=== PATIENT | male | born 1955 | race Caucasian/White ===

== ENCOUNTER → 2024-07-07 09:53 | Outpatient (BNVA) | payer OTHER, SELFPAY | PROVIDERS: Visit Provider Podiatrist Foot & Ankle Surgery | DX: M79.671 Pain in right foot (principal); M25.571 Pain in right ankle and joints of right foot | CPT/HCPCS: 73610; 73630; 99204 ==

== ENCOUNTER → 2024-10-13 10:22 | Outpatient (BNVA) | payer OTHER, SELFPAY | PROVIDERS: PCP Nurse Practitioner; Visit Provider Podiatrist Foot & Ankle Surgery | DX: M25.571 Pain in right ankle and joints of right foot (principal); G89.29 Other chronic pain; M19.071 Primary osteoarthritis, right ankle and foot | CPT/HCPCS: 99213 ==

== ENCOUNTER → 2025-01-05 09:55 | Outpatient (BNVA) | payer OTHER, SELFPAY | PROVIDERS: PCP Nurse Practitioner; Visit Provider Surgery | DX: K21.9 Gastro-esophageal reflux disease without esophagitis (principal) | CPT/HCPCS: 99204 ==

== ENCOUNTER 2025-01-06 10:00 | Outpatient (CLI) | payer OTHER, SELFPAY ==
--- NOTE | 2025-01-06 10:06 | FL_ITS ---
WS: [id number] FL barium swallow modifd 98528 REASON FOR EXAM: Other dysphagia FLUOROSCOPY TIME: 2min [id number] # OF SPOT FILMS: 0 TECHNIQUE: Examination was supervised by the speech therapy department. Patient was examined in the sitting upright lateral projection. The swallowing of multiple consistencies of barium was monitored fluoroscopically and video recorded. FINDINGS: There was no contrast penetration of the laryngeal vestibule and no aspiration. There was some impedance of the barium tablet in the thoracic esophagus which appeared to be due to mild dysmotility. No fixed obstruction noted. FL/FL barium swallow modifd 53584 IMPRESSION: A detailed report of the swallowing will be rendered by the speech therapy depa rtment. No laryngeal vestibule penetration or aspiration. Mild dysmotility of the thoracic esophagus.
== END 2025-01-06 10:01 | disposition home or self-care (01) ==
LOC: RAD 10:01
PROVIDERS: PCP Nurse Practitioner; Visit Provider Family Medicine
DX: K22.4 Dyskinesia of esophagus (principal); R13.19 Other dysphagia
CPT/HCPCS: 74230; 92611

== ENCOUNTER 2025-01-20 06:20 | Day surgery (SDC) | payer OTHER, SELFPAY ==
[2025-01-20 06:39] VITALS: BP 164/89; PULSE 90; RESP 18; TEMP 36.4; O2SAT 96; BMI 27.8
--- NOTE | 2025-01-20 07:03 | W.PM.OPSUD ---
Surgery/Procedure H&P Update DATE OF PROCEDURE: January 20, 2025 DATE H&P PERFORMED: 01/05/25 H&P UPDATE INFORMATION: I have reviewed H&P completed within last 30 days, I have examined patient prior to procedure, No changes to prior documentation, Changes to prior documentation as noted here and Risks and benefits of the procedure reviewed PLANNED PROCEDURE: Operation Date: 01/20/25 07:40 Proposed Procedures p EGD Dilation W/ Balloon 84475, R13.10(Not Applicable) - Selvin Montgomery MD
--- NOTE | 2025-01-20 07:09 | ANES.PREANE2 ---
Pre-Anesthetic Assessment Height/Weight: Height 1.8 m Weight 90.718 kg Temp Pulse Resp BP Pulse Ox O2 Del Method 97.5 F L 90 18 164/89 96 Room Air 01/20/25 06:39 01/20/25 06:39 01/20/25 06:39 01/20/25 06:39 01/20/25 06:39 01/20/25 06:39 Preop Diagnosis: dysphagia Operation Date: 01/20/25 07:40 Proposed Procedures p EGD Dilation W/ Balloon 78577, R13.10(Not Applicable) - Selvin Montgomery MD Was Beta Chente taken within 24 hours: Yes Was Clonidine taken within 24 hours: Yes Last intake: Intake Last Liquid Date 01/19/25 Last Liquid Time 21:30 Last Solid Date 01/19/25 Last Solid Time 18:30 Social Tobacco 1 PPD pack(s) per day 52 years pack years Exam alert, oriented x 3, clear to auscultation bilaterally and regular rate & rhythm Airway Submandibular: within normal limits Cervical ROM: within normal limits Mallampati: Class II Comments: Comments: intact History/ROS No significant history except as noted Pulmonary Chronic Obstructive Pulmonary Disease, Exertional Dyspnea, Sleep Apnea and Shortness of Breath CV/HEM Coronary Artery Disease, Hypertension and Peripheral Vascular Disease denies RI or cp. None reported Hepatic None reported GI None reported Metabolic Diabetes Mellitus (DM 2) and Morbid Obesity Musc/skel Osteoarthritis/DJD Neuropsych Cerebrovascular Accident (2 years ago - no residual) denies neuropathy Anesthetic Plan ASA status: 3 Anesthesia: MAC Risk of > 500 ml blood loss (7ml/kg in children): No Medications/Allergies Home Medications ?Medication ?Instructions ?Recorded ?Confirmed ?Last Taken ?Type [facility] AFO #1 ea 07/07/24 01/20/25 01/19/25 Rx clopidogrel 75 mg tablet (Plavix) 75 mg PO DAILY 07/07/24 01/20/25 01/14/25 History lisinopril 10 mg tablet 10 mg PO DAILY 07/07/24 01/20/25 01/19/25 History rocker bottom shoes #1 ea 07/07/24 01/20/25 01/19/25 Rx sitagliptin phosphate 25 mg tablet 25 mg PO DAILY 07/07/24 01/20/25 01/19/25 History (Januvia) bupropion HCl 150 mg 24 hr tablet, 150 mg PO QAM 10/13/24 01/20/25 01/19/25 History extended release (Wellbutrin XL) doxazosin 8 mg tablet (Cardura) 8 mg PO DAILY 10/13/24 01/20/25 01/19/25 History meloxicam 15 mg tablet 15 mg PO DAILY 10/13/24 01/20/25 01/19/25 History omeprazole 20 mg capsule,delayed 20 mg PO DAILY 10/13/24 01/20/25 01/19/25 History release famotidine 40 mg tablet 40 mg PO DAILY 01/05/25 01/20/25 01/19/25 History glimepiride 1 mg tablet 1 mg PO DAILY 01/05/25 01/20/25 01/19/25 History Allergies Allergy/AdvReac Type Severity Reaction Status Date / Time No Known Allergies Allergy Verified 01/17/25 11:14 Current Medications Generic Name Dose Route Start Last Admin Trade Name Freq PRN Reason Stop Dose Admin Sodium Chloride 1,000 mls @ 15 mls/hr 01/20/25 06:28 01/20/25 06:57 Sodium Chloride 0.9% IV 01/21/25 06:27 15 mls/hr .Q24H PRN Administration COLONOSCOPY FLUIDS PFSH Anesthesia Social History Smoking and tobacco/nicotine status: never used tobacco/nicotine Alcohol intake: never Substance/Drug Use: never
[2025-01-20 07:55] VITALS: BP 118/6; PULSE 79; RESP 10; TEMP 36.6; O2SAT 100
[2025-01-20 08:29] VITALS: BP 135/71; PULSE 86; RESP 16; O2SAT 97
== END 2025-01-20 08:41 | disposition home or self-care (01) ==
PROVIDERS: PCP Nurse Practitioner; Visit Provider Surgery
DX: K21.9 Gastro-esophageal reflux disease without esophagitis (principal); R13.10 Dysphagia, unspecified; J44.9 Chronic obstructive pulmonary disease, unspecified; I25.10 Atherosclerotic heart disease of native coronary artery without angina pectoris; I10 Essential (primary) hypertension; I73.9 Peripheral vascular disease, unspecified; E11.9 Type 2 diabetes mellitus without complications; E66.01 Morbid (severe) obesity due to excess calories; Z68.27 Body mass index [BMI] 27.0-27.9, adult; Z86.73 Personal history of transient ischemic attack (TIA), and cerebral infarction without residual deficits; G47.30 Sleep apnea, unspecified
CPT/HCPCS: 36416; 43239; 82962; 88305; J2704; J3010; J3490; J7030

== ENCOUNTER → 2025-02-15 09:25 | Outpatient (BNVA) | payer OTHER, SELFPAY | PROVIDERS: PCP Nurse Practitioner; Visit Provider Surgery | DX: Z09 Encounter for follow-up examination after completed treatment for conditions other than malignant neoplasm (principal) | CPT/HCPCS: 99213 ==

== ENCOUNTER 2025-02-20 10:22 | Emergency (ER) | payer OTHER, SELFPAY ==
--- OUTSIDE RECORDS SUMMARY | 2023-12-16 17:48 | XMS_ITS | Continuity of Care Document ---
Author Name [facility] Organization [facility] Care Team Providers Care Lithograph Press Feeder Name Role Phone [facility] Unavailable Unavailable Problems Problem Status Onset Date Classification Date Reported Comments Source Acute low back pain Active 03/05/2023 03/06/2023 65 [facility] [place] Low back pain Active 02/27/2023 02/28/2023 65 [facility] [employer] [place] Diarrhea Active 02/27/2023 02/28/2023 65 [facility] [place] Acute back pain with sciatica Active 02/27/2023 02/28/2023 65 [facility] [employer] [place] Transient cerebral ischemic attack, unsp Active 07/23/2022 [facility] [place] Type 2 diabetes mellitus without complic Active 07/23/2022 [facility] [place] Essential (primary) hypertension Active 07/23/2022 [facility] [employer] [place] Nicotine dependence, unspecified, uncomp Active 07/23/2022 [employer] [place] Type 2 diabetes mellitus with hyperglyce Active 07/23/2022 [facility] [employer] [place] Tachycardia, unspecified Active 07/23/2022 [facility] [place] Tachypnea, not elsewhere classified Active 07/23/2022 [facility] [place] Metabolic encephalopathy Active 07/23/2022 [facility] [employer] [place] Other disorders of electrolyte and fluid Active 07/23/2022 [facility] [employer] [place] Dehydration Active 07/23/2022 [facility] Transient ischemic attack (TIA) Active 07/23/2022 07/26/2022 65 [facility] [employer] [place] Encounter for medical screening examination Active 03/06/2022 03/07/2022 65 [facility] [employer] [place] Brain TIA Active 06/26/2021 06/29/2021 65 [employer] [place] Chest pressure Active 06/26/2021 06/29/2021 65 [facility] [employer] [place] Facial cellulitis Active 12/30/2020 12/31/2020 65 [facility] [employer] [place] Corneal abrasion, left 12/05/2019 12/06/2019 65 [facility] Eye pain 12/05/2019 12/06/2019 65 [facility] Diabetes(Confirmed) Active 03/08/2022 A H [place] - Cardiovascula r,[facility] Hypertension(Confir med) Active 03/08/2022 AH [place] - Cardiovascula [facility] BMI 30+ - obesity Active 04/12/2023 65 [facility] Diabetes Active 12/13/2023 65 [facility] Hypertension Active 12/13/[address] [facility] Lumbar stenosis with neurogenic claudication Active 12/13/2023 65 [facility] BMI 25-29 - overweight Active 12/13/2023 65 [facility] Lumbar radiculitis Active 12/13/2023 65 [facility] S/P lumbar laminectomy Active 12/13/2023 65 [facility] Medications Medication Details Route Status Patient Instructions Ordering Provider Order Date Source acetaminophen-H YDROcodone 325 mg-10 mg oral tablet 1 Tab, ORAL, Q4H, PRN Pain-Moderate (Scale 4-6), # 42 Tab, 0 Refill(s), Maintenance, [facility]acy: [id number], 180.34, cm, 07/14/23 14:12:00 PST, Height/Length (cm), 87.2, kg, 07/14/23 14:12:00 PST, Dose calculation weight (kg) Active 65 [facility] docusate sodium 100 mg oral capsule = 1 Cap, ORAL, BID, 0 Refill(s), Maintenance Active 65 [facility] MiraLax 17 gm, ORAL, DAILY, 0 Refill(s), Maintenance Active 65 [facility] tiZANidine 2 mg oral tablet See Instructions, 1-2 Tab ORAL Q8H PRN Muscle spasms, # 30 Tab, 0 Refill(s), Maintenance, [facility]: [id number], 180.34, cm, 06/30/23 8:42:00 PST, Height/Length (cm), 90.71, kg, 06/30/23 8:42:00 PST, Dose calculation weight (kg) Active [facility] scopolamine 1 mg/72 hr transdermal film, extended release 1 Patch, TOP, [id number], Apply behind ear night befor surgery, # 1 Patch, 0 Refill(s), Maintenance, [facility]: [facility] #[id number], 180.34, cm, 06/30/23 8:42:00 PST, Height/Length (cm), 90.71, kg, 06/30/23 8:42:00 PST, Dose calculation weight (kg) Active [facility] glimepiride 2 mg oral tablet 0 Refill(s), Maintenance Active [facility] empagliflozin 0.5 mg, DAILY, 0 Refill(s), Maintenance Active 65 [facility] gabapentin 300 mg oral capsule = 1 Cap, ORAL, TID, # 90 Cap, 0 Refill(s), Maintenance, [facility]acy: [facility] #[id number], 177.72, cm, 03/12/23 9:54:00 PDT, Height/Length (cm), 95.71, kg, 03/12/23 9:54:00 PDT, Dose calculation weight (kg) Active [facility] predniSONE 20 mg oral tablet = 2 Tab, ORAL, DAILY, # 10 Tab, 0 Refill(s), Acute, Pharmacy: [facility] #[id number], 180, cm, 03/05/23 10:46:00 PDT, Height/Length (cm), 95, kg, 03/05/23 10:46:00 PDT, Dose calculation weight (kg) Active 023 65 [facility] Boles 10 mg-325 mg oral tablet 1 Tab, ORAL, QBedtime, PRN for pain, X 7 Day(s), # 7 Tab, 0 Refill(s), Acute, Pharmacy: [facility] #[id number], 177.2, cm, 07/23/22 10:07:00 PST, Height/Length (cm), 95.71, kg, 02/27/23 14:05:00 PDT, Dose calculation weight (kg) Active [facility] Lancets Lancets, See Instructions, Glucometer - Check blood sugar before each meal and nightly, # 100 ea, 1 Refill(s), Maintenance, Pharmacy: [facility], Supply, 183, cm, 06/26/21 15:15:00 PST, Height/Length (cm), 100, kg, 06/26/21 15:15:00 PST, Dose calculation weight (kg) Active [place] - Cardiovascu lar,[facility],[address] [place] [address] Test strips Test strips, See Instructions, Glucometer - Check blood sugar before each meal and nightly, # 100 Strip, 1 Refill(s), Maintenance, Pharmacy: [facility], Supply, 183, cm, 06/26/21 15:15:00 PST, Height/Length (cm), 100, kg, 06/26/21 15:15:00 PST, Dose calculation weight (kg) Active [place] - Cardiovascu lar,[facility],[address] [place] [address] Glucometer Glucometer, See Instructions, Glucometer - Check blood sugar before each meal and nightly, # 1 ea, 0 Refill(s), Maintenance, Pharmacy: [facility], Supply, 183, cm, 06/26/21 15:15:00 PST, Height/Length (cm), 100, kg, 06/26/21 15:15:00 PST, Dose calculation weight (kg) Active [place] - Cardiovascu lar,[facility],[address] [place] [address] aspirin 81 mg oral delayed release tablet 81 mg, ORAL, DAILY, # 30 Tab, 0 Refill(s), Maintenance, Pharmacy: [facility], 183, cm, 06/26/21 15:15:00 PST, Height/Length (cm), 100, kg, 06/26/21 15:15:00 PST, Dose calculation weight (kg) Active [facility],[address] [place] [address] metFORMIN 500 mg oral tablet = 1 Tab, ORAL, BID, with meals, # 60 Tab, 0 Refill(s), Maintenance, Pharmacy: [facility], 183, cm, 06/26/21 15:15:00 PST, Height/Length (cm), 100, kg, 06/26/21 15:15:00 PST, Dose calculation weight (kg) Active [facility],[address] [place] [address] Plavix 75 mg oral tablet = 1 Tab, ORAL, DAILY, # 21 Tab, 0 Refill(s), Maintenance, Pharmacy: [facility], 183, cm, 06/26/21 15:15:00 PST, Height/Length (cm), 100, kg, 06/26/21 15:15:00 PST, Dose calculation weight (kg) Active [facility],[address] [place] [address] Aspirin 81 MG Enteric Coated Tablet 81 mg, ORAL, DAILY, # 30 Tab, 0 Refill(s), Maintenance, Pharmacy: [facility], 183, cm, 06/26/21 15:15:00 PST, Height/Length (cm), 100, kg, 06/26/21 15:15:00 PST, Dose calculation weight (kg) Active [facility] - Cardiovascu lar,[facility] Metformin hydrochloride 500 MG Oral Tablet = 1 Tab, ORAL, BID, with meals, # 60 Tab, 0 Refill(s), Maintenance, Pharmacy: [facility], 183, cm, 06/26/21 15:15:00 PST, Height/Length (cm), 100, kg, 06/26/21 15:15:00 PST, Dose calculation weight (kg) Active [place] - Cardiovascu lar,[facility] clopidogrel 75 MG Oral Tablet [Plavix] = 1 Tab, ORAL, DAILY, # 21 Tab, 0 Refill(s), Maintenance, Pharmacy: [facility], 183, cm, 06/26/21 15:15:00 PST, Height/Length (cm), 100, kg, 06/26/21 15:15:00 PST, Dose calculation weight (kg) Active [place] - Cardiovascu lar,[facility] buPROPion 75 mg oral tablet = 2 Tab, ORAL, BID, for smoking , 0 Refill(s), Maintenance Active [facility],[address] [place] [address] Bupropion Hydrochloride 75 MG Oral Tablet = 2 Tab, ORAL, BID, for smoking , 0 Refill(s), Maintenance Active [place] - Cardiovascu lar,[facility] doxazosin 8 mg oral tablet = 1 Tab, ORAL, QBedtime, 0 Refill(s), Maintenance Active [facility],[address] [place] [address] Doxazosin 8 MG Oral Tablet = 1 Tab, ORAL, QBedtime, 0 Refill(s), Maintenance Active [place] - Cardiovascu lar,[facility] omeprazole 20 mg oral delayed release capsule 1 Cap, ORAL, DAILY, 0 Refill(s), Maintenance Active [facility],[address] [place] [address] Omeprazole 20 MG Enteric Coated Capsule 1 Cap, ORAL, DAILY, 0 Refill(s), Maintenance Active [place] - Cardiovascu lar,[facility] Fish Oil = 2 Cap, ORAL, DAILY, 0 Refill(s), Maintenance Active [place] - Cardiovascu lar,[facility],[address] [place] [address] lisinopril 10 mg oral tablet = 1 Tab, ORAL, DAILY, 0 Refill(s), Maintenance Active [place] - Cardiovascu lar,[facility],[address] [place] [address] Vitamin D3 1,000 IntUnit, ORAL, BID, 0 Refill(s), Maintenance Active [place] - Cardiovascu lar,[facility],[address] [place] [address] clindamycin 300 mg oral capsule = 1 Cap, ORAL, Q6H, X 7 Day(s), # 28 Cap, Indication= Oropharyngeal infection, 0 Refill(s), Acute, Pharmacy: [facility], 180.34, cm, 12/30/20 7:26:00 PDT, Height/Length (cm), 99.79, kg, 07/10/21 7:26:00 PDT, Dose calculation weight (kg) Active 021 65 [facility] Ciprofloxacin 3 MG/ML Ophthalmic Solution 2 Drop, OPHTHALM, Q4H, X 5 Day(s), # 5 mL, 0 Refill(s), Acute Active 020 65 [facility] Docusate Sodium 100 MG Oral Capsule [Colace] = 1 Cap, ORAL, BID, PRN for constipation, # 20 Cap, 0 Refill(s), Maintenance Active 016 65 [facility] Acetaminophen 325 MG / Hydrocodone Bitartrate 5 MG Oral Tablet [Boles 5/325] 2 Tab, ORAL, Q4H, PRN for pain, 0 Refill(s) Active 011 65 [facility] ezetimibe 10 mg, ORAL, QBedtime, 0 Refill(s) Active 011 65 [facility] lisinopril 10 mg oral tablet 10 mg = 1 Tab, ORAL, DAILY, 0 Refill(s) Active 011 65 [facility] Allergies, Adverse Reactions, Alerts Substance Category Reaction Severity Reaction type Status Date Reported Comments Source tomato Assertion Propensity to adverse reactions to food Active 65 [facility] atorvastatin Assertion MUSCLES CRAMP UP. Drug allergy Active 65 [facility] Tomatoes Assertion Food allergy Active [place] - Cardiovas cular,[facility] [place],65 [facility] [place] Results Order Name Results Value Reference Range Date Interpretation Comments Source POC Gluc POCT - Glucose (Capillary) 141 mg/dL 77 - 113 07/18 H Device Code: 65 MS 2.2Facility: 0065Location: Med Surg 2Serial Number: [id number] perator Code: [id number] ator Name: BrodieBryan Lot: [id number] [facility] POC Gluc Sex assigned at Male 07/18 NA [facility] POC Gluc POCT - Glucose (Capillary) 140 mg/dL 77 - 113 07/18 H Device Code: 65 MS 2.1Facility: 0065Location: Med Surg 2Serial Number: [id number] perator Code: MefforDAOpera tor Name: Sheela Aleman ADisposable Lot: [id number] [facility] [place] POC Gluc Sex assigned at Male 07/18 NA [facility] [place] POC Gluc POCT - Glucose (Capillary) 174 mg/dL 77 - 113 07/18 H Device Code: 65 MS 2.2Facility: 0065Location: Med Surg 2Serial Number: [id number] perator Code: Phillip tor Name: Sheela Aleman [employer] Lot: [id number] [facility] [place] POC Gluc Sex assigned at Male 07/18 NA [facility] [place] POC Gluc POCT - Glucose (Capillary) 138 mg/dL 77 - 113 07/18 H Device Code: 65 MS 2.1Facility: 006Location: Med Surg 2Serial Number: [id number] perator Code: Mari [facility] Name: José Miguel [employer] priyanka Lot: [id number] [facility] [place] POC Gluc Sex assigned at Male 07/18 NA [facility] [place] POC Gluc POCT - Glucose (Capillary) 125 mg/dL 77 - 113 07/17 H Device Code: 65 PAULA 15Facility: 0065Location: S LABSerial Number: [id number] perator Code: [id number] [facility] Name: Roberto PamDisposable Lot: [id number] [facility] [place] POC Gluc Sex assigned at Male 07/17 NA [facility] [id number] Hemoglobin A1C by HPLC 7.0 % - <=6.5 06/30 H [place] [employer] A1c GuidelinesDia betes range: 6.5% or greaterPre-di abetes range: 5.7 - 6.4%Note: A1c test is not valid as a diabetes screening test for persons who are ? Have kidney or liver disease & #183; Have Iron- or [id number] anemia Have a hemolytic anemia or hemoglobin variants [facility] [place] [id number] Sex assigned at Male 06/30 NA [facility] [place] AutoDiff* Auto Neutrophil Percent 64.7 % 40.0 - 60.0 06/30 H [facility] [place] AutoDiff* Auto Neutrophil Absolute 4.5 K/mm3 1.6 - 6.6 06/30 NA [facility] [place] AutoDiff* Auto Lymphocyte Percent 26.9 % 20.0 - 40.0 06/30 NA [facility] [place] AutoDiff* Auto Lymphocyte Absolute 1.9 K/mm3 0.8 - 4.4 06/30 NA [facility] [place] AutoDiff* Auto Monocyte Percent 6.1 % 2.0 - 8.0 06/30 NA [facility] [place] AutoDiff* Auto Monocyte Absolute 0.4 K/mm3 0.1 - 0.9 06/30 NA [facility] [place] AutoDiff* Auto Eosinophil Percent 1.8 % 0.0 - 3.0 06/30 NA [facility] [place] AutoDiff* Auto Eosinophil Absolute 0.1 K/mm3 0.0 - 0.3 06/30 NA [facility] [place] AutoDiff* Auto Basophil Percent 0.5 % 0.0 - 2.0 06/30 NA [facility] [place] AutoDiff* Auto Basophil Absolute 0.0 K/mm3 0.0 - 0.2 06/30 NA [facility] [place] AutoDiff* Sex assigned at Male 06/30 NA [facility] [place] CBC WBC 6.9 K/mm3 4.0 - 11.0 06/30 NA [facility] [place] CBC RBC 4.59 M/mm3 4.40 - 6.30 06/30 NA [facility] [place] CBC HGB 14.2 gm/dL 14.0 - 18.0 06/30 NA [facility] [place] CBC HCT 41.2 % 42.0 - 52.0 06/30 L [facility] [place] CBC MCV 89.7 fL 80.0 - 97.0 06/30 NA [facility] [place] CBC MCH 30.8 pg 26.0 - 32.0 06/30 NA [facility] [place] CBC MCHC 34.4 gm/dL 31.0 - 36.0 06/30 NA [facility] [place] CBC RDW 12.8 % 11.5 - 14.5 06/30 NA [facility] [place] CBC PLT 179 K/mm3 140 - 440 06/30 NA [facility] [place] CBC Sex assigned at Male 06/30 NA [facility] [place] CMP Sodium Level 135 mmol/L 135 - 144 06/30 NA [facility] [place] CMP Potassium Level 3.9 mmol/L 3.7 - 5.2 06/30 NA [facility] [place] CMP Chloride Level 104 mmol/L 101 - 111 06/30 NA [facility] [place] CMP CO2/Carbon Dioxide 25 mmol/L 22 - 32 06/30 NA [facility] [place] CMP Anion Gap 6 06/30 NA [facility] CMP Glucose, Random 92 mg/dL 74 - 110 06/30 NA [facility] [place] CMP BUN 13 mg/dL 6 - 26 06/30 NA [facility] CMP Creatinine 1.2 mg/dL 0.5 - 1.4 06/30 NA [facility] [place] CMP Calcium Level 9.0 mg/dL 8.5 - 10.5 06/30 NA [facility] CMP Total Protein 7.4 gm/dL 6.2 - 8.0 06/30 NA [facility] CMP Albumin Level 4.2 gm/dL 3.5 - 4.8 06/30 NA [facility] CMP ALP 64 IntUnit/L 38 - 126 06/30 NA [facility] CMP ALT 18 IntUnit/L 12 - 65 06/30 NA [facility] [place] CMP AST 18 IntUnit/L 15 - 41 06/30 NA [facility] CMP Bilirubin, Total 0.6 mg/dL 0.0 - 1.2 06/30 NA [facility] CMP eGFR 65 mL/min/1.7 3m2 06/30 NA This eGFR equation utilizes the 2020 CKD-EPI creatinine equation.Stag es GFRNone or slight 1 >90 ml/minMild 2 60-89 ml/minModerat e 3 30-59 ml/minSevere 4 15-29 ml/minApproac pati Failure 5 <15 ml/min [facility] CMP Sex assigned at Male 06/30 NA [facility] PT PT - Patient 11.2 sec 9.5 - 11.4 06/30 NA [facility] PT PT - INR 1.0 0.9 - 1.2 06/30 NA Recommended therapeutic range using INR:1. Routine oral anticoagulant therapy: 2.0-3.02. Oral anticoagulant therapy for recurrent systemic embolism: 2.5-3.53. Oral anticoagulant therapy for patients with mechanical heart valves: 2.5-3.5 [facility] PT Sex assigned at Male 06/30 NA [facility] PTT PTT - Patient 28 sec 22 - 30 06/30 NA [facility] [place] PTT Sex assigned at Male 06/30 NA [facility] UACSIf UA - Source/Colle ct Type Urine Voided 06/30 NA [facility] UACSIf UA - Appearance Clear Clear 06/30 NA [facility] [place] UACSIf UA - Color Yellow 06/30 NA [facility] UACSIf UA - pH 6.0 5.0 - 8.0 06/30 NA [facility] UACSIf UA - Specific [place] 1.020 1.010 - 1.025 06/30 NA [facility] UACSIf UA - Protein NEGATIVE Negative 06/30 NA [facility] UACSIf UA - Glucose 3+ Negative 06/30 * [facility] UACSIf UA - Ketones TRACE Negative 06/30 * [facility] UACSIf UA - Bilirubin NEGATIVE Negative 06/30 NA [facility] UACSIf UA - Blood NEGATIVE Negative 06/30 NA [facility] UACSIf UA - Urobilinogen 0.2 0.0 - 2.0 06/30 NA [facility] UACSIf UA - Nitrites NEGATIVE Negative 06/30 NA [facility] UACSIf UA - Leukocyte Esterase NEGATIVE Negative 06/30 NA [facility] UACSIf Urine Culture Y/N No 06/30 NA [facility] UACSIf UA - WBC 1 /HPF 0 - 5 06/30 NA [facility] UACSIf UA - RBC 1 /HPF 0 - 2 06/30 NA [facility] UACSIf UA - Bacteria 0 /HPF None Seen 06/30 NA [facility] UACSIf UA - Epithelials, Squamous 3 /LPF 0 - 10 06/30 NA [facility] [place] UACSIf UA - Mucus PRES 06/30 NA [facility] [place] UACSIf Sex assigned at Male 06/30 NA [facility] [place] MRSASaNare MRSA Nares by PCR INST_NEGAT VEDA Negative 06/30 NA [facility] MRSASaNare S aureus Nares by PCR INST_NEGAT VEDA Negative 06/30 NA [facility] MRSASaNare Sex [facility] at [facility] 06/30 [facility] Gluc PO[facility] - Glucose (Capillary) 167 mg/dL 77 - 113 04/11 H Device Code: 65 LAB 2Facility: 0065Location: S LABSerial Number: [id number] perator Code: Cait winston Name: Marquez Gaines Lot: [id number] [facility] POC Gluc Sex assigned at Male 04/11 NA [facility] [place] AutoDiff* Auto Neutrophil Percent 52.8 % 40.0 - 60.0 02/27 [facility] [place] AutoDiff* Auto Neutrophil Absolute 3.1 K/mm3 1.6 - 6.6 02/27 [facility]* Auto Lymphocyte Percent 36.8 % 20.0 - 40.0 02/27 [facility] [place] AutoDiff* Auto Lymphocyte Absolute 2.2 K/mm3 0.8 - 4.4 02/27 [facility]* Auto Monocyte Percent 7.7 % 2.0 - 8.0 02/27 [facility]* Auto Monocyte Absolute 0.5 K/mm3 0.1 - 0.9 02/27 NA [facility] [place] AutoDiff* Auto Eosinophil Percent 2.1 % 0.0 - 3.0 02/27 NA [facility] [place] AutoDiff* Auto Eosinophil Absolute 0.1 K/mm3 0.0 - 0.3 02/27 NA [facility] [place] AutoDiff* Auto Basophil Percent 0.6 % 0.0 - 2.0 02/27 NA [facility] [place] AutoDiff* Auto Basophil Absolute 0.0 K/mm3 0.0 - 0.2 02/27 NA [facility] [place] AutoDiff* Sex assigned at Male 02/27 NA [facility] [place] CBC WBC 5.9 K/mm3 4.0 - 11.0 02/27 NA [facility] [place] CBC RBC 4.86 M/mm3 4.40 - 6.30 02/27 NA [facility] [place] CBC HGB 14.9 gm/dL 14.0 - 18.0 02/27 NA [facility] [place] CBC HCT 43.1 % 42.0 - 52.0 02/27 NA [facility] [place] CBC MCV 88.8 fL 80.0 - 97.0 02/27 NA [facility] [place] CBC MCH 30.7 pg 26.0 - 32.0 02/27 NA [facility] [place] CBC MCHC 34.6 gm/dL 31.0 - 36.0 02/27 NA [facility] [place] CBC RDW 13.2 % 11.5 - 14.5 02/27 NA [facility] [place] CBC PLT 150 K/mm3 140 - 440 02/27 NA [facility] [place] CBC Sex assigned at Male 02/27 NA [facility] [place] CMP Sodium Level 137 mmol/L 135 - 144 02/27 NA [facility] [place] CMP Potassium Level 3.8 mmol/L 3.7 - 5.2 02/27 NA [facility] [place] CMP Chloride Level 106 mmol/L 101 - 111 02/27 NA [facility] [place] CMP CO2/Carbon Dioxide 21 mmol/L 22 - 32 02/27 L [facility] [place] CMP Anion Gap 10 02/27 NA [facility] CMP Glucose, Random 211 mg/dL 74 - 110 02/27 H [facility] [place] CMP BUN 19 mg/dL 6 - 26 02/27 NA [facility] CMP Creatinine 1.2 mg/dL 0.5 - 1.4 02/27 NA [facility] CMP Calcium Level 9.4 mg/dL 8.5 - 10.5 02/27 NA [facility] CMP Total Protein 7.2 gm/dL 6.2 - 8.0 02/27 NA [facility] CMP Albumin Level 4.5 gm/dL 3.5 - 4.8 02/27 NA [facility] CMP ALP 47 IntUnit/L 38 - 126 02/27 NA [facility] CMP ALT 32 IntUnit/L 12 - 65 02/27 NA [facility] CMP AST 20 IntUnit/L 15 - 41 02/27 NA [facility] CMP Bilirubin, Total 0.7 mg/dL 0.0 - 1.2 02/27 NA [facility] CMP eGFR 65 mL/min/1.7 3m2 02/27 NA This eGFR equation utilizes the 2020 CKD-EPI creatinine equation.Stag es GFRNone or slight 1 >90 ml/minMild 2 60-89 ml/minModerat e 3 30-59 ml/minSevere 4 15-29 ml/minApproac pati Failure 5 <15 ml/min [facility] [place] CMP Sex assigned at Male 02/27 NA [facility] [place] CRP CRP C-Reactive Protein 1.4 mg/dL 0.0 - 0.9 02/27 H [facility] [place] CRP Sex assigned at Male 02/27 NA [facility] ESR Auto Sedimentatio n Rate Auto 7 mm/hr 0 - 12 02/27 NA Sedimentation rate testing was done using [employer] (photometric rheoscopy) methodology which is not affected by abnormal hemoglobin Hgb/hematocri t HCT and mean corpuscular volume (MCV). Therefore, if an ESR was done previously with the Westergren methodology, and is being used to follow the progress of a patient's inflammatory disease during treatment, there might be some variation from prior results, and the patient may need to have a new baseline established. [facility] ESR Auto Sex assigned at Male 02/27 NA [facility] Mg Magnesium Level 2.1 mg/dL 1.8 - 2.6 02/27 NA [facility] Mg Sex assigned at Male 02/27 NA [facility] TROPHS Troponin I High Sensitivity 8.0 pg/mL 0.0 - 20.0 02/27 NA Elevated TnI results can be seen in any condition resulting in myocardial cell damage. These include, but are not limited to myocardial infarction, myocarditis, trauma, cardiac surgery, and congestive heart failure. It may also be elevated in some patients with renal failure and pulmonary embolism. Please correlate results with all other clinical findings. In some cases, serial TnI testing may be helpful for interpretatio n.Reference Range:Males 0-20 pg/mL Females 0-15 pg/mL Interpretatio ns: Rule out:1. hsTNI of ? 4 pg/mL on the initial draw if the onset of chest pain has been > 3 hours. Check the HEART score.2. hsTNI of ? 5 on the initial draw and there is a delta of < 5 pg/mL at the 2 hour draw. Check the HEART score.Gutierrez Zone: 5-49 pg/mlGray Zone Interps: Perform 0, 2 and 4 hour serial draws and consider the clinical picture.A delta of >20 pg/mL over the span from T0 to T2, or from T0 to T4 is consistent with a rule in. Critical Values: Rule in: ? 50 pg/mlDraw protocol: 0-2-4 hours serial draws the reasoning here follows the chest pain triage, ie., the 0-2 interval is best to rule in exponential phase patients (>3 hours chest pain), the 0-4 hour serial draw for early phase (<3 hours chest pain). Everyone gets drawn at 0, 2 and 4 hours. Together, the three draws cover rule out, rule in and actionable deltas for early and late presenters.In terpretation: all decisions should be made based upon a complete clinical workup including: cTnI, risk stratificatio n (history/pres entation) and imaging evidence. [facility] [place] TROPHS Sex assigned at Male 02/27 NA [facility] [place] POC Gluc POCT - Glucose (Capillary) 180 mg/dL 77 - 113 07/26 H Device Code: 65 MS3.7Facility : 0065Location: Med Surg 3Serial Number: [id number] perator Code: [email or web address] catrachito Name: Ivory IbrahimMargarito aguilera Lot: [id number] [facility] [place] POC Gluc Sex [facility] at [facility] 07/26 [facility] Gluc POCT - Glucose (Capillary) 207 mg/dL 77 - 113 07/25 H Device Code: 65 LAB 5Facility: 006Location: S LABSerial Number: [id number] perator Code: [email or web address] jeronimo Name: Ashley Gao Anthony Lot: [id number] [facility] [place] POC Gluc Sex assigned at Male 07/25 NA [facility] [place] POC Gluc POCT - Glucose (Capillary) 203 mg/dL 77 - 113 07/25 H Device Code: 65 MS3.7Facility : 0065Location: Med Surg 3Serial Number: [id number] perator Code: Cobyperat or Name: MonserratMauro Lot: [id number] [facility] [place] POC Gluc Sex assigned at Male 07/25 [facility] [place] AutoDiff* Auto Neutrophil Percent 50.7 % 40.0 - 60.0 07/25 [facility] [place] AutoDiff* Auto Neutrophil Absolute 2.6 K/mm3 1.6 - 6.6 07/25 NA [facility] [place] AutoDiff* Auto Lymphocyte Percent 37.7 % 20.0 - 40.0 07/25 NA [facility] [place] AutoDiff* Auto Lymphocyte Absolute 1.9 K/mm3 0.8 - 4.4 07/25 [facility] [place] AutoDiff* Auto Monocyte Percent 8.3 % 2.0 - 8.0 07/25 H [facility] [place] AutoDiff* Auto Monocyte Absolute 0.4 K/mm3 0.1 - 0.9 07/25 NA [facility] [place] AutoDiff* Auto Eosinophil Percent 2.6 % 0.0 - 3.0 07/25 NA [facility] [place] AutoDiff* Auto Eosinophil Absolute 0.1 K/mm3 0.0 - 0.3 07/25 NA [facility] [place] AutoDiff* Auto Basophil Percent 0.7 % 0.0 - 2.0 07/25 NA [facility] [place] AutoDiff* Auto Basophil Absolute 0.0 K/mm3 0.0 - 0.2 07/25 NA [facility] [place] AutoDiff* Sex assigned at Male 07/25 NA [facility] [place] BMP Sodium Level 137 mmol/L 135 - 144 07/25 NA [facility] [place] BMP Potassium Level 3.9 mmol/L 3.7 - 5.2 07/25 NA [facility] [place] BMP Chloride Level 106 mmol/L 101 - 111 07/25 NA [facility] [place] BMP CO2/Carbon Dioxide 24 mmol/L 22 - 32 07/25 NA [facility] [place] BMP Anion Gap 7 07/25 NA [facility] [place] BMP Glucose, Random 209 mg/dL 74 - 110 07/25 H [facility] [place] BMP BUN 20 mg/dL 6 - 26 07/25 NA [facility] [place] BMP Creatinine 1.1 mg/dL 0.5 - 1.4 07/25 NA [facility] [place] BMP Calcium Level 8.9 mg/dL 8.5 - 10.5 07/25 NA [facility] [place] BMP Sex assigned at Male 07/25 NA [facility] [place] BMP GFR - Non >60 mL/min/1.7 3m2 07/25 NA 58 OR MORE [id number] MODERATELY [id number] SEVERELY [id number] OR LESS KIDNEY FAILURE [facility] [place] BMP GFR - >60 mL/min/1.7 3m2 07/25 NA [facility] [place] CBC WBC 5.2 K/mm3 4.0 - 11.0 07/25 NA [facility] [place] CBC RBC 4.54 M/mm3 4.40 - 6.30 07/25 NA [facility] CBC HGB 13.4 gm/dL 14.0 - 18.0 07/25 L [facility] CBC HCT 39.5 % 42.0 - 52.0 07/25 L [facility] CBC MCV 86.9 fL 80.0 - 97.0 07/25 NA [facility] CBC MCH 29.6 pg 26.0 - 32.0 07/25 NA [facility] CBC MCHC 34.0 gm/dL 31.0 - 36.0 07/25 NA [facility] CBC RDW 12.7 % 11.5 - 14.5 07/25 NA [facility] [place] CBC PLT 135 K/mm3 140 - 440 07/25 L [facility] [place] CBC [facility] - Glucose (Capillary) 247 mg/dL 77 - 113 07/25 H Device Code: 65 MS3.7Facility : 0065Location: Med Surg 3Serial Number: [id number] perator Code: candicenOperat or Name: Obed Germanantionette e Lot: [id number] [facility] [place] POC Gluc Sex assigned at Male 07/25 [facility] [place] POC Gluc POCT - Glucose (Capillary) 199 mg/dL 77 - 113 07/25 H Device Code: 65 LAB 5Facility: 0065Location: S LABSerial Number: [id number] perator Code: Benjamin winston Name: Tank Barry ble Lot: [id number] [facility] [place] POC Gluc Sex assigned at Male 07/25 [facility] [place] POC Gluc POCT - Glucose (Capillary) 279 mg/dL 77 - 113 07/24 H Device Code: 65 LAB 5Facility: 0065Location: S LABSerial Number: [id number] perator Code: Benjamin tor Name: Tank Barry ble Lot: [id number] [facility] [place] POC Gluc Sex assigned at Male 07/24 NA [facility] Gluc POCT - Glucose (Capillary) 220 mg/dL 77 - 113 07/24 H Device Code: 65 MS3.7Facility : 0065Location: Med Surg 3Serial Number: [id number] perator Code: Lauren or Name: Sami Shankar ble Lot: [id number] [facility] [place] POC Gluc Sex assigned at Male 07/24 NA [facility] [place] AutoDiff* Auto Neutrophil Percent 47.1 % 40.0 - 60.0 07/24 [facility] [place] AutoDiff* Auto Neutrophil Absolute 2.5 K/mm3 1.6 - 6.6 07/24 [facility] [place] AutoDiff* Auto Lymphocyte Percent 42.0 % 20.0 - 40.0 07/24 H [facility] [place] AutoDiff* Auto Lymphocyte Absolute 2.2 K/mm3 0.8 - 4.4 07/24 NA [facility] [place] AutoDiff* Auto Monocyte Percent 8.0 % 2.0 - 8.0 07/24 [facility] [place] AutoDiff* Auto Monocyte Absolute 0.4 K/mm3 0.1 - 0.9 07/24 [facility] [place] AutoDiff* Auto Eosinophil Percent 2.0 % 0.0 - 3.0 07/24 [facility] [place] AutoDiff* Auto Eosinophil Absolute 0.1 K/mm3 0.0 - 0.3 07/24 NA [facility] [place] AutoDiff* Auto Basophil Percent 0.9 % 0.0 - 2.0 07/24 [facility] [place] AutoDiff* Auto Basophil Absolute 0.0 K/mm3 0.0 - 0.2 07/24 [facility] [place] AutoDiff* Sex assigned at Male 07/24 NA [facility] [place] BMP Sodium Level 135 mmol/L 135 - 144 07/24 NA [facility] [place] BMP Potassium Level 3.4 mmol/L 3.7 - 5.2 07/24 L [facility] [place] BMP Chloride Level 105 mmol/L 101 - 111 07/24 NA [facility] [place] BMP CO2/Carbon Dioxide 22 mmol/L 22 - 32 07/24 NA [facility] [place] BMP Anion Gap 8 07/24 NA [facility] [place] BMP Glucose, Random 217 mg/dL 74 - 110 07/24 H [facility] [place] BMP BUN 20 mg/dL 6 - 26 07/24 NA [facility] [place] BMP Creatinine 1.1 mg/dL 0.5 - 1.4 07/24 NA [facility] [place] BMP Calcium Level 8.9 mg/dL 8.5 - 10.5 07/24 NA [facility] [place] BMP GFR - Non >60 mL/min/1.7 3m2 07/24 NA 58 OR MORE [id number] MODERATELY [id number] SEVERELY [id number] OR LESS KIDNEY FAILURE [facility] [place] BMP Sex assigned at Male 07/24 NA [facility] [place] BMP GFR - >60 mL/min/1.7 3m2 07/24 NA [facility] [place] CBC WBC 5.3 K/mm3 4.0 - 11.0 07/24 NA [facility] [place] CBC RBC 4.53 M/mm3 4.40 - 6.30 07/24 NA [facility] [place] CBC HGB 13.5 gm/dL 14.0 - 18.0 07/24 L [facility] [place] CBC HCT 39.5 % 42.0 - 52.0 07/24 L [facility] [place] CBC MCV 87.2 fL 80.0 - 97.0 07/24 NA [facility] [place] CBC MCH 29.8 pg 26.0 - 32.0 07/24 NA [facility] [place] CBC MCHC 34.1 gm/dL 31.0 - 36.0 07/24 NA [facility] [place] CBC RDW 12.7 % 11.5 - 14.5 07/24 NA [facility] [place] CBC PLT 135 K/mm3 140 - 440 07/24 L [facility] [place] CBC Sex assigned at Male 07/24 NA [facility] [place] LipidP Total Cholesterol 224 mg/dL - <=199 07/24 H [facility] [place] LipidP Triglyceride s 204 mg/dL - <=150 07/24 H [facility] [place] LipidP HDL Cholesterol 32 mg/dL >=45 07/24 L [facility] [place] LipidP LDL Cholesterol, Calc 151 mg/dL - <=130 07/24 H [facility] [place] LipidP Total Chol/HDL Ratio 7.0 07/24 NA MEN WOMEN3.4 1/2 AVERAGE RISK 3.35.0 AVERAGE RISK 4.49.6 2X AVERAGE RISK 7.124 3X AVERAGE RISK 11.1 [facility] [place] LipidP LDL/HDL Ratio 4.7 07/24 NA [facility] [place] LipidP VLDL Cholesterol, Calc 41 mg/dL 07/24 NA [facility] [place] LipidP Sex assigned at Male 07/24 NA [facility] [place] POC Gluc POCT - Glucose (Capillary) 266 mg/dL 77 - 113 07/24 H Device Code: 65 MS3.7Facility : 0065Location: Med Surg 3Serial Number: [id number] perator Code: TALITAOperat or Name: Maxine ShankartanDisposa ble Lot: [id number] [facility] [place] POC Gluc Sex assigned at Male 07/24 NA [facility] [place] POC Gluc POCT - Glucose (Capillary) 197 mg/dL 77 - 113 07/24 H Device Code: 65 MS3.7Facility : 0065Location: Med Surg 3Serial Number: [id number] perator Code: Shantela tor Name: Osei Jacobs ble Lot: [id number] [facility] [place] POC Gluc Sex assigned at Male 07/24 NA [facility] [place] POC Gluc POCT - Glucose (Capillary) 318 mg/dL 77 - 113 07/23 H Device Code: 65 MS3.7Facility : 0065Location: Med Surg 3Serial Number: [id number] perator Code: Nick winston Name: Osei Jacobs Lot: [id number] [facility] [place] POC Gluc Sex assigned at Male 07/23 [facility] [place] COVFLURSV Influenza A Agn Molecular NEGATIVE Negative 07/23 NA Assay performed by RT-PCR [facility] [place] COVFLURSV SARS-CoV-2 Source Álvaro genaz 07/23 NA [facility] [place] COVFLURSV Influenza B Agn Molecular NEGATIVE Negative 07/23 NA Assay performed by RT-PCR [facility] COVFLURSV Respiratory Syncytial Virus Molecular NEGATIVE Negative 07/23 NA Assay performed by RT-PCR [facility] COVFLURSV SARS-CoV-2 Molecular NEGATIVE Negative 07/23 NA Assay performed by RT-PCRThis test was performed under U.S. Food and Drug Administratio n (FDA) Emergency use Authorization (EUA). This test has been validated but the [facility] independent review of this validation is pending. [facility] [place] COVFLURSV Sex assigned at Male 07/23 NA [facility] [place] COVFLURSV [facility]? No 07[facility]23 [facility] COV[facility] Health Care Worker? No 07/23 [facility] COVFLURSV SARS-CoV-2 First test? No 07/23 [facility] COVFLURSV SARS-CoV-2 Is the Patient Hospitalized ? Yes 07/23 [facility] COVFLURSV SARS-CoV-2 Is the Patient in ICU? No 07/23 [facility] [place] COVFLURSV Symptomatic per CDC? No 07/23 [facility] [place] COVFLURSV SARS-CoV-2 Is the Patient ? No 07/23 [facility] DRUG11 AR UR - Amphetamines Scrn NEG Negative 07/23 NA [facility] DRUG[facility] AR UR - Barbiturates Scrn NEG Negative 07/23 NA [facility] DRUG11 AR UR - Benzodiazepi lanie Scrn NEG Negative 07/23 NA [facility] DRUG11 AR UR - Cannabinoids /THC Scrn NEG Negative 07/23 NA [facility] DRUG11 AR UR - Cocaine Scrn NEG Negative 07/23 NA [facility] DRUG11 AR UR - Methadone NEG Negative 07/23 NA [facility] DRUG11 AR UR - Opiates Scrn NEG Negative 07/23 NA [facility] DRUG11 AR UR - Phencyclidin e Scrn NEG Negative 07/23 NA [facility] DRUG11 AR UR - Footnote See Note 07/23 NA These urine drug screen results are intended for medical use only and do not purport to be adequate for legal purposes. Both false positives and false negatives occur. No attempt has been made to obtain consent or maintain chain of custody. For medical purposes only.Cutoff Concentration sAmphetamines ....... 1000 ng/mLBarbitur ates....... 200 ng/mLBenzodia zepines.... 200 ng/mLMarijuan a.......... 50 ng/mLCocaine. ........... 300 ng/mLMethadon e.......... 300 ng/mLOpiates. ........... 300 ng/mLPhencycl idine...... 25 ng/ml [facility] DRUG11 Sex assigned at Male 07/23 NA [facility] UACSIf UA - Source/Colle ct Type Urine Voided 07/23 NA [facility] UACSIf UA - Appearance CLER Clear 07/23 NA [facility] UACSIf UA - Color YEL 07/23 [facility] UACSIf UA - pH 5.0 5.0 - 8.0 07/23 NA [facility] UACSIf UA - Specific [place] >1.045 1.016 - 1.022 07/23 H [facility] UACSIf UA - Protein NEG Negative 07/23 NA [facility] [place] UACSIf UA - Glucose 3+ Negative 07/23 * [facility] [place] UACSIf UA - Ketones 1+ Negative 07/23 * [facility] [place] UACSIf UA - Bilirubin NEG Negative 07/23 NA [facility] [place] UACSIf UA - Blood NEG Negative 07/23 NA [facility] [place] UACSIf UA - Urobilinogen <2.0 <2.0 07/23 NA [facility] [place] UACSIf UA - Nitrites NEG Negative 07/23 NA [facility] [place] UACSIf UA - Leukocyte Esterase NEG Negative 07/23 NA [facility] [place] UACSIf UA - Ascorbic Acid NEG Negative 07/23 NA [facility] [place] UACSIf Urine Culture Y/N No 07/23 NA [facility] [place] UACSIf UA - WBC 1 /HPF 0 - 5 07/23 NA [facility] [place] UACSIf UA - RBC <1 /HPF 0 - 2 07/23 NA [facility] [place] UACSIf UA - Bacteria 0 None Seen 07/23 NA [facility] [place] UACSIf UA - Epithelials, Squamous 5 /LPF 07/23 NA [facility] [place] UACSIf UA - Mucus PRES 07/23 NA [facility] [place] UACSIf Sex assigned at Male 07/23 NA [facility] [place] UFent Scrn AR UR - Fentanyl NEGATIVE Negative 07/23 NA [facility] [place] UFent Scrn Sex assigned at Male 07/23 [facility] Gluc POCT - Glucose (Capillary) 355 mg/dL 77 - 113 07/23 H Device Code: 65 TRIAGE.1Facil ity: 0065Location: EDSerial Number: [id number] perator Code: Sunday catrachito Name: Kenney Olguin DDisposable Lot: [id number] [facility] [place] POC Gluc Sex assigned at Male 07/23 NA [facility] [id number] Hemoglobin A1C by HPLC 11.0 % - <=6.5 07/23 H [place] [employer] A1c GuidelinesDia betes range: 6.5% or greaterPre-di abetes range: 5.7 - 6.4%Note: A1c test is not valid as a diabetes screening test for persons who are ? Have kidney or liver disease & #183; Have Iron- or J97-sqmamtdpd anemia Have a hemolytic anemia or hemoglobin variants [facility] [id number] Sex assigned at Male 07/23 [facility] AutoDiff* Auto Neutrophil Percent 66.1 % 40.0 - 60.0 07/23 H [facility] AutoDiff* Auto Neutrophil Absolute 4.9 K/mm3 1.6 - 6.6 07/23 [facility] AutoDiff* Auto Lymphocyte Percent 26.4 % 20.0 - 40.0 07/23 [facility] AutoDiff* Auto Lymphocyte Absolute 2.0 K/mm3 0.8 - 4.4 07/23 [facility] AutoDiff* Auto Monocyte Percent 6.0 % 2.0 - 8.0 07/23 [facility] [place] AutoDiff* Auto Monocyte Absolute 0.4 K/mm3 0.1 - 0.9 07/23 [facility] AutoDiff* Auto Eosinophil Percent 1.0 % 0.0 - 3.0 07/23 [facility] AutoDiff* Auto Eosinophil Absolute 0.1 K/mm3 0.0 - 0.3 07/23 [facility] AutoDiff* Auto Basophil Percent 0.5 % 0.0 - 2.0 07/23 [facility] AutoDiff* Auto Basophil Absolute 0.0 K/mm3 0.0 - 0.2 07/23 [facility] AutoDiff* Sex assigned at Male 07/23 [facility] [place] CBC WBC 7.4 K/mm3 4.0 - 11.0 07/23 [facility] [place] CBC RBC 4.71 M/mm3 4.40 - 6.30 07/23 NA [facility] [place] CBC HGB 14.1 gm/dL 14.0 - 18.0 07/23 NA [facility] [place] CBC HCT 41.8 % 42.0 - 52.0 07/23 L [facility] [place] CBC MCV 88.7 fL 80.0 - 97.0 07/23 NA [facility] [place] CBC MCH 30.0 pg 26.0 - 32.0 07/23 NA [facility] [place] CBC MCHC 33.8 gm/dL 31.0 - 36.0 07/23 NA [facility] [place] CBC RDW 13.0 % 11.5 - 14.5 07/23 NA [facility] [place] CBC PLT 129 K/mm3 140 - 440 07/23 L [facility] [place] CBC Sex assigned at Male 07/23 NA [facility] [place] CMP Sodium Level 136 mmol/L 135 - 144 07/23 NA [facility] [place] CMP Potassium Level 3.8 mmol/L 3.7 - 5.2 07/23 NA [facility] [place] CMP Chloride Level 100 mmol/L 101 - 111 07/23 L [facility] [place] CMP CO2/Carbon Dioxide 25 mmol/L 22 - 32 07/23 NA [facility] [place] CMP Anion Gap 11 07/23 NA [facility] [place] CMP Glucose, Random 365 mg/dL 74 - 110 07/23 H [facility] [place] CMP BUN 22 mg/dL 6 - 26 07/23 NA [facility] [place] CMP Creatinine 1.3 mg/dL 0.5 - 1.4 07/23 NA [facility] [place] CMP Calcium Level 9.5 mg/dL 8.5 - 10.5 07/23 NA [facility] [place] CMP Total Protein 7.3 gm/dL 6.2 - 8.0 07/23 NA [facility] CMP Albumin Level 4.3 gm/dL 3.5 - 4.8 07/23 NA [facility] [place] CMP ALP 57 IntUnit/L 38 - 126 07/23 NA [facility] [place] CMP ALT 28 IntUnit/L 12 - 65 07/23 NA [facility] CMP AST 18 IntUnit/L 15 - 41 07/23 NA [facility] CMP Bilirubin, Total 0.9 mg/dL 0.0 - 1.2 07/23 NA [facility] [place] CMP Sex assigned at Male 07/23 NA [facility] CMP GFR - Non 58 mL/min/1.7 3m2 07/23 NA 60 OR MORE [id number] MODERATELY [id number] SEVERELY [id number] OR LESS KIDNEY FAILURE [facility] CMP GFR - >60 mL/min/1.7 3m2 07/23 NA [facility] ETOHMed Ethanol/Alco hol Level <0.008 gm/dL 07/23 NA This blood alcohol result is intended for medical use only and does not purport to be adequate for legal purposes. No attempt has been made to obtain consent, maintain chain of custody, or to confirm the result.Toxic level when value is greater than .4 gm/dL. [facility] [place] ETOHMed Sex assigned at Male 07/23 NA [facility] PT PT - Patient 10.7 sec 9.5 - 11.4 07/23 NA [facility] PT PT - INR 1.0 0.9 - 1.2 07/23 NA Recommended therapeutic range using INR:1. Routine oral anticoagulant therapy: 2.0-3.02. Oral anticoagulant therapy for recurrent systemic embolism: 2.5-3.53. Oral anticoagulant therapy for patients with mechanical heart valves: 2.5-3.5 [facility] PT Sex assigned at Male 07/23 NA [facility] AutoDiff* Auto Neutrophil Percent 50.4 % 40.0 - 60.0 03/07 NA [facility] AutoDiff* Auto Neutrophil Absolute 2.9 K/mm3 1.6 - 6.6 03/07 NA [facility] AutoDiff* Auto Lymphocyte Percent 37.9 % 20.0 - 40.0 03/07 NA [facility] AutoDiff* Auto Lymphocyte Absolute 2.2 K/mm3 0.8 - 4.4 03/07 NA [facility] [place] AutoDiff* Auto Monocyte Percent 8.4 % 2.0 - 8.0 03/07 H [facility] [place] AutoDiff* Auto Monocyte Absolute 0.5 K/mm3 0.1 - 0.9 03/07 NA [facility] [place] AutoDiff* Auto Eosinophil Percent 2.2 % 0.0 - 3.0 03/07 NA [facility] [place] AutoDiff* Auto Eosinophil Absolute 0.1 K/mm3 0.0 - 0.3 03/07 NA [facility] [place] AutoDiff* Auto Basophil Percent 1.1 % 0.0 - 2.0 03/07 NA [facility] [place] AutoDiff* Auto Basophil Absolute 0.1 K/mm3 0.0 - 0.2 03/07 NA [facility] [place] AutoDiff* Sex assigned at Male 03/07 NA [facility] [place] CBC WBC 5.8 K/mm3 4.0 - 11.0 03/07 NA [facility] [place] CBC RBC 4.83 M/mm3 4.40 - 6.30 03/07 NA [facility] [place] CBC HGB 14.4 gm/dL 14.0 - 18.0 03/07 NA [facility] [place] CBC HCT 42.6 % 42.0 - 52.0 03/07 NA [facility] [place] CBC MCV 88.2 fL 80.0 - 97.0 03/07 NA [facility] [place] CBC MCH 29.9 pg 26.0 - 32.0 03/07 NA [facility] [place] CBC MCHC 33.9 gm/dL 31.0 - 36.0 03/07 NA [facility] [place] CBC RDW 12.8 % 11.5 - 14.5 03/07 NA [facility] [place] CBC PLT 144 K/mm3 140 - 440 03/07 NA [facility] [place] CBC Sex assigned at Male 03/07 NA [facility] [place] CMP Sodium Level 131 mmol/L 135 - 144 03/07 L [facility] [place] CMP Potassium Level 4.2 mmol/L 3.7 - 5.2 03/07 NA [facility] CMP Chloride Level 99 mmol/L 101 - 111 03/07 L [facility] CMP CO2/Carbon Dioxide 23 mmol/L 22 - 32 03/07 NA [facility] CMP Glucose, Random 304 mg/dL 74 - 110 03/07 H [facility] CMP BUN 18 mg/dL 6 - 26 03/07 NA [facility] CMP Creatinine 1.3 mg/dL 0.5 - 1.4 03/07 NA [facility] CMP Calcium Level 9.1 mg/dL 8.5 - 10.5 03/07 NA [facility] CMP Total Protein 7.5 gm/dL 6.2 - 8.0 03/07 NA [facility] CMP Albumin Level 4.4 gm/dL 3.5 - 4.8 03/07 NA [facility] CMP ALP 55 IntUnit/L 38 - 126 03/07 NA [facility] CMP ALT 42 IntUnit/L 12 - 65 03/07 NA [facility] CMP AST 26 IntUnit/L 15 - 41 03/07 NA [facility] [facility] CMP Bilirubin, Total 1.0 mg/dL 0.0 - 1.2 03/07 NA [facility] CMP GFR - Non 58 mL/min/1.7 3m2 03/07 NA 58 OR MORE [id number] MODERATELY [id number] SEVERELY [id number] OR LESS KIDNEY FAILURE [facility] CMP GFR - >60 mL/min/1.7 3m2 03/07 NA [facility] CMP Sex assigned at Male 03/07 NA [facility] PT PT - Patient 10.6 sec 9.5 - 11.4 03/07 NA [facility] PT PT - INR 1.0 0.9 - 1.2 03/07 NA Recommended therapeutic range using INR:1. Routine oral anticoagulant therapy: 2.0-3.02. Oral anticoagulant therapy for recurrent systemic embolism: 2.5-3.53. Oral anticoagulant therapy for patients with mechanical heart valves: 2.5-3.5 [facility] PT Sex assigned at Male 03/07 NA [facility] POC Gluc POCT - Glucose (Capillary) 163 mg/dL 77 - 113 06/28 H Device Code: 65 MS3.7Facility : 0065Location: Med Surg 3Serial Number: [id number] perator Code: [id number] Name: Laureen Reyna Lot: [id number] [facility] POC Gluc Sex assigned at Male 06/28 NA [facility] AutoDiff* Auto Neutrophil Percent 41.6 % 40.0 - 60.0 06/28 NA [facility] AutoDiff* Auto Neutrophil Absolute 2.4 K/mm3 1.6 - 6.6 06/28 [facility] AutoDiff* Auto Lymphocyte Percent 46.9 % 20.0 - 40.0 06/28 H [facility] AutoDiff* Auto Lymphocyte Absolute 2.7 K/mm3 0.8 - 4.4 06/28 [facility] AutoDiff* Auto Monocyte Percent 8.1 % 2.0 - 8.0 06/28 H [facility] AutoDiff* Auto Monocyte Absolute 0.5 K/mm3 0.1 - 0.9 06/28 [facility] AutoDiff* Auto Eosinophil Percent 2.4 % 0.0 - 3.0 06/28 [facility] AutoDiff* Auto Eosinophil Absolute 0.1 K/mm3 0.0 - 0.3 06/28 [facility] AutoDiff* Auto Basophil Percent 1.0 % 0.0 - 2.0 06/28 [facility] AutoDiff* Auto Basophil Absolute 0.1 K/mm3 0.0 - 0.2 06/28 NA [facility] AutoDiff* Sex assigned at Male 06/28 NA [facility] BMP Sodium Level 136 mmol/L 135 - 144 06/28 NA [facility] BMP Potassium Level 3.9 mmol/L 3.7 - 5.2 06/28 NA [facility] BMP Chloride Level 103 mmol/L 101 - 111 06/28 NA [facility] BMP CO2/Carbon Dioxide 25 mmol/L 22 - 32 06/28 NA [facility] BMP Glucose, Random 137 mg/dL 74 - 110 06/28 H [facility] BMP BUN 19 mg/dL 6 - 26 06/28 NA [facility] BMP Creatinine 1.3 mg/dL 0.5 - 1.4 06/28 NA [facility] BMP Calcium Level 9.0 mg/dL 8.5 - 10.5 06/28 NA [facility] BMP GFR - Non 59 mL/min/1.7 3m2 06/28 NA 58 OR MORE [id number] MODERATELY [id number] SEVERELY [id number] OR LESS KIDNEY FAILURE [facility] BMP GFR - >60 mL/min/1.7 3m2 06/28 NA [facility] BMP Sex assigned at Male 06/28 NA [facility] CBC WBC 5.8 K/mm3 4.0 - 11.0 06/28 NA [facility] CBC RBC 4.83 M/mm3 4.40 - 6.30 06/28 NA [facility] CBC HGB 14.9 gm/dL 14.0 - 18.0 06/28 NA [facility] CBC HCT 43.8 % 42.0 - 52.0 06/28 NA [facility] CBC MCV 90.8 fL 80.0 - 97.0 06/28 NA [facility] CBC MCH 30.9 pg 26.0 - 32.0 06/28 NA [facility] CBC MCHC 34.0 gm/dL 31.0 - 36.0 06/28 NA [facility] CBC RDW 12.5 % 11.5 - 14.5 06/28 NA [facility] CBC PLT 161 K/mm3 140 - 440 06/28 NA [facility] CBC Sex assigned at Male 06/28 NA [facility] Mg Magnesium Level 2.0 mg/dL 1.8 - 2.6 06/28 NA [facility] Mg Sex assigned at Male 06/28 NA [facility] POC Gluc POCT - Glucose (Capillary) 155 mg/dL 77 - 113 06/28 H Device Code: 65 MS3.7Facility : 0065Location: Med Surg 3Serial Number: [id number] perator Code: Delilah winston Name: Uzma Fenton able Lot: [id number] [facility] POC Gluc Sex assigned at Male 06/28 NA [facility] UAComp UA - Source/Colle ct Type Urine Voided 06/27 NA [facility] UAComp UA - Appearance CLER Clear 06/27 NA [facility] UAComp UA - Color YEL 06/27 NA [facility] UAComp UA - pH 7.0 5.0 - 8.0 06/27 NA [facility] UAComp UA - Specific [place] 1.017 1.016 - 1.022 06/27 NA [facility] UAComp UA - Protein NEG mg/dL Negative 06/27 NA [facility] UAComp UA - Glucose 2+ Negative 06/27 * [facility] UAComp UA - Ketones NEG mg/dL Negative 06/27 NA [facility] UAComp UA - Bilirubin NEG Negative 06/27 NA [facility] UAComp UA - Blood 1+ Negative 06/27 * [facility] UAComp UA - Urobilinogen <2.0 EUnits/dL <2.0 06/27 NA [facility] UAComp UA - Nitrites NEG Negative 06/27 NA [facility] UAComp UA - Leukocyte Esterase NEG Negative 06/27 NA [facility] UAComp UA - Ascorbic Acid NEG Negative 06/27 NA [facility] UAComp UA - WBC 1 /HPF 0 - 5 06/27 NA [facility] UAComp UA - RBC <1 /HPF 0 - 2 06/27 NA [facility] UAComp UA - Bacteria 0 None Seen 06/27 NA [facility] UAComp UA - Epithelials, Squamous 0 /LPF 06/27 NA [facility] UAComp UA - Mucus PRES 06/27 NA [facility] UAComp Sex assigned at Male 06/27 NA [facility] AutoDiff* Auto Neutrophil Percent 40.9 % 40.0 - 60.0 06/27 [facility] [place] AutoDiff* Auto Neutrophil Absolute 2.3 K/mm3 1.6 - 6.6 06/27 [facility]* Auto Lymphocyte Percent 47.8 % 20.0 - 40.0 06/27 H [facility] AutoDiff* Auto Lymphocyte Absolute 2.6 K/mm3 0.8 - 4.4 06/27 [facility]* Auto Monocyte Percent 7.9 % 2.0 - 8.0 06/27 [facility] AutoDiff* Auto Monocyte Absolute 0.4 K/mm3 0.1 - 0.9 06/27 [facility]* Auto Eosinophil Percent 2.7 % 0.0 - 3.0 06/27 [facility] AutoDiff* Auto Eosinophil Absolute 0.2 K/mm3 0.0 - 0.3 06/27 [facility] AutoDiff* Auto Basophil Percent 0.7 % 0.0 - 2.0 06/27 [facility] AutoDiff* Auto Basophil Absolute 0.0 K/mm3 0.0 - 0.2 06/27 [facility] AutoDiff* Sex assigned at Male 06/27 [facility] BMP Sodium Level 134 mmol/L 135 - 144 06/27 L [facility] BMP Potassium Level 4.1 mmol/L 3.7 - 5.2 06/27 NA [facility] BMP Chloride Level 103 mmol/L 101 - 111 06/27 NA [facility] BMP CO2/Carbon Dioxide 24 mmol/L 22 - 32 06/27 NA [facility] BMP Glucose, Random 172 mg/dL 74 - 110 06/27 H [facility] BMP BUN 18 mg/dL 6 - 26 06/27 NA [facility] BMP Creatinine 1.3 mg/dL 0.5 - 1.4 06/27 NA [facility] BMP Calcium Level 8.6 mg/dL 8.5 - 10.5 06/27 NA [facility] BMP GFR - Non 59 mL/min/1.7 3m2 06/27 NA 60 OR MORE [id number] MODERATELY [id number] SEVERELY [id number] OR LESS KIDNEY FAILURE [facility] BMP GFR - >60 mL/min/1.7 3m2 06/27 NA [facility] BMP Sex assigned at Male 06/27 NA [facility] CBC WBC 5.5 K/mm3 4.0 - 11.0 06/27 NA [facility] CBC RBC 4.57 M/mm3 4.40 - 6.30 06/27 NA [facility] CBC HGB 14.1 gm/dL 14.0 - 18.0 06/27 NA [facility] CBC HCT 41.4 % 42.0 - 52.0 06/27 L [facility] CBC MCV 90.5 fL 80.0 - 97.0 06/27 NA [facility] CBC MCH 30.8 pg 26.0 - 32.0 06/27 NA [facility] CBC MCHC 34.1 gm/dL 31.0 - 36.0 06/27 NA [facility] CBC RDW 12.8 % 11.5 - 14.5 06/27 NA [facility] CBC PLT 153 K/mm3 140 - 440 06/27 NA [facility] CBC Sex assigned at Male 06/27 NA [facility] LipidP Total Cholesterol 225 mg/dL - <=199 06/27 H [facility] LipidP Triglyceride s 166 mg/dL - <=150 06/27 H [facility] LipidP HDL Cholesterol 34 mg/dL >=45 06/27 L [facility] LipidP LDL Cholesterol, Calc 158 mg/dL - <=130 06/27 H [facility] LipidP Total Chol/HDL Ratio 6.6 06/27 NA MEN WOMEN3.4 1/2 AVERAGE RISK 3.35.0 AVERAGE RISK 4.49.6 2X AVERAGE RISK 7.124 3X AVERAGE RISK 11.1 [facility] LipidP LDL/HDL Ratio 4.6 06/27 NA [facility] LipidP VLDL Cholesterol, Calc 33 mg/dL 06/27 NA [facility] LipidP Sex assigned at Male 06/27 NA [facility] Mg Magnesium Level 2.1 mg/dL 1.8 - 2.6 06/27 NA [facility] Mg Sex assigned at Male 06/27 [facility] Phos Phosphorus Level 4.0 mg/dL 2.4 - 4.2 06/27 NA [facility] Phos Sex assigned at Male 06/27 NA [facility] [id number] Patient From [facility]? No 06/27 NA [facility] [id number] Health Care Worker? No 06/27 [facility] [id number] SARS-CoV-2 Molecular INST_NEGAT VEDA Negative 06/27 NA Assay performed by RT-PCRThis test was performed under U.S. Food and Drug Administratio n (FDA) Emergency use Authorization (EUA). This test has been validated but the FDAs independent review of this validation is pending. [facility] [id number] Symptomatic per CDC? No 06/27 [facility] [id number] SARS-CoV-2 First test? Unknown 06/27 [facility] [id number] SARS-CoV-2 Is the Patient Hospitalized ? Yes 06/27 [facility] [id number] SARS-CoV-2 Is the Patient in ICU? No 06/27 NA [facility] [id number] SARS-CoV-2 Is the Patient ? No 06/27 NA [facility] [id number] Sex assigned at Male 06/27 [facility] [id number] Hemoglobin A1C by HPLC 8.5 % - <=6.5 06/26 H [place] [employer] A1c GuidelinesDia betes range: 6.5% or greaterPre-di abetes range: 5.7 - 6.4%Note: A1c test is not valid as a diabetes screening test for persons who are ? Have kidney or liver disease Have Iron- or H91-lbifufaol anemia ? Have a hemolytic anemia or hemoglobin variants [facility] [id number] Sex assigned at Male 06/26 [facility] [place] AutoDiff* Auto Neutrophil Percent 55.5 % 40.0 - 60.0 06/26 [facility] AutoDiff* Auto Neutrophil Absolute 3.3 K/mm3 1.6 - 6.6 06/26 [facility] AutoDiff* Auto Lymphocyte Percent 35.3 % 20.0 - 40.0 06/26 [facility] AutoDiff* Auto Lymphocyte Absolute 2.1 K/mm3 0.8 - 4.4 06/26 [facility] AutoDiff* Auto Monocyte Percent 6.1 % 2.0 - 8.0 06/26 [facility] AutoDiff* Auto Monocyte Absolute 0.4 K/mm3 0.1 - 0.9 06/26 [facility] AutoDiff* Auto Eosinophil Percent 2.1 % 0.0 - 3.0 06/26 [facility] AutoDiff* Auto Eosinophil Absolute 0.1 K/mm3 0.0 - 0.3 06/26 [facility] AutoDiff* Auto Basophil Percent 1.0 % 0.0 - 2.0 06/26 [facility] AutoDiff* Auto Basophil Absolute 0.1 K/mm3 0.0 - 0.2 06/26 NA [facility] AutoDiff* Sex assigned at Male 06/26 NA [facility] BNPep BNP B-Natriureti c Peptide 25 pg/mL 1 - 100 06/26 NA [facility] BNPep Sex assigned at Male 06/26 NA [facility] CBC WBC 5.9 K/mm3 4.0 - 11.0 06/26 NA [facility] CBC RBC 4.69 M/mm3 4.40 - 6.30 06/26 NA [facility] CBC HGB 14.5 gm/dL 14.0 - 18.0 06/26 NA [facility] CBC HCT 42.6 % 42.0 - 52.0 06/26 NA [facility] CBC MCV 90.9 fL 80.0 - 97.0 06/26 NA [facility] CBC MCH 30.9 pg 26.0 - 32.0 06/26 NA [facility] CBC MCHC 34.0 gm/dL 31.0 - 36.0 06/26 NA [facility] CBC RDW 12.5 % 11.5 - 14.5 06/26 NA [facility] CBC PLT 168 K/mm3 140 - 440 06/26 NA [facility] CBC Sex assigned at Male 06/26 NA [facility] CMP Sodium Level 135 mmol/L 135 - 144 06/26 NA [facility] CMP Potassium Level 4.2 mmol/L 3.7 - 5.2 06/26 NA [facility] CMP Chloride Level 101 mmol/L 101 - 111 06/26 NA [facility] CMP CO2/Carbon Dioxide 26 mmol/L 22 - 32 06/26 NA [facility] CMP Glucose, Random 194 mg/dL 74 - 110 06/26 H [facility] CMP BUN 19 mg/dL 6 - 26 06/26 NA [facility] CMP Creatinine 1.3 mg/dL 0.5 - 1.4 06/26 NA [facility] CMP Calcium Level 8.7 mg/dL 8.5 - 10.5 06/26 NA [facility] CMP Total Protein 6.9 gm/dL 6.2 - 8.0 06/26 NA [facility] CMP Albumin Level 4.1 gm/dL 3.5 - 4.8 06/26 NA [facility] CMP ALP 51 IntUnit/L 38 - 126 06/26 NA [facility] CMP ALT 33 IntUnit/L 12 - 65 06/26 NA [facility] CMP AST 26 IntUnit/L 15 - 41 06/26 NA [facility] CMP Bilirubin, Total 0.6 mg/dL 0.0 - 1.2 06/26 NA [facility] CMP GFR - Non 59 mL/min/1.7 3m2 06/26 NA 60 OR MORE [id number] MODERATELY [id number] SEVERELY [id number] OR LESS KIDNEY FAILURE [facility] CMP GFR - >60 mL/min/1.7 3m2 06/26 NA [facility] CMP Sex assigned at Male 06/26 [facility] PT PT - Patient 10.4 sec 9.5 - 11.4 06/26 NA [facility] PT PT - INR 1.0 0.9 - 1.2 06/26 NA Recommended therapeutic range using INR:1. Routine oral anticoagulant therapy: 2.0-3.02. Oral anticoagulant therapy for recurrent systemic embolism: 2.5-3.53. Oral anticoagulant therapy for patients with mechanical heart valves: 2.5-3.5 [facility] PT Sex assigned at Male 06/26 [facility] PTT PTT - Patient 27 sec 22 - 30 06/26 NA [facility] PTT Sex assigned at Male 06/26 [facility] Trop Troponin I <0.02 ng/mL 0.00 - 0.02 06/26 NA < 0.03 ng/ml: Within normal limits 0.03 - 0.5 ng/ml(*): Possible cardiac damage and increased risk. Use in conjunction with history, appropriate symptoms and/or ECG changes. Serial measurements may help asses possibility of myocardial infarction. >0.5 ng/ml: Suggestive of mycocardial infarction.(* ) Other non-acute coronary syndrome conditions, including tachycardia, coronary vasospasm, congestive heart failure, myocarditis, pulmonary embolus, sepsis, and cardiac surgery could result in myocardial damage and increased troponin levels.Tropon in I test results run on this system ([employer]XI) may have a positive bias. Careful correlation with clinical findings is advised before making a diagnosis of acute Myocardial infarction. [facility] Trop Sex assigned at Male 06/26 NA [facility] C Blood C Blood Final:No growth at 5 days. 12/30 Obtain blood cultures before starting antibiotics. Draw 2 sets, 5 minutes apart from 2 different sites. [facility] AutoDiff* Auto Neutrophil Percent 73.1 % 40.0 - 60.0 12/30 H [facility] AutoDiff* Auto Neutrophil Absolute 5.6 K/mm3 1.6 - 6.6 12/30 NA [facility] AutoDiff* Auto Lymphocyte Percent 14.9 % 20.0 - 40.0 12/30 L [facility] AutoDiff* Auto Lymphocyte Absolute 1.1 K/mm3 0.8 - 4.4 12/30 NA [facility] AutoDiff* Auto Monocyte Percent 10.3 % 2.0 - 8.0 12/30 H [facility] AutoDiff* Auto Monocyte Absolute 0.8 K/mm3 0.1 - 0.9 12/30 NA [facility] AutoDiff* Auto Eosinophil Percent 1.1 % 0.0 - 3.0 12/30 NA [facility] AutoDiff* Auto Eosinophil Absolute 0.1 K/mm3 0.0 - 0.3 12/30 NA [facility] AutoDiff* Auto Basophil Percent 0.6 % 0.0 - 2.0 12/30 NA [facility] AutoDiff* Auto Basophil Absolute 0.0 K/mm3 0.0 - 0.2 12/30 NA [facility] CBC WBC 7.7 K/mm3 4.0 - 11.0 12/30 NA [facility] CBC RBC 4.66 M/mm3 4.40 - 6.30 12/30 NA [facility] CBC HGB 14.7 gm/dL 14.0 - 18.0 12/30 NA [facility] CBC HCT 42.4 % 42.0 - 52.0 12/30 NA [facility] CBC MCV 90.9 fL 80.0 - 97.0 12/30 NA [facility] CBC MCH 31.4 pg 26.0 - 32.0 12/30 NA [facility] CBC MCHC 34.6 gm/dL 31.0 - 36.0 12/30 NA [facility] CBC RDW 13.3 % 11.5 - 14.5 12/30 NA [facility] CBC PLT 133 K/mm3 140 - 440 12/30 L [facility] CMP Sodium Level 133 mmol/L 135 - 144 12/30 L [facility] CMP Potassium Level 4.1 mmol/L 3.7 - 5.2 12/30 NA [facility] CMP Chloride Level 99 mmol/L 101 - 111 12/30 L [facility] CMP CO2/Carbon Dioxide 24 mmol/L 22 - 32 12/30 NA [facility] CMP Glucose, Random 312 mg/dL 74 - 110 12/30 H [facility] CMP BUN 14 mg/dL 6 - 26 12/30 NA [facility] CMP Creatinine 1.2 mg/dL 0.5 - 1.4 12/30 NA [facility] CMP Calcium Level 8.6 mg/dL 8.5 - 10.5 12/30 NA [facility] CMP Total Protein 7.4 gm/dL 6.2 - 8.0 12/30 NA [facility] CMP Albumin Level 4.0 gm/dL 3.5 - 4.8 12/30 NA [facility] CMP ALP 67 IntUnit/L 38 - 126 12/30 NA [facility] CMP ALT 24 IntUnit/L 12 - 65 12/30 NA [facility] CMP AST 15 IntUnit/L 15 - 41 12/30 NA [facility] CMP Bilirubin, Total 1.0 mg/dL 0.0 - 1.2 12/30 NA [facility] CMP GFR - Non >60 mL/min/1.7 3m2 12/30 NA 60 OR MORE [id number] MODERATELY [id number] SEVERELY [id number] OR LESS KIDNEY FAILURE [facility] CMP GFR - >60 mL/min/1.7 3m2 12/30 NA [facility] CRP CRP C-Reactive Protein 8.4 mg/dL 0.0 - 0.9 12/30 H [facility] Lactic Lactic Acid Level 1.5 mmol/L 0.0 - 2.0 12/30 NA [facility] C Blood C Blood Final:No growth at 5 days. 12/30 Obtain blood cultures before starting antibiotics. Draw 2 sets, 5 minutes apart from 2 different sites. [facility] Diagnostic Reports Report Value Date Source Lumbar Spine 1 Vw Lumbar Spine 1 Vw: 07/17/2023 7:24 AM ORDERING PROVIDER: Javier Orantes MD HISTORY: C-arm fluoroscopy for lumbar spine localization COMPARISON: MRI lumbar spine 03/22/2023. FINDINGS/ IMPRESSION: Lateral view demonstrates instruments of the lower lumbar spine. Fluoroscopy time: 2 seconds. A single fluoroscopic image. Signed by: Frank Mujica MD on 07/17/2023 12:44 PM Workstation ID: [id number] 07/17/2023 [facility] Chest 2 Vw Chest 2 Vw: 06/30/2023 10:26 AM ORDERING PROVIDER: Mauro Duque NP REASON FOR EXAM: :PRE OP SURGERY LUMBAR SPINE 07/17/2022;Pre-operative Examination Special Instructions: ABN SIGNED SURGERY LUMBAR SPINE DATE 07/17/2023 ADDITIONAL INFORMATION:None. COMPARISON: June 26, 2021 FINDINGS: The lungs are clear. . The heart is not enlarged.. No failure, lobar pneumonia or effusion is seen. . IMPRESSION: No acute cardiopulmonary process. Signed by: Julius Rai MD on 06/30/2023 10:41 AM Workstation ID: [id number] 06/30/2023 [facility] MRI Lumbar Spine WO Contrast MRI Lumbar Spine WO Contrast 03/22/2023 8:55 AM ORDERING PROVIDER: Christen Freeman MD CLINICAL INDICATION: Back pain that radiates to the legs for one year COMPARISON: Lumbar spine on CT angiography abdomen/pelvis 02/27/2023. TECHNIQUE: Sagittal T2 FRFSE, T1 FSE, STIR. Axial T2 FRFSE, T1 FSE. FINDINGS: T12-L1, L1-2, L2-3, L3-4, L4-5: There is no evidence of disc bulge/protrusion, spinal stenosis, narrowing of neural foramina or facet arthropathy. L5-S1: Slight broad disc bulge without disc protrusion or spinal stenosis. Normal neural foramina and facet joints. The bone marrow shows normal signal. The conus medullaris appears normal. The upper sacrum is unremarkable. The paraspinous tissues, imaged portions of the aorta and the kidneys appear normal. IMPRESSION: Mild degenerative disc disease at L5-S1. Otherwise unremarkable examination. Signed by: Frank Mujica MD on 03/22/2023 11:44 AM Workstation ID: [id number] 03/22/2023 [facility] CT Angio Abd Pelvis W Contrast CT Angio Abd Pelvis W Contrast: 02/27/2023 4:15 PM Ordering Provider: Sasha Dwyer NP HISTORY: Abdominal Aortic Aneurysm AAA SPECIAL INSTRUCTIONS:Diarrhea today Low back pain, hip pain and worsening right leg pain x2 weeks. Sleep disturbance. History of L4-L5 herniated disc pending surgery. History of abdominal aortic aneurysm. Assess for source of exacerbated LBP. TECHNIQUE:Axial CT sections. Isovue 370 , 80.00 . Axial scans were obtained. Sagittal and coronal reconstructions including 3D and/or MIPS were performed and reviewed. ESTIMATED CT EXAM DOSE(Dose-Length Product, DLP) 930.62 mGycm. CTDI (Vol) : 68.81. This scan is performed using automatic exposure control, radiation dose reduction algorithms, in order to maintain diagnostic quality images, while using lowest possible, patient dosed techniques. COMPARISON: March 06, 2022 FINDINGS: Moderate hiatal hernia again noted with esophageal gas characteristic of reflux. Hepatic low attenuation characteristic of steatosis. Borderline splenomegaly cephalocaudal extent 12.9 cm similar to prior. 80-60% origin stenosis celiac axis. No flow limiting lesion seen superior mesenteric artery. No acute bony process. Bridged osteophytes anteriorly L1-2 level again seen. Posterior annular bulge multiple levels. No definitive exiting nerve rootlet impingement.. 3.5 cm abdominal aortic aneurysm measure the level of the origin of the inferior mesenteric artery similar to prior. Mural thrombus noted within the lower abdominal aortic aneurysm anterior left laterally. Scattered atherosclerotic calcified plaque. 50% luminal narrowing distal left external iliac artery/proximal common femoral artery. Calcified plaque causing segmental 50-60% luminal narrowing superficial femoral arteries left greater than right with high-grade stenosis suspected left facial femoral artery axial image 251 series 2 mid to upper thigh. IMPRESSION: Cause of back pain not delineated. Other findings as above. Signed by: Julius Rai MD on 02/27/2023 4:55 PM Workstation ID: [id number] 02/27/2023 [facility] MRI Brain WO Contrast MRI Brain WO Contr ast ORDERING PROVIDER: Giovanni South DO HISTORY: Stroke/TIA SPECIAL INSTRUCTIONS: COMPARISON: June 27, 2021 TECHNIQUE: 1. Axial T2 FSE, T1 FSE, and DWI. 2. Coronal FLAIR and GRE. 3. Sagittal T2 FSE. FINDINGS: Resolution of restricted diffusion right basal ganglia region with signal characteristics of a lacunar infarct now noted in the region. No restricted diffusion of an acute ischemic event seen. No midline shift or mass effect. There is some increased signal T1 weighted imaging in area of hypoattenuation left caudate nucleus and curvilinear focus seen right basal ganglia and external capsule. These are new since prior and may represent small infarcts. No significant hemorrhagic component demonstrated on gradient echo imaging. Differential may include lesions with minimal accumulation such as Demetrio's disease or other. No midline shift or mass effect. Cortical atrophy noted. IMPRESSION: Residua of prior ischemic events along with some T1 weighted increased signal basal ganglia regions bilaterally as above without significant hemorrhage, hematoma, mass effect or restricted diffusion of an acute ischemic focus otherwise seen. Signed by: Julius Rai MD on 07/23/2022 8:25 AM Workstation ID: [id number] 07/23/[address] Brain WO Contrast EXAM: CT Head Without Intravenous Contrast. CLINICAL HISTORY: Stroke/tia- ALOC/passed out TECHNIQUE: Axial computed tomography images of the head/brain without intravenous contrast. COMPARISON: June 26, 2021 FINDINGS: BRAIN: No acute intraparenchymal hemorrhage. No mass lesion. No CT evidence for acute territorial infarct. There is a nonspecific, somewhat faint low-density area in the region of the caudate head on the left. This does appear to be new in the interval. No midline shift or extra-axial collection. VENTRICLES: No hydrocephalus. ORBITS: The orbits are unremarkable. SINUSES AND MASTOIDS: The paranasal sinuses and mastoid air cells are clear. SOFT TISSUES: No significant facial or scalp soft tissue swelling evident. No radiopaque foreign body is seen. BONES: No acute skull fracture. IMPRESSION: Low density area in the region of the caudate head on the left. No acute hemorrhage. Consider follow-up evaluation with MRI. /Norvell Per PQRS, all CT exams are performed using one or more of the following dose reduction techniques: automated exposure control, adjustment of the mA and/or kV according to patient size, or use of iterative reconstruction technique. CTDI Vol: 54.60. Total DLP: 908.80(mGy-cm). [facility] W Contrast EXAM: CTA Head and Neck with Intravenous Contrast. CLINICAL HISTORY: Stroke/tia - ALOC/passed out TECHNIQUE: Axial CTA images of the head and neck performed with intravenous contrast. Two-dimensional MIP and/or three-dimensional MIP and volume rendered reformations were performed. Note: Per PQRS, the description of internal carotid artery percent stenosis, including 0 percent or normal exam, is based on [place] Symptomatic Carotid Endarterectomy Trial (NASCET) criteria. CONTRAST: With; 370 isovue 70 mL COMPARISON: None provided. FINDINGS: CTA NECK: COMMON CAROTID ARTERIES No significant stenosis. No dissection or occlusion. Some intimal thickening noted distally with considerable adipose carotid disease at the bifurcations INTERNAL CAROTID ARTERIES No stenosis by NASCET criteria. No dissection or occlusion. Considerable atherosclerotic disease also at the cavernous ICA segments bilaterally which is fairly symmetric. VERTEBRAL ARTERIES No significant stenosis. No dissection or occlusion. CTA HEAD: ANTERIOR CEREBRAL ARTERIES No significant stenosis. No occlusion. No aneurysm. MIDDLE CEREBRAL ARTERIES No significant stenosis. No occlusion. No aneurysm. POSTERIOR CEREBRAL ARTERIES No occlusion. No aneurysm. There does appear to be a moderate stenosis of the P2 segment on the left BASILAR ARTERY No significant stenosis. No occlusion. No aneurysm. OTHER: SOFT TISSUES No acute finding. No masses or lymphadenopathy. BONES No acute osseous abnormality. IMPRESSION: Considerable cerebrovascular atherosclerotic disease throughout the head and neck. No hemodynamically significant carotid stenosis is identified. No acute large vessel occlusion or aneurysms. /Norvell Per PQRS, all CT exams are performed using one or more of the following dose reduction techniques: automated exposure control, adjustment of the mA and/or kV according to patient size, or use of iterative reconstruction technique. CTDI Vol: 11.50. Total DLP: 453.92(mGy-cm). Volume Administered: 70.00 ml of Isovue 370. . 07/23/[address] Lung Screening CT LUNG SCREENING WI THOUT INTRAVENOUS CONTRAST ORDERING PROVIDER: Ashlyn Ramirez MD INDICATION: Lung cancer screening. Lung screening COMPARISON: 07/04/2020 TECHNIQUE: Axial images of the chest performed without intravenous contrast. Sagittal and coronal reformations were reviewed. ESTIMATED CT EXAM DOSE(Dose-Length Product, DLP) 60.00 CTDI (Vol) : 1.53. Dose reduction techniques: Automated exposure control. Adjustment of the mA and kVp according to patient size. FINDINGS: Lungs and airways: Stable apical pleural-parenchymal densities likely scarring. Areas of platelike atelectasis in lung bases. No obstructing airway lesions identified. Centrilobular emphysema. Pleura: Normal appearance of the pleura without pleural thickening or effusion. Base of neck, mediastinum and heart: Moderate coronary calcium, normal size heart. No pericardial effusion. No aortic aneurysm. No mediastinal lymphadenopathy. Soft tissues: Normal appearance of soft tissues of the chest wall. Abdomen: Amorphous radiodense material in the gallbladder. Bones: The visualized bony thorax is within normal limits. IMPRESSION: 1. No significant focal lung lesions. 2. Centrilobular emphysema. 3. Moderate coronary calcium. 4. Radiodense debris in the gallbladder. Lung-RADS Category: LUNG RADS CATEGORY 1 NEGATIVE RECOMMENDATION: Continue annual lung screening CT in 12 months Modifier: None Signed by: Mauro Kat on 03/07/2022 2:02 PM Workstation ID: [id number] 03/07/[address] Angio Abd Aorta IllioFemoral Runoff EXAM: CTA Abdomen and Pelvis With Runoff to the Lower Extremities with Intravenous Contrast. CLINICAL HISTORY: Rt leg pain today while walking, h/o rt femoral artery occlusion, PAD TECHNIQUE: Axial CTA images of the abdomen, pelvis and lower extremities with intravenous contrast. Three-dimensional MIP/volume rendered formations were performed. CONTRAST: With; ISOVUE 370 90mL COMPARISON: None provided. FINDINGS: VASCULATURE: Aorta: No acute finding. Fusiform infrarenal abdominal aortic aneurysm measuring 3.1 x 3.4 cm. Mixed calcific and noncalcific atherosclerotic disease. Celiac trunk: No acute finding. No occlusion or significant stenosis. Superior mesenteric artery: No acute finding. No occlusion or significant stenosis. Inferior mesenteric artery: No acute finding. No occlusion or significant stenosis. Renal arteries: No acute finding. No occlusion or significant stenosis. Right iliac arteries: No acute finding. No occlusion or significant stenosis. Right femoral arteries: No acute finding. No occlusion or significant stenosis. Right popliteal artery No acute finding. No occlusion or significant stenosis. Right calf arteries: No acute finding. No occlusion or significant stenosis. Left iliac arteries No acute finding. No occlusion or significant stenosis. Left femoral arteries No acute finding. No occlusion or significant stenosis. Left popliteal artery: No acute finding. No occlusion or significant stenosis. Left calf arteries: No acute finding. No occlusion or significant stenosis. Lower thorax: No basilar airspace consolidation. ABDOMEN: Liver: Diffuse decreased parenchymal attenuation of the liver. No focal lesion. Gallbladder and bile ducts: No calcified stone. No ductal dilation. Pancreas: Unremarkable. No ductal dilation. Spleen: Unremarkable. Adrenals: No mass. Kidneys, ureters, and bladder: The kidneys enhance symmetrically. No hydronephrosis. No solid mass. Stomach and bowel: No obstruction. No bowel wall thickening. Mild scattered colonic diverticulosis. No CT evidence of acute diverticulitis. Abdominal wall and soft tissues: Unremarkable. Appendix: No CT evidence for appendicitis. Reproductive: Unremarkable. Peritoneum: No free fluid. No free air. Lymph nodes: No lymphadenopathy. Bones: No acute osseous abnormality. Postsurgical changes of the right calcaneus. Soft tissues: Left fat-containing inguinal hernia. Prominent right greater saphenous/medial lower extremity superficial veins. IMPRESSION: 1. Scattered calcific atherosclerotic disease of the aorta and peripheral branching vessels extending through the lower extremities with moderate to severe stenosis of the bilateral mid to distal femoral arteries. The bilateral popliteal and trifurcation vessels are patent. 2. Fusiform infrarenal abdominal aortic aneurysm measuring approximately 3.1 x 3.4 cm. 3. Hepatic steatosis /Norvell Per PQRS, all CT exams are performed using one or more of the following dose reduction techniques: automated exposure control, adjustment of the mA and/or kV according to patient size, or use of iterative reconstruction technique. CTDI Vol: 47.91. Total DLP: 2530.66(mGy-cm). Volume Administered: 90.00 ml of Isovue 370. . 03/07/2022 [facility] US Lower Ext Art Doppler Bilat US Lower Ext Art Doppler Bilat: 01/23/2022 1:32 PM ORDERING PROVIDER: Esau Seals MD HISTORY: RLE claudication , evaluation of arterial system, particularly RLE Initial encounter ADDITIONAL INFORMATION:None. COMPARISON: SHWETA January 21, 2022 FINDINGS: Extensive atherosclerotic calcifications throughout the visualized arterial system. Peak velocity right external iliac artery at 213 cm/s and distal superficial femoral artery at 213 cm/s with velocity just cephalad at 102 cm/s characteristic of a 50-75% stenosis mid to distal right superficial femoral artery. Monophasic waveforms seen below this level with multiphasic waveforms above. Elevated velocity left external iliac artery at 363 cm/s characteristic of 50-75% stenosis. Monophasic and biphasic waveforms seen left lower extremity. IMPRESSION: Flow limiting lesion right mid to distal superficial femoral artery and elevated velocity left external iliac artery characteristic of a flow limiting lesion with more distal lesions not excluded. Signed by: Julius Rai MD on 01/23/2022 3:05 PM Workstation ID: [id number] 01/23/2022 [facility] US Lower Ext Art Ltd SHWETA US Lower Ext Ar t Ltd SHWETA: 01/21/2022 1:35 PM ORDERING PROVIDER: Esau Seals MD HISTORY: RLE claudication , evaluation of arterial system, particularly RLE. TECHNIQUE: Brachial pressures are compared against ankle pressures. COMPARISON: None. FINDINGS/ IMPRESSION: The right ankle-brachial index is 1.08. Right toe-brachial index 0.51. The left ankle-brachial index is 0.94. Left toe-brachial index 0.44. NOTE: The normal ankle brachial index (SHWETA) is greater than 0.9. Limbs with single level occlusions usually have SHWETA greater than 0.5, and limbs with lesions at multiple levels have SHWETA less than 0.5. TBI (toe brachial index): The ratio of toe systolic pressure to brachial systolic pressure (TBI) ranges from 0.8 to 0.9 normally. The mean TBI is 0.2 to 0.5 in patients with intermittent claudication and 0.01 to 0.21 in patients with rest pain or ischemic ulceration. Signed by: Doug Eldridge MD on 01/21/2022 2:45 PM Workstation ID: [id number] 01/21/2022 [facility] US Lower Ext Vein Insufficiency Rt US Lower Ext Vein Insufficiency Rt 11/12/2021 12:14 PM ORDERING PROVIDER: Ashlyn Ramirez MD HISTORY: new varicose vein. TECHNIQUE: Grayscale, color Doppler flow, pulse wave Doppler flow and compression were obtained of the major veins of right lower extremity. COMPARISON: None available. FINDINGS: There is no DVT or deep venous reflux. There is no superficial venous reflux. There is positive SVT in the greater saphenous vein from the terminal valve through the thigh and a varicosity at the knee level. There is also reflux in the greater saphenous vein in the calf and a calf varicosity. Reflux is also seen into medial perforators in the lower leg. IMPRESSION: 1. No deep venous reflux of the right lower extremity. 2. Positive superficial venous reflux in the greater saphenous vein above and below the knee, varicosities and medial perforators. Signed by: Doug Eldridge MD on 11/13/2021 10:47 AM Workstation ID: [id number] 11/12/2021 [facility] US Aorta Ltd US Aorta Ltd: 8:56 AM ORDERING PROVIDER: Ashlyn Ramirez MD CLINICAL INDICATION: Aortic aneurysm evaluation COMPARISON: No relevant prior imaging. FINDINGS: Maximum aortic diameters (the upper limit of normal is 3.0 cm): Proximal: 2.8 cm Mid: 3.5 cm Distal: 3.2 cm There is normal appearance of the iliac arteries. IMPRESSION: Mild degree of abdominal aortic aneurysm, aorta up to 3.5 cm (normal up to 3 cm). Signed by: Frank Mujica MD on 09/06/2021 9:55 AM Workstation ID: [id number] 09/06/2021 [facility] MRI Brain WO Contrast MRI BRAIN WITHOUT CONTRAST ORDERING PROVIDER: Piotr Monaco MD HISTORY: Stroke/TIA. Sudden onset of slurred speech. COMPARISON: CT from yesterday. TECHNIQUE: Axial DWI, T2 FSE and T1 FSE, coronal T2 FLAIR and GRE, sagittal T2 FSE were obtained. FINDINGS: There is a small focus of restricted diffusion in the right basal ganglia. No mass lesion or mass effect. No intracranial hemorrhage. Mild involutional change. Imaged portions of the orbits, sella and mastoid air cells appear normal. Paranasal sinuses are unremarkable. Minimal periventricular chronic microvascular white matter ischemic disease. The major vascular flow voids are present. IMPRESSION: Acute right basal ganglia lacunar infarct. Signed by: Doug Eldridge MD on 06/27/2021 12:58 PM Workstation ID: [id number] 06/27/2021 [facility] Chest 2 Vw Chest 2 Vw 06/26/2021 3:53 PM ORDERING PROVIDER: Tia Trevino MD CLINICAL INDICATION: Chest pain, evaluate for pneumonia and cardiac size COMPARISON: 11/21/2009 FINDINGS: Lungs well-inflated. No infiltrate or effusion. Normal cardiac silhouette vasculature and slight uncoiling of the aorta. Bones and soft tissues unremarkable. IMPRESSION: 1. No cardiomegaly. 2. No pulmonary infiltrate or effusion. Signed by: Mauro Kat on 06/26/2021 4:29 PM Workstation ID: [id number] 06/26/2021 [facility] CT Angio Head/Neck W Contrast CT Angio Head/Neck W Contrast: 06/26/2021 3:36 PM ORDERING PROVIDER: Tia Trevino MD CLINICAL INDICATION: Resolved confusion and slurred speech, TIA COMPARISON: CT head without contrast 06/26/2021 TECHNIQUE: Omnipaque 350 100.00 ml intravenously without incident. Estimated CT exam dose: (Dose-Length Product, DLP) 505.61; CTDI (Vol) : 60.29. Sagittal and coronal reconstructions were performed and reviewed. Dose reduction techniques: Automated exposure control. Adjustment of the mA and kVp according to patient size. Post processing 2D, 3D or MIP (maximum intensity projection) were obtained and reviewed. FINDINGS: Brain: Normal enhancement is seen in the distal extracranial internal carotid arteries, skull base and cavernous carotid arteries. Scattered calcifications in the cavernous carotids. The anterior and middle cerebral arteries and branches demonstrate normal enhancement and morphology. The distal vertebral arteries demonstrate normal enhancement. The basilar artery demonstrates normal enhancement. The visualized cerebellar arteries and posterior cerebral arteries demonstrate normal enhancement. Enlarged right posterior communicating artery associated with a diminutive right P1 segment. No evidence of arterial occlusion is seen. No aneurysms or areas of significant narrowing are identified. Carotid measurements and indices obtained according to NASCET ([place] Symptomatic Carotid Endarterectomy Trial) criteria. Neck: The aorta and great vessel origins are widely patent without significant plaque. Intimal thickening and scattered noncalcified plaque in the right common carotid artery, bulb and proximal internal carotid artery. No significant areas of narrowing. Patent right vertebral artery. Intimal thickening, scattered calcified and noncalcified plaque left common carotid, bulb and proximal internal carotid artery. No areas of significant narrowing. Proximal left vertebral artery difficult to follow due to beam hardening artifact from some refluxed venous contrast in the area. Patency to the posterior fossa. No other significant findings are identified. IMPRESSION: 1. No large vessel occlusion or hemodynamically significant stenosis. Signed by: Mauro Kat on 06/26/2021 4:20 PM Workstation ID: [id number] 06/26/2021 [facility] CT Brain WO Contrast CT BRAIN WITHOUT CO NTRAST ORDERING PROVIDER: Tia Trevino MD HISTORY: Sudden onset of slurred speech Stroke/TIA r/o bleed COMPARISON: No relevant prior imaging examination is available at this time. TECHNIQUE: Axial images obtained through the brain without contrast. Sagittal and coronal reconstructions were performed and reviewed. ESTIMATED CT EXAM DOSE(Dose-Length Product, DLP) 845.29 CTDI (Vol) : 54.03. Dose reduction techniques: Automated exposure control. Adjustment of the mA and kvp according to patient size. FINDINGS: There is no evidence of acute large vessel infarct, intracranial hemorrhage, mass or extracerebral fluid collection. There is preservation of the gutierrez white matter differentiation. Mild chronic microvascular white matter ischemic disease in the deep white matter. Arteriosclerotic calcification of the parasellar carotid arteries. The ventricles are normal in size. The basal cisterns are patent. The paranasal sinuses, mastoid air cells and middle air cavities are normally aerated. The calvarium and scalp soft tissues are normal. IMPRESSION: 1. No acute intracranial abnormality. No CT evidence of acute large vessel infarct. Signed by: Doug Eldridge MD on 06/26/2021 4:04 PM Workstation ID: [id number] 06/26/[address] Neck W Contrast CT Neck W Contrast 12/30/2020 9:02 AM ORDERING PROVIDER: Christen Freeman MD INDICATION: Left facial swelling with extension into neck. Assess for deep space infection. COMPARISON: No relevant prior imaging examination is available at this time. TECHNIQUE: Axial images of the neck were performed during the administration of IV contrast listed below. Sagittal and coronal reformations were reviewed. Estimated examination dose (Dose-Length Product, DLP) 429.90. CTDI (Vol) : 13.61. Isovue 300 Dose reduction techniques: Automated exposure control. Adjustment of the mA and kVp according to patient size. FINDINGS: CUTANEOUS/SUBCUTANEOUS SOFT TISSUES: Subcutaneous infiltration of the left lower facial region overlying the mandible mildly infiltrating cheek musculature. No abnormal soft tissue gas is found. AERODIGESTIVE TRACT: Normal epiglottis. No airway narrowing. No abscess is found. TEETH: Several absent teeth. No bone abscess or lytic process identified. THYROID GLAND: The thyroid gland is normal in size without focal lesion. SALIVARY GLANDS: The right submandibular gland is absent. The left submandibular gland and bilateral parotids appear normal. LYMPH NODES: Borderline reactive prominence of left submandibular lymph nodes compared to the right side. VASCULAR: Calcified plaque at each carotid bifurcation without stenosis. CERVICAL SPINE: Small degenerative osteophytes at C4-5 and C5-6. BONY AIRSPACES: The visualized paranasal sinuses are clear. The mastoid air cells show normal aeration. ORBITS AND IMAGED PORTION OF THE BRAIN: The visualized intracranial compartment is unremarkable. The orbits are unremarkable. LUNG APICES: No evidence of mass or pleural fluid. SUPERIOR MEDIASTINUM: The superior mediastinum is unremarkable. IMPRESSION: Left facial subcutaneous edema with mild thickening of adjacent cheek musculature. No evidence of abscess or deep space infection. Absence of the right submandibular gland. Signed by: Frank Mujica MD on 12/30/2020 9:16 AM Workstation ID: [id number] 12/30/[address] [facility] [address] Lung Scre[address] CT LUNG SCREENING WI THOUT INTRAVENOUS CONTRAST ORDERING PROVIDER: Nasra Sánchez MD INDICATION: Lung cancer screening. lung screening COMPARISON: None available. TECHNIQUE: Axial images of the chest performed without intravenous contrast. Sagittal and coronal reformations were reviewed. Axial MIP images were also created and reviewed. ESTIMATED CT EXAM DOSE(Dose-Length Product, DLP) 57.00 CTDI (Vol) : 1.51. Dose reduction techniques: Automated exposure control. Adjustment of the mA and kVp according to patient size. FINDINGS: Lungs and airways: Apical scarring. Ill-defined hazy linear opacity lingular region posterior laterally likely scarring or atelectasis. Pleura: Normal appearance of the pleura without pleural thickening or effusion. Base of neck, mediastinum and heart: Coronary arterial calcifications. Esophageal gas. Query reflux. Soft tissues: Normal appearance of soft tissues of the chest wall. Abdomen: This study was performed without contrast and with lower than standard radiation dose. These factors reduce the sensitivity for detection of small lesions in the upper abdomen. Given these technical limitations, the limited views of the upper abdomen appear unremarkable. Bones: Degenerative spurring off the multiple vertebral body endplates. IMPRESSION: No suspicious mass or adenopathy seen. Scarring or atelectasis left lingular region and scarring either apex. Follow-up screening CT in one year recommended. Lung-RADS Category: 1 Modifier: Signed by: Julius Rai MD on 07/04/2020 11:12 AM Workstation ID: [id number] 07/04/2020 [facility] US Aorta Ltd US Aorta Ltd 04/28/2019 10:00 AM ORDERING PROVIDER: Ashlyn Ramirez MD CLINICAL INDICATION: Screening for cardiovascular disorders, rule out abdominal aortic aneurysm COMPARISON: None FINDINGS: Longitudinal and transverse grayscale echograms of the abdominal aorta were obtained as well as Doppler. Proximal aorta: 2.4 x 2.8 cm. Mid aorta: 3.0 x 2.5 cm. Distal aorta: 2.5 x 3.2 cm. Other: Mild plaque present. Iliac arteries mildly dilated 1.5 cm right and 1.3 cm left. IMPRESSION: 1. Small mid to distal abdominal aortic aneurysm measuring up to 3.2 cm diameter. 2. Bilateral small iliac artery aneurysms. Signed by: Mauro Kat on 04/28/2019 10:38 AM 04/28/2019 [facility] Consultation Notes Results Value Date Source Orthopedic Office/Clinic Note Patient: ALYSSIA CURRY Age: 67 years Legal Sex: MALE : 1955 Chief Complaint 1 1/2 month status post L3-5 Laminectomy History (History of Present Illness) Alyssia returns to office today for postop evaluation of lumbar spine. He is now 6 weeks status post laminectomy L3-L5 doing very well. He denies any radicular leg pain. He has slight weakness sensation in the right thigh and mild residual numbness of the left great toe. He is very happy with his improvement. He has just began physical therapy this week. He is not taking any medications for pain. Physical Exam Vitals and Measurements T: 97.9 F HR: 100 SpO2: 98% HT: 180 cm WT: 90.71 kg(Dose Calc Wt.) WT: 199.98 lb BMI: 28 kg/m2 General Appearance: No acute distress. Walks with normal gait. HEENT: Within normal limits. Skin: No rash present. Circulation: Normal pulses with good capillary refill. Calves supple. Negative Homans' sign. Psychiatric: Alert and interactive with normal affect. Neuromuscular: ROM not tested. Motor 5-/5 right quadriceps and sensory examination normal. DTR 2/4. Incision healing well without any signs of infection. Scales and Assessments Has advance directive: Yes (09/03/2023 14:42 PDT) Preferred Lab AMB: [facility] (09/03/2023 14:42 PDT) Patient has thoughts of self harm: No (09/03/2023 14:42 PDT) Patient has thoughts of harming others: No (09/03/2023 14:42 PDT) Physically hurt in last year: No (09/03/2023 14:42 PDT) Unsafe in living situation/relationship: No (09/03/2023 14:42 PDT) Assessment/Plan _ 1. S/P lumbar laminectomy (Other specified postprocedural states, Z98.890) L3-L5 laminectomy, 6 wks. Body mass index [BMI] 28.0-28.9, adult (Body mass index [BMI] 28.0-28.9, adult, Z68.28) Plan: Alyssia is doing very well following his surgical intervention. He was advised to continue and complete physical therapy over the next 6 weeks and then may transition into home exercise program. He may gradually increase his lifting by 5 pounds per month. He may begin riding his horses once he completes his PT. He will be seen back on as needed basis. I attest I have spent 33 minutes in the evaluation and management of this patient. I have reviewed the history and physical examination of the patient and discussed the management of care of this patient today. I have reviewed Rogelio Fuchs PA-C documentation for today's visit and agree with the documented findings and plan of care listed. Patient Education Back Exercises Allergies Tomatoes atorvastatin (MUSCLES CRAMP UP.) Problem List Active Problems BMI 25-29 - overweight Diabetes Hypertension Lumbar radiculitis Lumbar stenosis with neurogenic claudication S/P lumbar laminectomy Inactive Problems No qualifying data Medications Last Documented: 09/03/2023 New Prescriptions None Changed None Unchanged acetaminophen-HYDROcodone (acetaminophen-HYDROcodone 325 mg-10 mg oral tablet) 1 Tabs Oral EVERY 4 HOURS as needed Pain-Moderate (Scale 4-6). Refills: 0. cholecalciferol (Vitamin D3) 1,000 International unit Oral TWICE DAILY. clopidogrel (Plavix 75 mg oral tablet) 1 Tabs Oral DAILY for 21 Days. Refills: 0. docusate (docusate sodium 100 mg oral capsule) 1 Capsules Oral TWICE DAILY. doxazosin (doxazosin 8 mg oral tablet) 1 Tabs Oral AT BEDTIME. gabapentin (gabapentin 300 mg oral capsule) 1 Capsules Oral THREE TIMES A DAY. Refills: 0. glimepiride (glimepiride 2 mg oral tablet) metFORMIN (metFORMIN 500 mg oral tablet) 1 Tabs Oral TWICE DAILY. with meals. Refills: 0. Non-formulary medication (Glucometer) Glucometer - Check blood sugar before each meal and nightly. Refills: 0. Non-formulary medication (Lancets) Glucometer - Check blood sugar before each meal and nightly. Refills: 1. Non-formulary medication (Test strips) Glucometer - Check blood sugar before each meal and nightly. Refills: 1. omega-3 polyunsaturated fatty acids (Fish Oil) 2 Capsules Oral DAILY. omeprazole (omeprazole 20 mg oral delayed release capsule) 1 Capsules Oral DAILY. polyethylene glycol 3350 (MiraLax) 17 Gram Oral DAILY. scopolamine (scopolamine 1 mg/72 hr transdermal film, extended release) 1 Patches Top of the skin in one area Every 72 hour. Apply behind ear night befor surgery. Refills: 0. tiZANidine (tiZANidine 2 mg oral tablet) 1-2 Tab ORAL Q8H PRN Muscle spasms. Refills: 0. Discontinued None [id number] Male 09/03/2023 [facility] - [facility] [place] Orthopedic Office/Clinic Note Patient: ALYSSIA CURRY Age: 67 years Legal Sex: MALE : 1955 Referring Physician MD Quigley Samay Chief Complaint 2 wks s/p L3-5 lami History (History of Present Illness) . He is still using his walker however weaning off of it.Status post 2 weeks lumbar laminectomy L5. He states he is doing well with resolution of his leg pain has mild occasional feeling of tingling in his left great toe which is improving. He takes an occasional Boles Physical Exam Vitals and Measurements HR: 94 SpO2: 95% HT: 180.340 cm WT: 90.71 kg(Dose Calc Wt.) WT: 199.98 lb BMI: 27.89 kg/m2 General Appearance: No acute distress. Neurological: Grossly intact motor and sensory examination. strength of the lower extremities is grossly intact in all muscle groups including flexion-extension of the ankles knees and hips sensation is intact in all lumbar dermatomes. Gait is intact Wound is intact and healing well without signs of infection Skin: No rash present. Psychiatric: Alert and interactive with normal affect. Scales and Assessments Has advance directive: Yes (07/28/2023 11:21 PST) Preferred Lab AMB: Hospital Laboratory (07/28/2023 11:21 PST) Assessment/Plan _ 1. Lumbar radiculitis (Radiculopathy, lumbar region, M54.16) Ordered: Physical Therapy - Outpatient Rx, = Evaluation and Treatment, Other/Additional, Lumbar and S/P L3-L5 laminectomy Soft Tissue Mobilization Modalities as indicated Core Stabilization Exercise Program Aerobic Reconditioning, Next Available, Twice a Week, 6 Weeks, Physical Therapy 2. S/P lumbar laminectomy (Other specified postprocedural states, Z98.890) Ordered: Physical Therapy - Outpatient Rx, = Evaluation and Treatment, Other/Additional, Lumbar and S/P L3-L5 laminectomy Soft Tissue Mobilization Modalities as indicated Core Stabilization Exercise Program Aerobic Reconditioning, Next Available, Twice a Week, 6 Weeks, Physical Therapy Body mass index [BMI] 27.0-27.9, adult (Body mass index [BMI] 27.0-27.9, adult, Z68.27) Patient is doing well. I recommend he continue to wean off of his pain medication as well as a walker. He can start physical therapy in the next 4 to 6 weeks and follow-up with us in 6 weeks sooner for any problems. Patient Instructions Added to bending twisting and lifting at this time can shower but should not soak his wound Patient Education We have discussed indication for physical therapy in the future Follow-Up Weeks Allergies Tomatoes atorvastatin (MUSCLES CRAMP UP.) Problem List Active Problems BMI 25-29 - overweight Diabetes Hypertension Lumbar radiculitis Lumbar stenosis with neurogenic claudication S/P lumbar laminectomy Inactive Problems No qualifying data Medications Last Documented: 07/28/2023 New Prescriptions None Changed None Unchanged acetaminophen-HYDROcodone (acetaminophen-HYDROcodone 325 mg-10 mg oral tablet) 1 Tabs Oral EVERY 4 HOURS as needed Pain-Moderate (Scale 4-6). Refills: 0. cholecalciferol (Vitamin D3) 1,000 International unit Oral TWICE DAILY. clopidogrel (Plavix 75 mg oral tablet) 1 Tabs Oral DAILY for 21 Days. Refills: 0. docusate (docusate sodium 100 mg oral capsule) 1 Capsules Oral TWICE DAILY. doxazosin (doxazosin 8 mg oral tablet) 1 Tabs Oral AT BEDTIME. gabapentin (gabapentin 300 mg oral capsule) 1 Capsules Oral THREE TIMES A DAY. Refills: 0. glimepiride (glimepiride 2 mg oral tablet) metFORMIN (metFORMIN 500 mg oral tablet) 1 Tabs Oral TWICE DAILY. with meals. Refills: 0. Non-formulary medication (Glucometer) Glucometer - Check blood sugar before each meal and nightly. Refills: 0. Non-formulary medication (Lancets) Glucometer - Check blood sugar before each meal and nightly. Refills: 1. Non-formulary medication (Test strips) Glucometer - Check blood sugar before each meal and nightly. Refills: 1. omega-3 polyunsaturated fatty acids (Fish Oil) 2 Capsules Oral DAILY. omeprazole (omeprazole 20 mg oral delayed release capsule) 1 Capsules Oral DAILY. polyethylene glycol 3350 (MiraLax) 17 Gram Oral DAILY. scopolamine (scopolamine 1 mg/72 hr transdermal film, extended release) 1 Patches Top of the skin in one area Every 72 hour. Apply behind ear night befor surgery. Refills: 0. tiZANidine (tiZANidine 2 mg oral tablet) 1-2 Tab ORAL Q8H PRN Muscle spasms. Refills: 0. Discontinued None [id number] Male 07/28/2023 [facility] Progress Note Patient: ANNIA CURRY Age: 67 years Legal Sex: MALE : 1955 _ Called and spoke with the patient following his lumbar laminectomy L3-L5. He is doing well with incisional pain only and resolution of leg symptoms. He is ambulating and voiding well. No BM as of yet, but passing flatus. He will worm picker enema and/or mag citrate today if no success. His wound is clean and dry and he will be seen as planned for postop visit in one week. [id number] Male 07/21/2023 [facility] Discharge summary Patient: ALYSSIA CURRY Age: 67 years Legal Sex: MALE : 1955 _ Admit Date: 0 07/17/23 05:59 ? D ischarge Date: Reason For Visit: 6 6207, 16767,L3, L5 laminectomy, m54.16, M48.062, Lumbar Stenosis Discharge Location: Home Physicians Involved With Care A ttending: MD Lamberto, Javier Emmanuel onsulting: Madyson stallworth NP, Mauro Raza? C onsulting: Cholo cobb MD, Obed Emmanuel onsulting: Haseeb granados MD, Tj frances Care: ? MD Soraida, Luiza PRIMARY DISCHARGE DIAGNOSIS: _Lumbar spinal stenosis SECONDARY DISCHARGE DIAGNOSIS: _ ACTIVE PROBLEM LIST/PMH: BMI 25-29 - overweight Current smoker Diabetes Hypertension Lumbar radiculitis Lumbar stenosis with neurogenic claudication Readiness for discharge Tobacco user PROCEDURES ON ADMISSION: Lumbar Laminectomy CONSULTATIONS DURING THIS ADMISSION: None COMPLICATIONS: None PROGNOSIS: Good DISPOSITION: H ome with the care of family. FOLLOW UP: Dr. Javier Orantes as scheduled, or call to make/verify appointment. [facility] [place] . ALLERGIES: atorvastatin (MUSCLES CRAMP UP.) Tomatoes DISCHARGE MEDICATIONS: Discharge Medications (16) acetaminophen-HYDROcodone 325 mg-10 mg oral tablet 1 Tab, PRN, ORAL, Q4H ( Ordered 07/18/23) docusate sodium 100 mg oral capsule 1 00 mg = 1 Cap, ORAL, BID ( Ordered 07/18/23) doxazosin 8 mg oral tablet 8 mg = 1 Tab, ORAL, QBedtime ( Ordered 06/27/21) Fish Oil 2 Cap, ORAL, DAILY ( Ordered 06/27/21) gabapentin 300 mg oral capsule 3 00 mg = 1 Cap, ORAL, TID ( Ordered 03/13/23) glimepiride 2 mg oral tablet (Ordered 06/30/23) Glucometer S ee Instructions ( Ordered 06/28/21) Lancets S ee Instructions ( Ordered 06/28/21) metFORMIN 500 mg oral tablet 5 00 mg = 1 Tab, ORAL, BID ( Ordered 06/28/21) MiraLax 1 7 gm = 1 Pkt, ORAL, DAILY ( Ordered 07/18/23) omeprazole 20 mg oral delayed release capsule 2 0 mg = 1 Cap, ORAL, DAILY ( Ordered 06/27/21) Plavix 75 mg oral tablet 7 5 mg = 1 Tab, ORAL, DAILY, X 21 Day(s) ( Ordered 06/28/21) scopolamine 1 mg/72 hr transdermal film, extended release 1 Patch, TOP, [id number] ( Ordered 06/30/23) Test strips S ee Instructions ( Ordered 06/28/21) tiZANidine 2 mg oral tablet S ee Instructions ( Ordered 06/30/23) Vitamin D3 1 ,000 IntUnit, ORAL, BID ( Ordered 06/27/21) HYGIENE: Patient may shower after the third post-operative day. No baths or soaking the wound. Change dressing as instructed. DIET: Resume home diet. ACTIVITY: Refer to post-op care instruction sheet for detail. Wear brace if issued as instructed. Progress ambulation on even level surfaces with a goal of 30 minutes a day. No lifting bending or twisting activity. HOSPITAL COURSE: Patient was admitted post-operatively to the [facility]. The patient was covered perioperatively with IV antibiotics as per SCIP protocol. Pain management consisted ofPCA n arcotics and progressed to po medications with good control. The patient progressed to O OB activity with nursing, physical and occupational therapies. H emovac drain was discontinued on post-op day 1 and the dressing was changed. The incision remained clean dry and intact. The patient was tolerating a regular diet, voiding after the burkett was discontinued, passing flatus and had a BM. Vitals were stable and the patient was discharged in stable condition. Electronically signed by: MD Orantes Joseph Martin Signed on: 18-Jul-2023 13:34 PST 07/18/2023 65 [facility] Progress note Patient: ALYSSIA CURRY Age: 67 years Legal Sex: MALE : 1955 _ INTERVAL EVENTS/HISTORY: Pain is controlled. No significant leg pain or weakness. Legs feel better already .? Ambulated yesterday and h as voided. INPATIENT MEDICATIONS: Scheduled: ceFAZolin 1 g Inj 2 gm 2 Vial, IV, Q8H cholecalciferol (D3) 25 mcg (1,000 IU) Tab 2 5 mcg 1 Tab, ORAL, BID docusate sodium 100 mg Cap 1 00 mg 1 Cap, ORAL, BID gabapentin 300 mg Cap 3 00 mg 1 Cap, ORAL, TID insulin lispro (Admelog) 100 units/mL, 3 mL MDV c orrection scale, SUBQ, AC&Bed pantoprazole 40 mg EC Tab 4 0 mg 1 Tab, ORAL, DAILY polyethylene glycol Pwd Oral Soln 17 gm 1 7 gm 1 Pkt, ORAL, DAILY scopolamine 1.5 mg (delivers 1 mg/ 72 hr) 1 Patch, TOP, [id number] sodium chloride 0.9%, 10 mL Flush 1 0 mL, IV FLUSH, Q12H sodium chloride 0.9%, 10 mL Flush 1 0 mL, IV FLUSH, Q12H terazosin 5 mg Cap 1 0 mg 2 Cap, ORAL, DAILY Continuous: HYDROmorphone 6 mg + sodium chloride 0.9% premix 30 mL 3 0 mL, IV lactated ringers 1,000 mL 1 ,000 mL, IV, 75 mL/hr NaCl 0.45% + KCl 20 mEq 1,000 mL 1 ,000 mL, IV, 125 mL/hr sodium chloride 0.9% 250 mL 2 50 mL, IV, 100 mL/hr sodium chloride 0.9% 250 mL 2 50 mL, IV, 100 mL/hr sodium chloride 0.9% 250 mL 2 50 mL, IV, 100 mL/hr sodium chloride 0.9% 250 mL 2 50 mL, IV, 100 mL/hr PRN: acetaminophen 500 mg Tab 5 00 mg 1 ea, ORAL, Q6H bisacodyl 10 mg Supp 1 0 mg 1 Supp, RECTAL, DAILY calcium carbonate 500 mg Chew Tab 5 00 mg 1 Tab, CHEW, Q6H Cepacol sore throat menthol Juno # 1 1 Lozenge, ORAL, Q2H diphenhydrAMINE 25 mg Cap 2 5 mg 1 Cap, ORAL, Q6H diphenhydrAMINE 50 mg/mL Inj 1 mL SDV 2 5 mg 0.5 mL, IV, TID hydrALAZINE 20 mg/mL, 1 mL Inj 1 0 mg 0.5 mL, IV, Q2H HYDROcod-acetam 10-325 mg Tab 1 Tab, ORAL, Q4H HYDROcod-acetam 5-325 mg Tab 1 Tab, ORAL, Q4H labetalol 5 mg/mL, 4 mL Inj 1 0 mg 2 mL, IV PUSH, Q2H metoclopramide 5 mg/mL Inj 2 mL 1 0 mg 2 mL, IV PUSH, Q4H Milk of Magnesia 30 mL 1 5 mL, ORAL, QBedtime nalOXone 0.4 mg/mL, 1 mL Inj 0 .2 mg 0.5 mL, IV, Q5M nalOXone 0.4 mg/mL, 1 mL Inj 0 .2 mg 0.5 mL, IV PUSH, As directed ondansetron 2 mg/mL, 2 mL Inj 4 mg 2 mL, IV PUSH, Q4H sodium chloride 0.9%, 10 mL Flush 1 0 mL, IV FLUSH, As directed sodium chloride 0.9%, 10 mL Flush 1 0 mL, IV FLUSH, As directed sodium chloride 0.9%, 20 mL 2 0 mL, IV, As directed sterile water for injection 10 mL 1 0 mL, N/A, As directed sterile water for injection 10 mL 2 0 mL, N/A, As directed tiZANidine 4 mg Tab 2 mg 0.5 Tab, ORAL, Q8H Shock Index: 0 .575 - 0 07/18/23 06:27 Vital Signs (last 24 hrs) Last Charted Minimum Maximum Temp(?F) 97.6 ( JUL 18 06:00 PST) 97.0 ( JUL 17 10:50 PST) 98.1 ( JUL 17 21:00 PST) Heart Rate 77 ( JUL 18 06:00 PST) 75 ( JUL 17 12:20 PST) H 1 00 ( JUL 17 10:50 PST) Resp Rate 16 ( JUL 18 07:15 PST) 14 ( JUL 17 11:21 PST) H 2 3 ( JUL 17 11:30 PST) SBP 134 ( JUL 18 06:00 PST) 108 ( JUL 17 15:08 PST) H 1 57 ( JUL 17 10:55 PST) DBP 66 ( JUL 18 06:00 PST) 61 ( JUL 17 13:24 PST) 89 ( JUL 17 10:50 PST) SpO2 96 ( JUL 18 07:15 PST) 93 ( JUL 18 00:00 PST) 98 ( JUL 17 10:50 PST) Intake and Output a s of 08:55 ( 24 hour periods starting at 06:00) 0 07/18/23 0 07/17/23 0 07/16/23 Intake m L 0 2 698 0 Output m L 0 1 765 0 Fluid Balance 0 9 33 ?0 Drain I/O (last 12 hours) (07/18/23 05:00 PST) Drain/Tube output : 25 mL (07/18/23 00:00 PST) Drain/Tube output : 40 mL PHYSICAL EXAM: Strength 5/5 lower extremities with intact sensation bilateral Abdomen is benign and soft No calf edema Dressing is clean and non-soiled HV with 65/8H and 355 total LABS: Labs All 24H Lab Results D ate POCT - Glucose (Capillary) 140 mg/dL (HIGH) 07/18/23 06:06 PST IMPRESSION: POD#1 S /P Lumbar Decompression L3-L5 ASSESSMENT AND PLAN: Plan for work with OT/PT. Monitor HV output. D/C later today once drain output slows. Electronically signed by: GUI Fuchs Edman Signed on: 18-Jul-2023 08:59 PST Electronically routed to: MD Lamberto, Javier Benavides Signed on: 18-Jul-2023 13:09 PST 07/18/2023 65 [facility] Progress Note Patient: ANNIA CURRY Age: 67 years Legal Sex: MALE : 1955 _ INTERVAL EVENTS/HISTORY: Pain is controlled. No significant leg pain or weakness. Legs 'feel better already'. Ambulated yesterday and has voided. INPATIENT MEDICATIONS: Scheduled: ceFAZolin 1 g Inj 2 gm 2 Vial, IV, Q8H cholecalciferol (D3) 25 mcg (1,000 IU) Tab 25 mcg 1 Tab, ORAL, BID docusate sodium 100 mg Cap 100 mg 1 Cap, ORAL, BID gabapentin 300 mg Cap 300 mg 1 Cap, ORAL, TID insulin lispro (Admelog) 100 units/mL, 3 mL MDV correction scale, SUBQ, AC&Bed pantoprazole 40 mg EC Tab 40 mg 1 Tab, ORAL, DAILY polyethylene glycol Pwd Oral Soln 17 gm 17 gm 1 Pkt, ORAL, DAILY scopolamine 1.5 mg (delivers 1 mg/ 72 hr) 1 Patch, TOP, [id number] sodium chloride 0.9%, 10 mL Flush 10 mL, IV FLUSH, Q12H sodium chloride 0.9%, 10 mL Flush 10 mL, IV FLUSH, Q12H terazosin 5 mg Cap 10 mg 2 Cap, ORAL, DAILY Continuous: HYDROmorphone 6 mg + sodium chloride 0.9% premix 30 mL 30 mL, IV lactated ringers 1,000 mL 1,000 mL, IV, 75 mL/hr NaCl 0.45% + KCl 20 mEq 1,000 mL 1,000 mL, IV, 125 mL/hr sodium chloride 0.9% 250 mL 250 mL, IV, 100 mL/hr sodium chloride 0.9% 250 mL 250 mL, IV, 100 mL/hr sodium chloride 0.9% 250 mL 250 mL, IV, 100 mL/hr sodium chloride 0.9% 250 mL 250 mL, IV, 100 mL/hr PRN: acetaminophen 500 mg Tab 500 mg 1 ea, ORAL, Q6H bisacodyl 10 mg Supp 10 mg 1 Supp, RECTAL, DAILY calcium carbonate 500 mg Chew Tab 500 mg 1 Tab, CHEW, Q6H Cepacol sore throat menthol Juno # 1 1 Lozenge, ORAL, Q2H diphenhydrAMINE 25 mg Cap 25 mg 1 Cap, ORAL, Q6H diphenhydrAMINE 50 mg/mL Inj 1 mL SDV 25 mg 0.5 mL, IV, TID hydrALAZINE 20 mg/mL, 1 mL Inj 10 mg 0.5 mL, IV, Q2H HYDROcod-acetam 10-325 mg Tab 1 Tab, ORAL, Q4H HYDROcod-acetam 5-325 mg Tab 1 Tab, ORAL, Q4H labetalol 5 mg/mL, 4 mL Inj 10 mg 2 mL, IV PUSH, Q2H metoclopramide 5 mg/mL Inj 2 mL 10 mg 2 mL, IV PUSH, Q4H Milk of Magnesia 30 mL 15 mL, ORAL, QBedtime nalOXone 0.4 mg/mL, 1 mL Inj 0.2 mg 0.5 mL, IV, Q5M nalOXone 0.4 mg/mL, 1 mL Inj 0.2 mg 0.5 mL, IV PUSH, As directed ondansetron 2 mg/mL, 2 mL Inj 4 mg 2 mL, IV PUSH, Q4H sodium chloride 0.9%, 10 mL Flush 10 mL, IV FLUSH, As directed sodium chloride 0.9%, 10 mL Flush 10 mL, IV FLUSH, As directed sodium chloride 0.9%, 20 mL 20 mL, IV, As directed sterile water for injection 10 mL 10 mL, N/A, As directed sterile water for injection 10 mL 20 mL, N/A, As directed tiZANidine 4 mg Tab 2 mg 0.5 Tab, ORAL, Q8H Shock Index: 0.575 - 07/18/23 06:27 Vital Signs (last 24 hrs) Last Charted Minimum Maximum Temp(?F) 97.6 (JUL 18 06:00 PST) 97.0 (JUL 17 10:50 PST) 98.1 (JUL 17 21:00 PST) Heart Rate 77 (JUL 18 06:00 PST) 75 (JUL 17 12:20 PST) H 100 (JUL 17 10:50 PST) Resp Rate 16 (JUL 18 07:15 PST) 14 (JUL 17 11:21 PST) H 23 (JUL 17 11:30 PST) SBP 134 (JUL 18 06:00 PST) 108 (JUL 17 15:08 PST) H 157 (JUL 17 10:55 PST) DBP 66 (JUL 18 06:00 PST) 61 (JUL 17 13:24 PST) 89 (JUL 17 10:50 PST) SpO2 96 (JUL 18 07:15 PST) 93 (JUL 18 00:00 PST) 98 (JUL 17 10:50 PST) Intake and Output as of 08:55 (24 hour periods starting at 06:00) 07/18/23 07/17/23 07/16/23 Intake mL 0 2698 0 Output mL 0 1765 0 Fluid Balance 0 933 0 Drain I/O (last 12 hours) (07/18/23 05:00 PST) Drain/Tube output : 25 mL (07/18/23 00:00 PST) Drain/Tube output : 40 mL PHYSICAL EXAM: Strength 5/5 lower extremities with intact sensation bilateral Abdomen is benign and soft No calf edema Dressing is clean and non-soiled HV with 65/8H and 355 total LABS: Labs All 24H Lab Results Date POCT - Glucose (Capillary) 140 mg/dL (HIGH) 07/18/23 06:06 PST IMPRESSION: POD#1 S/P Lumbar Decompression L3-L5 ASSESSMENT AND PLAN: Plan for work with OT/PT. Monitor HV output. D/C later today once drain output slows. [id number] Male 07/18/2023 [facility] Operative Note Patient: ANNIA CURRY Age: 67 years Legal Sex: MALE : 1955 _ DATE OF SURGERY: 07/17/2023 PREOPERATIVE DIAGNOSIS: Severe spinal stenosis of lumbar region with neurogenic claudication and radiculopathy. M48.06) POSTOPERATIVE DIAGNOSIS: Spinal stenosis of lumbar region with neurogenic claudication and radiculopathy. ( M48.06) PROCEDURE(S): _ LAMINECTOMY 76934 L3-4 _ [id number] L4-5 OPERATING SURGEON: Javier Orantes MD(orthopedic spine surgery). ACTIVITY DIRECTOR: Rogelio Fuchs PA-C ANESTHESIA: General endotracheal anesthesia. ANESTHESIOLOGIST: Tj Verma MD HISTORY AND INDICATIONS: Patient presents with a chief complaint of bilateral leg pain/weakness and the above diagnosis. Having failed a course of non-surgical management the patient has opted to choose surgical intervention as noted above. Patient has been explained indications for surgery, risks and possible complications including neuro injury, recurrence of this condition, , infection, incomplete nerve recovery or pain relief, cardiopulmonary complications etc., and agrees to proceed. FINDINGS: _Ligamentum flavum and facet hypertrophy resulting in stenosis particularly lateral recess and foraminal narrowing L3-4 L4-5 without evidence of disc herniation requiring discectomy PROCEDURE IN DETAIL: The patient was taken into the operating room and placed under general endotracheal anesthesia. SCDs were placed on both legs and the patient was positioned prone onto the OSI Demetrio frame. Both lower extremities were supported with pillows. Both upper extremities supported with arm boards and foam. Anesthesia performed upper extremity and facial relief intermittently throughout the case. After usual sterile prep and drape, a surgical pause and final verification was completed to include administration of IV antibiotics. High power loop magnification and headlight illumination were used throughout the entire case. The incision level was identified using C-arm imaging and percutaneous spinal needle. Fascia was divided from the spinous processes and bovie cautery was used to expose the adjacent spinous processes and lamina, preserving the facet capsule. The Lucila retractor was placed. C arm image was used to confirm that we were at the correct level by placing a [place] 4 elevator inferior to the lamina. A high speed drill was used to thin the hypertrophied facet and lamina down to level flavum. Curettes were then used to free up the ligamentum flavum and develop an epidural plain. The ligamentum flavum was thickened and redundant. A Misonix bone scalpel was used to incise the lamina bilaterally beginning inferiorly and and extending superiorly first left then right from L3 and ending at L5. A Kerrison rongeur was used to remove the remaining ligamentum flavum. Kerrison Rongeurs were also used to perform foraminotomies at each level and decompression was confirmed with a right angle probe. Pedicle decompression was confirmed. We completed the decompression until a foraminal probe could be easily passed and the lateral recess was opened up. The annulus was examined and no evidence of disc herniation was noted discectomy is not required r. Epidural hemostasis was obtained using a combination of bipolar cautery, Gelfoam, Surgicel, and FloSeal throughout the procedure. All thrombogenic agents were removed from the epidural space prior to wound closure. The wound was copiously irrigated with pulsatile lavage. Vancomycin powder 1 gram was placed in the wound A deep hemovac drain was placed to the epidural space and secured at the skin. The wound was irrigated and closed in layers using 0vicryl for the fascia and 2.0 Monocryl suture in the SubQ an interrupted and running fashion. The skin was closed with a running 3.0 monocryl and Dermabond. The wound was dressed with a sterile compressive dressing. The patient was extubated and taken to recovery in good condition. ESTIMATED BLOOD LOSS: _20 ml NEEDLE AND SPONGE COUNT: Correct. SPECIMENS: None CONDITION: Stable. Patient tolerated the procedure and left the operating room in stable condition. COMPLICATIONS: None [id number] Male 07/17/2023 [facility] Orthopedic Office/Clinic Note Patient: ALYSSIA CURRY Age: 67 years Legal Sex: MALE : 1955 Referring Physician MD Quigley Samay Chief Complaint Pre-op History (History of Present Illness) The patient returns to the clinic today for a preoperative counseling session. The patient is scheduled to undergo L3-L5 laminectomy on 2023 with . The patient is to undergo medical clearance by at the [facility] and has been cleared to proceed. Clinical symptoms are unchanged and include low back pain and bilateral lower extremity pain with feelings of weakness in the hips through the buttock areas down to the lower extremities. He also recently tried an L5/S1 [place] PORFIRIO on 04/11/[address] Ellis and unfortunately provided no relief of his back and leg pain. He feels this actually exacerbated his symptoms to some degree. He is now having difficulty walking greater than a block or [address] for a minute without having cramping pain in the lower extremities. He states he can walk to his barn on his property but has difficulty making it back. He has tried physical therapy numerous times in the past without significant success and is not interested in proceeding any further. His MRI from the [facility] was reviewed demonstrating multilevel degenerative change with moderate spinal stenosis L3-4 L4-5 L5-S1 to lesser extent at L2-3 there is a right paracentral protrusion T12-L1. He has no difficulty with bowel or bladder function. Pain is now rated as 8/10 on average and interferes with all aspects of his ADLs including sleep hygiene, daily personal hygiene, ambulation, dressing and driving. Given the extent and duration of his symptomatology and functional limitations he has elected to proceed with a more permanent correction involving the surgical intervention above. Past medical history: Hypertension, diabetes, stroke- 2022, varicose veins. Social history: Patient lives with his partner, he smoked 2 packs cigarettes per day for 40 years and quit in 2019 uses alcohol rarely Medications: Clopidogrel, lisinopril, Empaglifozin Constitutional: no generalized weakness, no fever, no chills, no unintentional weight loss Eyes: with visual changes, reading glasses ENMT: no ear pain, no sore throat, no nasal congestion, no hoarseness, with loss of hearing Respiratory: no cough, no shortness of breath Cardiovascular: no chest pain, no palpitations, no lower extremity edema Gastrointestinal: no vomiting, no abdominal pain, no changes in bowel movements Genitourinary: no dysuria, no hematuria, no urinary frequency Musculoskeletal: no arthralgias Neurologic: with diffuse lower extremity pain and weakness focal , with numbness, below the knees no headaches Heme/Lymph: no bleeding tendency, no bruising tendency, no petechiae, no swollen nodes, varicose veins All other systems are negative. Physical Exam Vitals and Measurements HR: 81 BP: 119/69 SpO2: 98% HT: 180.340 cm WT: 90.71 kg(Dose Calc Wt.) WT: 199.98 lb BMI: 27.89 kg/m2 Constitutional: no distress, well appearing, well developed Head: atraumatic, normocephalic, nonasal discharge, moist mucosal membranes Eyes: PERRL, EOMI, normalconjunctiva, normal sclera Neck: trachea midline, no meningismus Cardiovascular: normal rate, regular rhythm, no murmur, no gallops, no cyanosis or pallor, no peripheral edema Respiratory: CTA, no rales, no rhonchi, no wheezing, non-labored respirations, normal air movement in lung lopez Gastrointestinal: soft, non-distended, no tenderness to palpation, no guarding, no rebound Extremities: no bony deformity, full ROM of major joints Neurological: oriented x4, awake Skin: warm, dry, no rashes, no wounds Psychiatric: normal affect, good judgment Musculoskeletal: Lumbar AROM moderately restricted in all planes with increased pain in extension bilateral rotation. Motor 4.5/5 DF/EHL bilaterally and with mild dysesthesias. DTR 2/4. Moderate tenderness upon palpation of the bilateral L/S Spine and supportive musculature; QL, SPI, Paraspinals, Glutes, Hamstrings Has advance directive: Unable to determine (06/30/2023 08:32 PST) Preferred Lab AMB: [facility] (06/30/2023 08:32 PST) Assessment/Plan _ 1. Lumbar stenosis with neurogenic claudication (Spinal stenosis, lumbar region with neurogenic claudication, M48.062) Ordered: Return to Clinic Order - AMB, = Physician Visit, 2wks post-op, As Scheduled Body mass index [BMI] 27.0-27.9, adult (Body mass index [BMI] 27.0-27.9, adult, Z68.27) Orders: scopolamine (scopolamine 1 mg/72 hr transdermal film, extended release), 1 Patch, TOP, [id number], Apply behind ear night befor surgery, # 1 Patch, 0 Refill(s), Maintenance, Pharmacy: [facility] #[id number], 180.34, cm, 06/30/23 8:42:00 PST, Height/Length (cm), 90.71, kg, 06/30/23 8:42:00 PST, Dose calculation weight (kg) tiZANidine (tiZANidine 2 mg oral tablet), See Instructions, 1-2 Tab ORAL Q8H PRN Muscle spasms, # 30 Tab, 0 Refill(s), Maintenance, Pharmacy: [facility] #[id number], 180.34, cm, 06/30/23 8:42:00 PST, Height/Length (cm), 90.71, kg, 06/30/23 8:42:00 PST, Dose calculation weight (kg) Edgardo is a 67 y/o male who is scheduled to undergo L3-L5 laminectomy on 2023 with . The patient is to undergo medical clearance by at the [facility] and has been cleared to proceed. Clinical symptoms are unchanged and include low back pain and bilateral lower extremity pain with feelings of weakness in the hips through the buttock areas down to the lower extremities. He also recently tried an L5/S1 IL PORFIRIO on 04/11/[address] Ellis and unfortunately provided no relief of his back and leg pain. He feels this actually exacerbated his symptoms to some degree. He is now having difficulty walking greater than a block or [address] for a minute without having cramping pain in the lower extremities. He states he can walk to his barn on his property but has difficulty making it back. He has tried physical therapy numerous times in the past without significant success and is not interested in proceeding any further. His MRI from the [facility] was reviewed demonstrating multilevel degenerative change with moderate spinal stenosis L3-4 L4-5 L5-S1 to lesser extent at L2-3 there is a right paracentral protrusion T12-L1. He has no difficulty with bowel or bladder function. Pain is now rated as 8/10 on average and interferes with all aspects of his ADLs including sleep hygiene, daily personal hygiene, ambulation, dressing and driving. Given the extent and duration of his symptomatology and functional limitations he has elected to proceed with a more permanent correction involving the surgical intervention above. The procedure was described in great detail to the patient using MRI, x-rays and a spinal model. We also described the expected course of recovery. The patient was provided with appropriate consent form for lumbar laminectomy. The risks and benefits of the procedure were explained to the patient. The patient was able to ask questions, and they were answered to the patient's satisfaction. See hospital history and physical for details of discussion. We provided the patient with preoperative instructions including no NSAIDs or aspirin 7 days prior to surgery. He is currently using Plavix secondary to CVA history in 2022 and will discontinue this on 07/10/2023, 7 days prior to surgery. The patient is not to eat or drink anything after midnight before surgery. The patient was provided with postoperative medications in the form of Tizanidine 2mg 1-2tabs PO q8h PRN #42 and a Scopolamine 1mg/72patch to apply the night before surgery to reduce N/V effects post-operatively. He is currently using Boles 10/325 is provided by his PCP and will continue to use his current supply until the date of surgery. We will change his dosing instructions as necessary at time of discharge and provide any necessary refills. The patient was instructed to make a follow-up appointment 10-14 days following the procedure. The patient offered no further questions. We will proceed with the above-stated surgery. INFORMED CONSENT FOR LUMBAR LAMINECTOMY The details of the operative procedure were discussed with the patient. We used the patients x-rays, MRI and a spinal model to describe the procedure in detail. The risks of the surgery include but are not limited to; 1. Anesthesia with the risk of stroke, myocardial infarction, or . 2. Infection. 3. Dural tear and cerebrospinal fluid leak. 4. Possibility of failure to relieve any or all of the symptoms. 5. Bleeding with the inherent risk of blood transfusions (including HIV and Hepatitis). 6. Damage to adjacent neurovascular structures possibly resulting in numbness, weakness or even paralysis. 7. Possibly requiring surgical revision in the future. 8. Possibility of developing a pulmonary embolus. 9. Medication reaction. All of the patient's questions were answered at length to their content. No guarantees have been specifically implied or given. They have elected to proceed with surgical intervention as it was described to them. I have reviewed the history and physical examination of the patient and discussed the management of care face to face with patient today. I have reviewed Mauro Duque NP documentation for today´s visit and agree with the documented findings and plan of care listed. I attest I have spent 42 minutes in the evaluation and management of this patient. Allergies Tomatoes atorvastatin (MUSCLES CRAMP UP.) Problem List Active Problems BMI 25-29 - overweight Diabetes Hypertension Lumbar radiculitis Lumbar stenosis with neurogenic claudication Inactive Problems No qualifying data Medications Last Documented: 06/30/2023 New Prescriptions scopolamine (scopolamine 1 mg/72 hr transdermal film, extended release) 1 Patches Top of the skin in one area Every 72 hour. Apply behind ear night befor surgery. Refills: 0. tiZANidine (tiZANidine 2 mg oral tablet) 1-2 Tab ORAL Q8H PRN Muscle spasms. Refills: 0. Changed None Unchanged acetaminophen-HYDROcodone (acetaminophen-HYDROcodone 325 mg-10 mg oral tablet) cholecalciferol (Vitamin D3) 1,000 International unit Oral TWICE DAILY. clopidogrel (Plavix 75 mg oral tablet) 1 Tabs Oral DAILY for 21 Days. Refills: 0. doxazosin (doxazosin 8 mg oral tablet) 1 Tabs Oral AT BEDTIME. gabapentin (gabapentin 300 mg oral capsule) 1 Capsules Oral THREE TIMES A DAY. Refills: 0. glimepiride (glimepiride 2 mg oral tablet) lisinopril (lisinopril 10 mg oral tablet) 1 Tabs Oral DAILY. metFORMIN (metFORMIN 500 mg oral tablet) 1 Tabs Oral TWICE DAILY. with meals. Refills: 0. Non-formulary medication (Glucometer) Glucometer - Check blood sugar before each meal and nightly. Refills: 0. Non-formulary medication (Lancets) Glucometer - Check blood sugar before each meal and nightly. Refills: 1. Non-formulary medication (Test strips) Glucometer - Check blood sugar before each meal and nightly. Refills: 1. omega-3 polyunsaturated fatty acids (Fish Oil) 2 Capsules Oral DAILY. omeprazole (omeprazole 20 mg oral delayed release capsule) 1 Capsules Oral DAILY. Discontinued None [id number] Male 06/30/2023 [facility] [place] [facility] Office[facility]Clinic Note Patient: ALYSSIA CURRY Age: 67 years Legal Sex: MALE : 1955 Chief Complaint recheck lumbar History (History of Present Illness) Edgardo is a 67-year-old gentleman here for interim follow-up and discussion of his recent interventional procedure. He was seen on consult on 03/12/[address] Orantes reporting complaint of low back pain and bilateral lower extremity pain with feelings of weakness in the hips through the buttock areas down to the lower extremities. [facility] noting multilevel stenosis most notably at L3-L4 and L4-L5 with recommendation to proceed with conservative approaches including an L5/S1 IL PORFIRIO. This was completed on 04/11/[address] Ellis and unfortunately provided no relief of his back and leg pain. He feels this actually exacerbated his symptoms to some degree. He is now having difficulty walking greater than a block or [address] for a minute without having cramping pain in the lower extremities. He states he can walk to his barn on his property but has difficulty making it back. He has no difficulty with bowel or bladder function. He has tried physical therapy in the past and is not interested in any further conservative attempts. Physical Exam Vitals and Measurements HR: 102 SpO2: 98% HT: 177.2 cm WT: 95.71 kg(Dose Calc Wt.) WT: 211 lb BMI: 30.48 kg/m2 General Appearance: No acute distress. Walks with normal gait and flexed posture. Ambulates without assistive devices HEENT: Within normal limits. Skin: No rash present. Circulation: Normal pulses with good capillary refill. Calves supple. Negative Homans' sign. Psychiatric: Alert and interactive with normal affect. Neuromuscular: Lumbar AROM moderately restricted in all planes with increased pain in extension bilateral rotation. Motor 4.5/5 DF/EHL bilaterally and with mild dysesthesias. DTR 2/4. Moderate tenderness upon palpation of the bilateral L/S Spine and supportive musculature; QL, SPI, Paraspinals, Glutes, Hamstrings Has advance directive: Unable to determine (06/09/2023 14:15 PST) Preferred Lab AMB: [facility] (06/09/2023 14:15 PST) Assessment/Plan _ 1. Lumbar stenosis with neurogenic claudication (Spinal stenosis, lumbar region with neurogenic claudication, M48.062) Ordered: A1C Hemoglobin by HPLC CBC w Differential Chest 2 Vw Comprehensive Metabolic Panel CMP Partial Thromboplastin Time PTT Prothrombin Time PT w INR Request for Cardiac, = 06/09/23 14:52:00 PST, Routine, EKG, Reason: pre op clearance Return to Clinic Order - AMB, = Physician Visit, Preop H&P and counseling visit 1 surgery scheduled, Next Available Surgery Scheduling Urinalysis Dipstick w Microsc+C/S IF Ind 2. Lumbar radiculitis (Radiculopathy, lumbar region, M54.16) Ordered: A1C Hemoglobin by HPLC CBC w Differential Chest 2 Vw Comprehensive Metabolic Panel CMP Partial Thromboplastin Time PTT Prothrombin Time PT w INR Request for Cardiac, = 06/09/23 14:52:00 PST, Routine, EKG, Reason: pre op clearance Return to Clinic Order - AMB, = Physician Visit, Preop H&P and counseling visit 1 surgery scheduled, Next Available Surgery Scheduling Urinalysis Dipstick w Microsc+C/S IF Ind Body mass index [BMI] 30.0-30.9, adult (Body mass index [BMI] 30.0-30.9, adult, Z68.30) Orders: Edgardo continues to experience low back pain and bilateral lower extremity pain with cramping consistent with lumbar stenosis and neurogenic claudication. He has trialed multiple conservative approaches recently including activity modification, pharmaceutical management, recent physical therapy and at L5/S1 IL PORFIRIO as recent as 04/11/[address] Ellis. Unfortunately none of these provided improved pain control or physical function and he continues to have significant interference with his daily activities and sleep hygiene. He has expressed a strong desire to move forward with more aggressive approaches and would like to consider surgical intervention. After careful review of his lumbar MRI we recommend he proceed with an L3-L5 laminectomy for appropriate decompression of the lumbar spine. As he has history of CVA and early 2022 and is on Plavix he will need [facility]. Will also have him complete screening studies such as lab work, chest x-ray and EKG and return for his preoperative H&P and counseling session once complete. He expressed agreement understanding with the above plan. I have reviewed the history and physical examination of the patient and discussed the management of care face to face with patient today. I have reviewed Mauro Duque NP documentation for today´s visit and agree with the documented findings and plan of care listed. I attest I have spent 32 minutes in the evaluation and management of this patient. Allergies Tomatoes atorvastatin (MUSCLES CRAMP UP.) Problem List Active Problems BMI 30+ - obesity Diabetes Hypertension Lumbar radiculitis Lumbar stenosis with neurogenic claudication Inactive Problems No qualifying data Medications Last Documented: 06/09/2023 New Prescriptions None Changed None Unchanged aspirin (aspirin 81 mg oral delayed release tablet) 81 Milligram Oral DAILY. Refills: 0. buPROPion (buPROPion 75 mg oral tablet) 2 Tabs Oral TWICE DAILY. 'for smoking'. cholecalciferol (Vitamin D3) 1,000 International unit Oral TWICE DAILY. clopidogrel (Plavix 75 mg oral tablet) 1 Tabs Oral DAILY for 21 Days. Refills: 0. doxazosin (doxazosin 8 mg oral tablet) 1 Tabs Oral AT BEDTIME. empagliflozin 0.5 Milligram DAILY. gabapentin (gabapentin 300 mg oral capsule) 1 Capsules Oral THREE TIMES A DAY. Refills: 0. lisinopril (lisinopril 10 mg oral tablet) 1 Tabs Oral DAILY. metFORMIN (metFORMIN 500 mg oral tablet) 1 Tabs Oral TWICE DAILY. with meals. Refills: 0. Non-formulary medication (Glucometer) Glucometer - Check blood sugar before each meal and nightly. Refills: 0. Non-formulary medication (Lancets) Glucometer - Check blood sugar before each meal and nightly. Refills: 1. Non-formulary medication (Test strips) Glucometer - Check blood sugar before each meal and nightly. Refills: 1. omega-3 polyunsaturated fatty acids (Fish Oil) 2 Capsules Oral DAILY. omeprazole (omeprazole 20 mg oral delayed release capsule) 1 Capsules Oral DAILY. Discontinued None [id number] Male 06/10/2023 [facility] Physical medicine and rehab procedure note Patient: ALYSSIA CURRY Age: 67 years Legal Sex: MALE : 1955 _ PROCEDURE: Interlaminar Epidural Steroid Injection with Fluoroscopy Preprocedural Diagnosis: L umbar spinal stenosis with neurogenic claudication(M48.062) Postprocedural Diagnosis: Lumbar spinal s tenosis with n eurogenic claudication(M48.062) CPT Code: 43456 95581 Level: L5-S1 Anesthesia: 1mg versed IV Fluids: None Tuohy Needle Type:20 gauge 3.5 inch Contrast Dye: Isovue 200 2 ml Injected Steroid Solution: 2 0mg of dexamethasone(10mg/ml) w ith 2 ml NS Local anesthetic: 3ml 1% lidocaine and 0.5ml of 4.2% sodium bicarbonate Additional Medications Administered: None Estimated Blood Loss: None Complications: None Outcome: Good INFORMED CONSENT: The patient's condition and proposed procedures, risks, and alternatives were discussed with the patient or responsible alliance party. The patient's / responsible alliance party's questions were answered. The patient / responsible alliance party appeared to understand and chose to proceed. Informed consent was obtained. After obtaining written consent, an IV hep lock was placed. (See nurses notes for details). The patient was taken back to the fluoroscopy suite and placed in a prone position with a pillow under the chest to decrease lordosis. The skin overlying the injection site was prepped and draped in an aseptic fashion. The target vertebral interspace (see above) was identified by AP fluoroscopy. PROCEDURAL PAUSE: A procedural pause verifying correct patient, medical record number, allergies, and surgical site was performed immediately prior to beginning the procedure. The above noted Tuohy needle was advanced under fluoroscopic guidance towards the epidural space approaching the L5-S1 interspace from the right. Lateral fluoroscopic imaging was used to confirm depth. The epidural space was identified using a loss of resistance to air technique. A microbore extension tubing was attached to the needle to minimize any movement of the needle during injection or syringe change. After negative aspiration for heme or CSF, above noted contrast was injected under real time fluoroscopy, a good epidurogram was noted with no vascular or intrathecal spread pattern. After repeat negative aspiration for heme or CSF, the above noted steroid solution was slowly injected in increments. The needle was then retracted approximately fdc and the needle track was flushed with 0.5 mL of 1% lidocaine to clear the needle prior to removal. The Tuohy needle was then removed intact. A sterile bandage was placed over the injection site. The heart rate, pulse oximetry, and blood pressure were continuously monitored throughout the procedure. The patient was carefully escorted to the recovery room in stable condition. After meeting discharge criteria, the patient was discharged home. DISCUSSION: Conditions of the spine that result in spinal nerve root irritation such as disk protrusions, spinal stenosis, or post surgical radiculitis often respond favorably to epidural steroid injections. The goal in performing epidural steroid injections is to provide relief from pain and permit greater function. Today we performed an interlaminar epidural steroid injection. The patient was informed that it may take several days for the steroid medication to reach its full efficacy and they should continue their regular pain medications as prescribed. The patient was advised to relax and avoid any heavy lifting or excessive bending for the rest of the day. The patient was advised that they may return to their usual activities tomorrow if they are otherwise feeling well. The patient was advised not to bathe or soak in water for 24 hours but that showering would be acceptable. The patient was instructed that if they experienced fever or chills, new weakness, new sensory changes, any changes in bowel or bladder habits, worsening back pain, new headache, neck stiffness, or other new symptoms, that they should contact the pain clinic immediately or dial 911 if unable to reach the pain clinic. RECOMMENDATIONS: 1. Repeating the injection may provide improved and/or prolonged pain relief and allow for better functional outcomes. We will plan to have the patient follow up with me in clinic in 4-6 weeks for evaluation of efficacy of above noted procedure. 2. Pain medications prescribed: None 3. Additional recommendations: None Electronically signed by: MD Ellis Seneca A Signed on: 11-Apr-2023 17:01 PDT 04/12/[address] [place] [address] Physical Med and Rehab Procedure Patient: ALYSSIA CURRY Age: 67 years Legal Sex: MALE : 1955 _ PROCEDURE: Interlaminar Epidural Steroid Injection with Fluoroscopy Preprocedural Diagnosis: Lumbar spinal stenosis with neurogenic claudication(M48.062) Postprocedural Diagnosis: Lumbar spinal stenosis with neurogenic claudication(M48.062) CPT Code: 59937 20451 Level: L5-S1 Anesthesia: 1mg versed IV Fluids: None Tuohy Needle Type:20 gauge 3.5 inch Contrast Dye: Isovue 200 2 ml Injected Steroid Solution: 20mg of dexamethasone(10mg/ml) with 2 ml NS Local anesthetic: 3ml 1% lidocaine and 0.5ml of 4.2% sodium bicarbonate Additional Medications Administered: None Estimated Blood Loss: None Complications: None Outcome: Good INFORMED CONSENT: The patient's condition and proposed procedures, risks, and alternatives were discussed with the patient or responsible alliance party. The patient's / responsible alliance party's questions were answered. The patient / responsible alliance party appeared to understand and chose to proceed. Informed consent was obtained. After obtaining written consent, an IV hep lock was placed. (See nurses notes for details). The patient was taken back to the fluoroscopy suite and placed in a prone position with a pillow under the chest to decrease lordosis. The skin overlying the injection site was prepped and draped in an aseptic fashion. The target vertebral interspace (see above) was identified by AP fluoroscopy. PROCEDURAL PAUSE: A procedural pause verifying correct patient, medical record number, allergies, and surgical site was performed immediately prior to beginning the procedure. The above noted Tuohy needle was advanced under fluoroscopic guidance towards the epidural space approaching the L5-S1 interspace from the right. Lateral fluoroscopic imaging was used to confirm depth. The epidural space was identified using a loss of resistance to air technique. A microbore extension tubing was attached to the needle to minimize any movement of the needle during injection or syringe change. After negative aspiration for heme or CSF, above noted contrast was injected under real time fluoroscopy, a good epidurogram was noted with no vascular or intrathecal spread pattern. After repeat negative aspiration for heme or CSF, the above noted steroid solution was slowly injected in increments. The needle was then retracted approximately fdc and the needle track was flushed with 0.5 mL of 1% lidocaine to clear the needle prior to removal. The Tuohy needle was then removed intact. A sterile bandage was placed over the injection site. The heart rate, pulse oximetry, and blood pressure were continuously monitored throughout the procedure. The patient was carefully escorted to the recovery room in stable condition. After meeting discharge criteria, the patient was discharged home. DISCUSSION: Conditions of the spine that result in spinal nerve root irritation such as disk protrusions, spinal stenosis, or post surgical radiculitis often respond favorably to epidural steroid injections. The goal in performing epidural steroid injections is to provide relief from pain and permit greater function. Today we performed an interlaminar epidural steroid injection. The patient was informed that it may take several days for the steroid medication to reach its full efficacy and they should continue their regular pain medications as prescribed. The patient was advised to relax and avoid any heavy lifting or excessive bending for the rest of the day. The patient was advised that they may return to their usual activities tomorrow if they are otherwise feeling well. The patient was advised not to bathe or soak in water for 24 hours but that showering would be acceptable. The patient was instructed that if they experienced fever or chills, new weakness, new sensory changes, any changes in bowel or bladder habits, worsening back pain, new headache, neck stiffness, or other new symptoms, that they should contact the pain clinic immediately or dial 911 if unable to reach the pain clinic. RECOMMENDATIONS: 1. Repeating the injection may provide improved and/or prolonged pain relief and allow for better functional outcomes. We will plan to have the patient follow up with me in clinic in 4-6 weeks for evaluation of efficacy of above noted procedure. 2. Pain medications prescribed: None 3. Additional recommendations: None [id number] Male 04/11/2023 [facility] History and Physical Examination Patient: ALYSSIA CURRY Age: 67 years Legal Sex: MALE : 1955 _ Date of Service: Chief Complaint: Low back pain with radiation History of Present Illness: C lifford i s referred for L 5-S1 interlaminar epidural steroid injection for neurogenic claudication b y Dr. Orantes. R anna note f rom March 12, 2023. N o change i n symptoms. Review of Systems: Review of systems unchanged from last clinic v isit. Allergies Tomatoes atorvastatin ( MUSCLES C RAMP U P.) Home Medications (14) Active aspirin 81 mg oral delayed release tablet 8 1 mg, ORAL, DAILY buPROPion 75 mg oral tablet 1 50 mg = 2 Tab, ORAL, BID doxazosin 8 mg oral tablet 8 mg = 1 Tab, ORAL, QBedtime empagliflozin 0 .5 mg, DAILY Fish Oil 2 Cap, ORAL, DAILY gabapentin 300 mg oral capsule 3 00 mg = 1 Cap, ORAL, TID Glucometer S ee Instructions Lancets S ee Instructions lisinopril 10 mg oral tablet 1 0 mg = 1 Tab, ORAL, DAILY metFORMIN 500 mg oral tablet 5 00 mg = 1 Tab, ORAL, BID omeprazole 20 mg oral delayed release capsule 2 0 mg = 1 Cap, ORAL, DAILY Plavix 75 mg oral tablet 7 5 mg = 1 Tab, ORAL, DAILY Test strips S ee Instructions Vitamin D3 1 ,000 IntUnit, ORAL, BID Problems Active Lumbar s tenosis w ith n eurogenic c laudication BMI 3 0+ - o besity Diabetes Hypertension No qualifying data available. Social and Psychosocial Habits Abuse/Intent to Harm CSSRS Risk Level: N o risk (0-24) RT: R T000 *Alcohol Screen *How often do you have a drink containing alcohol? M onthly or less (1) *How many standard drinks containing alcohol do you have on a typical day? 1 or 2 (0) Type: B eer *Home/Environment Screen *Living situation: H ome with assistance Lives with: S ignificant other *Nutrition Screen *Nutritional Risks: D iabetes new or recent dx, needs ed *Substance Abuse Screen Current or past use? N ever *Tobacco Use Screen Is there a smoker in the household? N o *Do you have concerns about tobacco use in household? N o *Over the past 30 days, what and how much have you smoked? F ormer smoker, quit more than 30 days ago Family History: No family history recorded. Physical Exam: T: 9 8.1 F H R: 9 8 R R: 1 9 B P: 1 42/76 S PO2: 9 8% O 2 Delivery: R oom air P nIntLvl: 2 General: A lert and Oriented, No acute distress. Cardiovascular: Normal color/tone Respiratory: Lungs are clear to auscultation b ilaterally Neurologic: No new focal deficits. Musculoskeletal: no significant changes from last examination a s detailed in last visit at [facility] Labs ( Last charted value) WBC 5.9 ( 02/27/23) Hgb 14.9 ( 02/27/23) Hct 43.1 ( 02/27/23) Plt 150 ( 02/27/23) Na 137 ( 02/27/23) K 3.8 ( 02/27/23) CO2 L 2 1 ( 02/27/23) Cl 106 ( 02/27/23) Cr 1.2 ( 02/27/23) BUN 19 ( 02/27/23) Glucose Random H 2 11 ( 02/27/23) Mg 2.1 ( 02/27/23) Phos 4.0 ( 06/27/21) Ca 9.4 ( 02/27/23) PT 10.7 ( 07/23/22) INR 1.0 ( 07/23/22) PTT 27 ( 06/26/21) CK MB <0.5 ( 11/22/09) Total CK H 2 45 ( 11/22/09) INFORMED CONSENT: I have explained the following procedure to the patient/ family and I have answered their questions. I have given the patient/ family information about potential benefits, risks, and side effects of the proposed procedure; the likelihood of the patient achieving their goals; and potential problems that might occur during recuperation. I also discussed reasonable alternatives to the procedure and the risks, benefits, and side effects related to the alternatives and the risks related to not receiving the proposed procedure. We also discussed that he has had a change to his diabetic medications and that h is blood sugars tend to be 1 50-1 60 w hen he is checking at home w hich is significantly improved from hemoglobin A1c of 11 in June. He will closely monitor his blood sugars after the injection. Potential benefits, risks or side effects of the operation or procedure, i ncluding potential problems that might occur w ith the c onscious sedation type anesthesia t hat may be used?during the procedure a nd during r ecuperation. Among the risks of this type of c onscious sedation i nclude i ncreased d rowsiness, i mpaired thinking, u nsteadiness in gait w hich could increase fall risk, a nd short-term amnesia. There is also the possibility that during the procedure i t may cause a n inhibition of the respiratory drive a re v david rare and severe cases this can lead to r espiratory failure a nd even . Many of the side effects m entioned above c ould persist for even s everal hours after the procedure. Benefits of this type of sedation a re d ecreased p atient p ain o r anxiety during the procedure. Alternatives t o this a re t o d o the procedure without c onscious sedation. Surgical Indications/Preoperative Diagnosis: L umbar spinal stenosis with neurogenic claudication g adolinium related Planned/Informed Consent for: I nterlaminar Epidural Steroid Injection with Fluoroscopy ASA Classification for Procedural Sedation: 2 Mallampati Score- 2 Assessment and Plan: Proceed with procedure as planned. Electronically signed by: MD Ellis Seneca A Signed on: 11-Apr-2023 16:45 PDT 04/11/[address] [place] [address] Orthopedic Office/Clinic Note Patient: ALYSSIA CURRY Age: 67 years Legal Sex: MALE : 1955 Chief Complaint New patient lumbar History (History of Present Illness) This patient is a 67-year-old gentleman for me at the [facility] for chronic low back pain and lower extremity symptoms. He states he has had pain for the last year and a half. Bilateral radiating pain feeling of weakness in his hips and buttock area when he walks or stands. He states he can walk for less than a block and stand for 5 minutes lying down does not really improve his symptoms. He has had 10 visits of physical therapy in the past. He has not had any spinal injections. He does have an MRI [facility] the [facility] we did obtain lumbar x-rays today. Past medical history: Hypertension, diabetes, stroke, varicose veins. Social history: Patient lives with his partner, he smoked 2 packs cigarettes per day for 40 years and quit in 2019 uses alcohol rarely Medications: Clopidogrel, lisinopril, Empaglifozin Constitutional: no generalized weakness, no fever, no chills, no unintentional weight loss Eyes: with visual changes, reading glasses ENMT: no ear pain, no sore throat, no nasal congestion, no hoarseness, with loss of hearing Respiratory: no cough, no shortness of breath Cardiovascular: no chest pain, no palpitations, no lower extremity edema Gastrointestinal: no vomiting, no abdominal pain, no changes in bowel movements Genitourinary: no dysuria, no hematuria, no urinary frequency Musculoskeletal: no arthralgias Neurologic: with diffuse lower extremity pain and weakness focal , with numbness, below the knees no headaches Heme/Lymph: no bleeding tendency, no bruising tendency, no petechiae, no swollen nodes, varicose veins All other systems are negative. Physical Exam Vitals and Measurements T: 97.4 F HR: 101 SpO2: 98% HT: 177.72 cm WT: 95.71 kg(Dose Calc Wt.) WT: 211 lb BMI: 30.3 kg/m2 Examination of the thoracolumbar spine: reveals no palpable step-offs or deformities and paraspinal muscle tone is normal. The patient has poor range of motion and forward flexes to knees and extends to neutral with moderate l discomfort. The patient has a negative straight leg raise bilaterally. Reflexes are symmetric at the patella and Achilles, there is no lymphadenopathy in the inguinal area or lower extremities. Right greater left varicose veins are noted Distal pulses and perfusion are intact without atrophic changes or ulcers There is no evidence of clonus Babinski or long track signs. There is nontender range of motion of the hips and knees Sensation is intact through the L2 to S1 dermatomes, with the exception of subjective decrease sensation in stocking distribution below the knees there is 5 out of 5 muscle strength in hip flexors and extensors through the intrinsic muscles of the feet The patient has normal stable gait and is able to heel and toe walk well Scales and Assessments Has advance directive: Unable to determine (03/12/2023 09:43 PDT) Preferred Lab AMB: [facility] (03/12/2023 09:43 PDT) Assessment/Plan _ 1. Lumbar stenosis with neurogenic claudication (Spinal stenosis, lumbar region with neurogenic claudication, M48.062) X-rays of lumbar spine obtained today including AP and lateral flexion-extension views demonstrate multilevel degenerative change with disc space narrowing without evidence of spondylolisthesis. His MRI from the [facility] was reviewed demonstrating multilevel degenerative change with moderate spinal stenosis L3-4 L4-5 L5-S1 to lesser extent at L2-3 there is a right paracentral protrusion T12-L1 Ordered: Lumbar Spine 2-3Vws - In Clinic Nursing/MA communication - AMB Surgery Scheduling Body mass index [BMI] 30.0-30.9, adult (Body mass index [BMI] 30.0-30.9, adult, Z68.30) I discussed treatment options with patient and his . I feel the patient would most likely have to consider surgical intervention however he would like to try a lumbar epidural which we have recommended today. Also try starting him on some gabapentin to see if this gives him some relief particularly at night follow-up at the epidurals complete I attest I have spent 46_ minutes in the evaluation and management of this patient. Patient Instructions Avoid aggravating activity, no heavy lifting bending or twisting Patient Education Reviewed MRI in detail full explain epidural injection and possible need for further treatment including surgery Follow-Up Post epidural Allergies Tomatoes atorvastatin (MUSCLES CRAMP UP.) Problem List Active Problems BMI 30+ - obesity Diabetes Hypertension Lumbar stenosis with neurogenic claudication Inactive Problems No qualifying data Medications Last Documented: 03/12/2023 New Prescriptions None Changed None Unchanged aspirin (aspirin 81 mg oral delayed release tablet) 81 Milligram Oral DAILY. Refills: 0. buPROPion (buPROPion 75 mg oral tablet) 2 Tabs Oral TWICE DAILY. 'for smoking'. cholecalciferol (Vitamin D3) 1,000 International unit Oral TWICE DAILY. clopidogrel (Plavix 75 mg oral tablet) 1 Tabs Oral DAILY for 21 Days. Refills: 0. doxazosin (doxazosin 8 mg oral tablet) 1 Tabs Oral AT BEDTIME. lisinopril (lisinopril 10 mg oral tablet) 1 Tabs Oral DAILY. metFORMIN (metFORMIN 500 mg oral tablet) 1 Tabs Oral TWICE DAILY. with meals. Refills: 0. Non-formulary medication (Glucometer) Glucometer - Check blood sugar before each meal and nightly. Refills: 0. Non-formulary medication (Lancets) Glucometer - Check blood sugar before each meal and nightly. Refills: 1. Non-formulary medication (Test strips) Glucometer - Check blood sugar before each meal and nightly. Refills: 1. omega-3 polyunsaturated fatty acids (Fish Oil) 2 Capsules Oral DAILY. omeprazole (omeprazole 20 mg oral delayed release capsule) 1 Capsules Oral DAILY. Discontinued None [id number] Male 03/13/2023 [facility] [place] ED Physician Notes Patient: ANNIA CURRY Age: 67 years Legal Sex: MALE : 1955 Chief Complaint Back pain, has appointment with Dr. Orantes last week. Hoping to get refill on Boles, [facility]. Mode of Arrival Walk-In History (History of Present Illness) T7-year-old male, presents for persistent low back pain. Patient reports he has degenerative disease at L4 and 5, is pending follow-up with Dr. Orantes in 1 week and comes in today for evaluation. He denies that his symptoms are particularly new, have been gradually worsening, he is got to the point where he cannot sit or stand for very long. The pain radiates down both legs more on the right. He denies any numbness, tingling, weakness in legs, no saddle anesthesias. No abdominal pain, flank pain, urinary symptoms. No fevers or chills. No bowel or bladder incontinence. He was prescribed Boles 5 days ago which seemed to help with the symptoms, he comes in now requesting a refill as [facility]. _ Documentation Reviewed: Prior Hospitalization Notes Physical Exam Triage Vital Signs 03/05/23 10:46 T: 97.6 F HR: 104 RR: 16 BP: 142/83 SPO2: 98% O2 Delivery: Room air HT: 180 cm WT: 95 kg(Dose Calc Wt.) WT: 95 kg BMI: 29.32 kg/m2 General Appearance: Well developed, NAD Eyes: Normocephalic. PERRL. ENT: Normal tympanic membranes. Moist mucous membranes, no pharyngeal exudates Neck: supple, no lymphadenopathy Head: normocephalic Cardiac: RRR Lungs: Nonlabored, clear to auscultation Abdomen: NABS. Soft, non-distended, non-tender. Musculoskeletal: No midline C, T, L-spine tenderness, he has nonspecific tenderness about the low back, strength symmetric and equal in lower extremities, sensation intact. Circulation intact. Skin: [place], warm, dry Psychiatric: Appropriate mood ED Course, Data, and Interventions Differential Diagnosis degenerative disc disease, back pain, epidural abscess, medication refill, radicular back pain Medical Decision Making Back pain with increased symptoms more recently but he is having a difficult time tolerating despite [id number] NSAIDs and Tylenol. Patient has generalized pain in the low back that radiates down both legs more on the right than the left. No bowel changes, no saddle anesthesias, no red flags that would warrant emergent MRI imaging or emergent surgical consultation. He has noticed urinary complaints or CVA tenderness and this has been a known condition for which he is following up with spine specialty next week. He was prescribed 7 Boles 5 days ago, this helped manage his symptoms but the [facility] facility would not fill a new prescription he comes back here for evaluation. His symptoms have not changed improving. Discussed risk and benefits of prednisone therapy with the patient reviewing alternatives, he wished to proceed we will give a 5-day course of steroids, advised follow-up with Dr. Thapa as directed, [facility] as well as is likely. Will require longer-term management of his symptoms. Discussed plan with patient he is in agreement. _ Diagnosis Acute low back pain (Low back pain, unspecified, M54.50) Condition Stable Disposition Discharged Prescriptions Current medications were reviewed and updated. Prescribed Medications 03/05/2023 12:25 PDT predniSONE 20 mg oral tablet, = 2 Tab, ORAL, DAILY, # 10 Tab, 0 Refill(s), Acute, Pharmacy: [email or web address] #[id number], 180, cm, 03/05/23 10:46:00 PDT, Height/Length (cm), 95, kg, 03/05/23 10:46:00 PDT, Dose calculation weight (kg) Patient Education Acute Back Pain, Adult Follow-Up Provider: Javier Orantes Date: Within 5-7 days Provider: Luiza Quigley Date: Within 5-7 days Address: [address] [address]- Business (1) Supervised by Dr. Lucio Clifton, DO ZALDIVARI Information JAY APONTE/RESIDENT CARE AIDE/PA Time Patient Seen face to face: Date and time 03/05/2023 11:44:47 Past Medical History Active Problems Diabetes Hypertension Social History *Alcohol Screen How often do you have a drink containing alcohol? Monthly or less (1). How many standard drinks containing alcohol do you have on a typical day? 1 or 2 (0). How often do you have six or more drinks on one occasion? Never (0). Ready to change: No. *Substance Abuse Screen Do you have concerns about substance abuse for yourself or in your household? No. Current or past use? Never. *Tobacco Use Screen Is there a smoker in the household? No. Do you have concerns about tobacco use in household? No. Over the past 30 days, what and how much have you smoked? 5-9 cigarettes (between 1/4 to 1/2 pack)/day in last 30 days. Over the past 30 days, what has been your smokeless tobacco use? Never. Are you ready to quit? No. Allergies Tomatoes atorvastatin (MUSCLES CRAMP UP.) Home Medications aspirin 81 mg oral delayed release tablet, 81 mg, ORAL, DAILY buPROPion 75 mg oral tablet, 150 mg, 2 Tab, ORAL, BID doxazosin 8 mg oral tablet, 8 mg, 1 Tab, ORAL, QBedtime Fish Oil, 2 Cap, ORAL, DAILY Glucometer, See Instructions Lancets, See Instructions, 1 refills lisinopril 10 mg oral tablet, 10 mg, 1 Tab, ORAL, DAILY metFORMIN 500 mg oral tablet, 500 mg, 1 Tab, ORAL, BID Boles 10 mg-325 mg oral tablet, 1 Tab, ORAL, QBedtime, PRN omeprazole 20 mg oral delayed release capsule, 20 mg, 1 Cap, ORAL, DAILY Plavix 75 mg oral tablet, 75 mg, 1 Tab, ORAL, DAILY Test strips, See Instructions, 1 refills Vitamin D3, 1000 IntUnit, ORAL, BID [id number] Male 03/05/2023 [facility] ED Physician Notes Patient: ANNIA CURRY Age: 67 years Legal Sex: MALE : 1955 Chief Complaint C/O back pain x 1 year. Disk 4 and 5 are herniated. Pt has [facility] insurance and is getting approved to see spine surgeons here. [place] unable to wait for an appointment with them, here today for evaluation. Mode of Arrival Walk-In History (History of Present Illness) Care assumed from TREVER 67-year old male presents to ED with back pain. Patient states [facility] L4-L5 disk herniation about a year ago on MRI and that he has a pending referral to our spine clinic for definitive management. Over the last few weeks his pain has gotten much worse so that even with Ibuprofen 800 mg + Tylenol it is not controlled. He denies any fevers. He denies bowel/bladder incontinence or retention. He does get pains that shoot down both legs at times and some intermittent leg tingling/numbness. Additional History Obtained From: spouse, TREVER provider _ Documentation Reviewed: Prior hospital notes _ Physical Exam Triage Vital Signs 02/27/23 14:05 T: 96.5 F HR: 99 RR: 14 BP: 167/70 SPO2: 94% O2 Delivery: Room air HT: 177.2 cm WT: 95.71 kg(Dose Calc Wt.) WT: 95.71 kg BMI: 29.68 kg/m2 General: alert, no acute distress Head: Atraumatic Neck: supple, normal ROM Cardiovascular: normal peripheral perfusion, no edema Respiratory: respirations non-labored Gastrointestinal: soft, non-tender, non-distended Back: non-tender, normal alignment, normal range of motion, no step-offs Musculoskeletal: normal range of motion, normal strength, no deformity, no swelling, no tenderness Neurologic: alert and oriented x 4, no focal neurologic deficits, normal sensory, normal motor, normal speech, normal coordination Skin: warm, dry, pink, intact Psychiatric: cooperative, appropriate mood and affect Medical Decision Making DIFFERENTIAL DIAGNOSIS: AAA, Abdominal Pathology, Back Pain, Fracture, Kidney Stones, Strain, Sprain, Spasm, UTI ORDERS HYDROmorphone, 0.5 mg, IV PUSH, ONCE, STAT, INJ, 02/27/23 15:58:00 PDT, Stop date 02/27/23 15:58:00 PDT (Completed) HYDROmorphone, 0.5 mg, IV, ONCE, STAT, INJ, 02/27/23 14:42:00 PDT, Stop date 02/27/23 14:42:00 PDT (Completed) ECG and TELEMETRY: Telemetry (independently viewed and interpreted by me): Sinus rhythm, no arrhythmia ECG (independently viewed and interpreted by me): SINUS RHYTHM BORDERLINE LEFT AXIS DEVIATION [QRS AXIS < -20] LOW QRS VOLTAGE IN PRECORDIAL LEADS [QRS DEFLECTION < 1.0 mV IN CHEST LEADS]QRS 104 MS, NONSPECIFIC DELAY, OTHERWISE NORMAL INTERVALS, NO ST OR TW CHANGES LABORATORY INTERPRETATION: Laboratory Results were independently viewed and interpreted by me. Negative, mild hyperglycemia IMAGING: Imaging was independently viewed by me. CTA C-A-P: stable AAA, peripheral arterial disease CONSULTATIONS: None PROGRESS NOTES: 02/27/2023 17:18 PDTT: 96.5 F HR: 82 RR: 16 BP: 124/79 SPO2: 96% O2 Delivery: Room air PnIntLvl: 5 ASSESSMENT AND PLAN: Patient is a/an Chronic Medical Conditions Impacting Care: diabetes, hypertension, obesity Social Determinants of Health: access to care _ Labs, Diagnostics and Medications Considered but not performed/prescribed: MRI lumbar spine Diagnosis 1. Low back pain (Low back pain, unspecified, M54.50) 2. Diarrhea (Diarrhea, unspecified, R19.7) Condition _stable Disposition home_ Prescriptions Current medications were reviewed and updated. Prescribed Medications 02/27/2023 17:19 PDT Boles 10 mg-325 mg oral tablet, 1 Tab, ORAL, QBedtime, PRN for pain, X 7 Day(s), # 7 Tab, 0 Refill(s), Acute, Pharmacy: [email or web address] #[id number], 177.2, cm, 07/23/22 10:07:00 PST, Height/Length (cm), 95.71, kg, 02/27/23 14:05:00 PDT, Dose calculation weight (kg) Patient Education Sciatica Follow-Up Provider: Luiza Quilgey Date: Within 1 week Comment: DIAGNOSIS: Herniated disk PRESCRIPTIONS: 1. Boles: take at bedtime if needed for severe pain INSTRUCTIONS: 1. Take all prescribed medications as instructed. 2. Please make a follow-up appointment with your doctor to get medical clearance and make sure you are ready for spine surgery if that is what the specialist decided you need. -- 3. Please call and make an appointment to get the updated MRI: call radiology scheduling at [phone] 3. IF YOU ARE NOT GETTING BETTER OR IF YOU GET WORSE, you should return to the ER for re-evaluation. Address: [id number] [place] [address]- [facility] (1) [facility] [place] JAY APONTE/RESIDENT CARE AIDE/PA Time Patient Seen face to face: Date and time 02/27/2023 14:25:47 Past Medical History Active Problems Diabetes Hypertension Past Surgical History Leg surgery Social History *Alcohol Screen How often do you have a drink containing alcohol? Monthly or less (1). How many standard drinks containing alcohol do you have on a typical day? 1 or 2 (0). How often do you have six or more drinks on one occasion? Never (0). Ready to change: No. *Substance Abuse Screen Do you have concerns about substance abuse for yourself or in your household? No. Current or past use? Never. *Tobacco Use Screen Is there a smoker in the household? No. Do you have concerns about tobacco use in household? No. Over the past 30 days, what and how much have you smoked? 5-9 cigarettes (between 1/4 to 1/2 pack)/day in last 30 days. Over the past 30 days, what has been your smokeless tobacco use? Never. Are you ready to quit? No. Allergies Tomatoes atorvastatin (MUSCLES CRAMP UP.) Home Medications doxazosin 8 mg oral tablet, 8 mg, 1 Tab, ORAL, QBedtime lisinopril 10 mg oral tablet, 10 mg, 1 Tab, ORAL, DAILY omeprazole 20 mg oral delayed release capsule, 20 mg, 1 Cap, ORAL, DAILY Plavix 75 mg oral tablet, 75 mg, 1 Tab, ORAL, DAILY Ezetimibe 10 mg Empaglifozin 25 mg Lab Results Labs All 24H Lab Results Date CRP C-Reactive Protein 1.4 mg/dL (HIGH) 02/27/23 14:52 PDT Auto Neutrophil Percent 52.8 % 02/27/23 14:52 PDT Auto Neutrophil Absolute 3.1 K/mm3 02/27/23 14:52 PDT Auto Lymphocyte Percent 36.8 % 02/27/23 14:52 PDT Auto Lymphocyte Absolute 2.2 K/mm3 02/27/23 14:52 PDT Auto Monocyte Percent 7.7 % 02/27/23 14:52 PDT Auto Monocyte Absolute 0.5 K/mm3 02/27/23 14:52 PDT Auto Basophil Percent 0.6 % 02/27/23 14:52 PDT Auto Basophil Absolute 0.0 K/mm3 02/27/23 14:52 PDT Auto Eosinophil Percent 2.1 % 02/27/23 14:52 PDT Auto Eosinophil Absolute 0.1 K/mm3 02/27/23 14:52 PDT WBC 5.9 K/mm3 02/27/23 14:52 PDT RBC 4.86 M/mm3 02/27/23 14:52 PDT HGB 14.9 gm/dL 02/27/23 14:52 PDT HCT 43.1 % 02/27/23 14:52 PDT MCV 88.8 fL 02/27/23 14:52 PDT MCH 30.7 pg 02/27/23 14:52 PDT MCHC 34.6 gm/dL 02/27/23 14:52 PDT RDW 13.2 % 02/27/23 14:52 PDT PLT 150 K/mm3 02/27/23 14:52 PDT Sedimentation Rate Auto 7 mm/hr 02/27/23 14:52 PDT Sodium Level 137 mmol/L 02/27/23 14:52 PDT Potassium Level 3.8 mmol/L 02/27/23 14:52 PDT Chloride Level 106 mmol/L 02/27/23 14:52 PDT CO2/Carbon Dioxide 21 mmol/L (LOW) 02/27/23 14:52 PDT Anion Gap 10 02/27/23 14:52 PDT Glucose, Random 211 mg/dL (HIGH) 02/27/23 14:52 PDT BUN 19 mg/dL 02/27/23 14:52 PDT Creatinine 1.2 mg/dL 02/27/23 14:52 PDT Calcium Level 9.4 mg/dL 02/27/23 14:52 PDT Magnesium Level 2.1 mg/dL 02/27/23 14:52 PDT Total Protein 7.2 gm/dL 02/27/23 14:52 PDT Albumin Level 4.5 gm/dL 02/27/23 14:52 PDT Bilirubin, Total 0.7 mg/dL 02/27/23 14:52 PDT AST 20 IntUnit/L 02/27/23 14:52 PDT ALT 32 IntUnit/L 02/27/23 14:52 PDT ALP 47 IntUnit/L 02/27/23 14:52 PDT eGFR 65 mL/min/1.73m2 02/27/23 14:52 PDT Troponin I High Sensitivity 8.0 pg/mL 02/27/23 14:52 PDT Images CTA Rvqja-Uryvpfs-Obyesu ESTIMATED CT EXAM DOSE(Dose-Length Product, DLP) 930.62 mGycm. CTDI (Vol) : 68.81. This scan is performed using automatic exposure control, radiation dose reduction algorithms, in order to maintain diagnostic quality images, while using lowest possible, patient dosed techniques. COMPARISON: March 06, 2022 FINDINGS: Moderate hiatal hernia again noted with esophageal gas characteristic of reflux. Hepatic low attenuation characteristic of steatosis. Borderline splenomegaly cephalocaudal extent 12.9 cm similar to prior. 80-60% origin stenosis celiac axis. No flow limiting lesion seen superior mesenteric artery. No acute bony process. Bridged osteophytes anteriorly L1-2 level again seen. Posterior annular bulge multiple levels. No definitive exiting nerve rootlet impingement.. 3.5 cm abdominal aortic aneurysm measure the level of the origin of the inferior mesenteric artery similar to prior. Mural thrombus noted within the lower abdominal aortic aneurysm anterior left laterally. Scattered atherosclerotic calcified plaque. 50% luminal narrowing distal left external iliac artery/proximal common femoral artery. Calcified plaque causing segmental 50-60% luminal narrowing superficial femoral arteries left greater than right with high-grade stenosis suspected left facial femoral artery axial image 251 series 2 mid to upper thigh. IMPRESSION: Cause of back pain not delineated. Other findings as above. [id number] Male 02/27/2023 [facility] ED Physician Notes Patient: ANNIA CURRY Age: 67 years Legal Sex: MALE : 1955 _ Medical screening exam performed in [facility] by Sasha Dwyer NP. 67-year-old male with h/o reported L4-5 herniated disc, presents with his for evaluation of worsening low back pain and sleep disturbance for the past 2 weeks. Reports clammy skin and diarrhea onset today. He is unable to get comfortable and describes his low back pain as 'shearing' at times. [facility] was notified today that he is pending surgery for his herniated disc. He has a h/o TIA and anticoagulated on Plavix, and he has a h/o aortic aneurysm. Vital Signs (last charted) Pulse: 99 (02/27 14:05) Pulse Ox: 94 (02/27 14:05) BP: 167/70 (02/27 14:05) Ox Delivery: Room air Temperature: 96.5 F (35.8 C) (02/27 14:05) Ox %/FiO2: Not Charted Respiration: 14 (02/27 14:05) FiO2 set: Not Charted Pain Intensity Level: 8 (02/27 14:05) Basic Physical Exam: Patient appears stable General Appearance: Uncomfortable. HEENT: Normocephalic. PERRL. Lungs: Nonlabored. Speaking in full complete sentences. Back: No reproducible bony tenderness to lumbar spine. No CVA tenderness. Good radial pulses. Neurological: Alert and oriented to person, place, time and situation. Skin: Clammy skin Psychiatric: Alert and interactive with normal affect. The patient was moved from [facility] to main ED for higher level of care. Patient Care Verify ePrescribe Patient Pharmacy, 02/27/23 14:23:20 PDT, Use the 'Patient Pharmacy' button in the toolbar to review/update the patient's pharmacy for ePrescribe. Radiology CT Angio Abd Aorta IllioFemoral Runoff, 02/27/23 14:43:00 PDT, Stat, Patient not Allergic to Contrast, Patient diabetic, Patient not on Glucophage or Metformin, Reason: Abdominal Aortic Aneurysm AAA, Diarrhea today Low back pain, hip pain and worsening right leg pain x2 weeks. Sleep distur... Continuous Infusions Saline Lock, 02/27/23 14:42:00 PDT, NOW, Stop Dt/Tm 02/27/23 14:42:00 PDT Laboratory CBC w Differential, 02/27/23 14:42:00 PDT, ONCE, Jama Priority: Stat Rpt Priority: Stat, Not Collected Lab Collect, Blood, Stop Dt/Tm 02/27/23 14:43:00 PDT Comprehensive Metabolic Panel CMP, 02/27/23 14:42:00 PDT, ONCE, Jama Priority: Stat Rpt Priority: Stat, Not Collected Lab Collect, Blood, Stop Dt/Tm 02/27/23 14:43:00 PDT CRP CReactive Protein, 02/27/23 14:42:00 PDT, ONCE, Jama Priority: Stat Rpt Priority: Stat, Not Collected Lab Collect, Blood, Stop Dt/Tm 02/27/23 14:43:00 PDT Lactic Acid/Lactate, 02/27/23 14:45:00 PDT, ONCE, Jama Priority: Stat Rpt Priority: Stat, Not Collected Lab Collect, Blood, Stop Dt/Tm 02/27/23 14:45:00 PDT Magnesium Level, 02/27/23 14:42:00 PDT, ONCE, Jama Priority: Stat Rpt Priority: Stat, Not Collected Lab Collect, Blood, Stop Dt/Tm 02/27/23 14:43:00 PDT Sed Rate (ESR) AUTO, 02/27/23 14:42:00 PDT, ONCE, Jama Priority: Stat Rpt Priority: Stat, Not Collected Lab Collect, Blood, Stop Dt/Tm 02/27/23 14:43:00 PDT Troponin I High Sensitivity, 02/27/23 14:42:00 PDT, ONCE, Stat, Not Collected Lab Collect, Blood, Stop Dt/Tm 02/27/23 14:43:00 PDT Medications HYDROmorphone, 0.5 mg, IV, ONCE, STAT, INJ, 02/27/23 14:42:00 PDT, Stop date 02/27/23 14:42:00 PDT Cardiac Services ECG 12 Lead - CV, 02/27/23 14:42:00 PDT, Stat, Chest Pain chest pain r/o [facility], ONCE Others ED Assessment Adult, 02/27/23 14:09:20 PDT Lab Blood Collect Event FN, 02/27/23 14:43:17 PDT, Stop Dt/Tm 02/27/23 14:43:17 PDT RME: Scribed by Юлия Connolly, acting as medical appointment scheduler for Sasha Dwyer NP on 02/27/2023 14:42 PDT Severe sepsis screening tool completed. We will discontinue the use of tool as the only triggered criteria for elevated heart rate suspect this is due to pain. [id number] Male 02/27/2023 [facility] Consultation Consultation Date: 07/23/2022 HISTORY OF PRESENT ILLNESS: Patient is a 66-year-old male, who is right-handed. 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 Raygoza. I have been asked to see him with regards to an episode of loss of consciousness. Patient was admitted yesterday. He remembered going to the bathroom due to a stomach ache at about 2:00 a.m. in the morning. The next thing he remembered were the paramedics surrounding him. He had no memory of what occurred. His spouse got up to take the dog outside and noticed the patient slumped over the toilet. He was unresponsive and very confused for about 40 minutes before his mentation cleared up. In the emergency room, his blood pressure was 159/72 and his heart rate was in the 90s with one measurement of 101. There was hyperglycemia at 365. CAT scan of the head showed a low density area in the Caudate head on the left, compatible with an old infarct. CT angiogram of the head and neck showed no significant stenosis. He denied any tongue biting and he denied any warning prior to his loss of consciousness. He also denied any aches and pains in his extremities or torso. There was another prior episode where he got confused on 06/26/2021. He had loaded up some hay onto his truck then went into a shop. When he tried to pay for some groceries he apparently could not count the money. He was able to drive home. When he got home, he used the wrong [place] to try and get into the house and could not get in. His daughter managed to open the door. When he got in, he tried to use his mobile phone to try to operate the television and used the TV remote to make a phone call. The confusion lasted for almost an hour before it cleared up. CT scan of the head at that time showed that he had an acute left Caudate infarct. There was another episode on 06/05/2022. He said he was at a gathering when he suddenly had speech difficulty and could not express his thoughts. This lasted for about 20 minutes before resolving. There was no associated headache and there was no loss of consciousness. This was thought to be a Transient Ischemic Attack. PAST MEDICAL HISTORY: He has a history of Diabetes, Hyperlipidemia and a stroke as well as hypertension. There is also a history of tonsillectomy and left ankle surgery. MEDICATIONS: He apparently is on Metformin, Plavix, Aspirin, Doxazosin 8 mg tablets, one at bedtime; Fish Oil, 2 a day; Lisinopril 10 mg, one a day, Insulin Lispro. He tells me he is not on Bupropion but it is listed in the H and P. The dose of the bupropion is 75 mg, 2 twice a day. This will be important as Bupropion can cause seizures. ALLERGIES: PATIENT SAYS THAT HE IS INTOLERANT OF STATINS. HE APPARENTLY HAD SEVERE MUSCLE PAINS AND THE STATIN HAD TO BE STOPPED. HE ALSO TRIED ANOTHER MEDICATION FOR HIS HYPERLIPIDEMIA, BUT HAD SEVERE LIVER DYSFUNCTION AND WAS ADMITTED TO A HOSPITAL IN [place]. HE DOES NOT KNOW THE NAME OF THIS MEDICATION. SOCIAL HISTORY: Used to smoke 2 packs a day for many years, but quit when he had a stroke. He does not drink. FAMILY HISTORY: Both his parents had Diabetes. His father of dementia. Mother of old age. PHYSICAL EXAMINATION: GENERAL: Patient's general condition is satisfactory. There is no pallor, no ankle edema or lymphadenopathy. Neck is supple. HEART: S1, S2. LUNGS: Clear. ABDOMEN: Soft, without any masses. VITAL SIGNS: Blood pressure is 134/77, pulse is 75 per minute and regular and respirations are 18 per minute. NEUROLOGIC: He is alert and oriented. Speech is normal. He is not aphasic. Cranial nerves, both pupils are equal and reactive to light. Ocular motility is full with no nystagmus or diplopia. Visual lopez are intact. There is no facial asymmetry. Palate elevates symmetrically and tongue is midline. Power is normal. Tone is normal. Sensation is intact. Reflexes are 1+ throughout. Plantars are downgoing without any clonus. IMPRESSION: 1. Acute loss of consciousness, duration unknown with confusion afterwards. This may be a seizure but there are no risk factors for a seizure disorder. If he is on Bupropion, it may cause a seizure disorder. 2. Diabetes and Hyperlipidemia. PLAN: I think it will be important to find out what medication for his hyperlipidemia he is intolerant to . Consider Zetia if he is not allergic to it or PCSK9 inhibitors for hyperlipidemia. One such drug is Evolocumab. Suggest EEG to rule out a seizure disorder and also an echocardiogram with a bubble study to rule out a right to left shunt. For the time being, I would continue with the Aspirin and Plavix. MD Hong Pennington CSL, 07/24/2022 22:29:04 Conf # [id number] SC/PC, 07/24/2022 23:26:00 Dictation ID [id number] Male 07/25/2022 [facility] Progress Note Patient: ALYSSIA CURRY Age: 66 years Legal Sex: Male : 1955 Author: MD Idalmis, Mauro Zheng Inpatient Admission Date: 07/23/22 08:31 SUBJECTIVE: Patient seen and examined at bedside where he says he is back to his baseline. He says he cannot take any statins because he was told by a physician that they make every cell in his body open up and bleed. He also told me besides statin there are 2 other medicines he cannot take related to his cholesterol level but he does not remember what those are. He had a TIA in May it appears he says and now he has another one as the MRI is negative for acute stroke. He is aware that he had an actual stroke 13 months ago as documented by MRI evidence at that time. OBJECTIVE: Vital Signs (last 24 hrs) Last Charted Minimum Maximum Temp( F ) 97.4 (JUL 24 11:05 PST) 97.3 (JUL 24 04:48 PST) 98.9 (JUL 23 16:17 PST) Heart Rate 85 (JUL 24 11:05 PST) 72 (JUL 24 04:48 PST) 90 (JUL 23 16:17 PST) Resp Rate 18 (JUL 24 11:05 PST) 16 (JUL 23 21:11 PST) 18 (JUL 23 16:17 PST) SBP 101 (JUL 24 11:05 PST) 101 (JUL 24 11:05 PST) 138 (JUL 23 21:11 PST) DBP 63 (JUL 24 11:05 PST) 63 (JUL 24 11:05 PST) 78 (JUL 23 21:11 PST) SpO2 97 (JUL 24 11:05 PST) 93 (JUL 24 00:58 PST) 97 (JUL 24 11:05 PST) OXYDELIVERY Room air Room a Room a (JUL 24:05 PST) (JUL 23 16:17 PST) (JUL 23 16:17 PST) Measurements (last charted) Weight: 93.2 kg (07/23/22 10:07:00) Height: 177.2 cm (07/23/22 10:07:00) BMI: 29.68 kg/m2 (07/23/22 10:07:00) Intake and Output as of 13:09 (24 hour periods starting at 06:00) 07/24/22 07/23/22 07/22/22 Intake mL 120 500 0 Output mL 0 0 0 Fluid Balance 120 500 0 PHYSICAL EXAM: Constitutional: No acute distress. Sitting upright in bed HEENT: NCAT. EOMI. Cardiovascular: Normal rate and regular rhythm. No murmurs appreciated. Respiratory: Breathing is unlabored. Lung sounds are clear to auscultation bilaterally. No wheezes, rales, or rhonchi. Gastrointestinal: Soft. Non-distended. Non-tender. Neurological: Alert and awake. Oriented x3. CNII-XII intact. Grossly intact motor and sensory examination. Pronator drift tested and negative. Extremities: No clubbing. No cyanosis. No edema. Skin: Warm. No rash present. Psychiatric: Normal affect. Interactive. CURRENT INPATIENT MEDICATIONS: Medications (23) Active Scheduled: (10) aspirin 81 mg Chew Tab 81 mg 1 Tab, ORAL, DAILY buPROPion 75 mg Tab 150 mg 2 Tab, ORAL, BID clopidogrel 75 mg Tab 75 mg 1 Tab, ORAL, DAILY docusate sodium 100 mg Cap 100 mg 1 Cap, ORAL, BID insulin lispro (Admelog) 100 units/mL, 3 mL MDV correction scale, SUBQ, AC&Bed lisinopril 10 mg Tab 10 mg 1 Tab, ORAL, DAILY pantoprazole 40 mg EC Tab 40 mg 1 Tab, ORAL, DAILY Pharmacy Consult Allergy Review, N/A, As directed sodium chloride 0.9%, 10 mL Flush 10 mL, IV FLUSH, Q12H terazosin 5 mg Cap 10 mg 2 Cap, ORAL, DAILY Continuous: (1) sodium chloride 0.9% 500 mL 500 mL, IV PRN: (12) acetaminophen 325 mg Tab 650 mg 2 ea, ORAL, Q6H acetaminophen 325 mg Tab 650 mg 2 ea, ORAL, Q6H Dextrose 50% Inj 50 mL Syr 25 mL, IV, As directed Dextrose 50% Inj 50 mL Syr 50 mL, IV, As directed glucagon 1 mg Inj SDV 1 mg, SUBQ, As directed Glucose 40% Oral Gel 15 gm 15 gm 37.5 mL, ORAL, As directed hydrALAZINE 20 mg/mL, 1 mL Inj 10 mg 0.5 mL, IV, Q1HR Patient Specific Refrigerated Med 1 ea, N/A, As directed sodium chloride 0.9%, 10 mL Flush 10 mL, IV FLUSH, Per Protocol sodium chloride 0.9%, 20 mL 20 mL, IV, As directed sterile water for injection 10 mL 20 mL, N/A, As directed sterile water for injection 10 mL 10 mL, N/A, As directed LAB RESULTS: Labs All 24H Lab Results Normalcy Date HDL Cholesterol 32 mg/dL LOW 07/24/22 04:29 LDL Cholesterol, Calc 151 mg/dL HIGH 07/24/22 04:29 VLDL Cholesterol, Calc 41 mg/dL NA 07/24/22 04:29 Total Chol/HDL Ratio 7.0 NA 07/24/22 04:29 LDL/HDL Ratio 4.7 NA 07/24/22 04:29 GFR - Non >60 mL/min/1.73m2 NA 07/24/22 04:29 GFR - >60 mL/min/1.73m2 NA 07/24/22 04:29 Auto Neutrophil Percent 47.1 % NORMAL 07/24/22 04:29 Auto Neutrophil Absolute 2.5 K/mm3 NORMAL 07/24/22 04:29 Auto Lymphocyte Percent 42.0 % HIGH 07/24/22 04:29 Auto Lymphocyte Absolute 2.2 K/mm3 NORMAL 07/24/22 04:29 Auto Monocyte Percent 8.0 % NORMAL 07/24/22 04:29 Auto Monocyte Absolute 0.4 K/mm3 NORMAL 07/24/22 04:29 Auto Basophil Percent 0.9 % NORMAL 07/24/22 04:29 Auto Basophil Absolute 0.0 K/mm3 NORMAL 07/24/22 04:29 Auto Eosinophil Percent 2.0 % NORMAL 07/24/22 04:29 Auto Eosinophil Absolute 0.1 K/mm3 NORMAL 07/24/22 04:29 WBC 5.3 K/mm3 NORMAL 07/24/22 04:29 RBC 4.53 M/mm3 NORMAL 07/24/22 04:29 HGB 13.5 gm/dL LOW 07/24/22 04:29 HCT 39.5 % LOW 07/24/22 04:29 MCV 87.2 fL NORMAL 07/24/22 04:29 MCH 29.8 pg NORMAL 07/24/22 04:29 MCHC 34.1 gm/dL NORMAL 07/24/22 04:29 RDW 12.7 % NORMAL 07/24/22 04:29 PLT 135 K/mm3 LOW 07/24/22 04:29 Sodium Level 135 mmol/L NORMAL 07/24/22 04:29 Potassium Level 3.4 mmol/L LOW 07/24/22 04:29 Chloride Level 105 mmol/L NORMAL 07/24/22 04:29 CO2/Carbon Dioxide 22 mmol/L NORMAL 07/24/22 04:29 Anion Gap 8 NA 07/24/22 04:29 Glucose, Random 217 mg/dL HIGH 07/24/22 04:29 POCT - Glucose (Capillary) 279 mg/dL HIGH 07/24/22 11:08 BUN 20 mg/dL NORMAL 07/24/22 04:29 Creatinine 1.1 mg/dL NORMAL 07/24/22 04:29 Calcium Level 8.9 mg/dL NORMAL 07/24/22 04:29 Total Cholesterol 224 mg/dL HIGH 07/24/22 04:29 Triglycerides 204 mg/dL HIGH 07/24/22 04:29 CULTURE RESULTS: IMPRESSION AND PLAN: Active Diagnoses 1. Brain TIA (Transient cerebral ischemic attack, unspecified, G45.9) : MRI of brain negative for stroke this admission 2. Hyperglycemia due to type 2 diabetes mellitus (Type 2 diabetes mellitus with hyperglycemia, E11.65) 3. Tachycardia (Tachycardia, unspecified, R00.0) 4. Tachypnea (Tachypnea, not elsewhere classified, R06.82) 5. Acute metabolic encephalopathy (Metabolic encephalopathy, G93.41) 6. Hypochloremia (Other disorders of electrolyte and fluid balance, not elsewhere classified, E87.8) 7. Dehydration (Dehydration, E86.0) 8. Diabetes (Type 2 diabetes mellitus without complications, E11.9) 9. Hypertension (Essential (primary) hypertension, I10) 10. Current smoker (Nicotine dependence, unspecified, uncomplicated, F17.200) Plan as of 07/24/2022 I have spoken with our neurologist on-call Dr. Francois Brooks and he is going to see this patient in the hospital as I am very concerned that in the 3 weeks between now and the appointment he has with a PCP at the [facility] that he may have a stroke since he is having recurrent TIAs with a history of a documented stroke. I also have questions as what to do about his dyslipidemia. Full CODE STATUS [id number] Male 07/24/2022 [facility] US Heart Please click on link to see image. 07/24/2022 63 [facility] ED Physician Notes Patient: ANNIA CURRY Age: 66 years Legal Sex: MALE : 1955 Chief Complaint pt BIBA s/p found in bathroom by family down time unknown, per medics he was ALOC upon fire arrival since his symptoms have resolved noted pt to be A&O x 4, GCS 15. zero signs of facial droop or slurred speech noted Mode of Arrival [facility] History (History of Present Illness) Is a 58-year-old male with a past medical history significant for diabetes, hypertension, and prior TIAs who presents to the emergency department after an episode of altered awareness. The patient reports the last thing he remembers is getting up to use the bathroom. His was walking by the bathroom and noted the patient seated on the toilet but slumped over, leaning against the bathroom sink. He had no obvious signs of trauma, there was stool in the toilet but was without obvious blood or melena, but the patient was unresponsive. She called EMS and neighbors, and the patient remained unresponsive for perhaps 45 minutes. He woke up with fire department present. Per EMS, he was altered on arrival, glucose was normal, he had no signs of facial droop or slurred speech, and he has since returned to baseline, alert and oriented x4, GCS 15. Additional History Obtained From: Family Documentation Reviewed: Prior Hospitalization Notes Physical Exam Triage Vital Signs 07/23/22 01:59 T: 97.3 F HT: 177.2 cm WT: 91.9 kg(Dose Calc Wt.) WT: 91.9 kg BMI: 29.27 kg/m2 General Appearance: Alert and cooperative, no acute distress. Head: normocephalic atraumatic Eyes: vision is grossly intact. No discharge, sclerae are noninjected Ears: hearing grossly intact. Nose: No nasal discharge. Mouth/Throat: Moist mucous membranes, trachea midline Neck: No JVD, no meningismus Cardiac: Regular rate and rhythm, Extremities are warm and well perfused. Respiratory: Breathing is nonlabored, lungs clear, no wheezing. No stridor. Abdomen: Soft, nondistended, nontender. Musculoskeletal: No joint effusions or deformities. Neurological: Alert and awake, oriented to person place and situation. EOM intact, Symmetric facial sensation, Hearing intact bilaterally, Tongue protrudes midline, Uvula elevates midline, Visual acuity grossly intact, Normal shoulder shrug. No facial asymmetry, no dysarthria, no expressive aphasia, symmetric strength and sensation in upper and lower extremities, normal coordination. No dysmetria. No visual field deficits. Skin: normal color, no rashes, ulcerations or abrasions. Psychiatric: Cooperative, Normal affect ED Course, Data, and Interventions Differential Diagnosis Cerebral ischemia, toxic/metabolic encephalopathy, infection Orders Patient Care Fingerstick/Capillary Blood Sugar, 07/23/22 7:14:00 PST, PRN Order, Per Hypoglycemia Protocol Head of Bed Position, 07/23/22 7:14:00 PST, Continuous Order, HOB: Elevated, 30 degrees Hypoglycemia Protocol, 07/23/22 7:14:00 PST, Per Reference Text Hypoglycemia Protocol, 07/23/22 7:14:00 PST, Per reference text Neuro Assessment, 07/23/22 2:20:00 PST, Q8H, Neuro Status to Include LOC (eye, verbal, motor)&PERRLA Motor strength Neuro Checks, 07/23/22 7:14:00 PST, Q4H NIH Scale, 07/23/22 2:20:00 PST, Stop Dt/Tm 07/23/22 2:20:00 PST NIH Scale, 07/23/22 7:14:00 PST, PRN Order, Change in patient status. Use NIH Stroke Scale Form NIH Scale, 07/23/22 7:14:00 PST, Q12H, Every Shift. Use NIH Stroke Scale Form. Oxygen Therapy, 07/23/22 2:20:00 PST, Stat, Continuous Order, 2 Liter Liters per Nasal Cannula, Start oxygen via nasal cannula at 2L /min. Titrate by 1 L/min increments, each 5 minutes, to keep O2 Sat. >/=90%. Maximum limit = 6 L/min. Call physician, if further ti... Oxygen Therapy, 07/23/22 7:14:00 PST, Routine, Continuous Order, 2 Liters per Nasal Cannula, Start oxygen via nasal cannula at 2 L/min. Titrate by 1 L/min. increments, each 5 minutes, to keep O2 Sat greater than or equal to 94%. Maximum limit = 6 L/min. Call physi... Precautions, 07/23/22 7:14:00 PST, Continuous Order, Aspiration Precautions Pulse Oximetry, 07/23/22 2:20:00 PST, Routine, Continuous Order Swallow Screen, 07/23/22 7:14:00 PST, If patient fails the screening keep patient NPO and order Speech Therapy for Swallow Evaluation., Stop Dt/Tm 07/23/22 7:14:00 PST Telemetry Monitoring, 07/23/22 7:14:00 PST, Continuous Order Verify ePrescribe Patient Pharmacy, 07/23/22 1:58:57 PST, Use the 'Patient Pharmacy' button in the toolbar to review/update the patient's pharmacy for ePrescribe. Vital Signs, 07/23/22 11:14:00 PST, Q4H Weigh Patient, 07/23/22 2:20:00 PST, NOW, Weigh pt or best estimate and document in 'dose calculation' as well as in triage., Stop Dt/Tm 07/23/22 2:20:00 PST Admit/DC/Condition Admission Status Order Notification, 07/23/22 7:14:00 PST, Observation, Level Of Care: Tele Admission Status, 07/23/22 7:14:00 PST, Observation, Level Of Care: Tele Communication, 07/23/22 2:20:00 PST, DO NOT LET LAB OR OTHER CARE DELAY IMAGING. Communication, 07/23/22 2:20:00 PST, Order hCG Serum Preg Qual* for Women ages 18-55 Communication, 07/23/22 7:14:00 PST, If blood pressure is greater than 220 mmHg systolic or greater than 120 mmHg diastolic on two readings 5-10 minutes apart: initiate Ischemic Stroke BP NON tPA Blood Pressure Management Form. Communication, 07/23/22 7:14:00 PST, If temperature greater than 100.4 F, implement cooling measures ED Possible Admit, 07/23/22 6:58:00 PST Full Code, 07/23/22 7:14:00 PST, Continuous Order, Continuous, Not Yet Discussed with Patient Notify Physician, 07/23/22 2:20:00 PST, Determine time of onset and notify physician immediately of time of symptom onset. Notify Physician, 07/23/22 7:14:00 PST, Systolic BP Greater Than 220 mmHg, Diastolic BP Greater Than 120 mmHg, HR Greater Than 120 beats/min, HR Less Than 50 beats/min, Temperature Greater Than 99.5 F (37.5 C), Respiration Greater Than 24 breaths/min, Respiration Less... Consults/Referrals Discharge Planning Consult, 07/23/22 7:14:00 PST, Reason for consult: Physician ordered, Routine Radiology CT Angio Head/Neck W Contrast, 07/23/22 2:36:00 PST, Stat, Patient not Allergic to Contrast, Patient diabetic, Patient not on Glucophage or Metformin, Reason: TIA, , Patient has IV, Patient not on O2, Standard, OK (Completed) CT Brain WO Contrast, 07/23/22 2:20:00 PST, Stat, Reason: Stroke/TIA, Patient has IV, Patient not on O2, Standard, OK (Completed) MRI Brain WO Contrast, 07/23/22 7:11:00 PST, Stat, Reason: Stroke/TIA, Patient has IV, Telemetry NOT required during MRI, Patient not on O2, Standard, Patient not Claustrophobic, Patient does not have pacemaker, Patient does not have aneurysm clip(s), OK (Completed) Nutritional Services NPO, 07/23/22 7:14:00 PST, Start NPO: Now, NPO Continuous Infusions Saline Lock, 07/23/22 2:20:00 PST, Stop Dt/Tm 07/23/22 2:20:00 PST Laboratory [id number] CBC Auto w Auto Diff, ONCE, Stat, Collected Lab Collect, 07/23/22 1:50:00 PST, Blood, Stop Dt/Tm 07/23/22 1:50:00 PST (Completed) A1C Hemoglobin by HPLC, ONCE, Stat, Collected Lab Collect, 07/23/22 1:50:00 PST, Blood, Stop Dt/Tm 07/23/22 1:50:00 PST (Completed) Basic Metabolic Panel BMP, 07/23/22 7:14:00 PST, QMorning, Jama Priority: AM Draw Rpt Priority: Routine, Not Collected Lab Collect, Blood CBC w Differential, 07/23/22 2:20:00 PST, ONCE, Jama Priority: Stat Rpt Priority: Stat, Not Collected Lab Collect, Blood, Stop Dt/Tm 07/23/22 2:21:00 PST (Completed) CBC w Differential, 07/23/22 7:14:00 PST, QMorning, Jama Priority: AM Draw Rpt Priority: Routine, Not Collected Lab Collect, Blood Comprehensive Metabolic Panel CMP, 07/23/22 2:20:00 PST, ONCE, Jama Priority: Stat Rpt Priority: Stat, Not Collected Lab Collect, Blood, Stop Dt/07/23/22 2:21:00 PST (Completed) COVID-19 PCR AMP HIGH OUTPUT ADD ON, ONCE, Routine, Collected Nurse Collect, 07/23/22 8:15:00 PST, Nasopharyngeal, Stop Dt/07/23/22 8:15:00 PST (Completed) COVID19 SUKHWINDER, High Output, ONCE, Routine, Collected Nurse Collect, 07/23/22 8:15:00 PST, Nasopharyngeal, Stop Dt07/23/22 8:15:00 PST (Completed) Differential Automated*, 07/23/22 1:50:00 PST, ONCE, Jama Priority: Stat Rpt Priority: Stat, Collected Lab Collect, Blood, Stop /07/23/22 1:50:00 PST (Completed) Drug Screen Urine Panel 11 [facility], 07/23/22 2:36:00 PST, ONCE, Stat, Not Collected Nurse Collect, Urine, Stop Dt/07/23/22 2:38:00 PST (Completed) Ethanol Level Medical, 07/23/22 2:36:00 PST, ONCE, Jama Priority: Stat Rpt Priority: Stat, Not Collected Lab Collect, Blood, Stop Dt/07/23/22 2:38:00 PST (Completed) Extra Enriquez Top Tube, ONCE, Stat, Collected Lab Collect, 07/23/22 1:50:00 PST, Blood, Stop /07/23/22 1:50:00 PST (Completed) Fentanyl Screen Urine, 07/23/22 5:55:00 PST, ONCE, Stat, Collected Nurse Collect, Urine, Stop 07/23/22 5:55:00 PST Lipid Panel, 07/23/22 7:14:00 PST, ONCE, Jama Priority: AM Draw Rpt Priority: Routine, Not Collected Lab Collect, Blood, Fasting, Stop Dt/07/24/22 5:00:00 PST POC Glucose Panel, Blood, Collected Y/N, 07/23/22 1:55:33 PST, RT, Routine, 07/23/22 1:55:33 US/[facility]vell (Completed) Prothrombin Time PT w INR, 07/23/22 2:20:00 PST, ONCE, Jama Priority: Stat Rpt Priority: Stat, Not Collected Lab Collect, Blood, Stop Dt/Tm 07/23/22 2:21:00 PST (Completed) SARS CoV-2 + Influenza A+B + RSV Molecul, 07/23/22 7:25:00 PST, ONCE, Routine, Not Collected Nurse Collect, Nasopharyngeal, No, No, No, No, Yes, No, No, Stop Dt/Tm 07/23/22 7:25:00 PST (Completed) Urinalysis w C/S IF Indicated, 07/23/22 2:36:00 PST, ONCE, Stat, Not Collected Nurse Collect, Urine Voided, Stop D/ PST (Completed) Medications acetaminophen, 650 mg, ORAL, Q6H, PRN, Fever, TAB, 07/23/22 7:14:00 PST acetaminophen, 650 mg, ORAL, Q6H, PRN, Pain-Mild (Scale 1-3), TAB, 07/23/22 7:14:00 PST aspirin, 81 mg, ORAL, DAILY, Routine, CHEW TAB, 07/23/22 9:00:00 PST clopidogrel, 75 mg, ORAL, DAILY, TAB, 07/23/22 8:23:00 PST docusate, 100 mg, ORAL, BID, CAP, 07/23/22 9:00:00 PST glucagon, 1 mg, SUBQ, As directed, PRN, Blood Glucose, INJ, 07/23/22 7:14:00 PST glucose, 15 gm = 37.5 mL, ORAL, As directed, PRN, Blood Glucose, GEL, 07/23/22 7:14:00 PST glucose, = 25 mL, IV, As directed, PRN, Blood Glucose, INJ, 07/23/22 7:14:00 PST glucose, = 50 mL, IV, As directed, PRN, Blood Glucose, INJ, 07/23/22 7:14:00 PST hydrALAZINE, 10 mg, IV, Q1HR, PRN, Blood Pressure, INJ, 07/23/22 7:14:00 PST insulin lispro, correction scale, SUBQ, AC&Bed, 07/23/22 11:00:00 PST, 30 Day(s), Stop date 08/22/22 10:59:00 PST Cardiac Services CV Echo TTE, 07/23/22 9:00:00 PST, Routine, CVA/TIA, Patient has IV, Patient not on O2, Standard, Use Contrast, if needed, Stop Dt/07/23/22 9:00:00 PST Rehab Services Occupational Therapy Eval and Treat, 07/23/22 7:14:00 PST, ONCE, Per Therapist Recommendation, Stop Dt07/23/22 7:14:00 PST Physical Therapy Eval and Treat, 07/23/22 7:14:00 PST, Routine, ONCE, Per Therapist Recommendation, Dt07/23/22 7:14:00 PST Speech Therapy Eval and Treat per protocol, 07/23/22 7:14:00 PST, Routine, ONCE, Per Physician - See Special Instructions, For cognitive and swallowing function and treat if needed, 07/23/22 7:14:00 PST Speech Therapy Eval and Treat, 07/23/22 7:14:00 PST, Routine, ONCE, Per Physician - See Special Instructions, For cognitive and swallowing function and treat if needed, 07/23/22 7:14:00 PST Non Categorized Stroke Quality Measures, 07/23/22 7:14:00 PST, 07/23/22 7:14:00 PST VTE Prophylaxis Guidelines, 07/23/22 7:14:00 PST, Medical Others ED Assessment Adult, 07/23/22 2:08:38 PST Lab Blood Collect Event FN, 07/23/22 2:21:15 PST, Stop Dt/07/23/22 2:21:15 PST Lab Blood Collect Event FN, 07/23/22 2:38:37 PST, Stop Dt/07/23/22 2:38:37 PST Lab Blood Collect Event FN, 07/23/22 7:15:30 PST, Stop Dt/07/23/22 7:15:30 PST Lab Urine Collect Event FN, 07/23/22 2:38:36 PST, Stop Dt/07/23/22 2:38:36 PST Diagnostics Imaging results below were independently viewed and interpreted by me. Computerized Tomography Result Type: CT Brain WO Contrast Result Date: July 23, 2022 03:15 PST Reason For Exam: Stroke/TIA REPORT: EXAM:CT Head Without Intravenous Contrast. CLINICAL HISTORY:Stroke/tia- ALOC/passed outTECHNIQUE:Axial computed tomography images of the head/brain without intravenous contrast. COMPARISON:June 26, 2021 FINDINGS: BRAIN:No acute intraparenchymal hemorrhage. No mass lesion. No CT evidence for acute territorial infarct. There is a nonspecific, somewhat faint low-density area in the region of the caudate head on the left. This does appear to be new in the interval. No midline shift or extra-axial collection. VENTRICLES:No hydrocephalus. ORBITS:The orbits are unremarkable. SINUSES AND MASTOIDS:The paranasal sinuses and mastoid air cells are clear. SOFT TISSUES:No significant facial or scalp soft tissue swelling evident. No radiopaque foreign body is seen. BONES:No acute skull fracture. IMPRESSION: Low density area in the region of the caudate head on the left. No acute hemorrhage. Consider follow-up evaluation with MRI. [facility] exams are performed using one or more of the following dose reduction techniques: automated exposure control, adjustment of the mA and/or kV according to patient size, or use of iterative reconstruction technique.CTDI Vol: 54.60. Total DLP: 908.80(mGy-cm). Result Type: CT Angio Head/Neck W Contrast Result Date: July 23, 2022 03:15 PST Reason For Exam: TIA REPORT: EXAM:CTA Head and Neck with Intravenous Contrast. CLINICAL HISTORY:Stroke/tia - ALOC/passed outTECHNIQUE:Axial CTA images of the head and neck performed with intravenous contrast. Two-dimensional MIP and/or three-dimensional MIP and volume rendered reformations were performed. Note: Per PQRS, the description of internal carotid artery percent stenosis, including 0 percent or normal exam, is based on [place] Symptomatic Carotid Endarterectomy Trial (NASCET) criteria. CONTRAST:With; 370 isovue 70 mL COMPARISON:None provided. FINDINGS: CTA NECK:COMMON CAROTID ARTERIESNo significant stenosis. No dissection or occlusion. Some intimal thickening noted distally with considerable adipose carotid disease at the bifurcationsINTERNAL CAROTID ARTERIESNo stenosis by NASCET criteria. No dissection or occlusion. Considerable atherosclerotic disease also at the cavernous ICA segments bilaterally which is fairly symmetric.VERTEBRAL ARTERIESNo significant stenosis. No dissection or occlusion. CTA HEAD:ANTERIOR CEREBRAL ARTERIESNo significant stenosis. No occlusion. No aneurysm. MIDDLE CEREBRAL ARTERIESNo significant stenosis. No occlusion. No aneurysm. POSTERIOR CEREBRAL ARTERIESNo occlusion. No aneurysm. There does appear to be a moderate stenosis of the P2 segment on the leftBASILAR ARTERYNo significant stenosis. No occlusion. No aneurysm. OTHER:SOFT TISSUESNo acute finding. No masses or lymphadenopathy. BONESNo acute osseous abnormality. IMPRESSION: Considerable cerebrovascular atherosclerotic disease throughout the head and neck. No hemodynamically significant carotid stenosis is identified. No acute large vessel occlusion or aneurysms. /[facility], all CT exams are performed using one or more of the following dose reduction techniques: automated exposure control, adjustment of the mA and/or kV according to patient size, or use of iterative reconstruction technique.CTDI Vol: 11.50. Total DLP: 453.92(mGy-cm). Volume Administered: 70.00 ml of Isovue 370. . Magnetic Resonance Imaging Result Type: MRI Brain WO Contrast Result Date: July 23, 2022 07:57 PST Reason For Exam: Stroke/TIA REPORT: MRI Brain WO ContrastORDERING PROVIDER: Giovanni South DOHISTORY: Stroke/TIASPECIAL INSTRUCTIONS:COMPARISON: June 27, 2021TECHNIQUE: 1. Axial T2 FSE, T1 FSE, and DWI.2. Coronal FLAIR and GRE.3. Sagittal T2 FSE. FINDINGS: Resolution of restricted diffusion right basal ganglia region with signal characteristics of a lacunar infarct now noted in the region. No restricted diffusion of an acute ischemic event seen. No midline shift or mass effect. There is some increased signal T1 weighted imaging in area of hypoattenuation left caudate nucleus and curvilinear focus seen right basal ganglia and external capsule. These are new since prior and may represent small infarcts. No significant hemorrhagic component demonstrated on gradient echo imaging. Differential may include lesions with minimal accumulation such as Demetrio's disease or other. No midline shift or mass effect. Cortical atrophy noted. IMPRESSION: Residua of prior ischemic events along with some T1 weighted increased signal basal ganglia regions bilaterally as above without significant hemorrhage, hematoma, mass effect or restricted diffusion of an acute ischemic focus otherwise seen. Signed by: Julius Rai MD on 07/23/2022 8:25 AM Workstation ID: [id number] Order Name: ECG 12 Lead - CV (ED) Date Performed: 07/23/2022 02:04:38 PST Status: Completed Impression: EKG: EKG results below were independently viewed and interpreted by me. Medical Decision Making The patient is a 66-year-old male with a past medical history significant for prior TIA presenting for emergency evaluation after an episode of transient alteration of awareness. At this time, the patient is alert and oriented x4 with a normal neurologic exam. However, given that the patient reports he had a similar presentation with a prior TIA, stroke is reasonably on the differential. Will order basic infectious and metabolic work-up to evaluate for possible toxic/metabolic encephalopathy. Update: CT angio was suggestive of possible acute ischemia, with MRI follow-up recommended. Given imaging suggestive of acute ischemia, will admit patient for MRI and further work-up. Patient remains at his neurologic baseline; most likely diagnosis for the patient's transient alteration of awareness is TIA. Diagnosis Transient ischemic attack (TIA) (Transient cerebral ischemic attack, unspecified, G45.9) Chronic Medical Conditions Impacting Care: Diabetes, prior TIA Consideration of Hospitalization/Escalation or De-escalation of Care: Considered hospitalization for stroke work-up Management Discussions with other Healthcare Providers: Discussed management of patient with hospitalist Social Determinants of Health: _ Labs, Imaging and Medications Considered but not performed/prescribed: Considered MRI, but deferred to patient's inpatient admission Condition Stable Disposition Admit to Telemetry Prescriptions Current medications were reviewed and updated. MSEI Information MSEI /RESIDENT CARE AIDE/PA Time Patient Seen face to face: Date and time 07/23/2022 01:58:30 Past Medical History Active Problems Diabetes Hypertension Allergies Tomatoes Home Medications aspirin 81 mg oral delayed release tablet, 81 mg, ORAL, DAILY buPROPion 75 mg oral tablet, 150 mg, 2 Tab, ORAL, BID doxazosin 8 mg oral tablet, 8 mg, 1 Tab, ORAL, QBedtime Fish Oil, 2 Cap, ORAL, DAILY Glucometer, See Instructions Lancets, See Instructions, 1 refills lisinopril 10 mg oral tablet, 10 mg, 1 Tab, ORAL, DAILY metFORMIN 500 mg oral tablet, 500 mg, 1 Tab, ORAL, BID omeprazole 20 mg oral delayed release capsule, 20 mg, 1 Cap, ORAL, DAILY, Still taking, not as prescribed: Patient's family read the prescription label...Patient states that the medication is being taken * NEEDED - [place] 06/27/2021 Plavix 75 mg oral tablet, 75 mg, 1 Tab, ORAL, DAILY Test strips, See Instructions, 1 refills Vitamin D3, 1000 IntUnit, ORAL, BID Lab Results Laboratory results below were independently viewed and interpreted by me. Labs All 24H Lab Results Date Ethanol/Alcohol Level <0.008 gm/dL 07/23/22 01:50 PST AR UR - Amphetamines Scrn Negative 07/23/22 05:55 PST AR UR - Barbiturates Scrn Negative 07/23/22 05:55 PST AR UR - Benzodiazepines Scrn Negative 07/23/22 05:55 PST AR UR - Cannabinoids/THC Scrn Negative 07/23/22 05:55 PST AR UR - Cocaine Scrn Negative 07/23/22 05:55 PST AR UR - Methadone Negative - 07/23/22 05:55 PST AR UR - Opiates Scrn Negative 07/23/22 05:55 PST AR UR - Phencyclidine Scrn Negative 07/23/22 05:55 PST Hemoglobin A1C by HPLC 11.0 % (HIGH) 07/23/22 01:50 PST AR UR - Footnote See Note - 07/23/22 05:55 PST Influenza A Agn Molecular Negative 07/23/22 08:15 PST Influenza B Agn Molecular Negative 07/23/22 08:15 PST GFR - Non 58 mL/min/1.73m2 07/23/22 01:50 PST GFR - >60 mL/min/1.73m2 07/23/22 01:50 PST Respiratory Syncytial Virus Mo Negative 07/23/22 08:15 PST Auto Neutrophil Percent 66.1 % (HIGH) 07/23/22 01:50 PST Auto Neutrophil Absolute 4.9 K/mm3 07/23/22 01:50 PST Auto Lymphocyte Percent 26.4 % 07/23/22 01:50 PST Auto Lymphocyte Absolute 2.0 K/mm3 07/23/22 01:50 PST Auto Monocyte Percent 6.0 % 07/23/22 01:50 PST Auto Monocyte Absolute 0.4 K/mm3 07/23/22 01:50 PST Auto Basophil Percent 0.5 % 07/23/22 01:50 PST Auto Basophil Absolute 0.0 K/mm3 07/23/22 01:50 PST Auto Eosinophil Percent 1.0 % 07/23/22 01:50 PST Auto Eosinophil Absolute 0.1 K/mm3 07/23/22 01:50 PST Urine Culture Y/N No 07/23/22 05:55 PST SARS-CoV-2 Molecular Negative 07/23/22 08:15 PST SARS-CoV-2 Source Nasopharyngeal 07/23/22 08:15 PST Health Care Worker? No 07/23/22 08:15 PST Patient From Congregate Area? No 07/23/22 08:15 PST Symptomatic per CDC? No 07/23/22 08:15 PST SARS-CoV-2 First test? No 07/23/22 08:15 PST SARS-CoV-2 Is the Patient Hosp Yes 07/23/22 08:15 PST SARS-CoV-2 Is the Patient Preg No 07/23/22 08:15 PST SARS-CoV-2 Is the Patient in I No 07/23/22 08:15 PST WBC 7.4 K/mm3 07/23/22 01:50 PST RBC 4.71 M/mm3 07/23/22 01:50 PST HGB 14.1 gm/dL 07/23/22 01:50 PST HCT 41.8 % (LOW) 07/23/22 01:50 PST MCV 88.7 fL 07/23/22 01:50 PST MCH 30.0 pg 07/23/22 01:50 PST MCHC 33.8 gm/dL 07/23/22 01:50 PST RDW 13.0 % 07/23/22 01:50 PST PLT 129 K/mm3 (LOW) 07/23/22 01:50 PST Fingerstick/cap blood sugar 358 mg/dL 07/23/22 01:59 PST PT - Patient 10.7 sec 07/23/22 01:50 PST PT - INR 1.0 07/23/22 01:50 PST Sodium Level 136 mmol/L 07/23/22 01:50 PST Potassium Level 3.8 mmol/L 07/23/22 01:50 PST Chloride Level 100 mmol/L (LOW) 07/23/22 01:50 PST CO2/Carbon Dioxide 25 mmol/L 07/23/22 01:50 PST Anion Gap 11 07/23/22 01:50 PST Glucose, Random 365 mg/dL (HIGH) 07/23/22 01:50 PST POCT - Glucose (Capillary) 355 mg/dL (HIGH) 07/23/22 01:55 PST BUN 22 mg/dL 07/23/22 01:50 PST Creatinine 1.3 mg/dL 07/23/22 01:50 PST Calcium Level 9.5 mg/dL 07/23/22 01:50 PST Total Protein 7.3 gm/dL 07/23/22 01:50 PST Albumin Level 4.3 gm/dL 07/23/22 01:50 PST Bilirubin, Total 0.9 mg/dL 07/23/22 01:50 PST AST 18 IntUnit/L 07/23/22 01:50 PST ALT 28 IntUnit/L 07/23/22 01:50 PST ALP 57 IntUnit/L 07/23/22 01:50 PST UA - Source/Collect Type Urine Voided 07/23/22 05:55 PST UA - Color Yellow 07/23/22 05:55 PST UA - Appearance Clear 07/23/22 05:55 PST UA - Specific [place] >1.045 - (HIGH) 07/23/22 05:55 PST UA - pH 5.0 07/23/22 05:55 PST UA - Protein Negative 07/23/22 05:55 PST UA - Glucose 3+ (ABNORMAL) 07/23/22 05:55 PST UA - Ketones 1+ (ABNORMAL) 07/23/22 05:55 PST UA - Bilirubin Negative 07/23/22 05:55 PST UA - Blood Negative 07/23/22 05:55 PST UA - Urobilinogen <2.0 07/23/22 05:55 PST UA - Nitrites Negative 07/23/22 05:55 PST UA - Leukocyte Esterase Negative 07/23/22 05:55 PST UA - WBC 1 /HPF 07/23/22 05:55 PST UA - RBC <1 /HPF 07/23/22 05:55 PST UA - Epithelials, Squamous 5 /LPF 07/23/22 05:55 PST UA - Bacteria None 07/23/22 05:55 PST UA - Mucus Present 07/23/22 05:55 PST UA - Ascorbic Acid Negative 07/23/22 05:55 PST Images Images below were independently viewed and interpreted by me. [id number] Male 07/23/2022 [facility] MR Brain WO contrast MRI Brain WO Contra st ORDERING PROVIDER: Giovanni South DO HISTORY: Stroke/TIA SPECIAL INSTRUCTIONS: COMPARISON: June 27, 2021 TECHNIQUE: 1. Axial T2 FSE, T1 FSE, and DWI. 2. Coronal FLAIR and GRE. 3. Sagittal T2 FSE. FINDINGS: Resolution of restricted diffusion right basal ganglia region with signal characteristics of a lacunar infarct now noted in the region. No restricted diffusion of an acute ischemic event seen. No midline shift or mass effect. There is some increased signal T1 weighted imaging in area of hypoattenuation left caudate nucleus and curvilinear focus seen right basal ganglia and external capsule. These are new since prior and may represent small infarcts. No significant hemorrhagic component demonstrated on gradient echo imaging. Differential may include lesions with minimal accumulation such as Demetrio's disease or other. No midline shift or mass effect. Cortical atrophy noted. IMPRESSION: Residua of prior ischemic events along with some T1 weighted increased signal basal ganglia regions bilaterally as above without significant hemorrhage, hematoma, mass effect or restricted diffusion of an acute ischemic focus otherwise seen. Signed by: Julius Rai MD on 07/23/2022 8:25 AM Workstation ID: [id number] Final 07/23/2022 65 [facility] CT Head WO contrast EXAM: CT Head Without Intravenous Contrast. CLINICAL HISTORY: Stroke/tia- ALOC/passed out TECHNIQUE: Axial computed tomography images of the head/brain without intravenous contrast. COMPARISON: June 26, 2021 FINDINGS: BRAIN: No acute intraparenchymal hemorrhage. No mass lesion. No CT evidence for acute territorial infarct. There is a nonspecific, somewhat faint low-density area in the region of the caudate head on the left. This does appear to be new in the interval. No midline shift or extra-axial collection. VENTRICLES: No hydrocephalus. ORBITS: The orbits are unremarkable. SINUSES AND MASTOIDS: The paranasal sinuses and mastoid air cells are clear. SOFT TISSUES: No significant facial or scalp soft tissue swelling evident. No radiopaque foreign body is seen. BONES: No acute skull fracture. IMPRESSION: Low density area in the region of the caudate head on the left. No acute hemorrhage. Consider follow-up evaluation with MRI. /[facility] Per PQRS, all CT exams are performed using one or more of the following dose reduction techniques: automated exposure control, adjustment of the mA and/or kV according to patient size, or use of iterative reconstruction technique. CTDI Vol: 54.60. Total DLP: 908.80(mGy-cm). Final 07/23/2022 65 [facility] CTA Head vessels and Neck vessels W contrast IV EXAM: CTA Head and Neck with Intravenous Contrast. CLINICAL HISTORY: Stroke/tia - ALOC/passed out TECHNIQUE: Axial CTA images of the head and neck performed with intravenous contrast. Two-dimensional MIP and/or three-dimensional MIP and volume rendered reformations were performed. Note: Per PQRS, the description of internal carotid artery percent stenosis, including 0 percent or normal exam, is based on [place] Symptomatic Carotid Endarterectomy Trial (NASCET) criteria. CONTRAST: With; 370 isovue 70 mL COMPARISON: None provided. FINDINGS: CTA NECK: COMMON CAROTID ARTERIES No significant stenosis. No dissection or occlusion. Some intimal thickening noted distally with considerable adipose carotid disease at the bifurcations INTERNAL CAROTID ARTERIES No stenosis by NASCET criteria. No dissection or occlusion. Considerable atherosclerotic disease also at the cavernous ICA segments bilaterally which is fairly symmetric. VERTEBRAL ARTERIES No significant stenosis. No dissection or occlusion. CTA HEAD: ANTERIOR CEREBRAL ARTERIES No significant stenosis. No occlusion. No aneurysm. MIDDLE CEREBRAL ARTERIES No significant stenosis. No occlusion. No aneurysm. POSTERIOR CEREBRAL ARTERIES No occlusion. No aneurysm. There does appear to be a moderate stenosis of the P2 segment on the left BASILAR ARTERY No significant stenosis. No occlusion. No aneurysm. OTHER: SOFT TISSUES No acute finding. No masses or lymphadenopathy. BONES No acute osseous abnormality. IMPRESSION: Considerable cerebrovascular atherosclerotic disease throughout the head and neck. No hemodynamically significant carotid stenosis is identified. No acute large vessel occlusion or aneurysms. /[facility] Per PQRS, all CT exams are performed using one or more of the following dose reduction techniques: automated exposure control, adjustment of the mA and/or kV according to patient size, or use of iterative reconstruction technique. CTDI Vol: 11.50. Total DLP: 453.92(mGy-cm). Volume Administered: 70.00 ml of Isovue 370. . Final 07/23/2022 65 [facility] [address] Lung Screening CT LUNG SCREENING WI THOUT INTRAVENOUS CONTRAST ORDERING PROVIDER: Ashlyn Ramirez MD INDICATION: Lung cancer screening. Lung screening COMPARISON: 07/04/2020 TECHNIQUE: Axial images of the chest performed without intravenous contrast. Sagittal and coronal reformations were reviewed. ESTIMATED CT EXAM DOSE(Dose-Length Product, DLP) 60.00 CTDI (Vol) : 1.53. Dose reduction techniques: Automated exposure control. Adjustment of the mA and kVp according to patient size. FINDINGS: Lungs and airways: Stable apical pleural-parenchymal densities likely scarring. Areas of platelike atelectasis in lung bases. No obstructing airway lesions identified. Centrilobular emphysema. Pleura: Normal appearance of the pleura without pleural thickening or effusion. Base of neck, mediastinum and heart: Moderate coronary calcium, normal size heart. No pericardial effusion. No aortic aneurysm. No mediastinal lymphadenopathy. Soft tissues: Normal appearance of soft tissues of the chest wall. Abdomen: Amorphous radiodense material in the gallbladder. Bones: The visualized bony thorax is within normal limits. IMPRESSION: 1. No significant focal lung lesions. 2. Centrilobular emphysema. 3. Moderate coronary calcium. 4. Radiodense debris in the gallbladder. Lung-RADS Category: LUNG RADS CATEGORY 1 NEGATIVE RECOMMENDATION: Continue annual lung screening CT in 12 months Modifier: None Signed by: Mauro Kat on 03/07/2022 2:02 PM Workstation ID: [id number] Final 03/07/2022 65 [facility] [address] Angio Abd Aorta IllioFemoral Runoff EXAM: CTA Abdomen and Pelvis With Runoff to the Lower Extremities with Intravenous Contrast. CLINICAL HISTORY: Rt leg pain today while walking, h/o rt femoral artery occlusion, PAD TECHNIQUE: Axial CTA images of the abdomen, pelvis and lower extremities with intravenous contrast. Three-dimensional MIP/volume rendered formations were performed. CONTRAST: With; ISOVUE 370 90mL COMPARISON: None provided. FINDINGS: VASCULATURE: Aorta: No acute finding. Fusiform infrarenal abdominal aortic aneurysm measuring 3.1 x 3.4 cm. Mixed calcific and noncalcific atherosclerotic disease. Celiac trunk: No acute finding. No occlusion or significant stenosis. Superior mesenteric artery: No acute finding. No occlusion or significant stenosis. Inferior mesenteric artery: No acute finding. No occlusion or significant stenosis. Renal arteries: No acute finding. No occlusion or significant stenosis. Right iliac arteries: No acute finding. No occlusion or significant stenosis. Right femoral arteries: No acute finding. No occlusion or significant stenosis. Right popliteal artery No acute finding. No occlusion or significant stenosis. Right calf arteries: No acute finding. No occlusion or significant stenosis. Left iliac arteries No acute finding. No occlusion or significant stenosis. Left femoral arteries No acute finding. No occlusion or significant stenosis. Left popliteal artery: No acute finding. No occlusion or significant stenosis. Left calf arteries: No acute finding. No occlusion or significant stenosis. Lower thorax: No basilar airspace consolidation. ABDOMEN: Liver: Diffuse decreased parenchymal attenuation of the liver. No focal lesion. Gallbladder and bile ducts: No calcified stone. No ductal dilation. Pancreas: Unremarkable. No ductal dilation. Spleen: Unremarkable. Adrenals: No mass. Kidneys, ureters, and bladder: The kidneys enhance symmetrically. No hydronephrosis. No solid mass. Stomach and bowel: No obstruction. No bowel wall thickening. Mild scattered colonic diverticulosis. No CT evidence of acute diverticulitis. Abdominal wall and soft tissues: Unremarkable. Appendix: No CT evidence for appendicitis. Reproductive: Unremarkable. Peritoneum: No free fluid. No free air. Lymph nodes: No lymphadenopathy. Bones: No acute osseous abnormality. Postsurgical changes of the right calcaneus. Soft tissues: Left fat-containing inguinal hernia. Prominent right greater saphenous/medial lower extremity superficial veins. IMPRESSION: 1. Scattered calcific atherosclerotic disease of the aorta and peripheral branching vessels extending through the lower extremities with moderate to severe stenosis of the bilateral mid to distal femoral arteries. The bilateral popliteal and trifurcation vessels are patent. 2. Fusiform infrarenal abdominal aortic aneurysm measuring approximately 3.1 x 3.4 cm. 3. Hepatic steatosis /[facility] Per PQRS, all CT exams are performed using one or more of the following dose reduction techniques: automated exposure control, adjustment of the mA and/or kV according to patient size, or use of iterative reconstruction technique. CTDI Vol: 47.91. Total DLP: 2530.66(mGy-cm). Volume Administered: 90.00 ml of Isovue 370. . Final 03/07/2022 65 [facility] ED Physician Notes Patient: ALYSSIA CURRY Age: 66 years Legal Sex: Male : 1955 Author: DO Suárez Joseph Gregory Basic Information MSEI MD/RESIDENT CARE AIDE/PA Time Patient Seen face to face: Date and time 03/06/2022 18:45:47 . Additional information: Chief Complaint from Nursing Triage Note : Reason for visit history 03/06/2022 17:47 PDT pt here for eval of right leg pain, on going issue with PCP< has po pain meds, took one today and is feeling better, eval MRI for Oct, today pt having pain and unable to amb hx same, education is needed for f/u (Modified) . History of Present Illness Patient is a 66-year-old male, presents to the ED for evaluation of right leg pain. Patient notes he has been having intermittent claudication type symptoms with activity for several months. [facility], but has not had those results yet. He states usually when he gets pain in his leg symptoms will gradually improve with just resting. Today he walked about 75 feet to the barn to feed his horses when he developed severe pain in his right leg. He tried sitting on a cart and resting however did not improve like he usually does and was much more severe than typical. gave patient ibuprofen and a homeopathic muscle cramp pill but symptoms did improve somewhat. Due to the severe nature and worsening symptoms, patient came to ED for evaluation. Notes that symptoms are much improved from before, and down to about a 2 or 3 out of 10. Denies any color change in the leg, trauma, or any other acute symptoms. Review of Systems Constitutional symptoms: Negative except as documented in HPI. Skin symptoms: Negative except as documented in HPI. Eye symptoms: Negative except as documented in HPI. ENMT symptoms: Negative except as documented in HPI. Respiratory symptoms: Negative except as documented in HPI. Cardiovascular symptoms: Negative except as documented in HPI. Gastrointestinal symptoms: Negative except as documented in HPI. Genitourinary symptoms: Negative except as documented in HPI. Musculoskeletal symptoms: Negative except as documented in HPI. Neurologic symptoms: Negative except as documented in HPI. Psychiatric symptoms: Negative except as documented in HPI. Endocrine symptoms: Negative except as documented in HPI. Health Status Allergies: Allergic Reactions (Selected) Severity Not Documented Tomatoes- No reactions were documented.. Medications: (Selected) Prescriptions Prescribed Glucometer: Glucometer, See Instructions, Glucometer - Check blood sugar before each meal and nightly, # 1 ea, 0 Refill(s), Maintenance, Pharmacy: [facility], Supply, 183, cm, 06/26/21 15:15:00 PST, Height/Length (cm), 100, kg, 06/26/21 15:15:00 PST, D... Lancets: Lancets, See Instructions, Glucometer - Check blood sugar before each meal and nightly, # 100 ea, 1 Refill(s), Maintenance, Pharmacy: [facility], Supply, 183, cm, 06/26/21 15:15:00 PST, Height/Length (cm), 100, kg, 06/26/21 15:15:00 PST, Do... Plavix 75 mg oral tablet: = 1 Tab, ORAL, DAILY, # 21 Tab, 0 Refill(s), Maintenance, Pharmacy: [facility], 183, cm, 06/26/21 15:15:00 PST, Height/Length (cm), 100, kg, 06/26/21 15:15:00 PST, Dose calculation weight (kg) Test strips: Test strips, See Instructions, Glucometer - Check blood sugar before each meal and nightly, # 100 Strip, 1 Refill(s), Maintenance, Pharmacy: [facility], Supply, 183, cm, 06/26/21 15:15:00 PST, Height/Length (cm), 100, kg, 06/26/21 15:15:00... aspirin 81 mg oral delayed release tablet: 81 mg, ORAL, DAILY, # 30 Tab, 0 Refill(s), Maintenance, Pharmacy: [email or web address], 183, cm, 06/26/21 15:15:00 PST, Height/Length (cm), 100, kg, 06/26/21 15:15:00 PST, Dose calculation weight (kg) metFORMIN 500 mg oral tablet: = 1 Tab, ORAL, BID, with meals, # 60 Tab, 0 Refill(s), Maintenance, Pharmacy: [email or web address], 183, cm, 06/26/21 15:15:00 PST, Height/Length (cm), 100, kg, 06/26/21 15:15:00 PST, Dose calculation weight (kg) Documented Medications Documented Fish Oil: = 2 Cap, ORAL, DAILY, 0 Refill(s), Maintenance Vitamin D3: 1,000 IntUnit, ORAL, BID, 0 Refill(s), Maintenance buPROPion 75 mg oral tablet: = 2 Tab, ORAL, BID, 'for smoking', 0 Refill(s), Maintenance doxazosin 8 mg oral tablet: = 1 Tab, ORAL, QBedtime, 0 Refill(s), Maintenance lisinopril 10 mg oral tablet: = 1 Tab, ORAL, DAILY, 0 Refill(s), Maintenance omeprazole 20 mg oral delayed release capsule: 1 Cap, ORAL, DAILY, 0 Refill(s), Maintenance. Past Medical/ Family/ Social History Medical history: All Problems Current smoker / [id number] / Confirmed Diabetes / [id number] / Confirmed Hypertension / [id number] / Confirmed Tobacco user / [id number] / Confirmed. Surgical history: No active procedure history items have been selected or recorded.. Social history: Social and Psychosocial Habits Abuse/Intent to Harm Abuse screen, adult/elderly/domestic: No signs of abuse Are you thinking of harming or killing anyone else?: No Safety check complete: Yes CSSRS Risk Level: No risk (0-24) CSSRS Suicide screening: Screening already completed this visit CSSRS Suicide screening ED: Complete the suicide screening Suspect suicide attempt/reason for admit: No *Alcohol Screen *How often do you have a drink containing alcohol? Monthly or less (1) *How many standard drinks containing alcohol do you have on a typical day? 1 or 2 (0) Type: Beer *Home/Environment Screen *Living situation: Home with assistance Lives with: Significant other *Nutrition Screen *Nutritional Risks: Diabetes new or recent dx, needs ed *Substance Abuse Screen Current or past use? Never *Tobacco Use Screen Is there a smoker in the household? Yes *Do you have concerns about tobacco use in household? No *Over the past 30 days, what and how much have you smoked? 5-9 cigarettes (between 1/4 to 1/2 pack)/day in last 30 days . Physical Examination Vital Signs Vital Signs 03/06/2022 19:33 PDT Peripheral Pulse Rate 96 bpm Normal Respiratory rate 18 br/min Normal Systolic BP 142 mmHg HI Diastolic BP 61 mmHg Normal Pulse Oximetry 97 % Oxygen delivery Room air BP location Left arm 03/06/2022 17:47 PDT Temperature (F) 97.8 DegF Normal Peripheral Pulse Rate 111 bpm HI Respiratory rate 18 br/min Normal Systolic BP 127 mmHg Normal Diastolic BP 78 mmHg Normal Pulse Oximetry 97 % Oxygen delivery Room air Temp site Temporal BP location Left arm Peripheral pulse site Non-invasive BP device . Include ht/wt from flowsheet : Measurements 03/06/2022 17:47 PDT Weight (kg) 99.79 kg Dose calculation weight (kg) 99.79 kg Weight measured method Estimated . General Appearance: Mild distress. HEENT: NC/AT PERRL. mucous membranes moist, no pharyngeal edema Neck: Supple Cardiac: Normal rate and rhythm. 1+ PT pulses bilaterally Lungs: CTAB no w/r/r Abdomen: Soft, NT/ND, no r/g/r Musculoskeletal: No joint swelling or deformities Neurological: CN II-XII grossly intact. Nonfocal and nonlateralizing exam. Strength and sensation equal Skin: Skin normal color no rash present. Psychiatric: Cooperative Medical Decision Making Differential Diagnosis: Deep vein thrombosis, superficial thrombophlebitis, contusion, sprain, strain, Claudication, acute ischemic limb,. Documents reviewed: Emergency department nurses' notes, prior records. Orders Launch Order Profile (Selected) Inpatient Orders Ordered Saline Lock: 03/06/22 19:11:00 PDT, NOW, Stop Dt/Tm 03/06/22 19:11:00 PDT Verify ePrescribe Patient Pharmacy: 03/06/22 18:49:42 PDT, Use the 'Patient Pharmacy' button in the toolbar to review/update the patient's pharmacy for ePrescribe. Completed CBC w Differential: 03/06/22 19:11:00 PDT, ONCE, Jama Priority: Stat Rpt Priority: Stat, Not Collected Lab Collect, Blood, Stop Dt/ 03/06/22 19:14:00 PDT CMP Comprehensive Metabolic Panel: 03/06/22 19:11:00 PDT, ONCE, Jama Priority: Stat Rpt Priority: Stat, Not Collected Lab Collect, Blood, Stop Dt/ 03/06/22 19:14:00 PDT Differential Automated*: 03/06/22 19:28:00 PDT, ONCE, Jama Priority: Stat Rpt Priority: Stat, Collected Lab Collect, Blood, Stop Dt/ 03/06/22 19:28:00 PDT ED Assessment Adult: 03/06/22 17:50:14 PDT Extra Lavender Top Tube: ONCE, Stat, Collected Lab Collect, 03/06/22 19:28:00 PDT, Blood, Stop Dt/ 03/06/22 19:28:00 PDT Extra SST Serum Separator Tube: ONCE, Stat, Collected Lab Collect, 03/06/22 19:28:00 PDT, Blood, Stop Dt/ 03/06/22 19:28:00 PDT INR/Prothrombin Time PT: 03/06/22 19:11:00 PDT, ONCE, Jama Priority: Stat Rpt Priority: Stat, Not Collected Lab Collect, Blood, Stop Dt/ 03/06/22 19:14:00 PDT Opioid Med Reassessment: 03/06/22 20:46:24 PDT, Stop Dt/ 03/06/22 20:46:24 PDT morphine: 4 mg, IV PUSH, ONCE, STAT, INJ, 03/06/22 19:53:00 PDT, Stop date 03/06/22 19:53:00 PDT Completed (Final) CT Angio Abd Aorta IllioFemoral Runoff: 03/06/22 19:11:00 PDT, Stat, Transport Mode: Wheelchair, Patient not Allergic to Contrast, Patient Diabetic, Patient on Glucophage or Metformin, Reason: Other, r/o right femoral arterial occlusion History: Patient has known peripheral artery disease... Future (On Hold) CT Lung Screenin03/07/22, Routine, Transport Mode: Ambulate, lung screening, OK, [id number] expires 03/04/22. Results review: Lab results : Lab 03/06/2022 19:28 PDT WBC 5.8 K/mm3 Normal RBC 4.83 M/mm3 Normal HGB 14.4 gm/dL Normal HCT 42.6 % Normal MCV 88.2 fL Normal MCH 29.9 pg Normal MCHC 33.9 gm/dL Normal RDW 12.8 % Normal PLT 144 K/mm3 Normal Auto Neutrophil Percent 50.4 % Normal Auto Lymphocyte Percent 37.9 % Normal Auto Monocyte Percent 8.4 % HI Auto Eosinophil Percent 2.2 % Normal Auto Basophil Percent 1.1 % Normal Auto Neutrophil Absolute 2.9 K/mm3 Normal Auto Lymphocyte Absolute 2.2 K/mm3 Normal Auto Monocyte Absolute 0.5 K/mm3 Normal Auto Eosinophil Absolute 0.1 K/mm3 Normal Auto Basophil Absolute 0.1 K/mm3 Normal Sodium Level 131 mmol/L LOW Potassium Level 4.2 mmol/L Normal Chloride Level 99 mmol/L LOW CO2/Carbon Dioxide 23 mmol/L Normal Glucose, Random 304 mg/dL HI BUN 18 mg/dL Normal Creatinine 1.3 mg/dL Normal GFR - Non 58 mL/min/1.73m2 NA GFR - >60 mL/min/1.73m2 NA Calcium Level 9.1 mg/dL Normal Total Protein 7.5 gm/dL Normal Albumin Level 4.4 gm/dL Normal Bilirubin, Total 1.0 mg/dL Normal ALP 55 IntUnit/L Normal ALT 42 IntUnit/L Normal AST 26 IntUnit/L Normal PT - Patient 10.6 sec Normal PT - INR 1.0 Normal . Radiology results: Computerized Tomography Result Type: CT Angio Abd Aorta IllioFemoral Runoff Result Date: March 06, 2022 20:57 PDT Reason For Exam: Other REPORT: EXAM:CTA Abdomen and Pelvis With Runoff to the Lower Extremities with Intravenous Contrast. CLINICAL HISTORY:Rt leg pain today while walking, h/o rt femoral artery occlusion, PADTECHNIQUE:Axial CTA images of the abdomen, pelvis and lower extremities with intravenous contrast. Three-dimensional MIP/volume rendered formations were performed. CONTRAST:With; ISOVUE 370 90mL COMPARISON:None provided. FINDINGS: VASCULATURE:Aorta:No acute finding. Fusiform infrarenal abdominal aortic aneurysm measuring 3.1 x 3.4 cm. Mixed calcific and noncalcific atherosclerotic disease.Celiac trunk:No acute finding. No occlusion or significant stenosis. Superior mesenteric artery:No acute finding. No occlusion or significant stenosis. Inferior mesenteric artery:No acute finding. No occlusion or significant stenosis. Renal arteries:No acute finding. No occlusion or significant stenosis. Right iliac arteries:No acute finding. No occlusion or significant stenosis. Right femoral arteries:No acute finding. No occlusion or significant stenosis. Right popliteal arteryNo acute finding. No occlusion or significant stenosis. Right calf arteries:No acute finding. No occlusion or significant stenosis. Left iliac arteriesNo acute finding. No occlusion or significant stenosis. Left femoral arteriesNo acute finding. No occlusion or significant stenosis. Left popliteal artery:No acute finding. No occlusion or significant stenosis. Left calf arteries:No acute finding. No occlusion or significant stenosis. Lower thorax:No basilar airspace consolidation. ABDOMEN:Liver:Diffuse decreased parenchymal attenuation of the liver. No focal lesion.Gallbladder and bile ducts:No calcified stone. No ductal dilation. Pancreas:Unremarkable. No ductal dilation. Spleen:Unremarkable. Adrenals:No mass. Kidneys, ureters, and bladder:The kidneys enhance symmetrically. No hydronephrosis. No solid mass. Stomach and bowel:No obstruction. No bowel wall thickening. Mild scattered colonic diverticulosis. No CT evidence of acute diverticulitis. Abdominal wall and soft tissues:Unremarkable. Appendix:No CT evidence for appendicitis. Reproductive:Unremarkable. Peritoneum:No free fluid. No free air. Lymph nodes:No lymphadenopathy. Bones:No acute osseous abnormality. Postsurgical changes of the right calcaneus.Soft tissues:Left fat-containing inguinal hernia. Prominent right greater saphenous/medial lower extremity superficial veins. IMPRESSION: 1. Scattered calcific atherosclerotic disease of the aorta and peripheral branching vessels extending through the lower extremities with moderate to severe stenosis of the bilateral mid to distal femoral arteries. The bilateral popliteal and trifurcation vessels are patent.2. Fusiform infrarenal abdominal aortic aneurysm measuring approximately 3.1 x 3.4 cm.3. Hepatic steatosis /[facility], all CT exams are performed using one or more of the following dose reduction techniques: automated exposure control, adjustment of the mA and/or kV according to patient size, or use of iterative reconstruction technique.CTDI Vol: 47.91. Total DLP: 2530.66(mGy-cm). Volume Administered: 90.00 ml of Isovue 370. . . Impression and Plan Initial vitals were clinically unremarkable and remained stable while in the ED. ED work-up revealed clinically unremarkable labs. Imaging revealed scattered areas of atherosclerosis causing moderate to severe stenosis but no acute occlusions. Patient has palpable distal pulses, I do not believe this represents an ischemic limb. However I do believe he would benefit from follow-up with a vascular surgeon. Discussed ED results and treatment plan. All questions answered. Diagnosis Claudication Plan Condition: Stable. Disposition: Discharged: to home. Patient was given the following educational materials: Intermittent Claudication. Follow up with: Ashlyn Ramirez Follow up with Dr. Ramirez for referal to vascular surgery. Return with any similar symptoms, if you develop a cold or pale foot, or with any concerns. Counseled: Patient, Regarding diagnostic results, Regarding treatment plan, Regarding prescription, Patient indicated understanding of instructions. Notes: The above report may contain errors in syntax, word selection, grammar and/or spelling in relation to the use of voice recognition software . [id number] Male 03/07/2022 [facility] ED Physician Notes Patient: ALYSSIA CURRY Age: 66 years Legal Sex: Male : 1955 Author: SYED Kitchen, Bhavani Sanders Associated Diagnosis: Encounter for medical screening examination Medical Screening Exam performed by Bhavani Kitchen NP 66-year old male presents with severe right lower extremity pain. This is a 66-year-old male with history of diabetes mellitus type 2, coronary artery disease and peripheral artery disease whom today walked to the barn and had severe 10 out of 10 pain in his right leg. Patient states the pain took at least 2 hours to resolve. He is unsure if his leg was cold or pale. The patient was able to take a hydrocodone and his was able to get him in a car and bring him to the emergency department. The patient states he has had significant pain every night for the past week nonambulatory in the right leg that wakes him up in the middle of the night. Triage Vitals: Vital Signs (last charted) Pulse: 111 (03/06 17:47) Pulse Ox: 97 (03/06 17:47) BP: 127/78 (03/06 17:47) Ox Delivery: Room air Temperature: 97.8 F (36.6 C) (03/06 17:47) Ox %/FiO2: Not Charted Respiration: 18 (03/06 17:47) FiO2 set: Not Charted Pain Intensity Level: 6 (03/06 17:47)al Basic Physical Exam: ENT: Normocephalic atraumatic. PERRLA Musculoskeletal: No palpable pulse in the right lower extremity. Multiple visible large varicose veins in the right lower leg. The skin is warm to the lower leg and the foot. Compartments are soft in the right lower leg and foot. Patient has a dopplerable pulse in the right foot. Patient rates the pain as a 4 on a 10 scale at this time. Orders Placed at 1911 Patient to [facility] Medical Decision Making Orders Launch Orders Laboratory: CBC w Differential (Order): 03/06/2022 19:11 PDT, ONCE, Jama Priority: Stat Rpt Priority: Stat, Not Collected Lab Collect, Blood, Stop Dt/Tm 03/06/2022 19:11 PDT CMP Comprehensive Metabolic Panel (Order): 03/06/2022 19:11 PDT, ONCE, Jama Priority: Stat Rpt Priority: Stat, Not Collected Lab Collect, Blood, Stop Dt/Tm 03/06/2022 19:11 PDT INR/Prothrombin Time PT (Order): 03/06/2022 19:11 PDT, ONCE, Jama Priority: Stat Rpt Priority: Stat, Not Collected Lab Collect, Blood, Stop Dt/Tm 03/06/2022 19:11 PDT Patient Care: Saline Lock (Order): 03/06/2022 19:11 PDT, NOW, Stop Dt/Tm 03/06/2022 19:11 PDT Radiology: CT Angio Abd Aorta IllioFemoral Runoff (Order): 03/06/2022 19:11 PDT, Stat, Transport Mode: Wheelchair, Patient not Allergic to Contrast, Patient Diabetic, Patient on Glucophage or Metformin, Reason: Other, r/o right femoral arterial occlusion History: Patient has known peripheral artery disease with acute right leg pain after walking to the barn today., , Patient does not have IV, Patient not on O2, Standard, [place]. Reexamination/ Reevaluation MDM: 66-year-old male with significant pain right lower leg ambulatory today. He is also been having nighttime symptoms in the right lower leg. CT angio abdomen with aortoiliofemoral runoff ordered. CBC metabolic panel and INR ordered. Patient declines pain medication at this time. Impression and Plan Diagnosis Encounter for medical screening examination Plan Condition: Stable. Counseled: Patient, Regarding treatment plan. [id number] Male 03/07/2022 [facility] Lesli US.doppler Lower extremity artery - bilateral US Lower Ext Art Doppler Bilat: 01/23/2022 1:32 PM ORDERING PROVIDER: Esau Seals MD HISTORY: RLE claudication , evaluation of arterial system, particularly RLE Initial encounter ADDITIONAL INFORMATION:None. COMPARISON: SHWETA January 21, 2022 FINDINGS: Extensive atherosclerotic calcifications throughout the visualized arterial system. Peak velocity right external iliac artery at 213 cm/s and distal superficial femoral artery at 213 cm/s with velocity just cephalad at 102 cm/s characteristic of a 50-75% stenosis mid to distal right superficial femoral artery. Monophasic waveforms seen below this level with multiphasic waveforms above. Elevated velocity left external iliac artery at 363 cm/s characteristic of 50-75% stenosis. Monophasic and biphasic waveforms seen left lower extremity. IMPRESSION: Flow limiting lesion right mid to distal superficial femoral artery and elevated velocity left external iliac artery characteristic of a flow limiting lesion with more distal lesions not excluded. Signed by: Julius Rai MD on 01/23/2022 3:05 PM Workstation ID: [id number] Final 01/23/2022 65 [facility] [place] US Lower Ext Art Ltd SHWETA US Lower Ext Ar t Ltd SHWETA: 01/21/2022 1:35 PM ORDERING PROVIDER: Esau Seals MD HISTORY: RLE claudication , evaluation of arterial system, particularly RLE. TECHNIQUE: Brachial pressures are compared against ankle pressures. COMPARISON: None. FINDINGS/ IMPRESSION: The right ankle-brachial index is 1.08. Right toe-brachial index 0.51. The left ankle-brachial index is 0.94. Left toe-brachial index 0.44. NOTE: The normal ankle brachial index (SHWETA) is greater than 0.9. Limbs with single level occlusions usually have SHWETA greater than 0.5, and limbs with lesions at multiple levels have SHWETA less than 0.5. TBI (toe brachial index): The ratio of toe systolic pressure to brachial systolic pressure (TBI) ranges from 0.8 to 0.9 normally. The mean TBI is 0.2 to 0.5 in patients with intermittent claudication and 0.01 to 0.21 in patients with rest pain or ischemic ulceration. Signed by: Doug Eldridge MD on 01/21/2022 2:45 PM Workstation ID: [id number] Final 01/21/[address] [place] [address] Echocardiograph Report Patient: ALYSSIA CURRY Age: 65 years Legal Sex: MALE : 1955 _ DATE: 06/27/2021 REFERRING PROVIDER: Dr. Trevino REASON FOR STUDY: TIA Height 72 [id number] lb BP 105/75 ECHOCARDIOGRAPHY MEASUREMENTS: 2D/MMODE MEASUREMENTS: Normal Male Normal Female Right Atrium 3.7 (Normal 2.9-4.5 cm) (Normal 2.9-4.5 cm) Right Ventricle 2.5 (Normal 2.0-2.8 cm) (Normal 2.0-2.8 cm) Right Atrial Volume 51 Left Atrial Volume 53 (Normal 18-58 mL) (Normal 22-52 mL) Left Atrium 3.4 (Normal 3.0-4.0 cm) (Normal 2.7-3.8 cm) Aortic Root 3.6 (Normal 2.9-4.0 cm) (Normal 2.9-4.0 cm) EPSS (Normal 2-7 mm) (Normal 2-7 mm) LV Diastole 4.8 (Normal 4.2-5.9 cm) (Normal 3.9-5.3 cm) LV Systole 2.7 (Normal 2-4 cm) (Normal 2-4 cm) LV Septum 1.4 (Normal 0.6-1.0 cm) (Normal 0.6-0.9 cm) LV Posterior Wall 1.3 (Normal 0.6-1.0 cm) (Normal 0.6-0.9 cm) Fractional Shortening 45 (Normal 25-43%) (Normal 27-45%) DOPPLER MEASUREMENTS: AORTIC VALVE: Peak velocity 1.0 m/s, mgrad 2 mmHg, PHT _ MITRAL VALVE: E/A 0.7, E/e'11, Deceleration time 183 ms, regurgitation velocity _cm/s TRICUSPID VALVE: regurgitation velocity 2.2 m/s, RVSP 22 mmHg PULMONIC VALVE: regurgitation velocity _ m/s IVC 1.5 cm Estimated RA pressure 3 mmHg DESCRIPTION: Complete real-time transthoracic echocardiography was performed in multiple views utilizing M-mode, 2D, color flow, pulsed wave and continuous wave Doppler. This is a technically difficult study FINDINGS: LEFT VENTRICLE: Mildly increased (concentric) LV wall thickness, Normal systolic function, EF 55-60%, Grade I diastolic dysfunction LEFT ATRIUM: Normal RIGHT ATRIUM: Normal RIGHT VENTRICLE: Normal size and function AORTIC VALVE: Unable to determine the number of leaflets on aortic valve, No significant stenosis, trace regurgitation MITRAL VALVE: Trace regurgitation, no significant stenosis TRICUSPID VALVE: Trace regurgitation, No pulmonary hypertension PULMONIC VALVE: No significant regurgitation GREAT VESSELS: Normal aortic root diameter PERICARDIUM: No significant pericardial effusion CONCLUSION: Technically difficult study 1. Normal LV systolic function EF 55-60% 2. Mild left ventricular hypertrophy with grade I diastolic dysfunction 3. No significant valve disease 4. no previous study [id number] Male 06/27/2021 [facility] Hospitalist Progress Note Patient: ALYSSIA GARCIA Age: 65 years Legal Sex: MALE : 1955 Subjective Patient seen at bedside. Doing well. Denies any chest pain or palpitations. States symptoms from TIA completely resolved. Has been ambulating to the bathroom. No other issues. Constitutional: No fevers, chills, sweats Eye: No recent visual problems ENMT: No ear pain, nasal congestion, sore throat Respiratory: No shortness of breath, cough Cardiovascular: No chest pain, palpitation, syncope Gastrointestinal: No nausea, vomiting, diarrhea Genitourinary: No hematuria Objective Vitals and Measurements HR: 88(Monitored) RR: 18 BP: 126/72 SpO2: 97% O2 Delivery: Room air HT: 183 cm WT: 100 kg BMI: 29.86 kg/m2 Physical Exam Constitutional: No acute distress. Nontoxic-appearing. Alert and oriented x3 HEENT: NCAT. EOMI. Moist mucosal membranes. Neck: Supple. Cardiovascular: Normal rate and regular rhythm. S1 S2 with no added sounds. Respiratory: Clear to auscultation. Unlabored breathing. Gastrointestinal: Soft. Non-distended. Non-tender. Neurological: Alert and awake. Grossly moving all extremities. Grossly intact sensory examination. Strength and sensation 5 out of 5 in bilateral upper and lower extremities. Cranial nerves II to XII grossly intact. Normal gait Extremities: No clubbing. No cyanosis. No edema. Skin: Warm. No rash present. Psychiatric: Normal affect. Interactive. Normal Speech. Inpatient Medications Scheduled: aspirin 81 mg Chew Tab 81 mg 1 Tab, ORAL, DAILY clopidogrel 75 mg Tab 75 mg 1 Tab, ORAL, DAILY sodium chloride 0.9%, 10 mL Flush 10 mL, IV FLUSH, Q12H Continuous: sodium chloride 0.9% 500 mL 500 mL, IV PRN: acetaminophen 325 mg Tab 325 mg 1 ea, ORAL, Q4H acetaminophen 325 mg Tab 650 mg 2 ea, ORAL, Q6H bisacodyl 5 mg EC Tab 10 mg 2 Tab, ORAL, DAILY Dextrose 50% Inj 50 mL Syr 25 mL, IV, As directed Dextrose 50% Inj 50 mL Syr 50 mL, IV, As directed glucagon 1 mg Inj SDV 1 mg, SUBQ, As directed Glucose 40% Oral Gel 15 gm 15 gm 37.5 mL, ORAL, As directed HYDROcod-acetam 10-325 mg Tab 1 Tab, ORAL, Q4H HYDROcod-acetam 5-325 mg Tab 1 Tab, ORAL, Q4H Milk of Magnesia 30 mL 30 mL, ORAL, BID nalOXone 0.4 mg/mL, 1 mL Inj 0.2 mg 0.5 mL, IV PUSH, As directed ondansetron 2 mg/mL, 2 mL Inj 4 mg 2 mL, IV, [id number] Patient Specific Refrigerated Med 1 ea, N/A, As directed sodium chloride 0.9%, 10 mL Flush 10 mL, IV FLUSH, Per Protocol sodium chloride 0.9%, 20 mL 20 mL, IV, As directed sterile water for injection 10 mL 10 mL, N/A, As directed Lab Results Labs All 24H Lab Results Date HDL Cholesterol 34 mg/dL (LOW) 01/05/22 04:55 PST LDL Cholesterol, Calc 158 mg/dL (HIGH) 06/27/21 04:55 PST VLDL Cholesterol, Calc 33 mg/dL 06/27/21 04:55 PST Total Chol/HDL Ratio 6.6 06/27/21 04:55 PST LDL/HDL Ratio 4.6 06/27/21 04:55 PST GFR - Non 59 mL/min/1.73m2 06/27/21 04:55 PST GFR - >60 mL/min/1.73m2 06/27/21 04:55 PST Auto Neutrophil Percent 40.9 % 06/27/21 04:55 PST Auto Neutrophil Absolute 2.3 K/mm3 06/27/21 04:55 PST Auto Lymphocyte Percent 47.8 % (HIGH) 06/27/21 04:55 PST Auto Lymphocyte Absolute 2.6 K/mm3 06/27/21 04:55 PST Auto Monocyte Percent 7.9 % 06/27/21 04:55 PST Auto Monocyte Absolute 0.4 K/mm3 06/27/21 04:55 PST Auto Basophil Percent 0.7 % 06/27/21 04:55 PST Auto Basophil Absolute 0.0 K/mm3 06/27/21 04:55 PST Auto Eosinophil Percent 2.7 % 06/27/21 04:55 PST Auto Eosinophil Absolute 0.2 K/mm3 06/27/21 04:55 PST SARS-CoV-2 Molecular Negative 06/26/21 18:44 PST Health Care Worker? No 06/26/21 18:44 PST Patient From Congregate Area? No 06/26/21 18:44 PST Symptomatic per CDC? No 06/26/21 18:44 PST SARS-CoV-2 First test? Unknown 06/26/21 18:44 PST SARS-CoV-2 Is the Patient Hosp Yes 06/26/21 18:44 PST SARS-CoV-2 Is the Patient Preg No 06/26/21 18:44 PST SARS-CoV-2 Is the Patient in I No 06/26/21 18:44 PST WBC 5.5 K/mm3 06/27/21 04:55 PST RBC 4.57 M/mm3 06/27/21 04:55 PST HGB 14.1 gm/dL 06/27/21 04:55 PST HCT 41.4 % (LOW) 06/27/21 04:55 PST MCV 90.5 fL 06/27/21 04:55 PST MCH 30.8 pg 06/27/21 04:55 PST MCHC 34.1 gm/dL 06/27/21 04:55 PST RDW 12.8 % 06/27/21 04:55 PST PLT 153 K/mm3 06/27/21 04:55 PST Sodium Level 134 mmol/L (LOW) 06/27/21 04:55 PST Potassium Level 4.1 mmol/L 06/27/21 04:55 PST Chloride Level 103 mmol/L 06/27/21 04:55 PST CO2/Carbon Dioxide 24 mmol/L 06/27/21 04:55 PST Glucose, Random 172 mg/dL (HIGH) 06/27/21 04:55 PST BUN 18 mg/dL 06/27/21 04:55 PST Creatinine 1.3 mg/dL 06/27/21 04:55 PST Calcium Level 8.6 mg/dL 06/27/21 04:55 PST Magnesium Level 2.1 mg/dL 06/27/21 04:55 PST Phosphorus Level 4.0 mg/dL 06/27/21 04:55 PST Total Cholesterol 225 mg/dL (HIGH) 06/27/21 04:55 PST Triglycerides 166 mg/dL (HIGH) 06/27/21 04:55 PST UA - Source/Collect Type Urine Voided 06/27/21 13:40 PST UA - Color Yellow - 06/27/21 13:40 PST UA - Appearance Clear - 06/27/21 13:40 PST UA - Specific [place] 1.017 - 06/27/21 13:40 PST UA - pH 7.0 - 06/27/21 13:40 PST UA - Protein Negative mg/dL 06/27/21 13:40 PST UA - Glucose 2+ - (ABNORMAL) 06/27/21 13:40 PST UA - Ketones Negative mg/dL 06/27/21 13:40 PST UA - Bilirubin Negative - 06/27/21 13:40 PST UA - Blood 1+ - (ABNORMAL) 06/27/21 13:40 PST UA - Urobilinogen <2.0 EUnits/dL 06/27/21 13:40 PST UA - Nitrites Negative - 06/27/21 13:40 PST UA - Leukocyte Esterase Negative - 06/27/21 13:40 PST UA - WBC 1 /HPF 06/27/21 13:40 PST UA - RBC <1 /HPF 06/27/21 13:40 PST UA - Epithelials, Squamous 0 /LPF 06/27/21 13:40 PST UA - Bacteria None 06/27/21 13:40 PST UA - Mucus Present - 06/27/21 13:40 PST UA - Ascorbic Acid Negative 06/27/21 13:40 PST Assessment/Plan Assessment #Acute right basal ganglia lacunar infarct #Hyponatremia #Hyperlipidemia #Hypertension #Type 2 diabetes mellitus #Tobacco use #Obesity Plan Continue MedSurg; add telemetry Symptoms of stroke completely resolved. MRI with acute right basal ganglia lacunar infarct. TTE is pending. CT angio head and neck with contrast without any flow-limiting stenosis. Continue aspirin. Add Plavix; NIHSS less than 3 and ABCD 2 score of at least 5. Patient states that he is severely allergic to any type of statin; will discuss restarting with careful monitoring if patient is agreeable. Continue telemetry monitoring. Permissive hypertension for 24 hours. Transient hyponatremia. Monitor levels. LDL goal less than 70. Consider statin as above Hemoglobin A1c 8.5. Patient is on glipizide at home; will benefit from metformin; hold for now for contrast administered recently. Add lantus and sliding scale. Discussed tobacco cessation. Patient is at baseline and has been ambulating in the emergency department; no PT/OT eval required. Full code SCDs Consistent carbohydrate diet Anticipate discharge tomorrow [id number] Male 06/27/2021 [facility] ED Physician Notes Patient: ALYSSIA CURRY Age: 65 years Legal Sex: Male : 1955 Author: MD Uriel, Tia Emmanuel Associated Diagnosis: Brain TIA; Chest pressure Basic Information MSEI /RESIDENT CARE AIDE/PA Time Patient Seen face to face: Date and time 06/26/2021 15:13:22 . Additional information: Chief Complaint from Nursing Triage Note : Reason for visit history 06/26/2021 15:15 PST Chest tightness and temporary confusion 2 hours ago. Denies chest pain. . History of Present Illness 65-year-old man, history of hypertension, diabetes, presents for evaluation of chest tightness as well as now resolved confusion and speech difficulties. He presents with his , who notes roughly 2 hours prior to arrival he developed chest tightness as well as confusion they note he was trying to use his truck eating into the house and doing. His notes he was also unable to speak clearly. She does believe this lasted about 2 hours. They note it has now resolved. He does note persistent chest tightness. Review of Systems Constitutional symptoms: Negative except as documented in HPI. Skin symptoms: Negative except as documented in HPI. Eye symptoms: Negative except as documented in HPI. ENMT symptoms: Negative except as documented in HPI. Respiratory symptoms: Negative except as documented in HPI. Cardiovascular symptoms: Negative except as documented in HPI. Gastrointestinal symptoms: Negative except as documented in HPI. Genitourinary symptoms: Negative except as documented in HPI. Musculoskeletal symptoms: Negative except as documented in HPI. Neurologic symptoms: Negative except as documented in HPI. Hematologic/Lymphatic symptoms: Negative except as documented in HPI. Health Status Allergies: Allergic Reactions (Selected) Severity Not Documented Tomato- No reactions were documented.. Past Medical/ Family/ Social History Medical history: All Problems Diabetes / [id number] / Confirmed Hypertension / [id number] / Confirmed Tobacco user / [id number] / Confirmed, Reviewed as documented in chart. Surgical history: No active procedure history items have been selected or recorded., Reviewed as documented in chart. Social history: Social and Psychosocial Habits Abuse/Intent to Harm Abuse screen, adult/elderly/domestic: No signs of abuse Are you thinking of harming or killing anyone else?: No Safety check complete: Yes CSSRS Risk Level: No risk (0-24) CSSRS Suicide screening ED: Complete the suicide screening *Alcohol Screen Type: Beer *How often do you have a drink containing alcohol? Current *How many standard drinks containing alcohol do you have on a typical day? 3-5 times per week *Home/Environment Screen *Living situation: Home/Independent *Substance Abuse Screen Current or past use? Never *Tobacco Use Screen *Over the past 30 days, what and how much have you smoked? Current every day smoker , Reviewed as documented in chart. Physical Examination Vital Signs Vital Signs 06/26/2021 15:15 PST Temperature (F) 97.0 DegF Normal Peripheral Pulse Rate 112 bpm HI Respiratory rate 20 br/min Normal Systolic BP 150 mmHg HI Diastolic BP 83 mmHg Normal Pulse Oximetry 99 % Temp site Oral . Include ht/wt from flowsheet : Measurements 06/26/2021 15:15 PST Weight (kg) 100 kg Dose calculation weight (kg) 100 kg Body Mass Index 29.86 kg/m2 Normal Height/Length (cm) 183 cm [place] Body Weight Calculated 77.709 . General: Alert, no acute distress. Skin: Warm, dry, no pallor, no rash, normal for ethnicity. Head: Normocephalic, atraumatic. Neck: Supple, trachea midline, no tenderness. Eye: Pupils are equal, round and reactive to light, extraocular movements are intact, normal conjunctiva. Ears, nose, mouth and throat: Oral mucosa moist, no pharyngeal erythema or exudate. Cardiovascular: Regular rate and rhythm, No murmur, Normal peripheral perfusion, No edema. Respiratory: Lungs are clear to auscultation, respirations are non-labored, breath sounds are equal. Chest wall: No tenderness, No deformity. Musculoskeletal: Normal ROM, normal strength, no tenderness, no swelling. Gastrointestinal: Soft, Nontender, Non distended. Neurological: Alert and oriented to person, place, time, and situation, No focal neurological deficit observed, CN II-XII intact, normal sensory observed, normal motor observed, normal speech observed, normal coordination observed. Psychiatric: Cooperative, appropriate mood and affect. Medical Decision Making Differential Diagnosis: Unstable angina, pneumonia, gastroesophageal reflux disease, TIA. Documents reviewed: Emergency department records, prior records. Orders Launch Order Profile (Selected) Inpatient Orders InProcess (Procedure Completed) ECG 12 Lead - CV: 06/26/21 15:13:00 PST, Stat, Chest Pain chest pain r/o VA, ONCE Ordered ED Assessment Adult: 06/26/21 15:19:38 PST Head of Bed Position: 06/26/21 15:24:00 PST, Continuous Order, HOB: Elevated 30 degrees degrees Monitorin06/26/21 15:13:00 PST, Continuous Order, Cardiac monitoring NIH Scale: 06/26/21 15:24:00 PST, ONCE, After back from CT Head, Stop Dt/Tm 06/26/21 15:24:00 PST Oxygen Therapy: 06/26/21 15:13:00 PST, Routine, Continuous Order, 2 Liter Liters per Nasal Cannula, Start oxygen via nasal cannula at 2L /min. Titrate by 1 L/min increments, each 5 minutes, to keep O2 Sat. >/=92%. Maximum limit = 6 L/min. Call physician, if furthe... Saline Lock: 06/26/21 15:13:00 PST, NOW, Stop Dt/Tm 06/26/21 15:13:00 PST Swallow Screen: 06/26/21 15:24:27 PST, Stop Dt/Tm 06/26/21 15:24:27 PST Verify ePrescribe Patient Pharmacy: 06/26/21 15:13:33 PST, Use the 'Patient Pharmacy' button in the toolbar to review/update the patient's pharmacy for ePrescribe. Ordered (Dispatched) Urinalysis UA: 06/26/21 15:24:00 PST, ONCE, Stat, Not Collected Nurse Collect, Urine Voided, Stop D/ PST Canceled (Exam Replaced) CXR 1 Vw: 06/26/21 15:13:00 PST, Stat, Reason: Chest Pain, eval for pneumonia, effusion, cardiac size, Patient does not have IV, Patient not on O2, Standard, OK Chest 1 Vw Portable: 06/26/21 15:13:00 PST, Stat, Reason: Chest Pain, eval for pneumonia, effusion, cardiac size, Patient does not have IV, Patient not on O2, Standard, OK Completed BNP BType Natriuretic Peptide: 06/26/21 15:13:00 PST, ONCE, Jama Priority: Stat Rpt Priority: Stat, Not Collected Lab Collect, Blood, Stop Dt/Tm 06/26/21 15:14:00 PST, Blood CBC w Differential: 06/26/21 15:13:00 PST, ONCE, Jama Priority: Stat Rpt Priority: Stat, Not Collected Lab Collect, Blood, Stop Dt/Tm 06/26/21 15:14:00 PST, Blood CMP Comprehensive Metabolic Panel: 06/26/21 15:13:00 PST, ONCE, Jama Priority: Stat Rpt Priority: Stat, Not Collected Lab Collect, Blood, Stop Dt/Tm 06/26/21 15:14:00 PST, Blood CT Angio Head/Neck W Contrast: 06/26/21 15:24:00 PST, Stat, Patient not Allergic to Contrast, Patient diabetic, Reason: TIA, resolved confusion, slurred speech, , Patient does not have IV, Patient not on O2, Standard, OK CT Head WO Contrast: 06/26/21 15:24:00 PST, Stat, Reason: Stroke/TIA, r/o bleed, Patient does not have IV, Patient not on O2, Standard, OK Chest 2 Vw: 06/26/21 15:13:00 PST, Stat, Reason: Chest Pain, eval for pneumonia, effusion, cardiac size, Patient does not have IV, Patient not on O2, Standard, OK Differential Automated*: 06/26/21 15:25:00 PST, ONCE, Jama Priority: Stat Rpt Priority: Stat, Collected Lab Collect, Blood, Stop Dt/Tm 06/26/21 15:25:00 PST, Blood Extra SST Serum Separator Tube: ONCE, Stat, Collected Lab Collect, 06/26/21 15:25:00 PST, Blood, Stop Dt/Tm 06/26/21 15:25:00 PST INR/Prothrombin Time PT: 06/26/21 15:13:00 PST, ONCE, Jama Priority: Stat Rpt Priority: Stat, Not Collected Lab Collect, Blood, Stop Dt/Tm 06/26/21 15:14:00 PST, Blood PTT Partial Thromboplastin Time: 06/26/21 15:13:00 PST, ONCE, Jama Priority: Stat Rpt Priority: Stat, Not Collected Lab Collect, Blood, Stop Dt/Tm 06/26/21 15:14:00 PST, Blood Troponin I: 06/26/21 15:13:00 PST, ONCE, Stat, Not Collected Lab Collect, Blood, Stop Dt/Tm 06/26/21 15:14:00 PST. Electrocardiogram: Sinus, rate 92, no acute elevation depressions, no STEMI. Results review: Lab results : Lab 06/26/2021 15:25 PST WBC 5.9 K/mm3 Normal RBC 4.69 M/mm3 Normal HGB 14.5 gm/dL Normal HCT 42.6 % Normal MCV 90.9 fL Normal MCH 30.9 pg Normal MCHC 34.0 gm/dL Normal RDW 12.5 % Normal PLT 168 K/mm3 Normal Auto Neutrophil Percent 55.5 % Normal Auto Lymphocyte Percent 35.3 % Normal Auto Monocyte Percent 6.1 % Normal Auto Eosinophil Percent 2.1 % Normal Auto Basophil Percent 1.0 % Normal Auto Neutrophil Absolute 3.3 K/mm3 Normal Auto Lymphocyte Absolute 2.1 K/mm3 Normal Auto Monocyte Absolute 0.4 K/mm3 Normal Auto Eosinophil Absolute 0.1 K/mm3 Normal Auto Basophil Absolute 0.1 K/mm3 Normal Sodium Level 135 mmol/L Normal Potassium Level 4.2 mmol/L Normal Chloride Level 101 mmol/L Normal CO2/Carbon Dioxide 26 mmol/L Normal Glucose, Random 194 mg/dL HI BUN 19 mg/dL Normal Creatinine 1.3 mg/dL Normal GFR - Non 59 mL/min/1.73m2 NA GFR - >60 mL/min/1.73m2 NA Calcium Level 8.7 mg/dL Normal Total Protein 6.9 gm/dL Normal Albumin Level 4.1 gm/dL Normal Bilirubin, Total 0.6 mg/dL Normal ALP 51 IntUnit/L Normal ALT 33 IntUnit/L Normal AST 26 IntUnit/L Normal Troponin I <0.02 ng/mL Normal BNP B-Natriuretic Peptide 25 pg/mL Normal PT - Patient 10.4 sec Normal PT - INR 1.0 Normal PTT - Patient 27 sec Normal . Radiology results: General Diagnostic Result Type: Chest 2 Vw Result Date: June 26, 2021 16:18 PST Reason For Exam: Chest Pain REPORT: Chest 2 Vw 06/26/2021 3:53 PM ORDERING PROVIDER: RORO RodriguezLINICAL INDICATION: Chest pain, evaluate for pneumonia and cardiac sizeCOMPARISON: 11/21/2009 FINDINGS: Lungs well-inflated. No infiltrate or effusion. Normal cardiac silhouette vasculature and slight uncoiling of the aorta. Bones and soft tissues unremarkable. IMPRESSION: 1. No cardiomegaly.2. No pulmonary infiltrate or effusion. Signed by: Mauro Kat on 06/26/2021 4:29 PM Workstation ID: [id number] Computerized Tomography Result Type: CT Brain WO Contrast Result Date: June 26, 2021 15:58 PST Reason For Exam: Stroke/TIA REPORT: CT BRAIN WITHOUT CONTRASTORDERING PROVIDER: Tia Trevino MDHISTORY: Sudden onset of slurred speech Stroke/TIA r/o bleedCOMPARISON: No relevant prior imaging examination is available at this time.TECHNIQUE: Axial images obtained through the brain without contrast. Sagittal and coronal reconstructions were performed and reviewed. ESTIMATED CT EXAM DOSE(Dose-Length Product, DLP) 845.29CTDI (Vol) : 54.03. Dose reduction techniques: Automated exposure control. Adjustment of the mA and kvp according to patient size. FINDINGS: There is no evidence of acute large vessel infarct, intracranial hemorrhage, mass or extracerebral fluid collection. There is preservation of the gutierrez white matter differentiation. Mild chronic microvascular white matter ischemic disease in the deep white matter. Arteriosclerotic calcification of the parasellar carotid arteries. The ventricles are normal in size. The basal cisterns are patent. The paranasal sinuses, mastoid air cells and middle air cavities are normally aerated. The calvarium and scalp soft tissues are normal. IMPRESSION: 1. No acute intracranial abnormality. No CT evidence of acute large vessel infarct. Signed by: Doug Eldridge MD on 06/26/2021 4:04 PM Workstation ID: [id number] Result Type: CT Angio Head/Neck W Contrast Result Date: June 26, 2021 16:03 PST Reason For Exam: TIA REPORT: CT Angio Head/Neck W Contrast: 06/26/2021 3:36 PMORDERING PROVIDER: RORO RodriguezLINICAL INDICATION: Resolved confusion and slurred speech, TIACOMPARISON: CT head without contrast 06/26/2021TECHNIQUE: Omnipaque 350 100.00 ml intravenously without incident.Estimated CT exam dose: (Dose-Length Product, DLP) 505.61; CTDI (Vol) : 60.29.Sagittal and coronal reconstructions were performed and reviewed. Dose reduction techniques: Automated exposure control. Adjustment of the mA and kVp according to patient size.Post processing 2D, 3D or MIP (maximum intensity projection) were obtained and reviewed. FINDINGS: Brain:Normal enhancement is seen in the distal extracranial internal carotid arteries, skull base and cavernous carotid arteries. Scattered calcifications in the cavernous carotids.The anterior and middle cerebral arteries and branches demonstrate normal enhancement and morphology. The distal vertebral arteries demonstrate normal enhancement. The basilar artery demonstrates normal enhancement. The visualized cerebellar arteries and posterior cerebral arteries demonstrate normal enhancement. Enlarged right posterior communicating artery associated with a diminutive right P1 segment. No evidence of arterial occlusion is seen.No aneurysms or areas of significant narrowing are identified.Carotid measurements and indices obtained according to NASCET ([place] Symptomatic Carotid Endarterectomy Trial) criteria.Neck:The aorta and great vessel origins are widely patent without significant plaque.Intimal thickening and scattered noncalcified plaque in the right common carotid artery, bulb and proximal internal carotid artery. No significant areas of narrowing.Patent right vertebral artery.Intimal thickening, scattered calcified and noncalcified plaque left common carotid, bulb and proximal internal carotid artery. No areas of significant narrowing.Proximal left vertebral artery difficult to follow due to beam hardening artifact from some refluxed venous contrast in the area. Patency to the posterior fossa.No other significant findings are identified. IMPRESSION: 1. No large vessel occlusion or hemodynamically significant stenosis. Signed by: Mauro Kat on 06/26/2021 4:20 PM Workstation ID: [id number] . Reexamination/ Reevaluation 06/26/2021 16:[address] Mulligan, who will evaluate the patient for admission. Impression and Plan 65-year-old man presenting as above with now resolved neurologic deficits. He is having some chest pressure, and initial troponin is negative and he has no ischemic EKG changes. Chest x-ray demonstrates no acute findings as well. CT brain and CT angio head and neck demonstrate no acute findings. I did give him 324mg ASA in the ED. I am concerned about the ABCD2 score of 6, which puts his TIA at high risk and warrants admission. He remains hemodynamically stable and will be admitted to the hospital service for further care and monitoring. Diagnosis Brain TIA Chest pressure 27515-6 Male 06/26/2021 [facility] ED Physician Notes Patient: ALYSSIA CURRY Age: 65 years Sex: Male : 1955 Author: MD Freeman Stephanie F Associated Diagnosis: Facial cellulitis Basic Information MSEI /RESIDENT CARE AIDE/PA Time Patient Seen face to face: Date and time 12/30/2020 07:24:31 . History source: Patient. Arrival mode: Private vehicle. History limitation: None. Additional information: Chief Complaint from Nursing Triage Note : Reason for visit history 12/30/2020 07:26 PDT c/o L upper dental pain. . History of Present Illness 65-year-old male presents the emergency department with sudden onset left facial swelling. The patient had a left molar that was hurting for the last 2 days. Then he woke up this morning and his left eye was swollen closed. The pain is actually somewhat diminished today and he denies any associated fever. Review of Systems Constitutional symptoms: no fever. Skin symptoms: no lesion. Eye symptoms: Vision unchanged. ENMT symptoms: no ear pain, no sore throat, no nasal congestion. Respiratory symptoms: no cough. Gastrointestinal symptoms: no vomiting. Neurologic symptoms: no altered level of consciousness. Hematologic/Lymphatic symptoms: bleeding tendency negative. Allergy/immunologic symptoms: no impaired immunity. Health Status Allergies: Allergic Reactions (Selected) Severity Not Documented Tomato- No reactions were documented.. Medications: PATIENT DOES NOT KNOW THE NAMES OF ANY OF HIS MEDICATIONS HE IS SEEN AT THE [facility], BUT THEIR PRESCRIPTION LIST IS NOT CURRENTLY AVAILABLE . Past Medical/ Family/ Social History Medical history: All Problems (Selected) Diabetes / [id number] / Confirmed Hypertension / [id number] / Confirmed, Reviewed as documented in chart. Social history: Social and Psychosocial Habits Abuse/Intent to Harm Abuse screen, adult/elderly/domestic: No signs of abuse Are you thinking of harming or killing anyone else?: No CSSRS Risk Level: No risk (0-24) CSSRS Suicide screening ED: Complete the suicide screening *Alcohol Screen Type: Beer *How often do you have a drink containing alcohol? Current *How many standard drinks containing alcohol do you have on a typical day? 3-5 times per week *Home/Environment Screen *Living situation: Home/Independent *Substance Abuse Screen Current or past use? Never *Tobacco Use Screen *Over the past 30 days, what and how much have you smoked? Current every day smoker , Reviewed as documented in chart. Physical Examination Vital Signs Vital Signs 12/30/2020 07:26 PDT Temperature (F) 97.3 DegF Normal Peripheral Pulse Rate 113 bpm HI Respiratory rate 14 br/min Normal Systolic BP 137 mmHg Normal Diastolic BP 94 mmHg HI Pulse Oximetry 97 % Temp site Temporal Peripheral pulse site Pulse oximetry device . Include ht/wt from flowsheet : Measurements 12/30/2020 07:26 PDT Weight (kg) 99.79 kg Dose calculation weight (kg) 99.79 kg Body Mass Index 30.68 kg/m2 HI Weight measured method Stated Height/Length (cm) 180.34 cm [place] Body Weight Calculated 75.3 . General: Alert, no acute distress. Skin: Warm, dry, pink. Head: Atraumatic. Neck: Supple, no tenderness. Eye: Extraocular movements are intact. Ears, nose, mouth and throat: Oral mucosa moist, no pharyngeal erythema or exudate, No trismus, no stridor. Moderate swelling of the face extending from inferior to the left eye down into the submandibular region on the left side. The patient has multiple dental caries involving the left upper molars, but no obvious drainable abscess of the gingiva. Cardiovascular: Regular rate and rhythm, Normal peripheral perfusion. Respiratory: Lungs are clear to auscultation, respirations are non-labored. Neurological: Alert and oriented to person, place, time, and situation, No focal neurological deficit observed, CN II-XII intact, normal speech observed. Psychiatric: Cooperative. Medical Decision Making Differential Diagnosis: Dental pain, dental carries, dental abscess. Documents reviewed: Emergency department nurses' notes, prior records. Orders Launch Order Profile (Selected) Inpatient Orders Completed clindamycin: 900 mg = 50 mL, IVPB, ONCE, Indication= Oropharyngeal infection, STAT, IV SOLN, 12/30/20 7:31:00 PDT, Stop date 12/30/20 7:31:00 PDT, 100 mL/hr, 30 min. Results review: Lab results : Lab 12/30/2020 07:45 PDT WBC 7.7 K/mm3 Normal HGB 14.7 gm/dL Normal HCT 42.4 % Normal PLT 133 K/mm3 LOW Sodium Level 133 mmol/L LOW Potassium Level 4.1 mmol/L Normal Chloride Level 99 mmol/L LOW CO2/Carbon Dioxide 24 mmol/L Normal Glucose, Random 312 mg/dL HI BUN 14 mg/dL Normal Creatinine 1.2 mg/dL Normal GFR - Non >60 mL/min/1.73m2 NA GFR - >60 mL/min/1.73m2 NA Calcium Level 8.6 mg/dL Normal Total Protein 7.4 gm/dL Normal Albumin Level 4.0 gm/dL Normal Bilirubin, Total 1.0 mg/dL Normal ALP 67 IntUnit/L Normal ALT 24 IntUnit/L Normal AST 15 IntUnit/L Normal CRP C-Reactive Protein 8.4 mg/dL HI Lactic Acid Level 1.5 mmol/L Normal . Radiology results: Computed tomography, reviewed radiologist's report, CT Face/Neck with IV Contrast CUTANEOUS/SUBCUTANEOUS SOFT TISSUES: Subcutaneous infiltration of the left lower facial region overlying the mandible mildly infiltrating cheek musculature. No abnormal soft tissue gas is found. AERODIGESTIVE TRACT: Normal epiglottis. No airway narrowing. No abscess is found. TEETH: Several absent teeth. No bone abscess or lytic process identified. THYROID GLAND: The thyroid gland is normal in size without focal lesion. SALIVARY GLANDS: The right submandibular gland is absent. The left submandibular gland and bilateral parotids appear normal. LYMPH NODES: Borderline reactive prominence of left submandibular lymph nodes compared to the right side. VASCULAR: Calcified plaque at each carotid bifurcation without stenosis. CERVICAL SPINE: Small degenerative osteophytes at C4-5 and C5-6. BONY AIRSPACES: The visualized paranasal sinuses are clear. The mastoid air cells show normal aeration. ORBITS AND IMAGED PORTION OF THE BRAIN: The visualized intracranial compartment is unremarkable. The orbits are unremarkable. LUNG APICES: No evidence of mass or pleural fluid. SUPERIOR MEDIASTINUM: The superior mediastinum is unremarkable. IMPRESSION: Left facial subcutaneous edema with mild thickening of adjacent cheek musculature. No evidence of abscess or deep space infection. Absence of the right submandibular gland. . Reexamination/ Reevaluation 0740: Due to the degree of swelling as well as the rapid onset of symptoms, I did feel that CT imaging was indicated to rule out abscess or deep space infection. 0905: CT has been done, but not resulted. Patient doing well without acute complaint at this time. Vital signs results included from flowsheet : Vital Signs 12/30/2020 09:00 PDT Peripheral Pulse Rate 101 bpm HI Respiratory rate 14 br/min Normal Systolic BP 169 mmHg HI Diastolic BP 90 mmHg HI Pulse Oximetry 98 % Mean BP 107 mmHg Normal Impression and Plan Patient is a/an 65-year-old male with dental infection. Due to swelling in the submandibular region on the left side a CT scan was obtained which did not show a deep space infection or abscess. Patient's inflammatory markers were mildly elevated consistent with infection, no's evidence of sepsis. Patient treated with a dose of clindamycin here and discharged on oral clindamycin. He is instructed to call his dentist on Friday for follow-up, we discussed the symptoms that should prompt a repeat visit to the emergency department. Diagnosis Facial cellulitis Dental Infection Plan Condition: Stable. Disposition: Discharged. Prescriptions: Launch prescriptions Pharmacy: clindamycin 300 mg oral capsule (Prescribe): = 1 Cap, ORAL, Q6H, X 7 Day(s), # 28 Cap, Indication= Oropharyngeal infection, 0 Refill(s), Acute, Pharmacy: [email or web address], 180.34, cm, 12/30/2020 07:26 PDT, Height/Length (cm), 99.79, kg, 12/30/2020 07:26 PDT, Dose calculation weight (kg). Patient was given the following educational materials: Dental Abscess with Facial Cellulitis. Follow up with: ; Home Health Thank you for allowing our team to care for you today Please return to the ER if you have worsening symptoms (especially increased swelling, increasing pain, fever, inability to open mouth all the way) See your dentist for follow-up Prescriptions: called in to [facility]. Clindamycin: antibiotic for dental infection. Next dose due at 5pm 2. You can take over the counter Tylenol for pain as needed. Counseled: Patient, Regarding diagnosis, Regarding diagnostic results, Regarding treatment plan, Regarding prescription, Patient indicated understanding of instructions. 12/30/2020 [facility] ED Physician Notes Patient: ALYSSIA CURRY Age: 64 years Sex: Male : 1955 Author: MD Juarez Michael Evan Associated Diagnosis: Corneal abrasion, left Basic Information MSEI MD/RESIDENT CARE AIDE/PA Time Patient Seen face to face: Date and time 12/05/2019 16:45:23 . Additional information: Chief Complaint from Nursing Triage Note : Reason for visit history 12/05/2019 16:40 PDT pt presents to the ED from home. pt c/o L eye pain s/p getting hit with pine needles. blurry and watery to L eye. . History of Present Illness The patient presents with 64-year-old male was riding a horse through some trees when a branch kicked back catching him in the face. He states I needle hit him in the eye. He states he now has 5 out of 10 pain and mild blurry vision out of that eye. He says he has no other concerns and his review of systems is completely negative. He does have a history of hypertension, diabetes and elevated cholesterol.. Review of Systems Constitutional symptoms: no fever. Skin symptoms: no rash. Eye symptoms: Pain, blurred vision. ENMT symptoms: no sore throat. Respiratory symptoms: no shortness of breath, no cough. Cardiovascular symptoms: no chest pain. Gastrointestinal symptoms: no vomiting, no diarrhea. Genitourinary symptoms: no dysuria. Musculoskeletal symptoms: no Muscle pain. Neurologic symptoms: no altered level of consciousness. Psychiatric symptoms: no substance abuse. Health Status Allergies: Allergic Reactions (Selected) Severity Not Documented Tomato- No reactions were documented.. Medications: (Selected) Inpatient Medications Ordered proparacaine ophthalmic 0.5% solution: = 2 Drop, LT EYE, ONCE, OPTH SOLN, 12/05/19 16:49:00 PDT, Stop date 12/05/19 16:49:00 PDT Prescriptions Prescribed Colace 100 mg oral capsule: = 1 Cap, ORAL, BID, PRN for constipation, # 20 Cap, 0 Refill(s), Maintenance Documented Medications Documented Boles 5 mg-325 mg oral tablet: 2 Tab, ORAL, Q4H, PRN for pain, 0 Refill(s) ezetimibe: 10 mg, ORAL, QBedtime, 0 Refill(s) lisinopril 10 mg oral tablet: 10 mg = 1 Tab, ORAL, DAILY, 0 Refill(s). Past Medical/ Family/ Social History Medical history: Hypertension, diabetes, elevated cholesterol. Surgical history: Right foot surgery, appendectomy, hernia surgery, tonsillectomy, bilateral cataract surgery.. Family history: Diabetes. Social history: Still smokes tobacco but trying to quit. Physical Examination Vital Signs Vital Signs 12/05/2019 16:40 PDT Temperature (F) 98.0 DegF Normal Pulse rate 92 bpm Normal Respiratory rate 18 br/min Normal Systolic BP 191 mmHg HI Diastolic BP 86 mmHg Normal Pulse Oximetry 97 % Temp site Temporal BP site Left arm . Include ht/wt from flowsheet : Measurements 12/05/2019 16:40 PDT Weight (kg) 92.99 kg Dose calculation weight (kg) 92.99 kg Weight measured method Stated . Oxygen saturation: 97 %. General: Alert, mild distress. Skin: Warm, dry, pink, no rash. Eye: Pupils are equal, round and reactive to light, extraocular movements are intact, Upper and lower lids were everted after proparacaine was instilled. There is no evidence of foreign body noted. Fluorescein staining was performed which shows a very thin vertical corneal abrasion bisecting the pupil and going from approximately the top of the iris down to the bottom of the iris. Negative Meme sign.. Respiratory: Respirations are non-labored. Medical Decision Making Differential Diagnosis: Corneal abrasion, eye foreign body. Reexamination/ Reevaluation Patient has a very thin hairline vertical corneal abrasion bisecting the pupil. No foreign bodies were seen. At this point in time he'll be discharged home with an antibiotic eyedrop and encouraged to follow up with appliance fixer the next 2-3 days. Impression and Plan Diagnosis Corneal abrasion, left Plan Condition: Stable. Disposition: Discharged: to home. Prescriptions: Launch prescriptions Pharmacy: ciprofloxacin ophthalmic 0.3% solution (Prescribe): 2 Drop, OPHTHALM, Q4H, X 5 Day(s), # 5 mL, 0 Refill(s), Acute . Patient was given the following educational materials: Corneal Abrasion. Follow up with: Ashlyn Ramirez Within 2-3 days These also follow-up with an appliance fixer in 2-3 days for reevaluation.. Counseled: Patient. Notes: The above report may contain errors in syntax, word selection, grammar, and or spelling errors related to use of voice recognition software. . 12/05/2019 [facility] Discharge Summaries Results Value Date Source Discharge Summary Patient: ANNIA CURRY Age: 67 years Legal Sex: MALE : 1955 _ Admit Date: 07/17/23 05:59 Discharge Date: Reason For Visit: 76073, 53368,L3, L5 laminectomy, m54.16, M48.062, Lumbar Stenosis Discharge Location: Home Physicians Involved With Care Attending: MD Lamberto, Javier Benavides Consulting: SYED Duque Robert Baker Consulting: MD Grijalva Todd W Consulting: MD Verma Roy B Primary Care: MD Quigley Samay PRIMARY DISCHARGE DIAGNOSIS: _Lumbar spinal stenosis SECONDARY DISCHARGE DIAGNOSIS: _ ACTIVE PROBLEM LIST/PMH: BMI 25-29 - overweight Current smoker Diabetes Hypertension Lumbar radiculitis Lumbar stenosis with neurogenic claudication Readiness for discharge Tobacco user PROCEDURES ON ADMISSION: Lumbar Laminectomy CONSULTATIONS DURING THIS ADMISSION: None COMPLICATIONS: None PROGNOSIS: Good DISPOSITION: Home with the care of family. FOLLOW UP: Dr. Javier Orantes as scheduled, or call to make/verify appointment. [facility] [place] . ALLERGIES: atorvastatin (MUSCLES CRAMP UP.) Tomatoes DISCHARGE MEDICATIONS: Discharge Medications (16) acetaminophen-HYDROcodone 325 mg-10 mg oral tablet 1 Tab, PRN, ORAL, Q4H (Ordered 07/18/23) docusate sodium 100 mg oral capsule 100 mg = 1 Cap, ORAL, BID (Ordered 07/18/23) doxazosin 8 mg oral tablet 8 mg = 1 Tab, ORAL, QBedtime (Ordered 06/27/21) Fish Oil 2 Cap, ORAL, DAILY (Ordered 06/27/21) gabapentin 300 mg oral capsule 300 mg = 1 Cap, ORAL, TID (Ordered 03/13/23) glimepiride 2 mg oral tablet (Ordered 06/30/23) Glucometer See Instructions (Ordered 06/28/21) Lancets See Instructions (Ordered 06/28/21) metFORMIN 500 mg oral tablet 500 mg = 1 Tab, ORAL, BID (Ordered 06/28/21) MiraLax 17 gm = 1 Pkt, ORAL, DAILY (Ordered 07/18/23) omeprazole 20 mg oral delayed release capsule 20 mg = 1 Cap, ORAL, DAILY (Ordered 06/27/21) Plavix 75 mg oral tablet 75 mg = 1 Tab, ORAL, DAILY, X 21 Day(s) (Ordered 06/28/21) scopolamine 1 mg/72 hr transdermal film, extended release 1 Patch, TOP, [id number] (Ordered 06/30/23) Test strips See Instructions (Ordered 06/28/21) tiZANidine 2 mg oral tablet See Instructions (Ordered 06/30/23) Vitamin D3 1,000 IntUnit, ORAL, BID (Ordered 06/27/21) HYGIENE: Patient may shower after the third post-operative day. No baths or soaking the wound. Change dressing as instructed. DIET: Resume home diet. ACTIVITY: Refer to post-op care instruction sheet for detail. Wear brace if issued as instructed. Progress ambulation on even level surfaces with a goal of 30 minutes a day. No lifting bending or twisting activity. HOSPITAL COURSE: Patient was admitted post-operatively to the [facility]. The patient was covered perioperatively with IV antibiotics as per SCIP protocol. Pain management consisted ofPCA narcotics and progressed to po medications with good control. The patient progressed to OOB activity with nursing, physical and occupational therapies. Hemovac drain was discontinued on post-op day 1 and the dressing was changed. The incision remained clean dry and intact. The patient was tolerating a regular diet, voiding after the burkett was discontinued, passing flatus and had a BM. Vitals were stable and the patient was discharged in stable condition. 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 The left atrium is normal in size. Cannot rule out small PFO/ASD Mild right atrial enlargement. Mild right ventricular enlargement. Normal structure and function of aortic valve. Trace aortic insufficiency. Structurally normal mitral valve. Normal structure and function of tricuspid valve. Trace tricuspid regurgitation. Normal structure and function of pulmonic valve. Normal IVC size and inspiratory collapse. Normal estimated pulmonary artery systolic pressure. Normal sized ascending and descending aorta. Possible patent foramen ovalis. PERTINENT LABS AND STUDIES:Labs (Last four charted values) WBC 5.2 (JUL 25) 5.3 (JUL 24) 7.4 (JUL 23) Hgb L 13.4 (JUL 25) L 13.5 (JUL 24) 14.1 (JUL 23) Hct L 39.5 (JUL 25) L 39.5 (JUL 24) L 41.8 (JUL 23) Plt L 135 (JUL 25) L 135 (JUL 24) L 129 (JUL 23) Na 137 (JUL 25) 135 (JUL 24) 136 (JUL 23) K 3.9 (JUL 25) L 3.4 (JUL 24) 3.8 (JUL 23) CO2 24 (JUL 25) 22 (JUL 24) 25 (JUL 23) Cl 106 (JUL 25) 105 (JUL 24) L 100 (JUL 23) Cr 1.1 (JUL 25) 1.1 (JUL 24) 1.3 (JUL 23) BUN 20 (JUL 25) 20 (JUL 24) 22 (JUL 23) Glucose Random H 209 (JUL 25) H 217 (JUL 24) H 365 (JUL 23) Ca 8.9 (JUL 25) 8.9 (JUL 24) 9.5 (JUL 23) PT 10.7 (JUL 23) INR 1.0 (JUL 23) DIAGNOSTIC IMAGING: Computerized Tomography Result Type: CT Brain WO Contrast Result Date: July 23, 2022 03:15 PST Reason For Exam: Stroke/TIA REPORT: EXAM:CT Head Without Intravenous Contrast. CLINICAL HISTORY:Stroke/tia- ALOC/passed outTECHNIQUE:Axial computed tomography images of the head/brain without intravenous contrast. COMPARISON:June 26, 2021 FINDINGS: BRAIN:No acute intraparenchymal hemorrhage. No mass lesion. No CT evidence for acute territorial infarct. There is a nonspecific, somewhat faint low-density area in the region of the caudate head on the left. This does appear to be new in the interval. No midline shift or extra-axial collection. VENTRICLES:No hydrocephalus. ORBITS:The orbits are unremarkable. SINUSES AND MASTOIDS:The paranasal sinuses and mastoid air cells are clear. SOFT TISSUES:No significant facial or scalp soft tissue swelling evident. No radiopaque foreign body is seen. BONES:No acute skull fracture. IMPRESSION: Low density area in the region of the caudate head on the left. No acute hemorrhage. Consider follow-up evaluation with MRI. /[facility], all CT exams are performed using one or more of the following dose reduction techniques: automated exposure control, adjustment of the mA and/or kV according to patient size, or use of iterative reconstruction technique.CTDI Vol: 54.60. Total DLP: 908.80(mGy-cm). Result Type: CT Angio Head/Neck W Contrast Result Date: July 23, 2022 03:15 PST Reason For Exam: TIA REPORT: EXAM:CTA Head and Neck with Intravenous Contrast. CLINICAL HISTORY:Stroke/tia - ALOC/passed outTECHNIQUE:Axial CTA images of the head and neck performed with intravenous contrast. Two-dimensional MIP and/or three-dimensional MIP and volume rendered reformations were performed. Note: Per PQRS, the description of internal carotid artery percent stenosis, including 0 percent or normal exam, is based on [place] Symptomatic Carotid Endarterectomy Trial (NASCET) criteria. CONTRAST:With; 370 isovue 70 mL COMPARISON:None provided. FINDINGS: CTA NECK:COMMON CAROTID ARTERIESNo significant stenosis. No dissection or occlusion. Some intimal thickening noted distally with considerable adipose carotid disease at the bifurcationsINTERNAL CAROTID ARTERIESNo stenosis by NASCET criteria. No dissection or occlusion. Considerable atherosclerotic disease also at the cavernous ICA segments bilaterally which is fairly symmetric.VERTEBRAL ARTERIESNo significant stenosis. No dissection or occlusion. CTA HEAD:ANTERIOR CEREBRAL ARTERIESNo significant stenosis. No occlusion. No aneurysm. MIDDLE CEREBRAL ARTERIESNo significant stenosis. No occlusion. No aneurysm. POSTERIOR CEREBRAL ARTERIESNo occlusion. No aneurysm. There does appear to be a moderate stenosis of the P2 segment on the leftBASILAR ARTERYNo significant stenosis. No occlusion. No aneurysm. OTHER:SOFT TISSUESNo acute finding. No masses or lymphadenopathy. BONESNo acute osseous abnormality. IMPRESSION: Considerable cerebrovascular atherosclerotic disease throughout the head and neck. No hemodynamically significant carotid stenosis is identified. No acute large vessel occlusion or aneurysms. /[facility] PQRS, all CT exams are performed using one or more of the following dose reduction techniques: automated exposure control, adjustment of the mA and/or kV according to patient size, or use of iterative reconstruction technique.CTDI Vol: 11.50. Total DLP: 453.92(mGy-cm). Volume Administered: 70.00 ml of Isovue 370. . Magnetic Resonance Imaging Result Type: MRI Brain WO Contrast Result Date: July 23, 2022 07:57 PST Reason For Exam: Stroke/TIA REPORT: MRI Brain WO ContrastORDERING PROVIDER: Giovanni South, DOHISTORY: Stroke/TIASPECIAL INSTRUCTIONS:COMPARISON: June 27, 2021TECHNIQUE: 1. Axial T2 FSE, T1 FSE, and DWI.2. Coronal FLAIR and GRE.3. Sagittal T2 FSE. FINDINGS: Resolution of restricted diffusion right basal ganglia region with signal characteristics of a lacunar infarct now noted in the region. No restricted diffusion of an acute ischemic event seen. No midline shift or mass effect. There is some increased signal T1 weighted imaging in area of hypoattenuation left caudate nucleus and curvilinear focus seen right basal ganglia and external capsule. These are new since prior and may represent small infarcts. No significant hemorrhagic component demonstrated on gradient echo imaging. Differential may include lesions with minimal accumulation such as Demetrio's disease or other. No midline shift or mass effect. Cortical atrophy noted. IMPRESSION: Residua of prior ischemic events along with some T1 weighted increased signal basal ganglia regions bilaterally as above without significant hemorrhage, hematoma, mass effect or restricted diffusion of an acute ischemic focus otherwise seen. Signed by: Julius Rai MD on 07/23/2022 8:25 AM Workstation ID: [id number] ECG IMPRESSION: Date Performed: 07/23/2022 02:04:38 PST Status: Signed Impression: SINUS RHYTHM NORMAL ECG Electronic Signature: MD Britton, Juanita R 07/23/2022 19:47:47 HOSPITAL COURSE: Chief Complaint: Pt BIBA s/p found in bathroom by family down time unknown, per medics he was ALOC upon fire arrival since his symptoms have resolved noted pt to be A&O x 4, GCS 15. zero signs of facial droop or slurred speech noted. History of Present Illness :Mr. Curry is a 66 year old male with past medical history of multiple prior TIAs, Hypertension, Hyperlipidemia, Diabetes mellitus, and obesity with BMI >30 who presented to the [facility] ED via EMS for altered mentation. The patient reports that he remembers getting up to go to the bathroom due to a stomach ache with his next memory being surrounded by EMS. His spouse reports getting up to take the dogs outside and noticing the patient slumped over on the toilet. He was non-responsive for her and was apparently very confused for approximately 40 minutes for EMS before his mentation normalized. The patient is presently back to his baseline mentation and neurologic status. In the ED his vital signs demonstrated mild hypertension on arrival of 159/72, heart rate mostly in the 90's with single recorded measurement of 101. He is afebrile with normal room air oxygen saturation. Lab work demonstrating normal WBC count and Significant hyperglycemia of 365. CT Brain demonstrating 'Low density area in the region of the caudate head on the left. No acute hemorrhage.' CT Angio Head/Neck demonstrating 'Considerable cerebrovascular atherosclerotic disease throughout the head and neck. No hemodynamically significant carotid stenosis is identified. No acute large vessel occlusion or aneurysms.' By Issue: 1. Brain TIA (Transient cerebral ischemic attack, unspecified, G45.9) : MRI of brain negative for stroke this admission; no symptoms on discharge. Shows evidence of prior stroke as did MRI and June 2021. Seen by neurologist Dr. Juan Jose Brooks here in consultation on July 24, 2022. Told us to get a echocardiogram with bubble study which was accomplished the day of discharge with results not known at time of discharge and that the patient should get an EEG outpatient and we are trying to arrange that as well. Suggested that he continue on aspirin and Plavix meantime. 2. Hyperglycemia due to type 2 diabetes mellitus (Type 2 diabetes mellitus with hyperglycemia, E11.65) in context of an acute neurologic event 3. Dyslipidemia; patient very much needs a lipid-lowering agent but we cannot safely prescribe one form until we know what he is allergic to. He does not know what those medicines are other than statins and [facility] 4. Tachypnea (Tachypnea, not elsewhere classified, R06.82) 5. Acute metabolic encephalopathy (Metabolic encephalopathy, G93.41) : Completely resolved. Likely due to TIA 6. Hypochloremia (Other disorders of electrolyte and fluid balance, not elsewhere classified, E87.8) 7. Dehydration (Dehydration, E86.0) ; I will 8. Diabetes (Type 2 diabetes mellitus without complications, E11.9) 9. Hypertension (Essential (primary) hypertension, I10) : Excellent control here 10. Current smoker (Nicotine dependence, unspecified, uncomplicated, F17.200) 11. Thrombocytopenia: Very mild and of unclear clinical significance DISCHARGE DISPOSITION: Home DISCHARGE MEDICATION LIST: Discharged Medications (12) aspirin 81 mg oral delayed release tablet 81 mg, ORAL, DAILY (Ordered 06/28/21) buPROPion 75 mg oral tablet 150 mg = 2 Tab, ORAL, BID (Ordered 06/27/21) doxazosin 8 mg oral tablet 8 mg = 1 Tab, ORAL, QBedtime (Ordered 06/27/21) Fish Oil 2 Cap, ORAL, DAILY (Ordered 06/27/21) Glucometer See Instructions (Ordered 06/28/21) Lancets See Instructions (Ordered 06/28/21) lisinopril 10 mg oral tablet 10 mg = 1 Tab, ORAL, DAILY (Ordered 06/27/21) metFORMIN 500 mg oral tablet 500 mg = 1 Tab, ORAL, BID (Ordered 06/28/21) omeprazole 20 mg oral delayed release capsule 20 mg = 1 Cap, ORAL, DAILY (Ordered 06/27/21) Plavix 75 mg oral tablet 75 mg = 1 Tab, ORAL, DAILY, X 21 Day(s) (Ordered 06/28/21) Test strips See Instructions (Ordered 06/28/21) Vitamin D3 1,000 IntUnit, ORAL, BID (Ordered 06/27/21) DISCHARGE DIET AND ACTIVITY: Discharge Diet (1) Consistent Carbohydrate Diet Discharge Activity (1) Activity As Tolerated PATIENT EDUCATION: Informed patient that he must get a list of the cholesterol lowering agents that he is supposedly allergic to since he says there are 3 and we are only aware of a statin allergy for certain. Patient also informed that he needs an electroencephalogram (EEG) and case management here at this hospital is trying to arrange that via the [facility]. FOLLOW UP: PCP on August 13, 2022 at [facility] as soon as possible whether at [facility] or here in [place] with Dr. Brooks CONDITION ON DISCHARGE: Stable DISCHARGE VITALS: Vital Signs (last charted) Pulse: 91 (07/25 16:06) Pulse Ox: 96 (07/25 16:06) BP: 132/75 (07/25 16:06) Ox Delivery: Room air Temperature: 98.1 F (36.7 C) (07/25 16:06) Ox %/FiO2: Not Charted Respiration: 17 (07/25 16:31) FiO2 set: Not Charted Pain Intensity Level: 0 (07/25 16:31) DISCHARGE PHYSICAL EXAM: Constitutional: No acute distress. Sitting upright in bed HEENT: NCAT. EOMI. Cardiovascular: Normal rate and regular rhythm. No murmurs appreciated. Respiratory: Breathing is unlabored. Lung sounds are clear to auscultation bilaterally. No wheezes, rales, or rhonchi. Gastrointestinal: Soft. Non-distended. Non-tender. Neurological: Alert and awake. Oriented x3. CNII-XII intact. Grossly intact motor and sensory examination. Pronator drift tested and negative. Extremities: No clubbing. No cyanosis. No edema. Skin: Warm. No rash present. Psychiatric: Normal affect. Interactive. Total time for discharge including preparation of discharge summary and reconciliation of meds and examination of patient greater than 30 minutes. [id number] Male 07/26/2022 [facility] Discharge Summary Patient: ANNIA CURRY Age: 65 years Legal Sex: MALE : 1955 Admission Information Admit Date: 06/26/21 15:03 Reason for Admission: brain tia g45.9 Physicians Involved With Care Admitting: MD Mulligan Christopher F Attending: MD Mulligan Christopher F Primary Care: MD Ashley, Ashlyn Matta Final Diagnosis _ Brain TIA (Transient cerebral ischemic attack, unspecified, G45.9) Brain TIA (Transient cerebral ischemic attack, unspecified, G45.9) Chest pressure (Other chest pain, R07.89) Chest pressure - Adult (Chest pressure - Adult, [id number]) Assessment #Acute right basal ganglia lacunar infarct #Hyponatremia #Hyperlipidemia #Hypertension #Type 2 diabetes mellitus #Tobacco use #Obesity Hospital Course HISTORY OF PRESENT ILLLNESS: _The patient is a 65-year-old male in relatively good state of health, with past medical history significant for hypertension, hyperlipidemia, type 2 diabetes which all seem under good control who presents today with a chief complaint of slurred speech. Patient is accompanied by his although he is a good historian. Reports that earlier today, for approximately 2 hours he was having difficulty with slurred speech, unable to get the exact words out that he would have liked and having difficulty using the TV remote. He had no focal weaknesses, denies numbness or tingling anywhere, denies blurred vision. He has otherwise felt well, no recent fevers, chills, chest pain, shortness of breath. No recent changes to medications. He was out lifting hay celsa earlier today and is typically relatively active. He is followed by the [facility]. he is a smoker, both approximately 1 pack every 3 days and drinks beer very seldomly. In the ER patient has been afebrile and mostly normotensive. Lab work unremarkable, CT of the brain and CT angiogram of the head and neck unremarkable although given patient's symptoms and elevated baseline ABCDD score he will be admitted for further evaluation. Patient did thus far received aspirin. He notes prior history of hyperlipidemia although has had 2 very severe reactions to what sounds to be statin medications, including severe Opitz clonus, liver failure and rhabdomyolysis. For this reason he takes only fish oil and is also on baby aspirin daily HOSPITAL COURSE Assessment #Acute right basal ganglia lacunar infarct: At the time of admission, patient's symptoms noted to be resolved. It was likely that patient experienced a TIA. CT head at the time of admission noted be negative for any intracranial abnormalities and/or acute large vessel infarct. CT angio head and neck with contrast was completed and noted to have no large vessel occlusion or hemodynamically significant stenosis. During the hospital stay, patient did not have any further symptoms and noted to be at baseline. MRI brain was completed on 06/27/2021 and noted to have acute right basal ganglia lacunar infarct. Considering resolution of symptoms and low NIHSS score with high ABCD 2 score, patient will be discharged with aspirin and Plavix. Aspirin to be continued greater than 1 month and Plavix to be continued for 21 days. Patient would also benefit from a treatment of statin; however, he stated that he has been admitted to the hospital due to severe pain caused by statin therapy. Discussed that low-dose statin therapy should be tried; however, patient refused. Discussed benefits of statin therapy and patient was understanding but continued to refuse. TTE obtained during the hospital stay noted to have normal left ventricular systolic function with EF of 55 to 60%, grade 1 diastolic dysfunction. At the time of discharge, patient noted to be at normal mental status without any neurological deficit. #Hyponatremia: Intermittent hyponatremia; resolved prior to discharge. #Hyperlipidemia: Patient's LDL noted to be 158. In context of type 2 diabetes mellitus, hypertension and stroke, LDL goal will be less than 70. This was discussed with patient and potential start of statin therapy; however, patient refused due to severe side effects. Discussed low-dose therapy combined with other vitamins; however, patient refused. Discussed healthy diet and exercise at the time of discharge. #Type 2 diabetes mellitus: During the hospital stay, patient's hemoglobin A1c noted to be 8.5. Noted that at home, patient is on glipizide. At the time of discharge, glipizide will be discontinued and patient will be started on metformin 500 mg twice daily especially considering greater than 48 hours postcontrast. Blood glucose testing supplies are sent to patient's pharmacy of choice. Patient is advised to obtain fasting blood glucose every morning and create a log. He is to take this log to the primary care physician so metformin can be uptitrated or additional medications can be added. Patient verbalized understanding of this. Home glipizide was discontinued due to uncontrolled status and risks of hypoglycemic episodes considering patient's age. Patient was advised to follow healthy diet and exercise. He will follow up with PCP to uptitrate Metformin and add additional treatment if warranted. #Hypertension: Patient received permissive hypertension for 24 hours during the hospital stay. Noted that he is on lisinopril and doxazosin at home which will be continued. Discussed with patient to purchase a blood pressure monitor considering episodes of hypotension during the hospital stay. He would benefit from a change from doxazosin to alternative medication. #Tobacco use: At the time of discharge, patient was offered nicotine patches; however, he refused. Stated that he would like to quit cold turkey. He is advised to stay away from tobacco use as it may increase risks of further stroke related events; patient verbalized understanding #Obesity Physical Exam Vitals and Measurements T: 97.1 F HR: 84(Monitored) HR: 81 RR: 17 BP: 156/98 SpO2: 94% O2 Delivery: Room air HT: 183 cm WT: 100 kg BMI: 29.86 kg/m2 GEN: No acute distress, alert and oriented x3 HEENT: Oropharynx clear, mucous membranes moist Neck: Supple, no jugular venous distention CV: Regular rate and rhythm, no rubs or gallops Pulmonary: Clear to auscultation bilaterally, normal respiratory excursion Abdominal: Soft, nontender, nondistended, normal active bowel sounds, no guarding or rebound Extremities: No cyanosis, clubbing or edema. Ambulating without issues. Neuro: Nonfocal, moves all extremities. Cranial nerves II to XII grossly intact. Normal gait. Discharge Plan Patient Discharge Condition Stable Discharge Disposition/Location Discharge Date: 06/28/21 12:52 Discharge Location: Home Discharge Details Follow-Up Plans: F/u with PCP as discussed Discharge Activity: Activity As Tolerated Discharge Diet: Consistent Carbohydrate Diet Comments: You are being discharged with diagnosis of stroke Medications are sent to the pharmacy of your choice; please pick them up and take as prescribed. Your diabetes is not under control; glipizide is switched to metformin. Diabetic testing supplies are also sent to the pharmacy of your choice; please measure fasting blood glucose in the morning and create a diary. Please take this diary to the primary care physician so metformin can be uptitrated or switch to another medication. Your blood pressure also needs to be monitored. Please purchase a blood pressure machine and create a log measuring resting blood pressure at home up to 2-3 times per day. Please take this log to the PCP so blood pressure medicine can be adjusted. Please start tobacco use. Return to the emergency department for worsening medical condition. It was my pleasure taking care of you. Dameon altamirano.Piotr Monaco MD Medications Reconciliation Last Documented: 06/28/2021 New Prescription clopidogrel (Plavix 75 mg oral tablet)1 Tabs Oral DAILY for 21 Days. Refills: 0. metFORMIN (metFORMIN 500 mg oral tablet)1 Tabs Oral TWICE DAILY. with meals. Refills: 0. Non-formulary medication (Glucometer)Glucometer - Check blood sugar before each meal and nightly. Refills: 0. Non-formulary medication (Lancets)Glucometer - Check blood sugar before each meal and nightly. Refills: 1. Non-formulary medication (Test strips)Glucometer - Check blood sugar before each meal and nightly. Refills: 1. Changed aspirin (aspirin 81 mg oral delayed release tablet)81 Milligram Oral DAILY. Refills: 0. Unchanged buPROPion (buPROPion 75 mg oral tablet)2 Tabs Oral TWICE DAILY. 'for smoking'. cholecalciferol (Vitamin D3)1,000 International unit Oral TWICE DAILY. doxazosin (doxazosin 8 mg oral tablet)1 Tabs Oral AT BEDTIME. lisinopril (lisinopril 10 mg oral tablet)1 Tabs Oral DAILY. omega-3 polyunsaturated fatty acids (Fish Oil)2 Capsules Oral DAILY. omeprazole (omeprazole 20 mg oral delayed release capsule)1 Capsules Oral DAILY. Discontinued glipiZIDE (glipiZIDE 5 mg oral tablet)1 Tabs Oral DAILY. Patient Education Fall Prevention Stroke: Taking Medicines Stroke: Self-Care Stroke, Discharge Instructions Follow-Up Provider: Ashlyn Ramirez Date: Within 1 week Comment: [facility] will be calling in the next 1-2 days to schedule a post hospital follow up appointment with you. Please contact Dr. Ramirez's office directly with any questions. Address: [id number] [place] [address] TESSIE Ballesteros [id number] [facility] (1) Time Spent Coordinating Discharge Approximately 31 minutes spent on discharge planning Lab Results (Last three charted values) WBC 5.8 (JUN 28) 5.5 (JUN 27) 5.9 (JUN 26) Hgb 14.9 (JUN 28) 14.1 (JUN 27) 14.5 (JUN 26) Hct 43.8 (JUN 28) L 41.4 (JUN 27) 42.6 (JUN 26) Plt 161 (JUN 28) 153 (JUN 27) 168 (JUN 26) Na 136 (JUN 28) L 134 (JUN 27) 135 (JUN 26) K 3.9 (JUN 28) 4.1 (JUN 27) 4.2 (JUN 26) CO2 25 (JUN 28) 24 (JUN 27) 26 (JUN 26) Cl 103 (JUN 28) 103 (JUN 27) 101 (JUN 26) Cr 1.3 (JUN 28) 1.3 (JUN 27) 1.3 (JUN 26) BUN 19 (JUN 28) 18 (JUN 27) 19 (JUN 26) Glu Rndm H 137 (JUN 28) H 172 (JUN 27) H 194 (JUN 26) Mg 2.0 (JUN 28) 2.1 (JUN 27) Phos 4.0 (JUN 27) Ca 9.0 (JUN 28) 8.6 (JUN 27) 8.7 (JUN 26) PT 10.4 (JUN 26) INR 1.0 (JUN 26) PTT 27 (JUN 26) Diagnostics Results CT Brain WO Contrast 06/26/21 16:02:43 IMPRESSION: 1. No acute intracranial abnormality. No CT evidence of acute large vessel infarct. Signed by: Doug Eldridge MD on 06/26/2021 4:04 PM Workstation ID: [id number] MRI Brain WO Contrast 06/27/21 12:54:01 IMPRESSION: Acute right basal ganglia lacunar infarct. Signed by: Doug Eldridge MD on 06/27/2021 12:58 PM Workstation ID: [id number] Chest 2 Vw 06/26/21 16:28:40 IMPRESSION: 1. No cardiomegaly. 2. No pulmonary infiltrate or effusion. Signed by: Mauro Kat on 06/26/2021 4:29 PM Workstation ID: [id number] CT Angio Head/Neck W Contrast 06/26/21 16:13:16 IMPRESSION: 1. No large vessel occlusion or hemodynamically significant stenosis. Signed by: Mauro Kat on 06/26/2021 4:20 PM Workstation ID: [id number] Male 06/29/2021 [facility] History and Physicals Results Value Date Source [facility] and Physical [facility] History and Physical Patient: MARIANA CURRY Age: 67 years Legal Sex: MALE : 1955 _ Date of Service: 04/11/2023 Chief Complaint: Low back pain with radiation History of Present Illness: Alyssia is referred for L5-S1 interlaminar epidural steroid injection for neurogenic claudication by Dr. Orantes. Reviewed note from March 12, 2023. No change in symptoms. Review of Systems: Review of systems unchanged from last clinic visit. Allergies Tomatoes atorvastatin (MUSCLES CRAMP UP.) Home Medications (14) Active aspirin 81 mg oral delayed release tablet 81 mg, ORAL, DAILY buPROPion 75 mg oral tablet 150 mg = 2 Tab, ORAL, BID doxazosin 8 mg oral tablet 8 mg = 1 Tab, ORAL, QBedtime empagliflozin 0.5 mg, DAILY Fish Oil 2 Cap, ORAL, DAILY gabapentin 300 mg oral capsule 300 mg = 1 Cap, ORAL, TID Glucometer See Instructions Lancets See Instructions lisinopril 10 mg oral tablet 10 mg = 1 Tab, ORAL, DAILY metFORMIN 500 mg oral tablet 500 mg = 1 Tab, ORAL, BID omeprazole 20 mg oral delayed release capsule 20 mg = 1 Cap, ORAL, DAILY Plavix 75 mg oral tablet 75 mg = 1 Tab, ORAL, DAILY Test strips See Instructions Vitamin D3 1,000 IntUnit, ORAL, BID Problems Active Lumbar stenosis with neurogenic claudication BMI 30+ - obesity Diabetes Hypertension No qualifying data available. Social and Psychosocial Habits Abuse/Intent to Harm CSSRS Risk Level: No risk (0-24) RT: RT000 *Alcohol Screen *How often do you have a drink containing alcohol? Monthly or less (1) *How many standard drinks containing alcohol do you have on a typical day? 1 or 2 (0) Type: Beer *Home/Environment Screen *Living situation: Home with assistance Lives with: Significant other *Nutrition Screen *Nutritional Risks: Diabetes new or recent dx, needs ed *Substance Abuse Screen Current or past use? Never *Tobacco Use Screen Is there a smoker in the household? No *Do you have concerns about tobacco use in household? No *Over the past 30 days, what and how much have you smoked? Former smoker, quit more than 30 days ago Family History: No family history recorded. Physical Exam: T: 98.1 F HR: 98 RR: 19 BP: 142/76 SPO2: 98% O2 Delivery: Room air PnIntLvl: 2 General: Alert and Oriented, No acute distress. Cardiovascular: Normal color/tone Respiratory: Lungs are clear to auscultation bilaterally Neurologic: No new focal deficits. Musculoskeletal: no significant changes from last examination as detailed in last visit at [facility] Labs (Last charted value) WBC 5.9 (02/27/23) Hgb 14.9 (02/27/23) Hct 43.1 (02/27/23) Plt 150 (02/27/23) Na 137 (02/27/23) K 3.8 (02/27/23) CO2 L 21 (02/27/23) Cl 106 (02/27/23) Cr 1.2 (02/27/23) BUN 19 (02/27/23) Glucose Random H 211 (02/27/23) Mg 2.1 (02/27/23) Phos 4.0 (06/27/21) Ca 9.4 (02/27/23) PT 10.7 (07/23/22) INR 1.0 (07/23/22) PTT 27 (06/26/21) CK MB <0.5 (11/22/09) Total CK H 245 (11/22/09) INFORMED CONSENT: I have explained the following procedure to the patient/ family and I have answered their questions. I have given the patient/ family information about potential benefits, risks, and side effects of the proposed procedure; the likelihood of the patient achieving their goals; and potential problems that might occur during recuperation. I also discussed reasonable alternatives to the procedure and the risks, benefits, and side effects related to the alternatives and the risks related to not receiving the proposed procedure. We also discussed that he has had a change to his diabetic medications and that his blood sugars tend to be 1 50-1 60 when he is checking at home which is significantly improved from hemoglobin A1c of 11 in June. He will closely monitor his blood sugars after the injection. Potential benefits, risks or side effects of the operation or procedure, including potential problems that might occur with the conscious sedation type anesthesia that may be used during the procedure and during recuperation. Among the risks of this type of conscious sedation include increased drowsiness, impaired thinking, unsteadiness in gait which could increase fall risk, and short-term amnesia. There is also the possibility that during the procedure it may cause an inhibition of the respiratory drive are very rare and severe cases this can lead to respiratory failure and even . Many of the side effects mentioned above could persist for even several hours after the procedure. Benefits of this type of sedation are decreased patient pain or anxiety during the procedure. Alternatives to this are to do the procedure without conscious sedation. Surgical Indications/Preoperative Diagnosis: Lumbar spinal stenosis with neurogenic claudication gadolinium related Planned/Informed Consent for: Interlaminar Epidural Steroid Injection with Fluoroscopy ASA Classification for Procedural Sedation: 2 Mallampati Score- 2 Assessment and Plan: Proceed with procedure as planned. [id number] Male 04/11/2023 [facility] Hospitalist Admission H&P 07/23/2022 [facility] History and Physical Patient: MARIANA CURRY Age: 66 years Legal Sex: MALE : 1955 Date of Service 07/23/2022 Chief Complaint pt BIBA s/p found in bathroom by family down time unknown, per medics he was ALOC upon fire arrival since his symptoms have resolved noted pt to be A&O x 4, GCS 15. zero signs of facial droop or slurred speech noted History of Present Illness Mr. Curry is a 66 year old male with past medical history of multiple prior TIAs, Hypertension, Hyperlipidemia, Diabetes mellitus, and obesity with BMI >30 who presented to the [facility] ED via EMS for altered mentation. The patient reports that he remembers getting up to go to the bathroom due to a stomach ache with his next memory being surrounded by EMS. His spouse reports getting up to take the dogs outside and noticing the patient slumped over on the toilet. He was non-responsive for her and was apparently very confused for approximately 40 minutes for EMS before his mentation normalized. The patient is presently back to his baseline mentation and neurologic status. In the ED his vital signs demonstrated mild hypertension on arrival of 159/72, heart rate mostly in the 90's with single recorded measurement of 101. He is afebrile with normal room air oxygen saturation. Lab work demonstrating normal WBC count and Significant hyperglycemia of 365. CT Brain demonstrating 'Low density area in the region of the caudate head on the left. No acute hemorrhage.' CT Angio Head/Neck demonstrating 'Considerable cerebrovascular atherosclerotic disease throughout the head and neck. No hemodynamically significant carotid stenosis is identified. No acute large vessel occlusion or aneurysms.' Review of Systems Constitutional: Negative except as noted in HPI. HEENT: Negative except as noted in HPI. Cardiovascular: Negative except as noted in HPI. Respiratory: Negative except as noted in HPI. Gastrointestinal: Negative except as noted in HPI. Genitourinary: Negative except as noted in HPI. Musculoskeletal: Negative except as noted in HPI. Neurologic: Negative except as noted in HPI. Hematologic/Lymphatic: Negative except as noted in HPI. Skin: Negative except as noted in HPI. Psychiatric: Negative except as noted in HPI. Physical Exam Vitals and Measurements T: 97.3 F HR: 94(Monitored) RR: 20 BP: 102/46 SpO2: 95% O2 Delivery: Room air HT: 177.2 cm WT: 91.9 kg(Dose Calc Wt.) WT: 91.9 kg BMI: 29.27 kg/m2 Shock Index: 0.000 07/23/22 08:00 Constitutional: No acute distress. Sitting upright in bed., HEENT: NCAT. EOMI. Cardiovascular: Normal rate and regular rhythm. No murmurs appreciated. Respiratory: Breathing is unlabored. Lung sounds are clear to auscultation bilaterally. No wheezes, rales, or rhonchi. Gastrointestinal: Soft. Non-distended. Non-tender. Neurological: Alert and awake. Oriented x3. CNII-XII intact. Grossly intact motor and sensory examination. Extremities: No clubbing. No cyanosis. No edema. Skin: Warm. No rash present. Psychiatric: Normal affect. Interactive. Assessment/Plan _ 1. Brain TIA (Transient cerebral ischemic attack, unspecified, G45.9) Ordered: Admission Status 2. Hyperglycemia due to type 2 diabetes mellitus (Type 2 diabetes mellitus with hyperglycemia, E11.65) 3. Tachycardia (Tachycardia, unspecified, R00.0) 4. Tachypnea (Tachypnea, not elsewhere classified, R06.82) 5. Acute metabolic encephalopathy (Metabolic encephalopathy, G93.41) 6. Hypochloremia (Other disorders of electrolyte and fluid balance, not elsewhere classified, E87.8) 7. Dehydration (Dehydration, E86.0) 8. Diabetes (Type 2 diabetes mellitus without complications, E11.9) 9. Hypertension (Essential (primary) hypertension, I10) 10. Current smoker (Nicotine dependence, unspecified, uncomplicated, F17.200) Orders: acetaminophen (acetaminophen), 650 mg, ORAL, Q6H, PRN, Pain-Mild (Scale 1-3), TAB, 07/23/22 7:14:00 PST acetaminophen (acetaminophen), 650 mg, ORAL, Q6H, PRN, Fever, TAB, 07/23/22 7:14:00 PST aspirin (aspirin), 81 mg, ORAL, DAILY, Routine, CHEW TAB, 07/23/22 9:00:00 PST clopidogrel (clopidogrel), 75 mg, ORAL, DAILY, TAB, 07/23/22 8:23:00 PST docusate (docusate), 100 mg, ORAL, BID, CAP, 07/23/22 9:00:00 PST glucagon (glucagon), 1 mg, SUBQ, As directed, PRN, Blood Glucose, INJ, 07/23/22 7:14:00 PST glucose (Dextrose 50% Inj 50 mL), = 25 mL, IV, As directed, PRN, Blood Glucose, INJ, 07/23/22 7:14:00 PST glucose (Dextrose 50% Inj 50 mL), = 50 mL, IV, As directed, PRN, Blood Glucose, INJ, 07/23/22 7:14:00 PST glucose (glucose 40% oral gel), 15 gm = 37.5 mL, ORAL, As directed, PRN, Blood Glucose, GEL, 07/23/22 7:14:00 PST hydrALAZINE (hydrALAZINE), 10 mg, IV, Q1HR, PRN, Blood Pressure, INJ, 07/23/22 7:14:00 PST insulin lispro (insulin lispro Correction Scale Med (Body wt 70-100kg)), correction scale, SUBQ, AC&Bed, 07/23/22 11:00:00 PST, 30 Day(s), Stop date 08/22/22 10:59:00 PST A1C Hemoglobin by HPLC Basic Metabolic Panel BMP CBC w Differential Communication Communication Discharge Planning Consult Fingerstick/Capillary Blood Sugar Full Code Head of Bed Position Hypoglycemia Protocol Hypoglycemia Protocol Lipid Panel MRI Brain WO Contrast Neuro Checks NIH Scale NIH Scale Notify Physician NPO Occupational Therapy Eval and Treat Oxygen Therapy Physical Therapy Eval and Treat Precautions SARS CoV-2 + Influenza A+B + RSV Molecular Speech Therapy Eval and Treat Speech Therapy Eval and Treat per protocol Stroke Quality Measures Swallow Screen Telemetry Monitoring Vital Signs VTE Prophylaxis Guidelines TIA Acute Metabolic encephalopathy - Hx of prior TIAs - has not previously followed with Neurology - Hx is questionable for possible seizure given what sounds like a post-ictal state for EMS - He does not have any known history of Seizures and has not had any witnessed seizure like activity per spouse and patient - MRI Brain ordered - Abnormal findings on CT as demonstrated above - Continua ASA, Plavix - apparently allergic to statins by report of spouse - Would recommend Neurology evaluation on discharge - CM following to assist with this - Obtain Echocardiogram Continue appropriate home medications PRN medications ordered for symptomatic relief Monitor electrolytes and replete as Continue appropriate home medications PRN medications ordered for symptomatic relief Monitor electrolytes and replete as indicated Code Status: Full Code VTE Prophylaxis: _ Early Ambulation Quality Measures Document review: - EKG independently reviewed - ED Provider documentation - Prior hospitalization records Allergies Tomatoes Problem List Active Problems Diabetes Hypertension Hyperlipidemia Procedure/Surgical History Tonsillectomy Medications Inpatient acetaminophen, 650 mg, 2 ea, ORAL, Q6H, PRN acetaminophen, 650 mg, 2 ea, ORAL, Q6H, PRN aspirin, 81 mg, 1 Tab, ORAL, DAILY clopidogrel, 75 mg, 1 Tab, ORAL, DAILY Dextrose 50% Inj 50 mL, 25 mL, IV, As directed, PRN Dextrose 50% Inj 50 mL, 50 mL, IV, As directed, PRN docusate, 100 mg, 1 Cap, ORAL, BID glucagon, 1 mg, SUBQ, As directed, PRN glucose 40% oral gel, 15 gm, 37.5 mL, ORAL, As directed, PRN hydrALAZINE, 10 mg, 0.5 mL, IV, Q1HR, PRN insulin lispro Correction Scale Med (Body wt 70-100kg), correction scale, SUBQ, AC&Bed Home aspirin 81 mg oral delayed release tablet, 81 mg, ORAL, DAILY buPROPion 75 mg oral tablet, 150 mg, 2 Tab, ORAL, BID doxazosin 8 mg oral tablet, 8 mg, 1 Tab, ORAL, QBedtime Fish Oil, 2 Cap, ORAL, DAILY Glucometer, See Instructions Lancets, See Instructions, 1 refills lisinopril 10 mg oral tablet, 10 mg, 1 Tab, ORAL, DAILY metFORMIN 500 mg oral tablet, 500 mg, 1 Tab, ORAL, BID omeprazole 20 mg oral delayed release capsule, 20 mg, 1 Cap, ORAL, DAILY, Still taking, not as prescribed: Patient's family read the prescription label...Patient states that the medication is being taken * NEEDED - [place] 06/27/2021 Plavix 75 mg oral tablet, 75 mg, 1 Tab, ORAL, DAILY Test strips, See Instructions, 1 refills Vitamin D3, 1000 IntUnit, ORAL, BID Lab Results Hematology - CBC WBC 7.4 K/mm3 07/23/22 01:50 PST RBC 4.71 M/mm3 07/23/22 01:50 PST HGB 14.1 gm/dL 07/23/22 01:50 PST HCT L 41.8 % 07/23/22 01:50 PST MCV 88.7 fL 07/23/22 01:50 PST MCH 30.0 pg 07/23/22 01:50 PST MCHC 33.8 gm/dL 07/23/22 01:50 PST RDW 13.0 % 07/23/22 01:50 PST PLT L 129 K/mm3 07/23/22 01:50 PST Chemistry Hemoglobin A1C by HPLC H 11.0 % 07/23/22 01:50 PST Sodium Level 136 mmol/L 07/23/22 01:50 PST Potassium Level 3.8 mmol/L 07/23/22 01:50 PST Chloride Level L 100 mmol/L 07/23/22 01:50 PST CO2/Carbon Dioxide 25 mmol/L 07/23/22 01:50 PST Anion Gap 11 07/23/22 01:50 PST Glucose, Random H 365 mg/dL 07/23/22 01:50 PST BUN 22 mg/dL 07/23/22 01:50 PST Creatinine 1.3 mg/dL 07/23/22 01:50 PST Calcium Level 9.5 mg/dL 07/23/22 01:50 PST Total Protein 7.3 gm/dL 07/23/22 01:50 PST Albumin Level 4.3 gm/dL 07/23/22 01:50 PST ALP 57 IntUnit/L 07/23/22 01:50 PST ALT 28 IntUnit/L 07/23/22 01:50 PST AST 18 IntUnit/L 07/23/22 01:50 PST Bilirubin, Total 0.9 mg/dL 07/23/22 01:50 PST GFR - Non 58 mL/min/1.73m2 07/23/22 01:50 PST GFR - >60 mL/min/1.73m2 07/23/22 01:50 PST Coagulation PT - Patient 10.7 sec 07/23/22 01:50 PST PT - INR 1.0 07/23/22 01:50 PST Toxicology AR UR - Amphetamines Scrn Negative 07/23/22 05:55 PST AR UR - Barbiturates Scrn Negative 07/23/22 05:55 PST AR UR - Benzodiazepines Scrn Negative 07/23/22 05:55 PST AR UR - Cannabinoids/THC Scrn Negative 07/23/22 05:55 PST AR UR - Cocaine Scrn Negative 07/23/22 05:55 PST AR UR - Methadone Negative 07/23/22 05:55 PST AR UR - Opiates Scrn Negative 07/23/22 05:55 PST AR UR - Phencyclidine Scrn Negative 07/23/22 05:55 PST AR UR - Footnote See Note 07/23/22 05:55 PST Ethanol/Alcohol Level <0.008 gm/dL 07/23/22 01:50 PST Immunology SARS-CoV-2 Source Nasopharyngeal 07/23/22 08:15 PST Influenza A Agn Molecular Negative 07/23/22 08:15 PST Influenza B Agn Molecular Negative 07/23/22 08:15 PST Respiratory Syncytial Virus Molecular Negative 07/23/22 08:15 PST SARS-CoV-2 Molecular Negative 07/23/22 08:15 PST SARS-CoV-2 First test? No 07/23/22 08:15 PST Health Care Worker? No 07/23/22 08:15 PST SARS-CoV-2 Is the Patient Hospitalized? Yes 07/23/22 08:15 PST SARS-CoV-2 Is the Patient in ICU? No 07/23/22 08:15 PST Patient From Congregate Area? No 07/23/22 08:15 PST Symptomatic per CDC? No 07/23/22 08:15 PST SARS-CoV-2 Is the Patient ? No 07/23/22 08:15 PST Social History Abuse/Intent to Harm Abuse screen, adult/elderly/domestic: No signs of abuse Are you thinking of harming or killing anyone else?: No Feels unsafe at home: No Safe place to go: Yes Injuries/Abuse/Neglect in household: No Safety check complete: Yes CSSRS Risk Level: No risk (0-24) CSSRS Suicide screening ED: Complete the suicide screening *Alcohol Screen How often do you have a drink containing alcohol? Monthly or less (1). How many standard drinks containing alcohol do you have on a typical day? 1 or 2 (0). How often do you have six or more drinks on one occasion? Never (0). Ready to change: No. *Home/Environment Screen Living Situation: Home with assistance. Lives with: Significant other. Has emotional support? Yes. *Nutrition Screen Is patient able to complete assessment at this time? Yes. Have you been eating poorly because of poor appetite? No (0). Nutritional Risks: Diabetes new or recent dx, needs ed. *Substance Abuse Screen Do you have concerns about substance abuse for yourself or in your household? No. Current or past use? Never. *Tobacco Use Screen Is there a smoker in the household? Yes. Do you have concerns about tobacco use in household? No. Over the past 30 days, what and how much have you smoked? 5-9 cigarettes (between 1/4 to 1/2 pack)/day in last 30 days. Over the past 30 days, what has been your smokeless tobacco use? Never. Are you ready to quit? No. Family History Father - TIAs Diagnostics Results CT Brain WO Contrast 07/23/22 03:05:00 IMPRESSION: Low density area in the region of the caudate head on the left. No acute hemorrhage. Consider follow-up evaluation with MRI. /Norvell Per PQRS, all CT exams are performed using one or more of the following dose reduction techniques: automated exposure control, adjustment of the mA and/or kV according to patient size, or use of iterative reconstruction technique. CTDI Vol: 54.60. Total DLP: 908.80(mGy-cm). MRI Brain WO Contrast 07/23/22 08:14:54 IMPRESSION: Residua of prior ischemic events along with some T1 weighted increased signal basal ganglia regions bilaterally as above without significant hemorrhage, hematoma, mass effect or restricted diffusion of an acute ischemic focus otherwise seen. Signed by: Julius Rai MD on 07/23/2022 8:25 AM Workstation ID: [id number] CT Angio Head/Neck W Contrast 07/23/22 03:05:00 IMPRESSION: Considerable cerebrovascular atherosclerotic disease throughout the head and neck. No hemodynamically significant carotid stenosis is identified. No acute large vessel occlusion or aneurysms. /Norvell Per PQRS, all CT exams are performed using one or more of the following dose reduction techniques: automated exposure control, adjustment of the mA and/or kV according to patient size, or use of iterative reconstruction technique. CTDI Vol: 11.50. Total DLP: 453.92(mGy-cm). Volume Administered: 70.00 ml of Isovue 370. . 42452-1 Male 07/23/2022 [facility] *Admission History and Physical 06/27/2021 [facility] History and Physical Patient: ALYSSIA CURRY Age: 65 years Legal Sex: Male : 1955 Author: MD Ese, [place] Joanie REASON FOR ADMISSION/CHIEF COMPLAINT: _Slurred speech HISTORY OF PRESENT ILLLNESS: _The patient is a 65-year-old male in relatively good state of health, with past medical history significant for hypertension, hyperlipidemia, type 2 diabetes which all seem under good control who presents today with a chief complaint of slurred speech. Patient is accompanied by his although he is a good historian. Reports that earlier today, for approximately 2 hours he was having difficulty with slurred speech, unable to get the exact words out that he would have liked and having difficulty using the TV remote. He had no focal weaknesses, denies numbness or tingling anywhere, denies blurred vision. He has otherwise felt well, no recent fevers, chills, chest pain, shortness of breath. No recent changes to medications. He was out lifting hay celsa earlier today and is typically relatively active. He is followed by the [facility]. he is a smoker, both approximately 1 pack every 3 days and drinks beer very seldomly. In the ER patient has been afebrile and mostly normotensive. Lab work unremarkable, CT of the brain and CT angiogram of the head and neck unremarkable although given patient's symptoms and elevated baseline ABCDD score he will be admitted for further evaluation. Patient did thus far received aspirin. He notes prior history of hyperlipidemia although has had 2 very severe reactions to what sounds to be statin medications, including severe Opitz clonus, liver failure and rhabdomyolysis. For this reason he takes only fish oil and is also on baby aspirin daily ADMITTING DIAGNOSIS: Active Diagnoses Brain TIA (Transient cerebral ischemic attack, unspecified) Chest pressure (Other chest pain) Brain TIA (Transient cerebral ischemic attack, unspecified) PAST MEDICAL HISTORY: Active or Inactive Problems (2) Diabetes Hypertension PAST SUGICAL HISTORY: No noted prior surgical history FAMILY HISTORY: Father had a TIA but recovered SOCIAL HISTORY: Social and Psychosocial Habits Abuse/Intent to Harm Abuse screen, adult/elderly/domestic: No signs of abuse Are you thinking of harming or killing anyone else?: No Safety check complete: Yes CSSRS Risk Level: No risk (0-24) CSSRS Suicide screening ED: Complete the suicide screening *Alcohol Screen Type: Beer *How often do you have a drink containing alcohol? Current *How many standard drinks containing alcohol do you have on a typical day? 3-5 times per week *Home/Environment Screen *Living situation: Home/Independent *Substance Abuse Screen Current or past use? Never *Tobacco Use Screen *Over the past 30 days, what and how much have you smoked? Current every day smoker ALLERGIES: Allergies (1) Active Reaction tomato None Documented HOME MEDICATION LIST: No qualifying data available REVIEW OF SYSTEMS: Constitutional: Negative except as noted in HPI. HEENT: Negative except as noted in HPI. Respiratory: Negative except as noted in HPI. Cardiovascular: Negative except as noted in HPI. Lymphatic: Negative except as noted in HPI. Gastrointestinal: Negative except as noted in HPI. Genitourinary: Negative except as noted in HPI. Musculoskeletal: Negative except as noted in HPI. Skin: Negative except as noted in HPI. Neurologic: Negative except as noted in HPI. Psychiatric: Negative except as noted in HPI. Vital Signs (last charted) Pulse: 86 (06/26 16:23) Pulse Ox: 99 (06/26 16:23) BP: 165/79 (06/26 16:23) Ox Delivery: Temperature: 97.0 F (36.1 C) (06/26 15:15) Ox %/FiO2: Not Charted Respiration: 17 (06/26 16:23) FiO2 set: Not Charted Pain Scale: Not Charted MEASUREMENTS: Measurements (last charted) Weight: 100 kg (06/26/21 15:15:00) Height: 183 cm (06/26/21 15:15:00) BMI: 29.86 kg/m2 (06/26/21 15:15:00) PHYSICAL EXAM: General Appearance: No acute distress. HEENT: NCAT. Normal oropharynx. Neck supple without lymphadenopathy. Cardiac: Normal sinus rhythm. No murmurs. Lungs: Clear to auscultation. Abdomen: Soft, non-distended, non-tender. Obese Neurological: Grossly intact motor and sensory examination. No evidence of dysdiadochokinesia, no focal neurologic deficits Skin: No rash present. Psychiatric: Alert and interactive with normal affect. DIAGNOSTIC STUDIES: LABS: Labs All 24H Lab Results Normalcy Date GFR - Non 59 mL/min/1.73m2 NA 06/26/21 15:25 GFR - >60 mL/min/1.73m2 NA 06/26/21 15:25 Auto Neutrophil Percent 55.5 % NORMAL 06/26/21 15:25 Auto Neutrophil Absolute 3.3 K/mm3 NORMAL 06/26/21 15:25 Auto Lymphocyte Percent 35.3 % NORMAL 06/26/21 15:25 Auto Lymphocyte Absolute 2.1 K/mm3 NORMAL 06/26/21 15:25 Auto Monocyte Percent 6.1 % NORMAL 06/26/21 15:25 Auto Monocyte Absolute 0.4 K/mm3 NORMAL 06/26/21 15:25 Auto Basophil Percent 1.0 % NORMAL 06/26/21 15:25 Auto Basophil Absolute 0.1 K/mm3 NORMAL 06/26/21 15:25 Auto Eosinophil Percent 2.1 % NORMAL 06/26/21 15:25 Auto Eosinophil Absolute 0.1 K/mm3 NORMAL 06/26/21 15:25 WBC 5.9 K/mm3 NORMAL 06/26/21 15:25 RBC 4.69 M/mm3 NORMAL 06/26/21 15:25 HGB 14.5 gm/dL NORMAL 06/26/21 15:25 HCT 42.6 % NORMAL 06/26/21 15:25 MCV 90.9 fL NORMAL 06/26/21 15:25 MCH 30.9 pg NORMAL 06/26/21 15:25 MCHC 34.0 gm/dL NORMAL 06/26/21 15:25 RDW 12.5 % NORMAL 06/26/21 15:25 PLT 168 K/mm3 NORMAL 06/26/21 15:25 PT - Patient 10.4 sec NORMAL 06/26/21 15:25 PT - INR 1.0 NORMAL 06/26/21 15:25 PTT - Patient 27 sec NORMAL 06/26/21 15:25 Sodium Level 135 mmol/L NORMAL 06/26/21 15:25 Potassium Level 4.2 mmol/L NORMAL 06/26/21 15:25 Chloride Level 101 mmol/L NORMAL 06/26/21 15:25 CO2/Carbon Dioxide 26 mmol/L NORMAL 06/26/21 15:25 Glucose, Random 194 mg/dL HIGH 06/26/21 15:25 BUN 19 mg/dL NORMAL 06/26/21 15:25 Creatinine 1.3 mg/dL NORMAL 06/26/21 15:25 Calcium Level 8.7 mg/dL NORMAL 06/26/21 15:25 Total Protein 6.9 gm/dL NORMAL 06/26/21 15:25 Albumin Level 4.1 gm/dL NORMAL 06/26/21 15:25 Bilirubin, Total 0.6 mg/dL NORMAL 06/26/21 15:25 AST 26 IntUnit/L NORMAL 06/26/21 15:25 ALT 33 IntUnit/L NORMAL 06/26/21 15:25 ALP 51 IntUnit/L NORMAL 06/26/21 15:25 Troponin I <0.02 ng/mL NORMAL 06/26/21 15:25 BNP B-Natriuretic Peptide 25 pg/mL NORMAL 06/26/21 15:25 IMAGING: General Diagnostic Result Type: Chest 2 Vw Result Date: June 26, 2021 16:18 PST Reason For Exam: Chest Pain REPORT: Chest 2 Vw 06/26/2021 3:53 PM ORDERING PROVIDER: RORO RodriguezLINICAL INDICATION: Chest pain, evaluate for pneumonia and cardiac sizeCOMPARISON: 11/21/2009 FINDINGS: Lungs well-inflated. No infiltrate or effusion. Normal cardiac silhouette vasculature and slight uncoiling of the aorta. Bones and soft tissues unremarkable. IMPRESSION: 1. No cardiomegaly.2. No pulmonary infiltrate or effusion. Signed by: Mauro Kat on 06/26/2021 4:29 PM Workstation ID: [id number] Computerized Tomography Result Type: CT Brain WO Contrast Result Date: June 26, 2021 15:58 PST Reason For Exam: Stroke/TIA REPORT: CT BRAIN WITHOUT CONTRASTORDERING PROVIDER: Tia Trevino MDHISTORY: Sudden onset of slurred speech Stroke/TIA r/o bleedCOMPARISON: No relevant prior imaging examination is available at this time.TECHNIQUE: Axial images obtained through the brain without contrast. Sagittal and coronal reconstructions were performed and reviewed. ESTIMATED CT EXAM DOSE(Dose-Length Product, DLP) 845.29CTDI (Vol) : 54.03. Dose reduction techniques: Automated exposure control. Adjustment of the mA and kvp according to patient size. FINDINGS: There is no evidence of acute large vessel infarct, intracranial hemorrhage, mass or extracerebral fluid collection. There is preservation of the gutierrez white matter differentiation. Mild chronic microvascular white matter ischemic disease in the deep white matter. Arteriosclerotic calcification of the parasellar carotid arteries. The ventricles are normal in size. The basal cisterns are patent. The paranasal sinuses, mastoid air cells and middle air cavities are normally aerated. The calvarium and scalp soft tissues are normal. IMPRESSION: 1. No acute intracranial abnormality. No CT evidence of acute large vessel infarct. Signed by: Doug Eldridge MD on 06/26/2021 4:04 PM Workstation ID: [id number] Result Type: CT Angio Head/Neck W Contrast Result Date: June 26, 2021 16:03 PST Reason For Exam: TIA REPORT: CT Angio Head/Neck W Contrast: 06/26/2021 3:36 PMORDERING PROVIDER: RORO RodriguezLINICAL INDICATION: Resolved confusion and slurred speech, TIACOMPARISON: CT head without contrast 06/26/2021TECHNIQUE: Omnipaque 350 100.00 ml intravenously without incident.Estimated CT exam dose: (Dose-Length Product, DLP) 505.61; CTDI (Vol) : 60.29.Sagittal and coronal reconstructions were performed and reviewed. Dose reduction techniques: Automated exposure control. Adjustment of the mA and kVp according to patient size.Post processing 2D, 3D or MIP (maximum intensity projection) were obtained and reviewed. FINDINGS: Brain:Normal enhancement is seen in the distal extracranial internal carotid arteries, skull base and cavernous carotid arteries. Scattered calcifications in the cavernous carotids.The anterior and middle cerebral arteries and branches demonstrate normal enhancement and morphology. The distal vertebral arteries demonstrate normal enhancement. The basilar artery demonstrates normal enhancement. The visualized cerebellar arteries and posterior cerebral arteries demonstrate normal enhancement. Enlarged right posterior communicating artery associated with a diminutive right P1 segment. No evidence of arterial occlusion is seen.No aneurysms or areas of significant narrowing are identified.Carotid measurements and indices obtained according to NASCET ([place] Symptomatic Carotid Endarterectomy Trial) criteria.Neck:The aorta and great vessel origins are widely patent without significant plaque.Intimal thickening and scattered noncalcified plaque in the right common carotid artery, bulb and proximal internal carotid artery. No significant areas of narrowing.Patent right vertebral artery.Intimal thickening, scattered calcified and noncalcified plaque left common carotid, bulb and proximal internal carotid artery. No areas of significant narrowing.Proximal left vertebral artery difficult to follow due to beam hardening artifact from some refluxed venous contrast in the area. Patency to the posterior fossa.No other significant findings are identified. IMPRESSION: 1. No large vessel occlusion or hemodynamically significant stenosis. Signed by: Mauro Kat on 06/26/2021 4:20 PM Workstation ID: [id number] ECG IMPRESSION: IMPRESSION AND PLAN: Active Diagnoses Brain TIA (Transient cerebral ischemic attack, unspecified) Chest pressure (Other chest pain) Brain TIA (Transient cerebral ischemic attack, unspecified) Hypertension Hyperlipidemia type 2 diabetes Obesity Tobacco use Admitted to hospitalist service Allowed a diabetic diet No IV fluids required Monitor on telemetry Echocardiogram Discussed potential need for carotid ultrasound although CT angiogram of the neck did have an adequate view of these vessels which do not appear to have any significant stenosis He received aspirin in the ER Can consider addition of Plavix for substitution of Plavix in place of aspirin, tomorrow morning Patient is at baseline now and has no need for PT/OT or ST at the moment He is a full code 77198-8 Male 06/27/2021 [facility] Vital Signs Vital Sign Value Date Comments Source Temperature (F) 98.1 [degF] 07/18/2023 65 [facility] Systolic BP 154 mm[Hg] 07/18/2023 65 [facility] [place] Diastolic BP 66 mm[Hg] 07/18/2023 65 [facility] Pulse Oximetry 96 % 07/18/2023 65 [facility] Peripheral Pulse Rate 78 bpm 07/18/2023 [facility] [place] Respiratory rate 18 br/min 07/18/2023 65 [facility] [place] Respiratory rate 16 br/min 07/18/2023 65 [facility] [place] Pulse Oximetry 99 % 07/18/2023 65 [facility] [place] Peripheral Pulse Rate 77 bpm 07/18/2023 65 [facility] [place] Respiratory rate 16 br/min 07/18/2023 65 [facility] [place] Systolic BP 153 mm[Hg] 07/18/2023 65 [facility] [place] Diastolic BP 69 mm[Hg] 07/18/2023 65 [facility] [place] Pulse Oximetry 99 % 07/18/2023 65 [facility] [place] Temperature (F) 97.6 [degF] 07/18/2023 65 [facility] [place] Peripheral Pulse Rate 77 bpm 07/18/2023 65 [facility] [place] Systolic BP 134 mm[Hg] 07/18/2023 65 [facility] [place] Diastolic BP 66 mm[Hg] 07/18/2023 65 [facility] [place] Temperature (F) 97.7 [degF] 07/18/2023 65 [facility] [place] Heart Rate Monitored 86 bpm 07/17/2023 [facility] [place] Mean BP 98 mm[Hg] 07/17/2023 65 [facility] [place] Heart Rate Monitored 79 bpm 07/17/2023 65 [facility] [place] Mean BP 100 mm[Hg] 07/17/2023 65 [facility] [place] Heart Rate Monitored 81 bpm 07/17/2023 65 [facility] [place] Mean BP 112 mm[Hg] 07/17/2023 65 [facility] [place] HeightLength (cm) 180.34 cm 07/14/2023 65 [facility] [place] Weight (kg) 87.2 kg 07/14/2023 65 [facility] [place] Dose calculation weight (kg) 87.2 kg 07/14/2023 65 [facility] [place] Body Mass Index 26.81 kg/m2 07/14/2023 65 [facility] [place] Heart Rate Monitored 82 bpm 04/12/2023 65 [facility] [place] Respiratory rate 18 br/min 04/12/2023 65 [facility] [place] Systolic BP 121 mm[Hg] 04/12/2023 65 [facility] [place] Diastolic BP 74 mm[Hg] 04/12/2023 65 [facility] [place] Pulse Oximetry 96 % 04/12/2023 65 [facility] [place] Temperature (F) 97.7 [degF] 04/12/2023 65 [facility] [place] Heart Rate Monitored 82 bpm 04/12/2023 65 [facility] [place] Respiratory rate 18 br/min 04/12/2023 65 [facility] [place] Systolic BP 151 mm[Hg] 04/12/2023 65 [facility] [place] Diastolic BP 81 mm[Hg] 04/12/2023 65 [facility] [place] Pulse Oximetry 96 % 04/12/2023 65 [facility] [place] Systolic BP 142 mm[Hg] 04/11/2023 65 [facility] [place] Diastolic BP 76 mm[Hg] 04/11/2023 65 [facility] [place] Temperature (F) 98.1 [degF] 04/11/2023 [facility] [place] Heart Rate Monitored 98 bpm 04/11/2023 65 [facility] [place] Respiratory rate 19 br/min 04/11/2023 [facility] [place] Pulse Oximetry 98 % 04/11/2023 65 [facility] [place] HeightLength (cm) 177.72 cm 04/10/2023 65 [facility] [place] Weight (kg) 95.71 kg 04/10/2023 65 [facility] [place] Dose calculation weight (kg) 95.71 kg 04/10/2023 65 [facility] [place] Body Mass Index 30.3 kg/m2 04/10/2023 65 [facility] [place] Peripheral Pulse Rate 90 bpm 03/05/2023 65 [facility] [place] Respiratory rate 18 br/min 03/05/2023 65 [facility] [place] Systolic BP 158 mm[Hg] 03/05/2023 65 [facility] [place] Diastolic BP 76 mm[Hg] 03/05/2023 65 [facility] [place] Pulse Oximetry 97 % 03/05/2023 65 [facility] [place] Temperature (F) 97.6 [degF] 03/05/2023 65 [facility] [place] Peripheral Pulse Rate 104 bpm 03/05/2023 65 [facility] [place] Respiratory rate 16 br/min 03/05/2023 65 [facility] [place] Systolic BP 142 mm[Hg] 03/05/2023 65 [facility] [place] Diastolic BP 83 mm[Hg] 03/05/2023 65 [facility] [place] Pulse Oximetry 98 % 03/05/[address] [facility] [address] [facility] [place] Weight (kg) 95 kg 03/05/2023 65 [facility] [place] Dose calculation weight (kg) 95 kg 03/05/2023 65 [facility] [place] HeightLength (cm) 180 cm 03/05/2023 65 [facility] [place] Body Mass Index 29.32 kg/m2 03/05/2023 65 [facility] [place] Body Weight Calculated 74.992 03/05/2023 65 [facility] [facility] [place] Mean BP 98 mm[Hg] 02/27/2023 65 [facility] [place] Pulse Oximetry 96 % 02/27/[address] [facility] [address] [facility] [place] Systolic BP 124 mm[Hg] 02/27/2023 65 [facility] [place] Diastolic BP 79 mm[Hg] 02/27/2023 65 [facility] [place] Respiratory rate 16 br/min 02/27/2023 [facility] [place] Peripheral Pulse Rate 82 bpm 02/27/2023 65 [facility] [place] Temperature (F) 96.5 [degF] 02/27/2023 [facility] [place] Peripheral Pulse Rate 99 bpm 02/27/2023 65 [facility] [place] Respiratory rate 14 br/min 02/27/2023 65 [facility] [place] Systolic BP 167 mm[Hg] 02/27/2023 65 [facility] [place] Diastolic BP 70 mm[Hg] 02/27/2023 65 [facility] [place] Pulse Oximetry 94 % 02/27/[address] [facility] [address] [facility] [place] Weight (kg) 95.71 kg 02/27/2023 65 [facility] [place] Dose calculation weight (kg) 95.71 kg 02/27/2023 65 [facility] [place] Respiratory rate 17 br/min 07/26/2022 [facility] Temperature (F) 98.1 [degF] 07/26/2022 [facility] [place] Peripheral Pulse Rate 91 bpm 07/26/2022 [facility] Systolic BP 132 mm[Hg] 07/26/2022 65 [facility] [place] Diastolic BP 75 mm[Hg] 07/26/2022 65 [facility] [place] Pulse Oximetry 96 % 07/26/[address] [facility] [address] [facility] [place] Temperature (F) 97.5 [degF] 07/25/2022 [facility] Peripheral Pulse Rate 88 bpm 07/25/2022 65 [facility] [place] Systolic BP 128 mm[Hg] 07/25/2022 65 [facility] [place] Diastolic BP 89 mm[Hg] 07/25/2022 65 [facility] [place] Pulse Oximetry 97 % 07/25/2022 65 [facility] [place] Temperature (F) 97.7 [degF] 07/25/2022 [facility] Peripheral Pulse Rate 82 bpm 07/25/2022 65 [facility] [place] Respiratory rate 20 br/min 07/25/2022 [address] [facility] [place] Systolic BP 136 mm[Hg] 07/25/2022 65 [facility] [place] Diastolic BP 83 mm[Hg] 07/25/2022 65 [facility] [place] Pulse Oximetry 98 % 07/25/2022 65 [facility] [place] Respiratory rate 16 br/min 07/25/2022 65 [facility] [place] Heart Rate Monitored 78 bpm 07/25/2022 65 [facility] [place] Heart Rate Monitored 72 bpm 07/24/2022 65 [facility] [place] Heart Rate Monitored 77 bpm 07/24/2022 65 [facility] [place] HeightLength (cm) 177.2 cm 07/23/2022 65 [facility] [place] Weight (kg) 93.2 kg 07/23/2022 65 [facility] [place] Body Mass Index 29.68 kg/m2 07/23/2022 65 [facility] [place] Dose calculation weight (kg) 93.2 kg 07/23/2022 [facility] 69 mm[Hg] 07/23/2022 65 [facility] [place] Mean BP 69 mm[Hg] 07/23/2022 65 [facility] [place] Mean BP 90 mm[Hg] 07/23/2022 [facility] [place] Weight (kg) 91.9 kg 07/23/2022 65 [facility] [place] Dose calculation weight (kg) 91.9 kg 07/23/2022 65 [facility] [place] HeightLength (cm) 177.2 cm 07/23/2022 [facility] Body Mass Index 29.27 kg/m2 07/23/2022 65 [facility] [place] Body Weight Calculated 72.457 07/23/2022 65 [facility] [place] Oxygen delivery Room air (03/06/22 10 :10 PM) 03/07/2022 65 [facility] [place] Peripheral Pulse Rate 82 bpm 03/07/2022 65 [facility] [place] Peripheral pulse site Pulse oximetry dev ice (03/06/22 10:10 PM) 03/07/2022 65 [facility] [place] Respiratory rate 18 br/min 03/07/2022 65 [facility] [place] Systolic BP 144 mm[Hg] 03/07/2022 65 [facility] [place] Diastolic BP 72 mm[Hg] 03/07/2022 65 [facility] [place] Pulse Oximetry 97 % 03/07/2022 65 [facility] [place] Mean BP 98 mm[Hg] 03/07/2022 65 [facility] [place] Pulse Oximetry 96 % 03/07/2022 65 [facility] [place] Oxygen delivery Room air (03/06/22 9: 06 PM) 03/07/2022 65 [facility] [place] Systolic BP 129 mm[Hg] 03/07/2022 65 [facility] [place] Diastolic BP 83 mm[Hg] 03/07/2022 65 [facility] [place] Peripheral Pulse Rate 86 bpm 03/07/2022 65 [facility] [place] Peripheral pulse site Pulse oximetry dev ice (03/06/22 9:06 PM) 03/07/2022 65 [facility] [place] Respiratory rate 18 br/min 03/07/2022 65 [facility] [place] Mean BP 118 mm[Hg] 03/07/2022 65 [facility] [place] Pulse Oximetry 97 % 03/07/2022 65 [facility] [place] Oxygen delivery Room air (03/06/22 8: 04 PM) 03/07/2022 65 [facility] [place] Systolic BP 151 mm[Hg] 03/07/2022 65 [facility] Diastolic BP 93 mm[Hg] 03/07/2022 65 [facility] [place] Peripheral Pulse Rate 94 bpm 03/07/2022 65 [facility] Peripheral pulse site Pulse oximetry dev ice (03/06/22 8:04 PM) 03/07/2022 65 [facility] [place] Respiratory rate 18 br/min 03/07/2022 65 [facility] [employer] [place] Neurological norm WDL (03/06/22 7:30 PM) 03/07/2022 65 [facility] [place] Temperature (F) 97.8 [degF] 03/07/2022 65 [facility] [employer] [place] Weight (kg) 99.79 kg 03/07/2022 65 [facility] Weight measured method Estimated ( 2 5:47 PM) 03/07/2022 65 [facility] [place] Dose calculation weight (kg) 99.79 kg 03/07/2022 65 [facility] [place] Pulse oximetry method Intermittent ( 11:46 AM) 06/28/2021 65 [facility] Oxygen delivery Room air (06/28/21 11: 46 AM) 06/28/2021 65 [facility] [place] Temperature (F) 97.1 [degF] 06/28/2021 65 [facility] Respiratory rate 17 br/min 06/28/2021 65 [facility] [employer] [place] Activity with SPO2 monitoring At rest (06/28/21 11:46 AM) 06/28/2021 65 [facility] [place] Peripheral Pulse Rate 81 bpm 06/28/2021 65 [facility] Peripheral pulse site Non-invasive BP de vice (06/28/21 11:46 AM) 06/28/2021 65 [facility] [place] Systolic BP 156 mm[Hg] 06/28/2021 65 [facility] Diastolic BP 98 mm[Hg] 06/28/2021 65 [facility] Pulse Oximetry 94 % 06/28/2021 65 [facility] [place] Pulse oximetry method Intermittent ( 7:56 AM) 06/28/2021 65 [facility] [place] Oxygen delivery Room air (06/28/21 7:5 6 AM) 06/28/2021 65 [facility] [place] Temperature (F) 97.3 [degF] 06/28/2021 65 [facility] [employer] [facility] [place] Peripheral Pulse Rate 98 bpm 06/28/2021 65 [facility] [place] Peripheral pulse site Non-invasive BP de vice (06/28/21 7:56 AM) 06/28/2021 65 [facility] [place] Respiratory rate 17 br/min 06/28/2021 65 [facility] [employer] [facility] [place] Systolic BP 157 mm[Hg] 06/28/2021 65 [facility] [place] Diastolic BP 93 mm[Hg] 06/28/2021 65 [facility] [place] Pulse Oximetry 94 % 06/28/2021 65 [facility] [employer] [place] Activity with SPO2 monitoring At rest (06/28/21 7:56 AM) 06/28/2021 65 [facility] [place] Neurological norm WDL (06/28/21 7:56 AM) 06/28/2021 65 [facility] Pulse oximetry method Intermittent ( 4:10 AM) 06/28/2021 65 [facility] Temperature (F) 98.2 [degF] 06/28/2021 65 [facility] [employer] [facility] [place] Peripheral Pulse Rate 75 bpm 06/28/2021 65 [facility] [place] Peripheral pulse site Pulse oximetry dev ice (06/28/21 4:10 AM) 06/28/2021 65 [facility] [place] Respiratory rate 18 br/min 06/28/2021 65 [facility] [employer] [facility] [place] Systolic BP 102 mm[Hg] 06/28/2021 65 [facility] [place] Diastolic BP 68 mm[Hg] 06/28/2021 65 [facility] Blood Pressure Method Automatic (06/28/21 4:10 AM) 06/28/2021 65 [facility] [place] Pulse Oximetry 98 % 06/28/2021 65 [facility] [employer] Activity with SPO2 monitoring At rest (06/28/21 4:10 AM) 06/28/2021 65 [facility] [place] Blood Pressure Method Automatic (06/28/21 12:12 AM) 06/28/2021 65 [facility] [place] Neurological norm WDL (06/27/21 9:50 PM) 06/28/2021 [facility] Heart Rate Monitored 84 bpm 06/28/2021 [facility] [place] Heart Rate Monitored 84 bpm 06/28/2021 [facility] [place] Heart Rate Monitored 87 bpm 06/27/2021 65 [facility] [place] Mean BP 93 mm[Hg] 06/27/2021 65 [facility] [place] Mean BP 113 mm[Hg] 06/27/2021 65 [facility] [place] Mean BP 113 mm[Hg] 06/27/2021 65 [facility] [place] Weight (kg) 100 kg 06/26/2021 65 [facility] [place] Dose calculation weight (kg) 100 kg 06/26/2021 65 [facility] [place] HeightLength (cm) 183 cm 06/26/2021 65 [facility] [place] Body Mass Index 29.86 kg/m2 06/26/2021 65 [facility] [place] Body Weight Calculated 77.709 06/26/2021 65 [facility] [place] Mean BP 83 mm[Hg] 12/30/2020 65 [facility] [place] Pulse Oximetry 97 % 12/30/2020 65 [facility] [place] Systolic BP 114 mm[Hg] 12/30/2020 65 [facility] [place] Diastolic BP 72 mm[Hg] 12/30/2020 65 [facility] [place] Peripheral Pulse Rate 98 bpm 12/30/2020 65 [facility] [place] Temperature (F) 97.4 [degF] 12/30/2020 65 [facility] [place] Respiratory rate 14 br/min 12/30/2020 [facility] Respiratory rate 14 br/min 12/30/2020 [facility] [place] Mean BP 107 mm[Hg] 12/30/2020 [facility] [place] Pulse Oximetry 98 % 12/30/2020 65 [facility] [place] Systolic BP 169 mm[Hg] 12/30/2020 65 [facility] [place] Diastolic BP 90 mm[Hg] 12/30/2020 65 [facility] [place] Peripheral Pulse Rate 101 bpm 12/30/2020 65 [facility] Neurological norm WDL (12/30/20 7:30 AM) 12/30/2020 65 [facility] [place] Temperature (F) 97.3 [degF] 12/30/2020 65 [facility] [employer] [facility] [place] Peripheral Pulse Rate 113 bpm 12/30/2020 65 [facility] Peripheral pulse site Pulse oximetry dev ice (12/30/20 7:26 AM) 12/30/2020 65 [facility] [place] Respiratory rate 14 br/min 12/30/2020 65 [facility] [employer] [facility] [place] Systolic BP 137 mm[Hg] 12/30/2020 65 [facility] [place] Diastolic BP 94 mm[Hg] 12/30/2020 65 [facility] Pulse Oximetry 97 % 12/30/2020 65 [facility] [place] Weight (kg) 99.79 kg 12/30/2020 65 [facility] Weight measured method Stated (12/30/20 7 :26 AM) 12/30/2020 65 [facility] [place] Dose calculation weight (kg) 99.79 kg 12/30/2020 65 [facility] [place] HeightLength (cm) 180.34 cm 12/30/2020 65 [facility] Body Mass Index 30.68 kg/m2 12/30/2020 65 [facility] [employer] [place] Body Weight Calculated 75.3 12/30/2020 65 [facility] [place] Temperature (F) 98.0 [degF] 12/05/2019 65 [facility] [employer] [facility] [place] Pulse rate 92 bpm 12/05/2019 65 [facility] [place] Respiratory rate 18 br/min 12/05/2019 65 [facility] [place] Pulse Oximetry 97 % 12/05/2019 65 [facility] [employer] [place] Systolic BP 191 mm[Hg] 12/05/2019 65 [facility] [place] Diastolic BP 86 mm[Hg] 12/05/2019 65 [facility] BP site Left arm (12/05/19 4: 40 PM) 12/05/2019 65 [facility] [place] Weight (kg) 92.99 kg 12/05/2019 65 [facility] [place] Weight measured method Stated (12/05/19 4 :40 PM) 12/05/2019 65 [facility] [place] Dose calculation weight (kg) 92.99 kg 12/05/2019 [facility] [place] Encounters Location Location Details Encounter Type Encounter Number Reason For Visit Attending Provider ADM Date DC Date Status Source 63 65 [facility] Outpatient [id number] screenin g for cardiova scular disorder s Ashlyn Ashley 04/28 [facility] Emergency [id number] EYE PAIN Frank Juarez 12/04 [facility] 63 65 [facility] Outpatient [id number] lung screenin g Nasra Rin-C id 07/04 [facility] 63 65 [facility] Emergency [id number] FACIAL EYE SWELLING Christen Pete 12/30 [facility] IOVAS [facility]Card [facility]henry [facility] Clinic Non Office [id number] Juanita Jarquin 06/26 Active [facility] [place] - Cardiova scular 63 65 [facility] Observation [id number] brain tia g45.9 Saurav Barrerath 06/26 [facility] 65 [facility] Outpatient [id number] follow up aortic aneyurys m Ashlynjohann DcAshley 09/06 [facility] 63 65 [facility] Outpatient [id number] new varicose vein Ashlyn Ashley 11/12 [facility] 63 65 [facility] Outpatient [id number] RLE claudica tion , evaluati on of arterial system, particul paola Seals 01/21 [facility] 65 [facility] Outpatient [id number] RLE claudica tion , evaluati on of arterial system, particul paola RLRoel Lallamchuckie 01/23 [facility] 65 [facility] Emergency [id number] RIGHT LEG PAIN/THOMAS IN PAIN Mimi Mountrail 03/07 [facility] 65 65 [facility] Outpatient [id number] lung screenin reno Ramirez 03/07 [facility] 65 65 [facility] Observation [id number] BRAIN TIA G45.9 Giovanni South 07/23 [facility] 65 65 [facility] Recurring [id number] Lumbar Samay Omary 09/04 [facility] 65 65 [facility] Emergency [id number] BACK PAIN Christen Whipple02/27 [facility] 63 65 [facility] Emergency [id number] MEDICATI ON REFILL Lucio Etienne 03/05 [facility] [id number] Javier Orantes 03/12 [facility] Outpatient [id number] back pain radiates to legs for 1 year Christen Whipplert 03/22 [facility] Non Office [id number] [place] Caleb 04/11 [facility] 65 [facility] Outpatient Surgery [id number] 46604 Bilatera l Lumbar epidural steroid injectio n Lumbar stenosis with neurogen ic claudica tion (M48.062 ) Tyrell Caleb 04/11 [facility] [id number] Javier Orantes 06/09 [facility] [id number] Javier Lamberto 06/30 Active [facility] Non Office [id number] Javier Orantes 07/17 [facility] Non Office [id number] Rogelio Coopers 07/17 [facility] Outpatient in a Bed [id number] 82372, 96754,L3 , L5 laminect michelle, m54.16, M48.062, Lumbar Stenosis Javier Orantes 07/17 Active [facility] [id number] Javier Orantes 07/28 [facility] 65 [facility] Recurring [id number] DOS 07/17/23 L5 Lapindec serena Javier Orantes 08/26 Active [facility] [place] [facility]urg [facility] [id number] Javier Orantes 09/02 [facility] Procedures Procedure Code Date Perfomer Comments Source LUMBAR LAMINECTOMY (Lumbar, L3, L5)<sup>1</sup> 07/17/2023 auto-populated f rom documented surgical case 65 [facility] [place] ROUTINE VENIPUNCTURE [id number] 06/30/2023 65 [facility] [place] INJECTION (Bilateral, Lumbar)<sup>1</sup> 04/11/2023 auto-populat ed from documented surgical case 65 [facility] [place] INJECTION (Bilateral, Lumbar)<sup>2</sup> 04/11/2023 auto-populat ed from documented surgical case 65 [facility] [place] ROUTINE VENIPUNCTURE [id number] 07/25/2022 65 [facility] [place] ROUTINE VENIPUNCTURE [id number] 07/24/2022 65 [facility] [place] ROUTINE VENIPUNCTURE [id number] 06/28/2021 65 [facility] [place] ROUTINE VENIPUNCTURE [id number] 06/27/2021 65 [facility] [place] ROUTINE VENIPUNCTURE [id number] 12/30/2020 65 [facility] Plan of Care Plan of Care Date Source Future Appointments Appointm ent Date: 07/28/2023 11:10:00 AM Scheduled Provider: MD Orantes Joseph Martin Location: [facility] Appointment Type: OC Post Op 07/18/[address] [place] [address] Extracted from:Title: Leg pa in-swelling Author: DO Suárez Joseph Gregory Date: 03/06/22 Impression and Plan Initial vitals were clinically unremarkable and remained stable while in the ED. ED work-up revealed clinically unremarkable labs. Imaging revealed scattered areas of atherosclerosis causing moderate to severe stenosis but no acute occlusions. Patient has palpable distal pulses, I do not believe this represents an ischemic limb. However I do believe he would benefit from follow-up with a vascular surgeon. Discussed ED results and treatment plan. All questions answered. Diagnosis Claudication Plan Condition: Stable. Disposition: Discharged: to home. Patient was given the following educational materials: Intermittent Claudication. Follow up with: Ashlyn Ramirez Follow up with Dr. Ramirez for referal to vascular surgery. Return with any similar symptoms, if you develop a cold or pale foot, or with any concerns. Counseled: Patient, Regarding diagnostic results, Regarding treatment plan, Regarding prescription, Patient indicated understanding of instructions. Notes: The above report may contain errors in syntax, word selection, grammar and/or spelling in relation to the use of voice recognition software . Extracted from:Title: MSEI/RME Screening Note Author: SYED Kitchen, Bhavani Sanders Date: 03/06/22 Medical Screening Exam performed by Bhavani Kitchen NP 66-year old male presents with severe right lower extremity pain. This is a 66-year-old male with history of diabetes mellitus type 2, coronary artery disease and peripheral artery disease whom today walked to the barn and had severe 10 out of 10 pain in his right leg. Patient states the pain took at least 2 hours to resolve. He is unsure if his leg was cold or pale. The patient was able to take a hydrocodone and his was able to get him in a car and bring him to the emergency department. The patient states he has had significant pain every night for the past week nonambulatory in the right leg that wakes him up in the middle of the night. Triage Vitals: Vital Signs (last charted) Pulse: 1 11 ?(03/06 17:47) P ulse Ox: 9 7 ? ( 03/06 17:47) BP: 1 27/78 ?(03/06 17:47) O x Delivery: R oom air Temperature: 9 7.8 F (36.6 C) ( 03/06 17:47) O x %/FiO2: N ot Charted Respiration: 1 8 ( 03/06 17:47) ? F iO2 set: ? N ot Charted Pain Intensity Level: 6 (03/06 17:47)al Basic Physical Exam: ENT: Normocephalic atraumatic. PERRLA Musculoskeletal: No palpable pulse in the right lower extremity. Multiple visible large varicose veins in the right lower leg. The skin is warm to the lower leg and the foot. Compartments are soft in the right lower leg and foot. Patient has a dopplerable pulse in the right foot. Patient rates the pain as a 4 on a 10 scale at this time. Orders Placed at 1911 Patient to [facility] Impression and Plan Diagnosis Encounter for medical screening examination Plan Condition: Stable. Counseled: Patient, Regarding treatment plan. Future Appointments Appointment Date: 03/07/2022 11:00:00 AM Scheduled Provider: Location: Radiology- Appointment Type: CT Lung Screening [facility] Future Scheduled TestsRadiologyCT Lung Screening 03/07/22 03/07/[address] [place] [address] Social History Social History Date Source Social History TypeResponse Smoking Status Is there a smoker in the household? No; *Do you have concerns about tobacco use in household? No; Former smoker, quit more than 30 days ago; Never; *Are you ready to quit? No entered on: 04/10/23 Sex Male [facility] Social History TypeResponse Smoking Status Is there a smoker in the household? No; *Do you have concerns about tobacco use in household? No; Former smoker, quit more than 30 days ago; Never; *Are you ready to quit? No entered on: 04/10/23 Sex Male [address] [place] [address] Social History TypeResponse Smoking Status Is there a smoker in the household? No; *Do you have concerns about tobacco use in household? No; Former smoker, quit more than 30 days ago; Never; *Are you ready to quit? No entered on: 04/10/23 Sex Male 63 [facility] Social History TypeResponse Smoking Status Is there a smoker in the household? No; *Do you have concerns about tobacco use in household? No; Former smoker, quit more than 30 days ago; Never; *Are you ready to quit? No entered on: 04/10/23 Sex Male 65 [facility] Social History TypeResponse Smoking Status Is there a smoker in the household? No; *Do you have concerns about tobacco use in household? No; Former smoker, quit more than 30 days ago; Never; *Are you ready to quit? No entered on: 04/10/23 Sex Male 63 [facility] Social History TypeResponse Smoking Status Is there a smoker in the household? No; *Do you have concerns about tobacco use in household? No; Former smoker, quit more than 30 days ago; Never; *Are you ready to quit? No entered on: 04/10/23 Sex Male 63 [facility] Social History TypeResponse Smoking Status Is there a smoker in the household? No; *Do you have concerns about tobacco use in household? No; Former smoker, quit more than 30 days ago; Never; *Are you ready to quit? No entered on: 04/10/23 Sex Male 63 [facility] Social History TypeResponse Smoking Status Is there a smoker in the household? No; *Do you have concerns about tobacco use in household? No; Former smoker, quit more than 30 days ago; Never; *Are you ready to quit? No entered on: 04/10/23 Sex Male 63 [facility] Social History TypeResponse Smoking Status Is there a smoker in the household? No; *Do you have concerns about tobacco use in household? No; Former smoker, quit more than 30 days ago; Never; *Are you ready to quit? No entered on: 04/10/23 Sex Male 63 [facility] Social History TypeResponse Smoking Status Is there a smoker in the household? No; *Do you have concerns about tobacco use in household? No; 5-9 cigarettes (between 4 to 1/2 pack)/day in last 30 days; Never; *Are you ready to quit? No entered on: 07/23/22 Sex Male 63 [facility] Social History TypeResponse Smoking Status Is there a smoker in the household? No; *Do you have concerns about tobacco use in household? No; 5-9 cigarettes (between 1/4 to 1/2 pack)/day in last 30 days; Never; *Are you ready to quit? No entered on: 07/23/22 Sex Male 63 [facility] Social History TypeResponse Smoking Status Is there a smoker in the household? No; *Do you have concerns about tobacco use in household? No; 5-9 cigarettes (between 1/4 to 1/2 pack)/day in last 30 days; Never; *Are you ready to quit? No entered on: 07/23/22 Sex Male 63 [facility] Social History TypeResponse Smoking Status Is there a smoker in the household? No; *Do you have concerns about tobacco use in household? No; 5-9 cigarettes (between 1/4 to 1/2 pack)/day in last 30 days; Never; *Are you ready to quit? No entered on: 07/23/22 Sex Male 63 [facility] Social History TypeResponse Smoking Status Is there a smoker in the household? No; *Do you have concerns about tobacco use in household? No; 5-9 cigarettes (between 1/4 to 1/2 pack)/day in last 30 days; Never; *Are you ready to quit? No entered on: 07/23/22 Sex Male 63 [facility] Social History TypeResponse Smoking Status Is there a smoker in the household? No; *Do you have concerns about tobacco use in household? No; 5-9 cigarettes (between 1/4 to 1/2 pack)/day in last 30 days; Never; *Are you ready to quit? No entered on: 07/23/22 Sex Male 63 [facility] Social History TypeResponse Smoking Status Is there a smoker in the household? No; *Do you have concerns about tobacco use in household? No; 5-9 cigarettes (between 1/4 to 1/2 pack)/day in last 30 days; Never; *Are you ready to quit? No entered on: 07/23/22 Sex Male 63 [facility] Social History TypeResponse Smoking Status Is there a smoker in the household? No; *Do you have concerns about tobacco use in household? No; 5-9 cigarettes (between 1/4 to 1/2 pack)/day in last 30 days; Never; *Are you ready to quit? No entered on: 07/23/22 Sex Male 63 [facility] Social History TypeResponse Smoking Status Is there a smoker in the household? Yes; *Do you have concerns about tobacco use in household? No; 5-9 cigarettes (between 1/4 to 1/2 pack)/day in last 30 days; Never; *Are you ready to quit? No entered on: 06/27/21 Sex Male 63 [facility] Social History TypeResponse Smoking Status Is there a smoker in the household? Yes; *Do you have concerns about tobacco use in household? No; 5-9 cigarettes (between 1/4 to 1/2 pack)/day in last 30 days; Never; *Are you ready to quit? No entered on: 06/27/21 Sex Male 63 [facility] Social History TypeResponse Smoking Status Is there a smoker in the household? Yes; *Do you have concerns about tobacco use in household? No; 5-9 cigarettes (between 1/4 to 1/2 pack)/day in last 30 days; Never; *Are you ready to quit? No entered on: 06/27/21 Sex Male 63 [facility] Social History TypeResponse Smoking Status Is there a smoker in the household? Yes; *Do you have concerns about tobacco use in household? No; 5-9 cigarettes (between 1/4 to 1/2 pack)/day in last 30 days; Never; *Are you ready to quit? No entered on: 06/27/21 Sex Male 63 [facility] Social History TypeResponse Smoking Status Is there a smoker in the household? Yes; *Do you have concerns about tobacco use in household? No; 5-9 cigarettes (between 1/4 to 1/2 pack)/day in last 30 days; Never; *Are you ready to quit? No entered on: 06/27/21 Sex Male [address] [place] [address] Social History TypeResponse Smoking Status Is there a smoker in the household? Yes; *Do you have concerns about tobacco use in household? No; 5-9 cigarettes (between 1/4 to 1/2 pack)/day in last 30 days; Never; *Are you ready to quit? No entered on: 06/27/21 Sex Male [address] [place] [address] Social History TypeResponse Smoking Status Is there a smoker in the household? Yes; *Do you have concerns about tobacco use in household? No; 5-9 cigarettes (between 1/4 to 1/2 pack)/day in last 30 days; Never; *Are you ready to quit? No entered on: 06/27/21 Sex Male [address] [place] [address] Social History TypeResponse Smoking Status Is there a smoker in the household? Yes; *Do you have concerns about tobacco use in household? No; 5-9 cigarettes (between 1/4 to 1/2 pack)/day in last 30 days; Never; *Are you ready to quit? No entered on: 06/27/21 [facility] Social History TypeResponse Smoking Status Is there a smoker in the household? Yes; *Do you have concerns about tobacco use in household? No; 5-9 cigarettes (between 1/4 to 1/2 pack)/day in last 30 days; Never; *Are you ready to quit? No entered on: 06/27/21 [facility] Social History TypeResponse Smoking Status Is there a smoker in the household? Yes; *Do you have concerns about tobacco use in household? No; 5-9 cigarettes (between 1/4 to 1/2 pack)/day in last 30 days; Never; *Are you ready to quit? No entered on: 06/27/21 Sex Male [address] [place] [address] Social History TypeResponse Smoking Status Is there a smoker in the household? Yes; *Do you have concerns about tobacco use in household? No; 5-9 cigarettes (between 1/4 to 1/2 pack)/day in last 30 days; Never; *Are you ready to quit? No entered on: 06/27/21 Sex Male 63 [facility] Social History TypeResponse Smoking Status Is there a smoker in the household? Yes; *Do you have concerns about tobacco use in household? No; 5-9 cigarettes (between 1/4 to 1/2 pack)/day in last 30 days; Never; *Are you ready to quit? No entered on: 06/27/21 Sex Male [address] [place] [address] Social History TypeResponse Smoking Status Is there a smoker in the household? Yes; *Do you have concerns about tobacco use in household? No; 5-9 cigarettes (between 1/4 to 1/2 pack)/day in last 30 days; Never; *Are you ready to quit? No entered on: 06/27/21 Sex Male [address] [place] [address] Social History TypeResponse Smoking Status Is there a smoker in the household? Yes; *Do you have concerns about tobacco use in household? No; 5-9 cigarettes (between 1/4 to 1/2 pack)/day in last 30 days; Never; *Are you ready to quit? No entered on: 06/27/21 Sex Male [facility] Social History TypeResponse Smoking Status Is there a smoker in the household? Yes; *Do you have concerns about tobacco use in household? No; 5-9 cigarettes (between 1/4 to 1/2 pack)/day in last 30 days; Never; *Are you ready to quit? No entered on: 06/27/21 Sex Male [address] [place] [address] Social History TypeResponse Smoking Status Is there a smoker in the household? Yes; *Do you have concerns about tobacco use in household? No; 5-9 cigarettes (between 1/4 to 1/2 pack)/day in last 30 days; Never; *Are you ready to quit? No entered on: 06/27/21 Sex Male [address] [place] [address] Social History TypeResponse Smoking Status Is there a smoker in the household? Yes; *Do you have concerns about tobacco use in household? No; 5-9 cigarettes (between 1/4 to 1/2 pack)/day in last 30 days; Never; *Are you ready to quit? No entered on: 06/27/21 Sex Male 63 [facility] Social History TypeResponse Smoking Status Is there a smoker in the household? Yes; *Do you have concerns about tobacco use in household? No; 5-9 cigarettes (between 1/4 to 1/2 pack)/day in last 30 days; Never; *Are you ready to quit? No entered on: 06/27/21 Sex Male 63 [employer] Social History TypeResponse Smoking Status Current every day smoker entered on: 08/25/15 08/25/2015 63 [employer] [place] Social History TypeResponse Smoking Status Current every day smoker entered on: 08/25/15 08/25/2015 63 [employer] [place] Social History TypeResponse Smoking Status Current every day smoker entered on: 08/25/15 08/25/2015 63 [facility] Social History TypeResponse Smoking Status Current every day smoker entered on: 08/25/15 08/25/2015 63 [facility] Advance Directives Order Name Results Value Date Source Advanced Directive 07/01/2023 [facility]
--- OUTSIDE RECORDS SUMMARY | 2025-02-20 05:26 | XMS_ITS | Continuity of Care Document ---
Author Name [facility] Organization [facility] Care Team Providers Care Auto Service Mechanic Name Role Phone [facility] Unavailable Unavailable Problems Combined list of problems from Department of Defense and Veterans Affairs facilities. It does not include entries that were removed or entered in error. Problem Status Onset Date Problem Type Date of Resolution Comments Source Abdominal aortic aneurysm Active Condition Nov 29, 2024 Entered By: SE GLASER MY Comment: Ultrasound 4.7 cm ER November 2024Jul 2024 Entered By: SE GLASER MY Comment: CTA 12/21/2024 measuring 3.9 x 3.7 infrarenal [place] [facility] Abdominal Aortic Aneurysm, without Rupture Active Condition [facility] Abdominal Aortic Aneurysm, without Rupture Active Condition Apr 29, 2022 Entered By: USER,CBOC MIGRATION Comment: Added from station 640 as a result of CBOC move. [facility] Atypical Chest Pain (ICD-9-CM 786.59) Active Condition [facility] Atypical Chest Pain (ICD-9-CM 786.59) Active Condition Apr 29 Entered By: USER,CBOC MIGRATION Comment: Added from station 640 as a result of CBOC move. [facility] Cerebral infarction due to middle cerebral artery occlusion Active Condition Dec 30 Entered By: SE GLASER MY Comment: x2 06/13 and 07/15 with right hemiparesis, no residual [place] [facility] Cigarette smoker Active Condition [place] [facility] Closed fracture calcaneus, intra-articular Active Condition [facility] Closed fracture calcaneus, intra-articular Active Condition Apr 29, 2022 Entered By: USER,CBOC MIGRATION Comment: Added from station 640 as a result of CBOC move. [facility] Diabetes mellitus (SNOMED CT 97423820) Active Condition [facility] Diabetes mellitus (SNOMED CT 50573563) Active Condition Apr 29, 2022 Entered By: USER,CBOC MIGRATION Comment: Added from station 640 as a result of CBOC move. [facility] Diabetes Mellitus Type 2 (SCT 98720117) Active Condition [place] [facility] Disorder of lumbar spine Active Condition [place] [facility] DJD of Knee Active Condition [facility] DJD of Knee Active Condition Apr 29, 2022 Entered By: USER,CBOC MIGRATION Comment: Added from station 640 as a result of CBOC move. [facility] Esophageal Reflux (ICD-9-CM 530.81) Active Condition [facility] Esophageal Reflux (ICD-9-CM 530.81) Active Condition Apr 29 Entered By: USER,CBOC MIGRATION Comment: Added from station 640 as a result of CBOC move. [facility] GERD - Gastro-Esophageal Reflux Disease (SCT 127276366) [facility] Hearing loss (SNOMED CT 87844161) Active Condition [facility] Hearing loss (SNOMED CT 38942351) Active Condition Apr 29, 2022 Entered By: USER,CBOC MIGRATION Comment: Added from station 640 as a result of CBOC move. [facility] HTN - Hypertension (SCT 33317345) Active Condition [facility] Hypercholesterolemia (SNOMED CT 60775033) Active Condition [facility] Hypercholesterolemia (SNOMED CT 80518055) Active Condition Apr 29, 2022 Entered By: USER,CBOC MIGRATION Comment: Added from station 640 as a result of CBOC move. [facility] Hyperlipidemia (SCT 26087808) Active Condition [place] [facility] Lower urinary tract symptoms Active Condition [facility] Lower urinary tract symptoms Active Condition Apr 29, 2022 Entered By: USER,CBOC MIGRATION Comment: Added from station 640 as a result of CBOC move. [facility] Peripheral arterial occlusive disease Active [facility] Peripheral Vascular Disease Leg/Foot (ICD-9-CM 443.9) Active Condition [facility] Peripheral Vascular Disease Leg/Foot (ICD-9-CM 443.9) Active Condition Apr 29 Entered By: USER,CBOC MIGRATION Comment: Added from station 640 as a result of CBOC move. [facility] Spinal stenosis of lumbar region Active Condition [facility] Tobacco dependence in remission (SNOMED CT 443120018) Active Condition [facility] Tobacco dependence in remission (SNOMED CT 028487266) Active Condition Apr 29, 2022 Entered By: USER,CBOC MIGRATION Comment: Added from station 640 as a result of CBOC move. [facility] Diagnosis: ICD-10-CM Z13.5 Encounter for screening for eye and ear disorders Active Diagnosis [place] [facility] Diagnosis: ICD-10-CM E11.9 Type 2 diabetes mellitus without complications Active [place] [facility] Diagnosis: ICD-10-CM Z71.89 Other specified counseling Active Diagnosis [place] [facility] Diagnosis: ICD-10-CM M99.02 Segmental and somatic dysfunction of thoracic region Active [place] [facility] Diagnosis: ICD-10-CM Z23 Encounter for immunization Active Diagnosis [facility] Diagnosis: ICD-10-CM Z01.30 Encounter for exam of blood pressure w/o abnormal findings Active Diagnosis [facility] Diagnosis: ICD-10-CM Z46.1 Encounter for fitting and adjustment of hearing aid Active Diagnosis [facility] Diagnosis: ICD-10-CM H90.3 Sensorineural hearing loss, bilateral Active Diagnosis [facility] Medications Combined list of outpatient medications from Department of Defense and Veterans Affairs facilities.Medications provided include 1) outpatient medications from the last 15 months, and 2) patient-reported medications. Medication Details Route Status Patient Instructions Prescription Expires Prescription Number Last Dispense Date Ordering Provider Order Date Order Qty Source ASPIRIN 81MG TAB,EC TAKE ONE TABLET BY MOUTH ONCE A DAY ORAL ACTIVE NICOLE FRY 2009 [facility] BUPROPION HCL 150MG 12HR TAB,SA TAKE ONE TABLET BY MOUTH TWICE A DAY FOR DEPRESSI ON SWALLOW WHOLE - DO NOT CRUSH OR CHEW. ORAL ACTIVE 02/01/2026 [id number] 5 EDWARDO GLASER [address] [place] [address] [facility] BUPROPION HCL 150MG 12HR TAB,SA TAKE ONE TABLET BY MOUTH TWICE A DAY FOR DEPRESSI ON SWALLOW WHOLE - DO NOT CRUSH OR CHEW. ORAL DISCONT INUED 01/16/2025 [id number] 5 EDWARDO GLASER 2023 180 [facility] CHOLECALCIF CHUCK 50MCG (2,000UNIT) TAB TAKE ONE TABLET BY MOUTH ONCE A DAY FOR VITAMIN D DEFICIEN CY ORAL 01/16/2025 [id number] 5 JAILYN, EDWARDO 2023 100 [place] [facility] CLOPIDOGREL BISULFATE 75MG TAB TAKE ONE TABLET BY MOUTH ONCE A DAY FOR STROKE PREVENTI ON ORAL 01/16/2025 [id number] 5 JAILYN, EDWARDO 2023 90 [place] [facility] COLESTIPOL HCL 1GM TAB TAKE TWO TABLETS BY MOUTH EVERY MORNING AND EVENING FOR HIGH CHOLESTE ROL (OTHER MEDICATI ONS SHOULD BE TAKEN 1 HOUR BEFORE OR 4 HOURS AFTER COLESTIP OL) ORAL ACTIVE 12/24/2025 [id number] 5 EDWARDO GLASER 2024 360 [place] [facility] DOXAZOSIN MESYLATE 8MG TAB TAKE ONE TABLET BY MOUTH AT BEDTIME FOR BENIGN PROSTATI C HYPERPLA BEATRIZ ORAL 01/16/2025 [id number] 5 EDWARDO GLASER 2023 90 [place] [facility] EMPAGLIFLOZ IN 25MG TAB TAKE ONE TABLET BY MOUTH ONCE A DAY FOR DIABETES ORAL SUSPEND ED 02/03/2026 [id number] 5 EDWARDO GLASER 2024 90 [place] [facility] EMPAGLIFLOZ IN 25MG TAB TAKE ONE TABLET BY MOUTH ONCE A DAY FOR DIABETES ORAL DISCONT INUED 01/16/2025 [id number] 5 EDWARDO GLASER 2023 90 [place] [facility] FAMOTIDINE 20MG TAB TAKE ONE TABLET BY MOUTH TWICE A DAY FOR GASTROES OPHAGEAL REFLUX DISEASE ORAL ACTIVE 12/24/2025 [id number] 5 JAILYN EDWARDO 2024 180 [facility] GLIMEPIRIDE 2MG TAB TAKE ONE-HALF TABLET BY MOUTH EVERY MORNING FOR DIABETES TAKE WITH BREAKFAS T OR FIRST FOOD. ORAL SUSPEND ED 12/24/2025 [id number] 5 SE GLASERMY 2024 45 [place] [facility] LIDOCAINE 5% OINT,TOP APPLY LIGHTLY TO AFFECTED AREA(S) THREE TIMES A DAY NEEDED FOR PAIN TOPICA L 01/01/[id number] [facility] 2023 105 [facility] LISINOPRIL 5MG TAB TAKE ONE TABLET BY MOUTH ONCE A DAY FOR HIGH BLOOD PRESSURE ORAL ACTIVE 03/06/[id number] [facility], [place] 2023 90 [facility] MELOXICAM 15MG TAB TAKE ONE TABLET BY MOUTH ONCE A DAY FOR OSTEOART HRITIS ORAL 01/16/[id number] [facility] 2023 90 [facility] MENTHOL/MET HYL SALICYLATE (10-15%) LOW CONC. CREAM,TOP APPLY SPARINGL Y TO AFFECTED AREA(S) FOUR TIMES A DAY FOR PAIN (EXTERNA L USE ONLY) TOPICA L 01/01/[id number] [facility] 2023 270 [facility] OMEPRAZOLE 20MG CAP,EC TAKE ONE CAPSULE BY MOUTH EVERY MORNING BEFORE A MEAL FOR GASTROES OPHAGEAL REFLUX DISEASE TAKE 30 MINUTES PRIOR TO FOOD. ORAL DISCONT INUED (EDIT) 01/16/2025 [id number] 5 [facility] [address] [place] [address] [facility] OMEPRAZOLE 40MG CAP,EC TAKE ONE CAPSULE BY MOUTH EVERY MORNING BEFORE A MEAL FOR GASTROES OPHAGEAL REFLUX DISEASE TAKE 30 MINUTES PRIOR TO FOOD. ORAL ACTIVE 12/24/2025 [id number] 5 [facility] [address] [place] [address] Allergies, Adverse Reactions, Alerts Combined list of allergies from Department of Defense and Veterans Affairs facilities. It does not include entries that were removed or entered in error. Substance Category Reaction Severity Reaction type Status Date Reported Comments Source ATORVASTATIN Propensity to adverse reactions to drug (finding) Cramp MODERATE active 5 [facility] EZETIMIBE Propensity to adverse reactions to drug (finding) Muscle pain SEVERE active 7 [facility] SIMVASTATIN Propensity to adverse reactions to drug (finding) active 1 [facility] SLO-NIACIN TABLET Propensity to adverse reactions to drug (finding) active 1 [facility] ZETIA Propensity to adverse reactions to drug (finding) Muscle pain MODERATE active 5 [facility] Immunizations Combined list of available immunizations from the Department of Defense and Veterans Affairs facilities. Immunization Series Date Given Administered By Site Reaction Lot Number CVX Code Drug Public Health Internship Status Comments Source INFLUENZA, HIGH-DOSE, TRIVALENT, PF 2023 LINDA RAJPUT RIGHT DELTO ID [id number] 135 complet ed [facility] COVID-19 (PFIZER), MRNA, LNP-S, BIVALENT, PF, 30 MCG/0.3 ML DOSE 4 2022 300 complet ed HISTORICA L INFORMATI ON - FROM OTHER REGISTRY, [facility] INFLUENZA, INJECTABLE, QUADRIVALENT, PRESERVATIVE FREE 2021 150 complet ed [facility] PNEUMOCOCCAL CONJUGATE PCV20, POLYSACCHARID E [id number] CONJUGATE, ADJUVANT, PF 2021 216 complet ed [facility] TDAP 2021 115 complet ed [facility] COVID-19 (MODERNA), MRNA, LNP-S, PF, 100 MCG/0.5ML DOSE OR 50 MCG/0.25ML DOSE 3 2021 207 complet ed [facility] INFLUENZA VACCINE, QUADRIVALENT, ADJUVANTED 2020 [address] [facility] ZOSTER RECOMBINANT 2 2020 187 complet ed [facility] COVID-19 (MODERNA), MRNA, LNP-S, PF, 100 MCG/0.5 ML DOSE 2 2020 207 complet ed [facility] COVID-19 (MODERNA), MRNA, LNP-S, PF, 100 MCG/0.5 ML DOSE 1 2020 207 complet ed [facility] COVID-19 (MODERNA), MRNA, LNP-S, PF, 100 MCG/0.5 ML DOSE 1 2020 207 complet ed [facility] PNEUMOCOCCAL POLYSACCHARID E PPV23 2019 33 complet ed [facility] ZOSTER RECOMBINANT 1 2019 187 [facility] PNEUMOCOCCAL POLYSACCHARID E PPV23 2019 33 complet [facility] INFLUENZA, HIGH-DOSE, QUADRIVALENT 2019 197 [facility] INFLUENZA, TRIVALENT, ADJUVANTED 2018 168 [facility] INFLUENZA, INJECTABLE, QUADRIVALENT, PRESERVATIVE FREE 2017 150 [facility] INFLUENZA, SEASONAL, INJECTABLE 2016 141 [facility] INFLUENZA, SEASONAL, INJECTABLE 2015 141 [facility] INFLUENZA, UNSPECIFIED FORMULATION 2014 88 [facility] INFLUENZA, UNSPECIFIED FORMULATION 2013 88 [facility] ZOSTER VACCINE (HISTORICAL) 2013 121 [facility] ZOSTER, UNSPECIFIED FORMULATION 2013 188 [facility] INFLUENZA, UNSPECIFIED FORMULATION 2012 88 complet [facility] HEP B, ADULT 3 2012 43 [facility] HEP B, ADULT 2 2012 43 [facility] HEP B, ADULT 1 2012 43 [facility] INFLUENZA, UNSPECIFIED FORMULATION 2012 88 [facility] INFLUENZA, UNSPECIFIED FORMULATION 2011 88 [facility] INFLUENZA, UNSPECIFIED FORMULATION 2010 88 [facility] TDAP VACCINE >7 IM (HISTORICAL) 2009 115 [facility] NOVEL INFLUENZA-H1N 1-09, ALL FORMULATIONS 2009 128 [facility] [employer] [facility] PNEUMOCOCCAL, UNSPECIFIED FORMULATION 2009 109 [facility] Results Combined list of recent chemistry, hematology and other laboratory results from Department of Defense and Veterans Affairs, ranging from 15 months to all on record, depending upon the facility. Order Name Results Value Reference Range Date Interpretation Specimen Comments Source URINE ALBUMIN PROFILE-i h (PB) ALBUMIN [MASS/VOLUM E] IN URINE 5.82 mg/L 12/16 Specimen Type: URINE No comment entered. Ordering Provider: JASMEET GLASER Report Released Date/Time: Dec 31, 2023 04:29 PM Reporting Lab: [place] [facility] [address] [place] [address] Performing Lab: [place] [facility] [address] [place] [address] [facility] URINE ALBUMIN PROFILE-i h (PB) ALBUMIN/CRE ATININE [MASS RATIO] IN URINE 8.19 mg/g 0 - 30 12/16 Specimen Type: URINE No comment entered. Ordering Provider: JASMEET GLASER MMY Report Released Date/Time: Dec 31, 2023 04:29 PM Reporting Lab: [place] [facility] [address] [place] [id number] Performing Lab: [place] [facility] [address] [place] [address] [facility] URINE ALBUMIN PROFILE-i h (PB) CREATININE [MASS/VOLUM E] IN URINE 71.11 mg/dL 12/16 Specimen Type: URINE No comment entered. Ordering Provider: JASMEET GLASER MMY Report Released Date/Time: Dec 31, 2023 04:29 PM Reporting Lab: [place] [facility] [address] [place] [id number] Performing Lab: [place] [facility] [address] [place] [address] [facility] CBC LEUKOCYTES [#/VOLUME] IN BLOOD BY AUTOMATED COUNT 6.3 10*3/uL 3.6 - 11.2 12/16 Specimen Type: BLOOD No comment entered. Ordering Provider: JASMEET GLASER MMY Report Released Date/Time: Dec 31, 2023 04:29 PM Reporting Lab: [place] [facility] [address] [place] [address] Performing Lab: [place] [facility] [address] [place] [facility] [facility] CBC ERYTHROCYTE S [#/VOLUME] IN BLOOD BY AUTOMATED COUNT 5.01 10*6/uL 4.10 - 5.70 12/16 Specimen Type: BLOOD No comment entered. Ordering Provider: JASMEET GLASER MMY Report Released Date/Time: Dec 31, 2023 04:29 PM Reporting Lab: [place] [facility] [address] [place] [address] Performing Lab: [place] [facility] [address] [place] [address] [facility] CBC HEMOGLOBIN [MASS/VOLUM E] IN BLOOD 15.5 g/dL 13.1 - 16.8 12/16 Specimen Type: BLOOD No comment entered. Ordering Provider: JASMEET GLASER MMY Report Released Date/Time: Dec 31, 2023 04:29 PM Reporting Lab: [place] [facility] [address] [place] [address] Performing Lab: [place] [facility] [address] [place] [address] [facility] CBC HEMATOCRIT [VOLUME FRACTION] OF BLOOD 45.6 38.2 - 48.4 12/16 Specimen Type: BLOOD No comment entered. Ordering Provider: JASMEET GLASER MMY Report Released Date/Time: Dec 31, 2023 04:29 PM Reporting Lab: [place] [facility] [address] [place] [facility] Performing Lab: [place] [facility] [address] [place] [address] [facility] CBC MCV [ENTITIC VOLUME] BY AUTOMATED COUNT 91.0 fL 80.0 - 100.0 12/16 Specimen Type: BLOOD No comment entered. Ordering Provider: JASMEET GLASER MMY Report Released Date/Time: Dec 31, 2023 04:29 PM Reporting Lab: [place] [facility] [address] [place] [address] Performing Lab: [place] [facility] [address] [place] [address] [facility] CBC MCH [ENTITIC MASS] BY AUTOMATED COUNT 30.9 pg 27.0 - 34.0 12/16 Specimen Type: BLOOD No comment entered. Ordering Provider: JASMEET GLASER MMY Report Released Date/Time: Dec 31, 2023 04:29 PM Reporting Lab: [place] [facility] [address] [place] [address] Performing Lab: [place] [facility] [address] [place] [address] [facility] CBC MCHC [MASS/VOLUM E] BY AUTOMATED COUNT 34.0 g/dL 33.0 - 36.0 12/16 Specimen Type: BLOOD No comment entered. Ordering Provider: JASMEET GLASER MMY Report Released Date/Time: Dec 31, 2023 04:29 PM Reporting Lab: [place] [facility] [address] [place] [address] Performing Lab: [place] [facility] [address] [place] [address] [facility] CBC PLATELETS [#/VOLUME] IN BLOOD BY AUTOMATED COUNT 167 10*3/uL 150 - 400 12/16 Specimen Type: BLOOD No comment entered. Ordering Provider: JASMEET GLASER MMY Report Released Date/Time: Dec 31, 2023 04:29 PM Reporting Lab: [place] [facility] [address] [place] [address] Performing Lab: [place] [facility] [address] [place] [address] [facility] CBC PLATELET MEAN VOLUME [ENTITIC VOLUME] IN BLOOD BY AUTOMATED COUNT 11.3 fL 7.5 - 11.2 12/16 H Specimen Type: BLOOD No comment entered. Ordering Provider: JASMEET GLASER MMY Report Released Date/Time: Dec 31, 2023 04:29 PM Reporting Lab: [place] [facility] [address] [place] [address] Performing Lab: [place] [facility] [address] [place] [address] [facility] CBC ERYTHROCYTE DISTRIBUTIO N WIDTH [RATIO] BY AUTOMATED COUNT 12.1 11.8 - 15.1 12/16 Specimen Type: BLOOD No comment entered. Ordering Provider: JASMEET GLASER MMY Report Released Date/Time: Dec 31, 2023 04:29 PM Reporting Lab: [place] [facility] [address] [place] [address] Performing Lab: [place] [facility] [address] [place] [address] [facility] CBC LYMPHOCYTES /100 LEUKOCYTES IN BLOOD BY AUTOMATED COUNT 30.5 12/16 Specimen Type: BLOOD No comment entered. Ordering Provider: JASMEET GLASER MMY Report Released Date/Time: Dec 31, 2023 04:29 PM Reporting Lab: [place] [facility] [address] [place] [address] Performing Lab: [place] [facility] [address] [place] [address] [facility] CBC MONOCYTES/1 00 LEUKOCYTES IN BLOOD BY AUTOMATED COUNT 7.2 12/16 Specimen Type: BLOOD No comment entered. Ordering Provider: JASMEET GLASER MMY Report Released Date/Time: Dec 31, 2023 04:29 PM Reporting Lab: [place] [facility] [address] [place] [address] Performing Lab: [place] [facility] [address] [place] [address] [facility] CBC NEUTROPHILS /100 LEUKOCYTES IN BLOOD BY AUTOMATED COUNT 58.5 12/16 Specimen Type: BLOOD No comment entered. Ordering Provider: JASMEET GLASER MMY Report Released Date/Time: Dec 31, 2023 04:29 PM Reporting Lab: [place] [facility] [address] [place] [address] Performing Lab: [place] [facility] [address] [place] [address] [facility] CBC EOSINOPHILS /100 LEUKOCYTES IN BLOOD BY AUTOMATED COUNT 2.4 12/16 Specimen Type: BLOOD No comment entered. Ordering Provider: JASMEET GLASER MMY Report Released Date/Time: Dec 31, 2023 04:29 PM Reporting Lab: [place] [facility] [address] [place] [address] Performing Lab: [place] [facility] [address] [place] [address] [facility] CBC BASOPHILS/1 00 LEUKOCYTES IN BLOOD BY AUTOMATED COUNT 0.8 12/16 Specimen Type: BLOOD No comment entered. Ordering Provider: JASMEET GLASER MMY Report Released Date/Time: Dec 31, 2023 04:29 PM Reporting Lab: [place] [facility] [address] [place] [address] Performing Lab: [place] [facility] [address] [place] [address] [facility] CBC LYMPHOCYTES [#/VOLUME] IN BLOOD BY AUTOMATED COUNT 1.92 10*3/uL 0.77 - 4.50 12/16 Specimen Type: BLOOD No comment entered. Ordering Provider: JASMEET GLASER MMY Report Released Date/Time: Dec 31, 2023 04:29 PM Reporting Lab: [place] [facility] [address] [place] [address] Performing Lab: [place] [facility] [address] [place] [id number] [facility] CBC MONOCYTES [#/VOLUME] IN BLOOD BY AUTOMATED COUNT 0.45 10*3/uL 0.19 - 0.8 12/16 Specimen Type: BLOOD No comment entered. Ordering Provider: JASMEET GLASER MMY Report Released Date/Time: Dec 31, 2023 04:29 PM Reporting Lab: [place] [facility] [address] [place] [facility] Performing Lab: [place] [facility] [address] [place] [id number] [facility] CBC NEUTROPHILS [#/VOLUME] IN BLOOD BY AUTOMATED COUNT 3.68 10*3/uL 2.10 - 8.00 12/16 Specimen Type: BLOOD No comment entered. Ordering Provider: JASMEET GLASER MMY Report Released Date/Time: Dec 31, 2023 04:29 PM Reporting Lab: [place] [facility] [address] [place] [address] Performing Lab: [place] [facility] [address] [place] [address] [facility] CBC EOSINOPHILS [#/VOLUME] IN BLOOD BY AUTOMATED COUNT 0.15 10*3/uL 0.00 - 0.60 12/16 Specimen Type: BLOOD No comment entered. Ordering Provider: JASMEET GLASER MMY Report Released Date/Time: Dec 31, 2023 04:29 PM Reporting Lab: [place] [facility] [address] [place] [address] Performing Lab: [place] [facility] [address] [place] [address] [facility] CBC BASOPHILS [#/VOLUME] IN BLOOD BY AUTOMATED COUNT 0.05 10*3/uL 0.00 - 0.20 12/16 Specimen Type: BLOOD No comment entered. Ordering Provider: JASMEET GLASER MMY Report Released Date/Time: Dec 31, 2023 04:29 PM Reporting Lab: [place] [facility] [address] [place] [address] Performing Lab: [place] [facility] [address] [place] [id number] [facility] CBC IMMATURE GRANULOCYTE S/100 LEUKOCYTES IN BLOOD BY AUTOMATED COUNT 0.6 12/16 Specimen Type: BLOOD No comment entered. Ordering Provider: JASMEET GLASER MMY Report Released Date/Time: Dec 31, 2023 04:29 PM Reporting Lab: [place] [facility] [address] [place] [address] Performing Lab: [place] [facility] [address] [place] [id number] [facility] CBC IMMATURE GRANULOCYTE S [#/VOLUME] IN BLOOD BY AUTOMATED COUNT 0.04 10*3/uL 0.00 - 0.05 12/16 Specimen Type: BLOOD No comment entered. Ordering Provider: JASMEET GLASER MMY Report Released Date/Time: Dec 31, 2023 04:29 PM Reporting Lab: [place] [facility] [address] [place] [address] Performing Lab: [place] [facility] [address] [place] [address] [facility] COMPREHEN SIVE METABOLIC PANEL CREATININE [MASS/VOLUM E] IN SERUM OR PLASMA 1.07 mg/dL 0.7 - 1.3 12/16 Specimen Type: PLASMA No comment entered. Ordering Provider: JASMEET GLASER MMY Report Released Date/Time: Dec 31, 2023 04:29 PM Reporting Lab: [place] [facility] [address] [place] [address] Performing Lab: [place] [facility] [address] [place] [address] [facility] COMPREHEN SIVE METABOLIC PANEL UREA NITROGEN [MASS/VOLUM E] IN SERUM OR PLASMA 13 mg/dL 9 - 25 12/16 Specimen Type: PLASMA No comment entered. Ordering Provider: JASMEET GLASER MMY Report Released Date/Time: Dec 31, 2023 04:29 PM Reporting Lab: [place] [facility] [address] [place] [address] Performing Lab: [place] [facility] [address] [place] [address] [facility] COMPREHEN SIVE METABOLIC PANEL GLUCOSE [MASS/VOLUM E] IN SERUM OR PLASMA 185 mg/dL 72 - 99 12/16 H Specimen Type: PLASMA No comment entered. Ordering Provider: JASMEET GLASER MMY Report Released Date/Time: Dec 31, 2023 04:29 PM Reporting Lab: [place] [facility] [address] [place] [address] Performing Lab: [place] [facility] [address] [place] [address] [facility] COMPREHEN SIVE METABOLIC PANEL SODIUM [MOLES/VOLU ME] IN SERUM OR PLASMA 139 meq/L 136 - 145 12/16 Specimen Type: PLASMA No comment entered. Ordering Provider: JASMEET GLASER MMY Report Released Date/Time: Dec 31, 2023 04:29 PM Reporting Lab: [place] [facility] [address] [place] [address] Performing Lab: [place] [facility] [address] [place] [address] [facility] COMPREHEN SIVE METABOLIC PANEL POTASSIUM [MOLES/VOLU ME] IN SERUM OR PLASMA 4.4 meq/L 3.5 - 5 12/16 Specimen Type: PLASMA No comment entered. Ordering Provider: JASMEET GLASER MMY Report Released Date/Time: Dec 31, 2023 04:29 PM Reporting Lab: [place] [facility] [address] [place] [address] Performing Lab: [place] [facility] [address] [place] [address] [facility] COMPREHEN SIVE METABOLIC PANEL CHLORIDE [MOLES/VOLU ME] IN SERUM OR PLASMA 105 meq/L 98 - 107 12/16 Specimen Type: PLASMA No comment entered. Ordering Provider: JASMEET GLASER MMY Report Released Date/Time: Dec 31, 2023 04:29 PM Reporting Lab: [place] [facility] [address] [place] [address] Performing Lab: [place] [facility] [address] [place] [address] [facility] COMPREHEN SIVE METABOLIC PANEL CARBON DIOXIDE, TOTAL [MOLES/VOLU ME] IN SERUM OR PLASMA 27 meq/L 22 - 31 12/16 Specimen Type: PLASMA No comment entered. Ordering Provider: JASMEET GLASER MMY Report Released Date/Time: Dec 31, 2023 04:29 PM Reporting Lab: [place] [facility] [address] [place] [address] Performing Lab: [place] [facility] [address] [place] [address] [facility] COMPREHEN SIVE METABOLIC PANEL CALCIUM [MASS/VOLUM E] IN SERUM OR PLASMA 9.0 mg/dL 8.4 - 10.4 12/16 Specimen Type: PLASMA No comment entered. Ordering Provider: JASMEET GLASER MMY Report Released Date/Time: Dec 31, 2023 04:29 PM Reporting Lab: [place] [facility] [address] [place] [address] Performing Lab: [place] [facility] [address] [place] [address] [facility] COMPREHEN SIVE METABOLIC PANEL PROTEIN [MASS/VOLUM E] IN SERUM OR PLASMA 6.8 g/dL 6 - 8.6 12/16 Specimen Type: PLASMA No comment entered. Ordering Provider: JASMEET GLASER MMY Report Released Date/Time: Dec 31, 2023 04:29 PM Reporting Lab: [place] [facility] [address] [place] [address] Performing Lab: [place] [facility] [address] [place] [address] [facility] COMPREHEN SIVE METABOLIC PANEL ALBUMIN [MASS/VOLUM E] IN SERUM OR PLASMA 4.5 g/dL 3.4 - 5 12/16 Specimen Type: PLASMA No comment entered. Ordering Provider: JASMEET GLASER MMY Report Released Date/Time: Dec 31, 2023 04:29 PM Reporting Lab: [place] [facility] [address] [place] [address] Performing Lab: [place] [facility] [address] [place] [address] [facility] COMPREHEN SIVE METABOLIC PANEL BILIRUBIN.T OTAL [MASS/VOLUM E] IN SERUM OR PLASMA 0.4 mg/dL 0.2 - 1.2 12/16 Specimen Type: PLASMA No comment entered. Ordering Provider: JASMEET GLASER MMY Report Released Date/Time: Dec 31, 2023 04:29 PM Reporting Lab: [place] [facility] [address] [place] [address] Performing Lab: [place] [facility] [address] [place] [address] [facility] COMPREHEN SIVE METABOLIC PANEL ALKALINE PHOSPHATASE [ENZYMATIC ACTIVITY/VO LUME] IN SERUM OR PLASMA 78 U/L 40 - 150 12/16 Specimen Type: PLASMA No comment entered. Ordering Provider: JASMEET GLASER MMY Report Released Date/Time: Dec 31, 2023 04:29 PM Reporting Lab: [place] [facility] [address] [place] [address] Performing Lab: [place] [facility] [address] [place] [address] [facility] COMPREHEN SIVE METABOLIC PANEL ASPARTATE AMINOTRANSF ERASE [ENZYMATIC ACTIVITY/VO LUME] IN SERUM OR PLASMA 12 U/L 5 - 34 12/16 Specimen Type: PLASMA No comment entered. Ordering Provider: JASMEET GLASER MMY Report Released Date/Time: Dec 31, 2023 04:29 PM Reporting Lab: [place] [facility] [address] [place] [address] Performing Lab: [place] [facility] [address] [place] [address] [facility] COMPREHEN SIVE METABOLIC PANEL ALANINE AMINOTRANSF ERASE [ENZYMATIC ACTIVITY/VO LUME] IN SERUM OR PLASMA 10 U/L 8 - 40 12/16 Specimen Type: PLASMA No comment entered. Ordering Provider: JASMEET GLASER MMY Report Released Date/Time: Dec 31, 2023 04:29 PM Reporting Lab: [place] [facility] [address] [place] [id number] Performing Lab: [place] [facility] [address] [place] [address] [facility] COMPREHEN SIVE METABOLIC PANEL GLOMERULAR FILTRATION RATE/1.73 SQ M.PREDICTED [VOLUME RATE/AREA] IN SERUM, PLASMA OR BLOOD BY CREATININE- BASED FORMULA (CKD-EPI 2020) 74 12/16 Specimen Type: PLASMA No comment entered. Ordering Provider: JASMEET GLASER Report Released Date/Time: Dec 31, 2023 04:29 PM Reporting Lab: [place] [facility] [address] [place] [id number] Performing Lab: [place] [facility] [address] [place] [address] [facility] HGA1C HEMOGLOBIN A1C/HEMOGLO BIN.TOTAL IN BLOOD 8.1 4.0 - 6.0 12/16 H Specimen Type: BLOOD No comment entered. Ordering Provider: JASMEET GLASER Report Released Date/Time: Dec 31, 2023 04:29 PM Reporting Lab: [place] [facility] [address] [place] [id number] Performing Lab: [place] [facility] [address] [place] [address] [facility] CHOLESTER OL PANEL (PB) CHOLESTEROL [MASS/VOLUM E] IN SERUM OR PLASMA 215 mg/dL 0 - 200 12/16 H Specimen Type: PLASMA No comment entered. Ordering Provider: JASMEET GLASER MMY Report Released Date/Time: Dec 31, 2023 04:29 PM Reporting Lab: [place] [facility] [address] [place] [address] Performing Lab: [place] [facility] [address] [place] [address] [facility] CHOLESTER OL PANEL (PB) TRIGLYCERID E [MASS/VOLUM E] IN SERUM OR PLASMA 82 mg/dL 0 - 150 12/16 Specimen Type: PLASMA No comment entered. Ordering Provider: JASMEET GLASER Report Released Date/Time: Dec 31, 2023 04:29 PM Reporting Lab: [place] [facility] [address] [place] [address] Performing Lab: [place] [facility] [address] [place] [address] [facility] CHOLESTER OL PANEL (PB) CHOLESTEROL IN LDL [MASS/VOLUM E] IN SERUM OR PLASMA BY CALCULATION 149.6 mg/dL 12/16 Specimen Type: PLASMA No comment entered. Ordering Provider: JASMEET GLASER Report Released Date/Time: Dec 31, 2023 04:29 PM Reporting Lab: [place] [facility] [address] [place] [address] Performing Lab: [place] [facility] [address] [place] [address] [facility] CHOLESTER OL PANEL (PB) CHOLESTEROL IN HDL [MASS/VOLUM E] IN SERUM OR PLASMA 49.0 mg/dL 40 12/16 H Specimen Type: PLASMA No comment entered. Ordering Provider: JASMEET GLASER Report Released Date/Time: Dec 31, 2023 04:29 PM Reporting Lab: [place] [facility] [address] [place] [address] Performing Lab: [place] [facility] [address] [place] [address] [facility] CHOLESTER OL PANEL (PB) CHOLESTEROL IN HDL/CHOLEST CHUCK.TOTAL [MASS RATIO] IN SERUM OR PLASMA 22.8 25 12/16 Specimen Type: PLASMA No comment entered. Ordering Provider: JASMEET GLASER Report Released Date/Time: Dec 31, 2023 04:29 PM Reporting Lab: [place] [facility] [address] [place] [address] Performing Lab: [place] [facility] [address] [place] [address] [facility] TSH (MA-PB) THYROTROPIN [UNITS/VOLU ME] IN SERUM OR PLASMA 1.323 u[IU]/mL 0.47 - 5 12/16 Specimen Type: SERUM No comment entered. Ordering Provider: JASMEET GLASER Report Released Date/Time: Dec 31, 2023 04:29 PM Reporting Lab: [place] [facility] [address] [place] [address] Performing Lab: [place] [facility] [address] [place] [address] URINE ALBUMIN PROFILE-i h (PB) ALBUMIN [MASS/VOLUM E] IN URINE <5.0mg/L 0 - 30 12/21 L Specimen Type: URINE Comment: Unable to calculate due to Microalbumi n <5.0 mg/dL Ordering Provider: JASMEET GLASER Report Released Date/Time: Dec 22, 2023 09:08 AM Reporting Lab: [place] [facility] [address] [place] [facility] Performing Lab: [place] [facility] [address] [place] [address] [place] [facility] URINE ALBUMIN PROFILE-i h (PB) ALBUMIN/CRE ATININE [MASS RATIO] IN URINE commentu g/mg 12/21 Specimen Type: URINE Comment: Unable to calculate due to Microalbumi n <5.0 mg/dL Ordering Provider: JASMEET GLASER MMY Report Released Date/Time: Dec 22, 2023 09:08 AM Reporting Lab: [place] [facility] [address] [place] [address] Performing Lab: [place] [facility] [address] [place] [address] [place] [facility] URINE ALBUMIN PROFILE-i h (PB) CREATININE [MASS/VOLUM E] IN URINE 97.55 mg/dL 12/21 Specimen Type: URINE Comment: Unable to calculate due to Microalbumi n <5.0 mg/dL Ordering Provider: JASMEET GLASER MMY Report Released Date/Time: Dec 22, 2023 09:08 AM Reporting Lab: [place] [facility] [address] [place] [address] Performing Lab: [place] [facility] [address] [place] [address] [place] [facility] HEPATITIS C AB (PB) HEPATITIS C VIRUS AB [PRESENCE] IN SERUM Nonreact vero 12/21 Specimen Type: SERUM No comment entered. Ordering Provider: JASMEET GLASER MMY Report Released Date/Time: Dec 22, 2023 09:08 AM Reporting Lab: [place] [facility] [address] [place] [address] Performing Lab: [place] [facility] [address] [place] [address] [place] [facility] HIV I&II (PB) HIV 1+2 AB [PRESENCE] IN SERUM Nonreact vero 12/21 Specimen Type: SERUM No comment entered. Ordering Provider: JASMEET GLASER MMY Report Released Date/Time: Dec 22, 2023 09:08 AM Reporting Lab: [place] [facility] [address] [place] [address] Performing Lab: [place] [facility] [address] [place] [address] [place] [facility] CHOLESTER OL PANEL (PB) CHOLESTEROL [MASS/VOLUM E] IN SERUM OR PLASMA 145 mg/dL 0 - 200 12/21 Specimen Type: PLASMA No comment entered. Ordering Provider: JASMEET GLASER MMY Report Released Date/Time: Dec 22, 2023 08:51 AM Reporting Lab: [place] [facility] [address] [place] [address] Performing Lab: [place] [facility] [address] [place] [address] [facility] [place] [facility] CHOLESTER OL PANEL (PB) TRIGLYCERID E [MASS/VOLUM E] IN SERUM OR PLASMA 138 mg/dL 0 - 150 12/21 Specimen Type: PLASMA No comment entered. Ordering Provider: JASMEET GLASER MMY Report Released Date/Time: Dec 22, 2023 08:51 AM Reporting Lab: [place] [facility] [address] [place] [address] Performing Lab: [place] [facility] [address] [place] [address] [facility] CHOLESTER OL PANEL (PB) CHOLESTEROL IN LDL [MASS/VOLUM E] IN SERUM OR PLASMA BY CALCULATION 80.6 mg/dL 12/21 Specimen Type: PLASMA No comment entered. Ordering Provider: JASMEET GLASER MMY Report Released Date/Time: Dec 22, 2023 08:51 AM Reporting Lab: [place] [facility] [address] [place] [address] Performing Lab: [place] [facility] [address] [place] [facility] [facility] CHOLESTER OL PANEL (PB) CHOLESTEROL IN HDL [MASS/VOLUM E] IN SERUM OR PLASMA 36.8 mg/dL 40 12/21 L Specimen Type: PLASMA No comment entered. Ordering Provider: JASMEET GLASER MMY Report Released Date/Time: Dec 22, 2023 08:51 AM Reporting Lab: [place] [facility] [address] [place] [address] Performing Lab: [place] [facility] [address] [place] [address] [facility] CHOLESTER OL PANEL (PB) CHOLESTEROL IN HDL/CHOLEST CHUCK.TOTAL [MASS RATIO] IN SERUM OR PLASMA 25.4 25 12/21 Specimen Type: PLASMA No comment entered. Ordering Provider: JASMEET GLASER MMY Report Released Date/Time: Dec 22, 2023 08:51 AM Reporting Lab: [place] [facility] [address] [place] [address] Performing Lab: [place] [facility] [address] [place] [address] [facility] Vital Signs Combined list of inpatient and outpatient Vital Signs from Department of Defense and Veterans Affairs, ranging from 12 months to all on record, depending upon the facility. Vital Sign Value Date Comments Source SYSTOLIC BLOOD PRESSURE 129 12/23/2024 10:15:00 [facility] [place] [facility] DIASTOLIC BLOOD PRESSURE 77 12/23/2024 10:15:00 [place] [place] [facility] PULSE OXIMETRY 97 % 12/23/2024 10:15:00 [place] [facility] WEIGHT 203.4 12/23/2024 10:15:00 [place] [place] [facility] BMI 28 kg/m2 12/23/2024 10:15:00 [place] [place] [facility] PAIN 4 12/23/2024 10:15:00 [place] [place] [facility] HEIGHT 71.0 12/23/2024 10:15:00 [place] [place] [facility] TEMPERATURE 97.8 12/23/2024 10:15:00 [facility] [place] PULSE 77 12/23/2024 10:15:00 [place] [place] [facility] RESPIRATION 17 12/23/2024 10:15:00 [place] [place] [facility] SYSTOLIC BLOOD PRESSURE 128 11/23/2024 14:50:00 [place] [place] [facility] DIASTOLIC BLOOD PRESSURE 74 11/23/2024 14:50:00 [place] [place] [facility] PULSE OXIMETRY 97 11/23/2024 14:50:00 [place] [facility] PULSE 79 11/23/2024 14:50:00 [place] [facility] SYSTOLIC BLOOD PRESSURE 129 04/22/2024 10:00:00 [place] [place] [facility] DIASTOLIC BLOOD PRESSURE 70 04/22/2024 10:00:00 [place] [facility] TEMPERATURE 97.8 04/22/2024 10:00:00 [facility] PULSE 97 04/22/2024 10:00:00 [place] [facility] SYSTOLIC BLOOD PRESSURE 143 04/15/2024 09:40:00 [place] [place] [facility] DIASTOLIC BLOOD PRESSURE 78 04/15/2024 09:40:00 [place] [place] [facility] TEMPERATURE 97.4 04/15/2024 09:40:00 [place] [place] PULSE 86 04/15/2024 09:40:00 [place] [place] [facility] SYSTOLIC BLOOD PRESSURE 123 04/08/2024 10:00:00 [place] [place] [facility] DIASTOLIC BLOOD PRESSURE 73 04/08/2024 10:00:00 [place] [place] [facility] TEMPERATURE 97.5 04/08/2024 10:00:00 [facility] PULSE 95 04/08/2024 10:00:00 [facility] Encounters Combined list of: 1) Encounters from Department of Veterans Affairs facilities going backup to the last 18 months, not all [place] inpatient encounters are included; 2) Encounters from the Department of Defense facilities going backup to 280 months. Location Location Details Encounter Type Encounter Number Reason For Visit Attending Provider ADM Date DC Date Status Disposition Source [facility] ([id number]) Outpatient Encounter [id number] 08/27 [facility] ([id number]) [facility] MTMS BY PHARM EST 15 MIN [id number] Diagnos is: ICD-10- CM E11.9 Type 2 diabete s mellitu s without complic ations KEIKO MCCOY [facility] H 08/27 [facility] ([id number]) HEARING AID FITTING/CH ECKING [id number] Diagnos is: ICD-10- CM Z46.1 Encount er for fitting and adjustm ent of hearing aid YIVIVIENNE 09/10 [facility] ([id number]) [facility] Outpatient Encounter [id number] 09/15 [facility]ARY RODAR[facility] ([id number]) [facility] FEE [id number] Diagnos is: ICD-10- CM H90.3 Sensori neural hearing loss, VIVIENNE Pruitt 09/16 [facility] ([id number]) [facility] TYMPANOMET RY & REFLEX THRESH [id number] Diagnos is: ICD-10- CM H90.3 Sensori neural hearing loss, VIVIENNE Pruitt 09/16 [facility] ([id number]) TELEHEALTH FACILITY FEE [id number] Diagnos is: ICD-10- CM Z46.1 Encount er for fitting and adjustm ent of hearing aid LARRY,LY NDA 10/19 [facility] ([id number]) [facility] HEARING AID FITTING/CH ECKING [id number] Diagnos is: ICD-10- CM Z46.1 Encount er for fitting and adjustm ent of hearing aid LARRY,LY NDA 10/19 [facility] ([id number]) Outpatient Encounter [id number] 10/26 [facility] ([id number]) [facility] MTMS BY PHARM EST 15 MIN [id number] Diagnos is: ICD-10- CM E11.9 Type 2 diabete s mellitu s without complic ations KEIKO MCCOY [facility] H 10/26 [facility] Outpatient Encounter [id number] 12/03 [facility] Outpatient Encounter [id number] 12/04 [facility] OFFICE O/P NEW MOD 45 MIN [id number] Diagnos is: ICD-10- CM E11.9 Type 2 diabete s mellitu s without complic ations Lawrence GLASER 12/30 [facility] [place] [facility] Outpatient Encounter [id number] KARENDOM RMIN J 12/31 [place] [facility] Outpatient Encounter [id number] BARTHOLOMEW,LE RNA SIROMA 01/04 [facility] Outpatient Encounter [id number] 01/05 [facility] OFF/OP EST OCTOBER X REQ PHY/QHP [id number] Diagnos is: ICD-10- CM Z01.30 Encount er for exam of blood pressur e w/o abnorma l finding s JAJA GONCALVES Barbara 01/13 [facility] ([id number]) Outpatient Encounter [id number] 01/18 [facility] ([id number]) [facility] MTMS BY PHARM EST 15 MIN [id number] Diagnos is: ICD-10- CM E11.9 Type 2 diabete s mellitu s without complic ations KEIKO MCCOY NH-RAMONE H 01/18 [facility] OFF/OP EST OCTOBER X REQ PHY/QHP [id number] [id number] Diagnos is: ICD-10- CM Z01.30 Encount er for exam of blood pressur e w/o abnorma l finding s FRACISCO MARK 01/27 [facility] OFF/OP EST MAY X REQ PHY/QHP [id number] [id number] Diagnos is: ICD-10- CM Z01.30 Encount er for exam of blood pressur e w/o abnorma l finding s FRACISCO MARK 02/10 [facility] Outpatient Encounter [id number] 03/02 [facility] OFFICE O/P NEW LOW 30 MIN [id number] [id number] Diagnos is: ICD-10- CM M99.02 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 MORENO HOWARD 03/02 [facility] MANJ 3-4 REGIONS [id number] [id number] Diagnos is: ICD-10- CM M99.02 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 MORENO HOWARD 03/11 [facility] MANJ 3-4 REGIONS 27644-1.65 [id number] Diagnos is: ICD-10- CM M99.02 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 MORENO HOWARD 03/25 [facility] CH[facility]RACT MANJ 3-4 REGIONS 39715-3.65 [id number] Diagnos is: ICD-10- CM M99.02 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 MORENO HOWARD 04/01 [facility] [place] MANJ 3-4 REGIONS 89041-7.65 [id number] Diagnos is: ICD-10- CM M99.02 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 MORENO HOWARD 04/08 [facility] OFF/OP EST OCTOBER X REQ PHY/QHP 22439-0.65 [id number] Diagnos is: ICD-10- CM Z23 Encount er for immuniz atLUCILA Richmond R 04/08 [facility] CH[facility]CT MANJ 3-4 REGIONS 91186-4.65 [id number] Diagnos is: ICD-10- CM M99.02 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 MORENO HOWARD 04/15 [facility] CH[facility]CT MANJ 3-4 REGIONS 43857-5.65 [id number] Diagnos is: ICD-10- CM M99.02 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 MORENO HOWARD 04/22 [facility] Outpatient Encounter [id number] PETERSONARINA SSA D 05/[address] [facility] Outpatient Encounter [id number] 05/[address] 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 Outpatient Encounter [id number] 12/[address] [facility] Outpatient Encounter [id number] 12/20 [facility] OFFICE O/P EST MOD 30 MIN [id number] Diagnos is: ICD-10- CM E11.9 Type 2 diabete s mellitu s without complic ations Lawrence GLASER 12/23 [facility] FUNDUS PHOTOGRAPH Y W/I&R [id number] Diagnos is: ICD-10- CM Z13.5 Encount er for screeni ng for eye and ear disorde rs HARLEY ELLIS 12/23 [facility] Outpatient Encounter [id number] 12/[address] [facility] En[facility] [id number] 12/[address] [facility] Outpatient Encounter [id number] Diagnos is: ICD-10- CM Z13.5 Encount er for screeni ng for eye and ear disorde rs PABLO VALENCIA S 12/23 [facility] Outpatient Encounter [id number] CALEBHARLEY Sibley 12/23 [facility] Outpatient Encounter [id number] 12/[address] [facility] [place] Outpatient Encounter [id number] ADRIENNE HAND 12/[address] [facility] Outpatient Encounter [id number] 01/[address] [facility] Outpatient Encounter [id number] 01/[address] [facility] Encounter [id number] 01/[address] [facility] Outpatient Encounter [id number] 01/[address] [facility] Social History Combined list of available smoking, tobacco, and other social history from [facility] of Defense and [facility] facilities. Social History Type Response Date Comment Sour e Tobacco smoking status NHIS VA-TOBACCO USE EVERY DAY CIGARETTES 12/23/2024 [facility] History of tobacco use NM-TOBACCO NEVER USED OTHER TYPE 12/23/2024 [facility] History of tobacco use VA-TOBACCO USER EVERY DAY 12/31/2023 [facility] History of tobacco use NM-TOBACCO FORMER USER 08/13/2022 [facility] ([id number]) History of tobacco use QUIT TOBACCO IN THE LAST 12 MONTHS 03/29/2022 [facility] History of tobacco use NM-TOBACCO FORMER USER 11/28/2021 [facility] History of tobacco use NM-TOBACCO USER EVERY DAY 05/25/2020 [facility] of [facility] NO 02/08/2019 [facility] History of tobacco use TOBACCO OFFERRED PT MEDS (PROVIDER) 12/15/2017 [facility] History of tobacco use QUIT TOBACCO IN THE LAST 12 MONTHS 04/01/2017 [facility] History of tobacco use QUIT TOBACCO >12 MO and <7 YRS AGO 04/30/2016 [facility] History of tobacco use CURRENT TOBACCO USER 04/13/2015 [facility] History of tobacco use CURRENT TOBACCO USER 04/25/2014 [facility] History of tobacco use CURRENT TOBACCO USER 02/01/2013 [facility] History of tobacco use CURRENT TOBACCO USER 09/12/2011 [facility] History of tobacco use QUIT TOBACCO >12 MO and <7 YRS AGO 08/29/2010 [facility] History of tobacco use TOBACCO OFFERRED PT MEDS (PROVIDER) 07/21/2009 [facility] History of tobacco use CURRENT TOBACCO USER 07/21/2009 [facility] Advance Directives List of completed, amended, or rescinded Advance Directives on record at [facility] facilities. An actual copy of the Directive is not included. Date Advance Directive Provider Source 05/31/2022 [facility]
--- OUTSIDE RECORDS SUMMARY | 2025-02-20 10:27 | XMS_ITS | Clinical Summary ---
Author Organization [facility] Address [address] [facility] [address] [place] [address] Phone Care Team Providers Care Publicity Director Name Role Phone Unavailable Primary Care Provider Unavailabl e Allergies Active Allergy Reactions Criticality Noted Date Comments Atorvastatin Other (See Comments) High 12/20/2024 Severe cramps Simvastatin Other (See Comments) High 11/23/2010 Severe cramps Azwmuuh-Ars-Wok Reductase Inhibitors Other (See Comments) High 12/20/2024 Severe cramps Tomato Hives High 12/20/2024 Medications buPROPion HCL (WELLBUTRIN SR) 150 mg Sustained Release 12 hour tablet Take 150 mg by mouth. 08/14/2023 Active cholecalciferol, Vitamin D3, 50 mcg (2,000 unit) Tablet Take 50 mcg by mouth. 01/16/2024 Active doxazosin (CARDURA) 8 mg tablet Take 8 mg by mouth daily at bedtime. 06/27/2021 Active empagliflozin (JARDIANCE) 25 mg tablet Take 25 mg by mouth. 07/04/2023 Active clopidogreL (PLAVIX) 75 mg Tablet Take 75 mg by mouth. Active lisinopriL (PRINIVIL) 5 mg tablet Take 5 mg by mouth daily. Active omeprazole (PriLOSEC) 20 mg Capsule, Delayed Release(E.C.) Take 20 mg by mouth daily. Active Active Problems Problem Noted Date Diagnosed Date Gastroesophageal reflux dise ase with esophagitis without hemorrhage 12/09/2024 Abdominal aortic aneurysm (A AA) greater than 39 mm in diameter 11/23/2024 Pain of left hip 11/23/2024 Muscle spasm of back 11/23/2024 Encounters Date Type Department Care Team Description 02/01/2025 External Device Data [facility] ABSTRACTION Provider, Abstract 02/01/2025 External Device Data [facility] ABSTRACTION Provider, Abstract 01/05/2025 External Device Data [facility] ABSTRACTION Provider, Abstract 01/05/2025 External Device Data [facility] ABSTRACTION Provider, Abstract 01/05/2025 External Device Data [facility] ABSTRACTION Provider, Abstract 12/27/2024 1:15 PM CDT Telephone Check Up [facility] [address] [place] [address] Jeaneth Bourgeois DO Abdominal aortic aneurysm (AAA) greater than 39 mm in diameter (Primary Dx) 12/21/2024 2:32 PM CDT - 12/21/2024 11:59 PM CDT Hospital Encounter [facility] CT Scan [place] [address] [facility] [address] [place] [phone] Jeaneth Bourgeois DO Discharge Disposition: Home or Self Care 12/20/2024 1:00 PM CDT Office Visit [facility] [address] [address] Jeaneth Bourgeois DO Abdominal aortic aneurysm (AAA) greater than 39 mm in diameter (Primary Dx); Tobacco abuse 12/14/2024 External Device Data [facility] ABSTRACTION Provider, Abstract 12/14/2024 External Device Data [facility] ABSTRACTION Provider, Abstract 12/09/2024 11:48 AM CDT - 12/09/2024 2:47 PM CDT Emergency [facility] [address] [facility] [address] [place] [address] Wanda De La Torre MD Gastroesophageal reflux disease with esophagitis without hemorrhage (Primary Dx); Mild dehydration Discharge Disposition: Home or Self Care 12/09/2024 Travel 12/07/2024 Telephone [facility]- [address] [phone] Jeaneth Bourgeois DO Referral 11/30/2024 External Device Data [facility] ABSTRACTION Provider, Abstract 11/30/2024 External Device Data [facility] ABSTRACTION Provider, Abstract 11/30/2024 External Device Data [facility] ABSTRACTION Provider, Abstract 11/24/2024 Telephone [facility]- [place] [id number] [place] [address] Provider, Abstract Referral 11/23/2024 10:10 AM CDT - 11/23/2024 1:11 PM CDT Emergency [facility] [address] [place] [address] Wanda De La Torre MD Muscle spasm of back (Primary Dx); Pain of left hip; Abdominal aortic aneurysm (AAA) greater than 39 mm in diameter Discharge Disposition: Home or Self Care 11/23/2024 Travel from Last 3 Months Social History Tobacco Use Types Packs/Day Years Used Date Smoking Tobacco: Every Day Cigarettes Tobacco Cessation:Ready to Q uit: Not Asked; Counseling Given: Not Answered Alcohol Use Standard Drinks/Week Comments Never 0 (1 standard drink = 0.6 oz pur e alcohol) Feeling Safe Answer Date Recorded Are you in a relationship wi th someone who hurts you emotionally and/or physically? No 12/09/2024 Sex and Gender Information Value Date Recorded Sex Assigned at Not on file Legal Sex Male 11:27 AM CDT Gender Identity Not on file Sexual Orientation Not on file Last Filed Vital Signs Vital Sign Reading Time Taken Comments Blood Pressure 128/64 12/20/2024 12:09 PM CDT Pulse 92 12/20/2024 12:09 PM CDT Temperature 37 C (98.6 F) 12/09/2024 11:49 AM CDT Respiratory Rate 17 12/09/2024 2:30 PM CDT Oxygen Saturation 95% 12/20/2024 12:09 PM CDT Inhaled Oxygen Concentration - - Weight 92.5 kg (204 lb) 12/20/2024 12:09 PM CDT Height 180.3 cm (5' 11 ) 12/20/2024 12:09 PM CDT Body Mass Index 28.45 12/20/2024 12:09 PM CDT Plan of Treatment Health Maintenance Due Date Last Done Comments DIABETES ANNUAL FOOT EXAM 11/18/1971 DIABETES MICROALBUMIN ANNUAL SCREEN 11/18/1971 LDL CHOLESTEROL ANNUAL 11/18/1971 COLORECTAL SCREENING 1998 Colorectal Cancer Screening 1998 FIT-DNA Q 3 years 1998 FIT/FOBT Q 1 year 1998 Flex Sig/CT Colonography Q 5 years 1998 RSV VACCINE (60+ or ) (1 - Risk 60-74 years 1-dose series) 2013 INFLUENZA VACCINE (#1) 2025 4, 03/30/2022, 06/06/2021, Additional history exists DIABETES HBA1C Q 6 MONTHS 06/17/2025 12/16/2024 DIABETES ANNUAL RETINAL EXAM 12/23/2025 12/23/2024 DTAP/TDAP/TD VACCINES (3 - T d or Tdap) 12/04/2031 12/03/2021, 10/27/2009 ZOSTER VACCINE Completed 10/10/2020, 08/2019, 04/25/2014 PNEUMOCOCCAL VACCINE 50+ YEARS Completed 0 12/03/2021, 05/25/2020, 05/23/2020, Additional history exists Abdominal Aortic Aneurysm (A AA) Screening Completed 11/23/2024 Procedures Procedure Name Priority Date/Time Associated Diagnosis Comments CTA ABD PELVIS W AND/OR WO CONTRAST Stat 12/21/2024 3:04 PM CDT Abdominal aortic aneurysm (AAA) greater than 39 mm in diameter URINALYSIS W/REFLEX MICROSCOPIC Stat 12/09/2024 1:50 PM CDT TROPONIN 2 HR, 5TH GEN Timed Study 12/09/2024 1:50 PM CDT XR CHEST PA OR AP 1 VW Stat 12/09/2024 12:06 PM CDT TROPONIN BASELINE, 5TH GEN Stat 12/09/2024 11:50 AM CDT MAGNESIUM LEVEL Stat 12/09/2024 11:50 AM CDT C-REACTIVE PROTEIN Stat 12/09/2024 11 :50 AM CDT BRAIN NATRIURETIC PEPTIDE, BNP OR PROBNP Stat 12/09/2024 11:50 AM CDT COMPREHENSIVE METABOLIC PANEL Stat 12/09/2024 11:50 AM CDT D-DIMER Stat 12/09/2024 11:50 AM CDT PTT Stat 12/09/2024 11:50 AM CDT PROTIME-INR Stat 12/09/2024 11:50 AM CDT CBC WITH DIFFERENTIAL Stat 12/09/2024 11:50 AM CDT EKG 12-LEAD Stat 12/09/2024 11:47 AM CDT US AORTA Stat 11/23/2024 12:43 PM CDT XR LUMBAR SPINE 2 OR 3 VW Stat 11/23/2024 11:00 AM CDT XR HIP 2 OR 3 VIEWS LT Stat 11/23/2024 11:00 AM CDT from Last 3 Months Results * CTA ABD PELVIS W AND/OR WO CONTRAST (12/21/2024 3:04 PM CDT) Anatomical Region Laterality Modality Abdomen Computed Tomogra phy 12/21/2024 2:49 PM CDT Impressions 12/21/2024 3:56 PM CDT IMPRESSION: 1. A fusiform infrarenal abdominal aortic aneurysm measures 3.9 x 3.7 cm. 2. 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 The superior mesenteric artery has short segments of mild stenosis. The inferior mesenteric artery is small in caliber, and the origin of the inferior mesenteric artery is not well visualized. 3. Mild diffuse wall thickening of the distal esophagus is suggestive of esophagitis. 4. Small to moderate-sized fat-containing left inguinal hernia. 5. Prostatomegaly. Narrative 12/21/2024 3:56 PM CDT EXAM: CTA ABD PELVIS W AND/OR WO CONTRAST DIAGNOSIS/REASON FOR EXAM: Abdominal aortic aneurysm (AAA) greater than 39 mm in diameter. Aortic aneurysm (AAA), surveillance. DATE AND TIME: 12/21/2024, 3:04 PM. COMPARISON: None. TECHNIQUE: CTA of the abdomen and pelvis was performed prior to and following the administration of intravenous contrast. Post-processing was performed, including sagittal and coronal reformations and 3-D reconstruction. CONTRAST: Isovue-300, 100 mL intravenous. FINDINGS: The partially imaged descending thoracic aorta is normal in caliber and contains a moderate amount of mixed calcified and noncalcified plaque. The infrarenal abdominal aorta is aneurysmal, measuring up to 3.9 x 3.7 cm. A moderate to large amount of mixed calcified and noncalcified plaque is seen within the infrarenal abdominal aorta. At the origin of the celiac artery, there is a short segment of moderate stenosis. The superior mesenteric artery contains a moderate amount of atherosclerotic plaque that causes segments of mild stenosis. The bilateral renal arteries contain a ezqyr-bv-ptimpgvw amount of atherosclerotic plaque that causes no significant stenosis. The inferior mesenteric artery is small in caliber and not well visualized proximally. The arteries the bilateral pelvis contain a moderate amount of atherosclerotic plaque that causes multiple segments of mild to moderate stenosis. The liver is normal in size and contour. The gallbladder is mildly distended. The spleen is normal in size. There is mild fatty replacement pancreas. No adrenal nodules identified. The bilateral kidneys are unremarkable. There is no hydronephrosis or hydroureter. The bladder is moderately distended. The prostate measures 6.2 x 4.9 x 5.6 cm. A jtjog-cp-ofoqqtfb amount of stool and small amount of gas is seen throughout the colon. The colon has multiple diverticula with no surrounding fat stranding. There is no significant bowel dilation. The stomach is nondistended. No free intraperitoneal air or free fluid is seen. A few shotty subcentimeter mesenteric lymph nodes are present. There is mild diffuse wall thickening of the distal esophagus. The heart size is within normal limits. There is a trace amount of pericardial fluid. The lung bases are unremarkable. There are mild degenerative changes of the lower thoracic and lumbar spine. There is a small to moderate-sized fat-containing left inguinal hernia. Multiple subcentimeter bilateral inguinal lymph nodes are present. Procedure Note Jeff Clay MD - 12/21/2024 EXAM: CTA ABD PELVIS W AND/OR WO CONTRAST DIAGNOSIS/REASON FOR EXAM: Abdominal aortic aneurysm (AAA) greater than 39 mm in diameter. Aortic aneurysm (AAA), surveillance. DATE AND TIME: 12/21/2024, 3:04 PM. COMPARISON: None. TECHNIQUE: CTA of the abdomen and pelvis was performed prior to and following the administration of intravenous contrast. Post-processing was performed, including sagittal and coronal reformations and 3-D reconstruction. CONTRAST: Isovue-300, 100 mL intravenous. FINDINGS: The partially imaged descending thoracic aorta is normal in caliber and contains a moderate amount of mixed calcified and noncalcified plaque. The infrarenal abdominal aorta is aneurysmal, measuring up to 3.9 x 3.7 cm. A moderate to large amount of mixed calcified and noncalcified plaque is seen within the infrarenal abdominal aorta. At the origin of the celiac artery, there is a short segment of moderate stenosis. The superior mesenteric artery contains a moderate amount of atherosclerotic plaque that causes segments of mild stenosis. The bilateral renal arteries contain a excdp-pz-davkrefv amount of atherosclerotic plaque that causes no significant stenosis. The inferior mesenteric artery is small in caliber and not well visualized proximally. The arteries the bilateral pelvis contain a moderate amount of atherosclerotic plaque that causes multiple segments of mild to moderate stenosis. The liver is normal in size and contour. The gallbladder is mildly distended. The spleen is normal in size. There is mild fatty replacement pancreas. No adrenal nodules identified. The bilateral kidneys are unremarkable. There is no hydronephrosis or hydroureter. The bladder is moderately distended. The prostate measures 6.2 x 4.9 x 5.6 cm. A dcjjb-ly-culvzkok amount of stool and small amount of gas is seen throughout the colon. The colon has multiple diverticula with no surrounding fat stranding. There is no significant bowel dilation. The stomach is nondistended. No free intraperitoneal air or free fluid is seen. A few shotty subcentimeter mesenteric lymph nodes are present. There is mild diffuse wall thickening of the distal esophagus. The heart size is within normal limits. There is a trace amount of pericardial fluid. The lung bases are unremarkable. There are mild degenerative changes of the lower thoracic and lumbar spine. There is a small to moderate-sized fat-containing left inguinal hernia. Multiple subcentimeter bilateral inguinal lymph nodes are present. IMPRESSION: 1. A fusiform infrarenal abdominal aortic aneurysm measures 3.9 x 3.7 cm. 2. 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 The superior mesenteric artery has short segments of mild stenosis. The inferior mesenteric artery is small in caliber, and the origin of the inferior mesenteric artery is not well visualized. 3. Mild diffuse wall thickening of the distal esophagus is suggestive of esophagitis. 4. Small to moderate-sized fat-containing left inguinal hernia. 5. Prostatomegaly. us Jeanethninoska Rosas Christelle DO CT ORDERABLES Final Re sult * (ABNORMAL) TROPONIN 2 HR, 5TH GEN (12/09/2024 1:50 PM CDT) TROPONIN T, 2 HR 5TH GEN 18(H) <=15 ng/L 12/09/2024 2:13 PM CDT [facility] DELTA 2HR TROPONIN T -1 See Interp. 12/09/2024 2:13 PM CDT [facility] Blood BLOOD SPECIMEN / Unknown Venipuncture / Unknown 12/09/2024 1:50 PM CDT 12/09/2024 1:56 PM CDT Narrative [facility] - 12/09/2024 2:13 PM CDT Troponin elevated. Delta not changing. us Wanda De La Torre MD CHEMISTRY ORDERABLES Final [facility]u lt [id number] [address] [place] [address] * (ABNORMAL) URINALYSIS WITH REFLEX MICROSCOPIC (12/09/2024 1:50 PM CDT) COLOR UA Yellow Pale to Dark Yellow 12/09/2024 2:00 PM CDT [facility] CLARITY UA Clear Clear 12/09/2024 2:00 PM CDT [facility] SPECIFIC GRAVITY UA 1.015 1.003 - 1.035 12/09/2024 2:00 PM CDT [facility] PH UA 6.0 5.0 - 8.0 12/09/2024 2:00 PM CDT [facility] LEUKOCYTE ESTERASE UA Negative Negative 12/09/2024 2:00 PM CDT [facility] NITRITE UA Negative Negative 12/09/2024 2:00 PM CDT [facility] PROTEIN UA Negative Negative 12/09/2024 2:00 PM CDT [facility] GLUCOSE UA 3+(A) Negative 12/09/2024 2:00 PM CDT [facility] KETONES UA Negative Negative 12/09/2024 2:00 PM CDT [facility] UROBILINOGEN UA 0.2 <2.0 mg/dL 2:00 PM CDT [facility] BILIRUBIN UA Negative Negative 12/09/2024 2:00 PM CDT [facility] BLOOD UA Trace(A) Negative 12/09/2024 2:00 PM CDT [facility] Urine URINE SPECIMEN OBTAINED BY CLEAN CATCH PROCEDURE / Unknown Collection / Unknown 12/09/2024 1:50 PM CDT 12/09/2024 1:55 PM CDT Wanda De La Torre MD URINE ORDERABLES Final Result [facility] CLIA # [id number] [address] [place] [address] * XR CHEST PA OR AP 1 VW (12/09/2024 12:06 PM CDT) Anatomical Region Laterality Modality Chest Computed Radiogr aphy 12/09/2024 12:0 6 PM CDT Impressions 12/09/2024 12:49 PM CDT Impression: No evidence of infiltrates. Narrative 12/09/2024 12:49 PM CDT Exam: XR CHEST PA OR AP 1 VW Date/Time of Exam: 12/09/2024 12:06 PM Reason For Exam: Chest Pain Diagnosis: See Reason for Exam The heart size is normal. The lungs are clear. No pneumothorax is seen. Procedure Note Raphael Barker MD - 12/09/2024 Exam: XR CHEST PA OR AP 1 VW Date/Time of Exam: 12/09/2024 12:06 PM Reason For Exam: Chest Pain Diagnosis: See Reason for Exam The heart size is normal. The lungs are clear. No pneumothorax is seen. Impression: No evidence of infiltrates. us Wanda De La Torre MD DIAGNOSTIC IMAGING ORDERABLES F inal Result * (ABNORMAL) TROPONIN BASELINE, 5TH GEN (12/09/2024 11:50 AM CDT) TROPONIN T, BASELINE 5TH GEN 19(H) <=15 ng/L 12/09/2024 12:25 PM CDT [facility] Blood BLOOD SPECIMEN / Unknown Venipuncture / Unknown 12/09/2024 11:50 AM CDT 12/09/2024 11:59 AM CDT Narrative [facility] - 12/09/2024 12:25 PM CDT Troponin elevated. us Wanda De La Torre MD CHEMISTRY ORDERABLES Final Resu lt [facility] CLIA # [id number] [address] [place] [phone] * CBC WITH DIFFERENTIAL (12/09/2024 11:50 AM CDT) Pathologist [facility] WBC 7.1 4.2 - 9.1 K/uL 12/09/2024 12:11 PM [facility] RBC 4.92 4.63 - 6.08 M/uL 12/09/2024 12:11 PM [facility] HEMOGLOBIN 15.3 13.7 - 17.5 g/dL 12/09/2024 12:11 PM [facility] HEMATOCRIT 44.3 40.1 - 51.0 % 12/09/2024 12:11 PM [facility] MCV 90.0 79.0 - 92.2 fL 12/09/2024 12:11 PM [facility] MCH 31.1 25.7 - 32.2 pg 12/09/2024 12:11 PM [facility] MCHC 34.5 32.3 - 36.5 g/dL 12/09/2024 12:11 PM [facility] RDW 12.2 11.0 - 14.5 % 12/09/2024 12:11 PM [facility] RDW-STDEV 40.3 36.9 - 56.9 fL 12/09/2024 12:11 PM [facility] PLATELETS 152 130 - 400 K/uL 12/09/2024 12:11 PM [facility] MPV 10.6 10.0 - 14.8 fL 12/09/2024 12:11 PM [facility] NEUTROPHILS 61 34 - 68 % 12/09/2024 12:11 PM [facility] LYMPHOCYTES 29 22 - 53 % 12/09/2024 12:11 PM [facility] MONOCYTES 7 5 - 12 % 12/09/2024 12:11 PM [facility] EOSINOPHILS 2 1 - 7 % 12/09/2024 12:11 PM [facility] BASOPHILS 1 0 - 1 % 12/09/2024 12:11 PM [facility] IMMATURE GRANULOCYTES 1 % 12/09/2024 12:11 PM [facility] NEUTROPHIL ABSOLUTE 4.29 1.78 - 5.38 K/uL 12/09/2024 12:11 PM [facility] LYMPHOCYTE ABSOLUTE 2.04 1.20 - 3.40 K/uL 12/09/2024 12:11 PM [facility] MONOCYTE ABSOLUTE 0.50 0.30 - 0.82 K/uL 12/09/2024 12:11 PM [facility] EOSINOPHIL ABSOLUTE 0.16 0.04 - 0.54 K/uL 12/09/2024 12:11 PM [facility] BASOPHILS ABSOLUTE 0.05 0.01 - 0.08 K/uL 12/09/2024 12:11 PM [facility] IMMATURE GRANULOCYTES ABSOLUTE 0.04 K/uL 12/09/2024 12:11 PM [facility] Blood BLOOD SPECIMEN / Unknown Venipuncture / Unknown 12/09/2024 11:50 AM CDT 12/09/2024 11:59 AM CDT us Wanda De La Torre MD HEMATOLOGY ORDERABLES Final Res ult Performing Organization Address City/[facility]/ZIP Co de Phone Number [facility] CLIA # [id number] [address] [place] [phone] * (ABNORMAL) PTT (12/09/2024 11:50 AM CDT) PTT 25.5(L) 25.8 - 34.0 seconds 12/09/2024 12:21 PM CDT [facility] Blood BLOOD SPECIMEN / Unknown Venipuncture / Unknown 12/09/2024 11:50 AM CDT 12/09/2024 11:59 AM CDT us Wanda De La Torre MD HEMATOLOGY ORDERABLES Final Res ult Performing Organization Address [facility] Co de Phone Number [facility] CLIA # [id number] [address] [place] [phone] * PROTIME-INR (12/09/2024 11:50 AM CDT) PROTIME 12.8 11.9 - 14.6 Seconds 12/09/2024 12:21 PM CDT [facility] INR 1.0 0.9 - 1.1 12/09/2024 12:21 PM CDT [facility] Blood BLOOD SPECIMEN / Unknown Venipuncture / Unknown 12/09/2024 11:50 AM CDT 12/09/2024 11:59 AM CDT us Wanda De La Torre MD HEMATOLOGY ORDERABLES Final Res ult Performing Organization Address City/[facility]/ZIP Co de Phone Number [facility] CLIA # [id number] [address] [place] [phone] * D-DIMER (12/09/2024 11:50 AM CDT) Pathologist [facility] D-DIMER QUANT 0.44 <0.50 ug/mL FEU 12/09/2024 12:19 PM CDT [facility] Blood BLOOD SPECIMEN / Unknown Venipuncture / Unknown 12/09/2024 11:50 AM CDT 12/09/2024 11:59 AM CDT Narrative [facility] - 12/09/2024 12:19 PM CDT D-Dimer assay cutoff value for exclusion of DVT and/or PE is <0.50 ug/mL FEU. As D-Dimer levels increase naturally with age, age stratification for patients over 50 is potentially more appropriate in determining whether a patient should undergo further evaluation for DVT and/or PE than a general cutoff of 0.50 ug/mL FEU. Clinical consideration is recommended. Age Stratified Cutoff Values: 50-60 years: 0.50-0.60 ug/mL FEU 61-70 years: 0.61-0.70 ug/mL FEU 71-80 years: 0.71-0.80 ug/mL FEU Wanda De La Torre MD HEMATOLOGY ORDERABLES Final Res ult [facility] CLIA # [id number] [address] [place] [phone] * C-REACTIVE PROTEIN (12/09/2024 11:50 AM CDT) Pathologist [facility] CRP <3.0 <5.0 mg/L 12/09/2024 12:25 PM CDT [facility] Blood BLOOD SPECIMEN / Unknown Venipuncture / Unknown 12/09/2024 11:50 AM CDT 12/09/2024 11:59 AM CDT us Wanda De La Torre MD CHEMISTRY ORDERABLES Final Resu lt [facility] CLIA # [id number] [address] [place] [phone] * BRAIN NATRIURETIC PEPTIDE, BNP OR PROBNP (12/09/2024 11:50 AM CDT) PROBNP, N TERMINAL 51 0 - 125 pg/mL 12/09/2024 12:25 PM CDT [facility] Comment: INTERPRETIVE COMMENT based on diagnosis: Diagnostic NT pro-BNP cutoffs for Heart Failure in the absence of renal failure is suggested for the following ranges <75 years: <125 pg/mL >=75 years: <450 pg/mL Exclusionary rule out cut-point for Acute Decompensated Heart Failure(ADHF) All ages: <300 pg/mL Diagnostic NT pro-BNP cutoffs for Acute Decompensated Heart Failure(ADHF) in the absence of renal failure is suggested for the following ages <50 years: > 450 pg/mL 50-75 years: > 900 pg/mL >75 years: >1800 pg/mL Blood BLOOD SPECIMEN / Unknown Venipuncture / Unknown 12/09/2024 11:50 AM CDT 12/09/2024 11:59 AM CDT us Wanda De La Torre MD CHEMISTRY ORDERABLES Final Resu lt Performing Organization Address City/[facility]/ZIP Co de Phone Number [facility] CLIA # [id number] [address] [place] [phone] * MAGNESIUM LEVEL (12/09/2024 11:50 AM CDT) Pathologist [facility] MAGNESIUM 2.3 1.6 - 2.4 mg/dL 12/09/2024 12:25 PM CDT [facility] Blood BLOOD SPECIMEN / Unknown Venipuncture / Unknown 12/09/2024 11:50 AM CDT 12/09/2024 11:59 AM CDT us Wanda De La Torre MD CHEMISTRY ORDERABLES Final Resu lt Performing Organization Address City/[facility]/ZIP Co de Phone Number [facility] CLIA # [id number] [address] [place] [address] [phone] * (ABNORMAL) COMPREHENSIVE METABOLIC PANEL (12/09/2024 11:50 AM CDT) [facility] SODIUM 138 136 - 145 mmol/L 12/09/2024 12:25 PM [facility] POTASSIUM 4.2 3.5 - 5.1 mmol/L 12/09/2024 12:25 PM [facility] CHLORIDE 103 98 - 107 mmol/L 12/09/2024 12:25 PM [facility] CO2 22 22 - 29 mmol/L 12/09/2024 12:25 PM [facility] CALCIUM 10.1 8.8 - 10.2 mg/dL 12/09/2024 12:25 PM [facility] BUN 22 8 - 23 mg/dL 12/09/2024 12:25 PM [facility] CREATININE 1.18(H) 0.67 - 1.17 mg/dL 12/09/2024 12:25 PM [facility] Comment:The GFR result is no t clinically significant on patients <18 or >70 years of age. GLUCOSE 183(H) 74 - 99 mg/dL 12/09/2024 12:25 PM [facility] TOTAL PROTEIN 6.8 6.6 - 8.7 g/dL 12/09/2024 12:25 PM [facility] ALBUMIN 4.3 3.5 - 5.2 g/dL 12/09/2024 12:25 PM [facility] BILIRUBIN TOTAL 0.4 0.0 - 1.2 mg/dL 12/09/2024 12:25 PM [facility] ALKALINE PHOSPHATASE 76 40 - 129 U/L 12/09/2024 12:25 PM [facility] AST 13 0 - 50 U/L 12/09/2024 12:25 PM [facility] ALT 10 0 - 50 U/L 12/09/2024 12:25 PM [facility] GFR >60 mL/min/1.7 3 sq meter 12/09/2024 12:25 PM [facility] Comment:eGFR calculated with 2020 CKD-EPI equation. Vegetarian diet, extremely high or low muscle mass, and may affect results. Cystatin C with Glomerular Filtration Rate is a suitable alternative for these patients. ANION GAP 13 5 - 20 mmol/L 12/09/2024 12:25 PM CDT [facility] Blood BLOOD SPECIMEN / Unknown Venipuncture / Unknown 12/09/2024 11:50 AM CDT 12/09/2024 11:59 AM CDT Wanda De La Torre MD CHEMISTRY ORDERABLES Final Resu lt [facility] CLIA # [id number] [address] [place] [id number] * EKG 12-LEAD (12/09/2024 11:47 AM CDT) Narrative Wanda De La Torre MD - 12/09/2024 11:47 AM CDT Wanda De La Torre MD 12/15/2024 3:44 PM EKG 12-LEAD Date/Time: 12/09/2024 11:47 AM Performed by: Wanda De La Torre MD Authorized by: Wanda De La Torre MD ECG interpreted by ED Physician in the absence of a furniture duster: yes Rate: ECG rate: 81 ECG rate assessment: age appropriate Rhythm: Rhythm Origin: sinus [place]: QRS axis: Normal Intervals: normal QRSTT: QRSTT changes: No Comments: No TW or ST segment abnormality. Intervals appropriate. us Wanda De La Torre MD ECG ORDERABLES Final Result * US AORTA (11/23/2024 12:43 PM CDT) Anatomical Region Laterality Modality Abdomen Ultrasound 11/23/2024 12:1 4 PM CDT Narrative 11/23/2024 4:51 PM CDT [facility] Radiology Services - Noninvasive Vascular [address] [place] [id number] Noninvasive Vascular Lab Limited Abdominal Ultrasound Evaluation Patient: David Curry Study ID: [id number] Gender: M : 1955 Age: 69 Room: Height: 180.1cm Weight: 90.3kg BSA: 2.14m^2 Pt status: Study Date: 11/23/2024 Study Time: 12:14:05 PM BSA: 2.14m^2 Ordering: Wanda De La Torre Interpreting:Selvin Hopkins Stripper Soft Plastic: Michelle Saha History: Risk factors: Packs per day/years: 1.2. Summary Impression: 1. AO prox AP 2.81cm AO prox Trans 2.94 AO mid AP 3.06cm AO mid Trans 3.80cm AO dist AP 3.72cm AO dist Trans 4.66cm. 2. Study demonstrates 4.7 cm infrarenal abdominal aortic aneurysm. Recommendations: CTA angiography of the abdomen and pelvis would further characterize aortic aneurysmal disease. Study data: Limited abdominal ultrasound evaluation. Duplex scan. Height: 180.1cm. Height: 70.9in. Weight: 90.3kg. Weight: 199.1lb. BMI: 27.8kg/m^2. BSA: 2.14m^2. Aorta and systemic arteries: Abdominal aorta: The vessel is poorly visualized and calcified. There is moderate plaque. Arterial flow: Aorta distal: Aorta distal 3.72cm Prepared and Electronically Authenticated Selvin Hopkins Confirmed 11/23/2024 16:51 Procedure Note Selvin Hopkins MD - 11/23/2024 [facility] Radiology Services - Noninvasive Vascular [address] [address] Noninvasive Vascular Lab Limited Abdominal Ultrasound Evaluation Patient: David Curry Study ID: [id number] Gender: Leif : 1955 Age: 69 Room: Height: 180.1cm Weight: 90.3kg BSA: 2.14m^2 Pt status: Study Date: 11/23/2024 Study Time: 12:14:05 PM BSA: 2.14m^2 Ordering: Wanda De La Torre Interpreting:Selvin Hopkins Stripper Soft Plastic: Michelle Saha History: Risk factors: Packs per day/years: 1.2. Summary Impression: 1. AO prox AP 2.81cm AO prox Trans 2.94 AO mid AP 3.06cm AO mid Trans 3.80cm AO dist AP 3.72cm AO dist Trans 4.66cm. 2. Study demonstrates 4.7 cm infrarenal abdominal aortic aneurysm. Recommendations: CTA angiography of the abdomen and pelvis wouldfurther characterize aortic aneurysmal disease. Study data: Limited abdominal ultrasound evaluation. Duplex scan. Height: 180.1cm. Height: 70.9in. Weight: 90.3kg. Weight: 199.1lb.BMI: 27.8kg/m^2. BSA: 2.14m^2. Aorta and systemic arteries: Abdominal aorta: The vessel is poorly visualized and calcified. There is moderate plaque. Arterial flow: Aorta distal: Aorta distal 3.72cm Prepared and Electronically Authenticated Selvin Hopkins Confirmed 11/23/2024 16:51 us Wanda De La Torre MD ORDERABLES Final Result * XR HIP 2 OR 3 VIEWS LT (11/23/2024 11:00 AM CDT) Anatomical Region Laterality Modality Lower Extremity Left Computed Radiogr aphy 11/23/2024 11:0 0 AM CDT Impressions 11/23/2024 11:04 AM CDT IMPRESSION: Please see below. Exam: XR HIP 2 OR 3 VIEWS LT Date/Time of Exam: 11/23/2024 11:00 AM Reason For Exam: Pain. Diagnosis: See Reason for Exam. Comparison: None. Findings: Two views of the hip demonstrate no acute fracture or dislocation. Subchondral cystic change involving the lateral aspect of the roof of the left acetabulum. Minimal marginal osteophyte formation. No additional significant joint space loss or productive change is identified. Vascular calcification is present. Impression: 1. Negative for acute osseous abnormality. 2. Mild degenerative change of the hip. Narrative Procedure Note Richard Kapadia MD - 11/23/2024 IMPRESSION: Please see below. Exam: XR HIP 2 OR 3 VIEWS LT Date/Time of Exam: 11/23/2024 11:00 AM Reason For Exam: Pain. Diagnosis: See Reason for Exam. Comparison: None. Findings: Two views of the hip demonstrate no acute fracture or dislocation. Subchondral cystic change involving the lateral aspect of the roof of the left acetabulum. Minimal marginal osteophyte formation. No additional significant joint space loss or productive change is identified. Vascular calcification is present. Impression: 1. Negative for acute osseous abnormality. 2. Mild degenerative change of the hip. us Wanda De La Torre MD DIAGNOSTIC IMAGING ORDERABLES F inal Result * XR LUMBAR SPINE 2 OR 3 VW (11/23/2024 11:00 AM CDT) Anatomical Region Laterality Modality Spine Computed Radiogr aphy 11/23/2024 11:0 0 AM CDT Impressions 11/23/2024 11:08 AM CDT IMPRESSION: Please see below. Exam: XR LUMBAR SPINE 2 OR 3 VW Date/Time of Exam: 11/23/2024 11:00 AM Reason For Exam: Low Back Pain. Diagnosis: See Reason for Exam. Comparison: None. Findings: Three views of the lumbar spine demonstrate five non-rib bearing lumbar type vertebral bodies. Diffuse osteopenia. Status post decompression laminectomy L4. More chronic appearing mild anterior wedge deformity L1. Vertebral body height, intervertebral disc spacing, and alignment is otherwise grossly preserved. Vascular calcification is present with aneurysmal dilatation of the infrarenal abdominal aorta present. Impression: 1. Postoperative changes of decompression laminectomy L4 without radiographic evidence of acute osseous abnormalities lumbar spine. 2. Atherosclerotic disease with incidental note of aneurysmal dilatation of the abdominal aorta. Further assessment of the true diameter with cross-sectional imaging or targeted abdominal aortic ultrasound may be of benefit. Narrative Procedure Note Richard Kapadia MD - 11/23/2024 IMPRESSION: Please see below. Exam: XR LUMBAR SPINE 2 OR 3 VW Date/Time of Exam: 11/23/2024 11:00 AM Reason For Exam: Low Back Pain. Diagnosis: See Reason for Exam. Comparison: None. Findings: Three views of the lumbar spine demonstrate five non-rib bearing lumbar type vertebral bodies. Diffuse osteopenia. Status post decompression laminectomy L4. More chronic appearing mild anterior wedge deformity L1. Vertebral body height, intervertebral disc spacing, and alignment is otherwise grossly preserved. Vascular calcification is present with aneurysmal dilatation of the infrarenal abdominal aorta present. Impression: 1. Postoperative changes of decompression laminectomy L4 without radiographic evidence of acute osseous abnormalities lumbar spine. 2. Atherosclerotic disease with incidental note of aneurysmal dilatation of the abdominal aorta. Further assessment of the true diameter with cross-sectional imaging or targeted abdominal aortic ultrasound may be of benefit. us Wanda De La Torre MD DIAGNOSTIC IMAGING ORDERABLES F inal Result from Last 3 Months Insurance * Guarantor: [facility] Account Type Relation to Patient Date of Phone Billing Address Corporate Other DEFAULT ADDRESS [address] [place] * Guarantor: [facility] Account Type Relation to Patient Date of Phone [facility] Address [facility] Other DEFAULT ADDRESS [address] [employer]
[2025-02-20 10:32] VITALS: BP 127/78; PULSE 90; RESP 18; TEMP 36.5; O2SAT 98; BMI 27.8
--- NOTE | 2025-02-20 11:28 | ECG_ITS ---
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 Measurements Intervals [place] Rate: 78 P: 55 OK: 194 QRS: -31 QRSD: 105 T: 12 QT: 362 QTc: 413 Interpretive Statements SINUS RHYTHM LEFT AXIS DEVIATION [QRS AXIS < -30] SEPTAL MYOCARDIAL INFARCTION , PROBABLY OLD [40+ ms Q WAVE IN V1/V2] No previous ECG available for comparison Electronically Signed On 02-20-2025 21:54:10 CDT by Logan Bonilla M.D. [id number]
--- NOTE | 2025-02-20 11:29 | W.ED.GENADLT ---
HPI - General Adult General: Chief complaint: General Medical Stated complaint: legs and chest cramping Time Seen by Provider: 02/20/25 10:31 Source: patient Mode of arrival: ambulatory Limitations: no limitations History of Present Illness: 69-year-old male states he started a new cholesterol medicine last week he states since then he has been having body cramps been having some cramps, states chest since stopped he still having cramps down both his legs states has had reactions to meds like this in the past he denies any fevers denies any bowel or bladder incontinence Associated symptoms: Deny chest pain, dyspnea, headache(s), nausea, rash or vomiting Related Data Home Medications ?Medication ?Instructions ?Recorded ?Confirmed clopidogrel 75 mg tablet (Plavix) 75 mg PO DAILY 07/07/24 02/20/25 sitagliptin phosphate 25 mg tablet 25 mg PO DAILY 07/07/24 02/20/25 (Januvia) doxazosin 8 mg tablet (Cardura) 8 mg PO BEDTIME 10/13/24 02/20/25 meloxicam 15 mg tablet 15 mg PO DAILY 10/13/24 02/20/25 bupropion HCl 150 mg tablet,12 hr 150 mg PO BID 02/20/25 02/20/25 sustained-release (Wellbutrin SR) colestipol 1 gram tablet 2 g PO BID cholesterol 02/20/25 02/20/25 empagliflozin 25 mg tablet 25 mg PO DAILY 02/20/25 02/20/25 (Jardiance) famotidine 20 mg tablet 20 mg PO BID 02/20/25 02/20/25 glimepiride 2 mg tablet 1 mg PO QAM 02/20/25 02/20/25 lisinopril 5 mg tablet 5 mg PO DAILY 02/20/25 02/20/25 omeprazole 40 mg capsule,delayed 40 mg PO DAILY 02/20/25 02/20/25 release quinine-vitamin E capsule 1 cap PO PRN PRN leg pain 02/20/25 02/20/25 Previous Rx's ?Medication ?Instructions ?Recorded Haylee Trejo AFO #1 ea 07/07/24 rocker bottom shoes #1 ea 07/07/24 Allergies Allergy/AdvReac Type Severity Reaction Status Date / Time No Known Allergies Allergy Verified 02/20/25 10:31 Review of Systems Const: Reports: body aches; Denies: fever(s), chills or change in appetite ENMT: Denies: throat pain or dental pain Card: Denies: chest pain Resp: Denies: dyspnea GI: Denies: abdominal pain, nausea, vomiting or diarrhea : Denies: dysuria Musc: Denies: neck pain or back pain Skin/Breast: Denies: rash Neuro: Denies: headache(s) PFSH ED PFSH: Social History Smoking and tobacco/nicotine status: never used tobacco/nicotine Alcohol intake: never Substance/Drug Use: never Physical Exam Const: COMMON NORMALS: no acute distress, patient oriented x3 and healthy appearing HENMT: COMMON NORMALS: normocephalic and atraumatic HEAD & SCALP: normocephalic and atraumatic Eye: COMMON NORMALS: Equal, round and reactive pupils present and EOMs intact bilaterally PUPIL: Yes Equal, round and reactive pupils present Neck/C-Spine: COMMON NORMALS: full ROM and supple Chest: COMMONS NORMALS: normal inspection of the chest and normal palpation of entire chest wall Resp: COMMON NORMALS: normal respiratory effort, No retractions, No use of accessory muscles and clear to auscultation bilaterally AUSCULTATION: clear to auscultation bilaterally Cardio: COMMON NORMALS: regular rate, regular rhythm and No murmurs present (Cardio) RATE: regular rate RHYTHM: regular rhythm GI: COMMON NORMALS: Normal to inspection, nondistended, normoactive bowel sounds present, Soft to palpation, non-tender and no masses PALPATION: Yes Soft to palpation Extremity: COMMON NORMALS: normal to inspection and full ROM Neuro: COMMON NORMALS: patient oriented x3, moves all extremities and no focal motor deficits Psych: COMMON NORMALS: mental status grossly normal, Normal thought process present and cooperative THOUGHT PROCESS: Normal thought process present Skin: COMMON NORMALS: no rashes or lesions noted and no wounds GENERAL SKIN EXAM: no rashes or lesions noted Course Vital Signs: Vital signs: Vital Signs Temperature 97.7 F 02/20/25 10:32 Pulse Rate 71 02/20/25 15:04 Respiratory Rate 18 02/20/25 10:32 Blood Pressure 139/79 02/20/25 15:04 Pulse Oximetry 96 02/20/25 15:04 Oxygen Delivery Me thod Room Air 02/20/25 13:11 MDM - General Adult Medical Decision Making Patient presents here with cramps in his legs also had some cramping across his chest troponins here are negative no signs of ACS blood work is normal he does feel improved here he stable for discharge follow-up with PCP return if worsening he understands agrees to plan. Medical Records I reviewed the patient's medical records. Lab Data I reviewed the patient's lab results. 02/20/25 11:33 02/20/25 11:33 Radiology Impressions Chest X-Ray 02/20/25 11:56 IMPRESSION: No acute findings. Laboratory Results WBC 6.54 10^3/uL (3.29-11.43) 02/20/25 11:33 RBC 4.85 10^6/uL (3.85-5.65) 02/20/25 11:33 Hgb 15.00 g/dL (11.27-16.99) 02/20/25 11:33 Hct 44.4 % (37-53) 02/20/25 11:33 MCV 91.5 fl (82-101) 02/20/25 11:33 MCH 30.9 pg (27-33) 02/20/25 11:33 MCHC 33.8 g/dL (30-55) 02/20/25 11:33 RDW 11.9 % (12.1-15.1) L 02/20/25 11:33 Plt Count 155 10^3/cmm (157-399) L 02/20/25 11:33 MPV 10.8 fL (7.4-10.4) H 02/20/25 11:33 Neut % (Auto) 54.0 % 02/20/25 11:33 Lymph % (Auto) 34.1 % 02/20/25 11:33 [place] % (Auto) 8.3 % 02/20/25 11:33 Eos % (Auto) 2.1 % 02/20/25 11:33 Baso % (Auto) 0.9 % 02/20/25 11:33 Neut # (Auto) 3.53 10^3/uL (1.8-7.7) 02/20/25 11:33 Lymph # (Auto) 2.2 10^3/uL (0.8-4.8) 02/20/25 11:33 [place] # (Auto) 0.5 10^3/uL (0.2-0.9) 02/20/25 11:33 Eos # (Auto) 0.1 10^3/uL (0.0-0.8) 02/20/25 11:33 Baso # (Auto) 0.1 10^3/uL (0.0-0.1) 02/20/25 11:33 Nucleated RBC % (auto) 0 % 02/20/25 11:33 Nucleated RBCs # 0.0 /100WBC 02/20/25 11:33 Sodium 139 mmol/L (136-145) 02/20/25 11:33 Potassium 4.2 mmol/L (3.5-5.1) 02/20/25 11:33 Chloride 103 mmol/L (98-107) 02/20/25 11:33 Carbon Dioxide 23 mmol/L (22-29) 02/20/25 11:33 Anion Gap 17.2 (5-19) 02/20/25 11:33 BUN 17 mg/dL (8-23) 02/20/25 11:33 Creatinine 1.2 mg/dL (0.7-1.2) 02/20/25 11:33 GFR Calculation Not Reportable 02/20/25 11:33 Glucose 153 mg/dL (65-115) H 02/20/25 11:33 Calculated Osmolality 293 mOsm/kg (285-295) 02/20/25 11:33 Calcium 9.0 mg/dL (8.5-10.5) 02/20/25 11:33 Total Bilirubin 0.5 mg/dL (0.15-1.2) 02/20/25 11:33 AST 16 U/L (0-40) 02/20/25 11:33 ALT 18 U/L (0-41) 02/20/25 11:33 Alkaline Phosphatase 74 U/L (40-130) 02/20/25 11:33 Troponin T Baseline 20 ng/L (0-15) H 02/20/25 11:33 Troponin T 120 Minute 18.50 ng/L (0-15) H 02/20/25 14:01 Delta Troponin T -1.50 ABS# (0-10) L 02/20/25 14:01 Total Protein 7.0 g/dL (6.6-8.7) 02/20/25 11:33 Albumin 4.3 g/dL (3.5-5.2) 02/20/25 11:33 Globulin 2.7 g/dL (1.3-4.6) 02/20/25 11:33 All radiology interpretation(s) finalized by discharge EKG Data EKG 1: I personally reviewed and interpreted this EKG as follows: EKG interpretation date: 02/20/25 EKG interpretation time: 11:32 Interpretation: nsr hr [address] elevation qrs 105 qtc 395 Computer generated interpretation: Chest X-Ray 02/20/25 11:56 IMPRESSION: No acute findings. Discharge Plan Discharge Patient Disposition: Home Clinical Impression: Bilateral leg cramps Condition: Stable Prescriptions: No Action clopidogrel [Plavix] 75 mg tablet 75 mg PO DAILY Januvia 25 mg tablet 25 mg PO DAILY (DME) [facility] See Rx Instructions .Route .MEDSUPPLY Qty: 1 0RF Rx Instructions: As directed made by [employer] [place] (DME) winsome antonio See Rx Instructions .Route .MEDSUPPLY Qty: 1 0RF Rx Instructions: As directed made by the ravi villalta meloxicam 15 mg tablet 15 mg PO DAILY doxazosin [Cardura] 8 mg tablet 8 mg PO BEDTIME bupropion HCl [Wellbutrin SR] 150 mg Tablet Sustained-Release 12 Hr 150 mg PO BID omeprazole 40 mg Capsule,Delayed Release(Dr/Ec) 40 mg PO DAILY glimepiride 2 mg Tablet 1 mg PO QAM Rx Instructions: administer with breakfast famotidine 20 mg Tablet 20 mg PO BID lisinopril 5 mg Tablet 5 mg PO DAILY colestipol 1 gram Tablet 2 g PO BID Leg Cramp Relief Capsule 1 cap PO PRN PRN (Reason: leg pain ) Jardiance 25 mg Tablet 25 mg PO DAILY Discharge Orders: Discharge ED (Routine); Ordered 02/20/25 Ordered By: Bear Saenz Referrals: Lainey Patel MD [Primary Care Provider, Family Practice] - 4-7 days Discharge Diet: Advance as tolerated Discharge Activity: Resume usual activity Patient Instructions: Leg Cramps (ED) Print Language: Ivorian Coding Level of Care Code ED Carpenter Prototype for Chg Parvin
[2025-02-20 11:40] LABS: Hematocrit 44.4 % (37-53); Hemoglobin 15.00 g/dL (11.27-16.99); Mean Corpuscular HGB Conc 33.8 g/dL (30-55); Mean Corpuscular Hemoglobin 30.9 pg (27-33); Mean Corpuscular Volume 91.5 fl (82-101); Nucleated Red Blood Cells % 0 %; Platelet Count 155 10^3/cmm (157-399); Red Blood Count 4.85 10^6/uL (3.85-5.65); White Blood Count 6.54 10^3/uL (3.29-11.43)
[2025-02-20 11:54] LABS: Alanine Aminotransferase 18 U/L (0-41); Albumin Level 4.3 g/dL (3.5-5.2); Alkaline Phosphatase 74 U/L (40-130); Anion Gap 17.2 (5-19); Aspartate Amino Transferase 16 U/L (0-40); Blood Urea Nitrogen 17 mg/dL (8-23); Calcium 9.0 mg/dL (8.5-10.5); Carbon Dioxide 23 mmol/L (22-29); Chloride 103 mmol/L (98-107); Creatinine Clr Calc Pharmacy 65.0606; Globulin 2.7 g/dL (1.3-4.6); Glucose 153 mg/dL (65-115); Osmolality Calculated 293 mOsm/kg (285-295); Potassium 4.2 mmol/L (3.5-5.1); Sodium 139 mmol/L (136-145); Total Protein 7.0 g/dL (6.6-8.7)
--- NOTE | 2025-02-20 11:56 | XRR_ITS ---
PROCEDURE INFORMATION: Exam: XR Chest Exam date and time: 02/20/2025 12:07 PM Age: 69 years old Clinical indication: Pain; Chest pressure; Additional info: Cp TECHNIQUE: Imaging protocol: Radiologic exam of the chest. Views: 1 view. COMPARISON: RF FL barium swallow modifd [id number] 01/06/2025 10:21 AM FINDINGS: Lungs: Unremarkable. No consolidation. Pleural spaces: Unremarkable. No pleural effusion. No pneumothorax. Heart/Mediastinum: Unremarkable. No cardiomegaly. Bones/joints: Unremarkable. XR/XR chest 1V portable [id number] IMPRESSION: No acute findings.
[2025-02-20 12:10] LABS: Troponin(5th) Baseline 20 ng/L (0-15)
[2025-02-20] MEDS: piperacillin-tazobactam 3.375 GM in sodium chloride 0.9% (plus) 50 ML IV (12:58)
[2025-02-20] MEDS: morphine 4 mg/mL SDV 1 mL IVP (12:58)
[2025-02-20 13:11] VITALS: BP 139/92; PULSE 78; O2SAT 98
--- NOTE | 2025-02-20 13:53 | ECG_ITS ---
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 Measurements Intervals [place] Rate: 76 P: 58 ID: [id number] QRS: -32 QRSD: 101 T: -1 QT: 372 QTc: 420 Interpretive Statements SINUS RHYTHM LEFT AXIS DEVIATION [QRS AXIS < -30] SEPTAL MYOCARDIAL INFARCTION , PROBABLY OLD [40+ ms Q WAVE IN V1/V2] Compared to ECG 02/20/2025 11:32:35 No significant changes Electronically Signed On 02-20-2025 23:24:35 CDT by Logan Bonilla M.D. [email or web address] [id number]
[2025-02-20 14:28] LABS: Troponin 5 2HR 18.50 ng/L (0-15)
[2025-02-20 14:29] LABS: Troponin 5 2HR Delta -1.50 ABS# (0-10)
[2025-02-20 15:04] VITALS: BP 139/79; PULSE 71; O2SAT 96
== END 2025-02-20 15:06 | disposition home or self-care (01) ==
PROVIDERS: Emergency Provider Emergency Medicine; PCP Family Medicine
DX: R25.2 Cramp and spasm (principal); Z79.02 Long term (current) use of antithrombotics/antiplatelets
CPT/HCPCS: 36415; 71045; 80053; 84484; 85025; 93005; 96361; 96374; 96375; 99285; J2270; J2543; J7030; J9999

== ENCOUNTER → 2025-04-07 11:06 | Outpatient (BNVA) | payer OTHER, SELFPAY | PROVIDERS: PCP Family Medicine; Visit Provider Family Medicine | DX: E11.9 Type 2 diabetes mellitus without complications (principal); R35.1 Nocturia | CPT/HCPCS: 80053; 80061; 82043; 83036; 84153; 85025 ==

== ENCOUNTER 2025-04-26 08:35 | Outpatient (CLI) | payer OTHER, MEDICAID, SELFPAY ==
--- NOTE | 2025-04-26 09:15 | USR_ITS ---
PROCEDURE INFORMATION: Exam: US Duplex Bilateral Lower Extremity Arteries Exam date and time: 04/26/2025 8:44 AM Age: 69 years old Clinical indication: Condition or disease; Other: Claudication; Additional info: Intermittent claudication symptoms TECHNIQUE: Imaging protocol: Real-time ultrasound scan of the arteries of the bilateral lower extremities with 2-D farley scale, color Doppler flow and spectral waveform analysis. Images documented and saved. COMPARISON: CR XR ankle RT min 3V* [id number] 07/07/2024 10:01 AM FINDINGS: Right external iliac artery: Possible 50-69% diameter stenosis in right iliac arteries with a peak systolic velocity of 151 cm/sec. Otherwise, unremarkable. Right common femoral artery: No occlusion or significant stenosis. Normal waveform. Right superficial femoral artery: No occlusion or significant stenosis. Normal waveform. Right popliteal artery: No occlusion or significant stenosis. Normal waveform. Right calf/foot arteries: No occlusion or significant stenosis in the visualized arteries. Normal waveforms. Dorsalis pedis artery is patent. Left external iliac artery: Unremarkable left iliac arteries. Left common femoral artery: No occlusion or significant stenosis. Normal waveform. Left superficial femoral artery: No occlusion or significant stenosis. Normal waveform. Left popliteal artery: No occlusion or significant stenosis. Normal waveform. Left calf/foot arteries: No occlusion or significant stenosis in the visualized arteries. Normal waveforms. Dorsalis pedis artery is patent. Soft tissues: Right ankle-brachial index is slightly low at 0.83. Left ankle-brachial index is slightly low at 0.85. US/CV arterial duplex [facility] [id number] IMPRESSION: 1. Possible 50-69% diameter stenosis in right iliac arteries. 2. Mildly low ankle-brachial indices bilaterally suggests mild bilateral lower extremity arterial insufficiency, however, no other hemodynamically significant stenoses or occlusions are identified in left iliac arteries or in the main arteries of either leg. This could be due to a hemodynamically significant narrowing in the aorta.
== END 2025-04-26 08:36 | disposition home or self-care (01) ==
PROVIDERS: PCP Family Medicine; Visit Provider Family Medicine
DX: I73.9 Peripheral vascular disease, unspecified (principal)
CPT/HCPCS: 93925